=== PATIENT | female | born 1950 | race Caucasian/White ===

== ENCOUNTER 2017-07-20 09:10 | Outpatient (RCR) | payer MEDICARE, SELFPAY ==
--- NOTE | 2017-07-20 14:19 | BH.SGPN_ITS ---
Service Group Progress Note - Session Psychotherapy Session #2 Date Open:: 07/20/17 Time Started:: 10:11 Time Stopped:: 11:08 Targeted Problem #:: 1 Type of Group:: Illness Management - 5 Participants Goal of Group:: To increase understanding of fear and explore the negative impact fear of failure can have on mental health and decision making. Client Response/Progress/Benefit:: This was client?s first day in group, however client entered alert and attentive. Client appeared attentive AEB nodding along with peers and sharing her thoughts. Client connected with quote stating, ?You need to change you thinking, stinkin? thinkin?.? Client collaborated with peer?s to complete a group activity designed to test how individuals manage failure in their own lives. Client was hesitant to participate but persisted due to peer and therapist encouragement. Client was able to successfully complete activity, despite multiple setbacks. Client benefitted in group by processing what failure means and how it can impact one physically. Progress noted in her ability to participate in activity. Continued treatment necessary to reduce anxiety levels and depressive symptoms. Eye Contact:: Good Motor Activity:: Appropriate Appearance:: Casual Speech:: Appropriate Mood:: Euthymic, Anxious Affect:: Full Thoughts:: Linear, Logical, No evidence of hallucinations/delusions noted Staff Interventions:: Therapist facilitated discussion about fear and impact fear of failure can have. Therapist led group in an experiential activity in which client?s would fail numerous times throughout, but were given the opportunity to try again. Therapist led the processing of the activity and assisted clients with connecting how fear of failure impacted their decision making during the activity.
--- NOTE | 2017-07-21 11:38 | BH.SGPN_ITS ---
Service Group Progress Note - Session Psychotherapy Session #3 Date Open:: 07/20/17 Time Started:: 11:15 Time Stopped:: 12:17 Targeted Problem #:: 1 Type of Group:: Functional Skills Development - 5 participants Goal of Group:: To identify the impact fear of failure has had on the group members lives and identify strategies to overcome fear of failure. Client Response/Progress/Benefit:: Client first day in IOP program and did well to remain attentive and engage in the session. She was able to finish completing the activity begun in previous session as well as work with fellow participants on processing how various components relate back to fear of failure in daily life. Client indicated that her anxiety and fears should would let others down during the activity relates back to her own experiences in life. Client described this as stinking thinking and discussed that this is often what sets you back. Client showed progress in her comfort and willingness to engage in discussion reviewing the potential way fear of failure may be holding her back now. Client described her fear of reaching out following experiencing several losses in her life. She shared that she fears losing another support or being rejected. Client benefitted from completing the worksheet in which participants were challenged to identify ways to manage and reframe current fears. Client would do well to remain in IOP program to prevent decompensation, address depressive sx, and begin to develop strategies for challenging negative thinking patterns. Eye Contact:: Good Motor Activity:: Appropriate Appearance:: Casual Speech:: Appropriate Mood:: Euthymic, Anxious Affect:: Full Thoughts:: Linear, Logical, Other - appearing distracted by her own thoughts at times., No evidence of hallucinations/delusions noted Staff Interventions:: Therapist provided each group member with a worksheet to complete that asked questions about their experiences with fear of failure. Therapist led the processing of the worksheet, helping client?s connect how fear of failure has impacted them. Therapist provided support by using active listening and providing feedback.
--- NOTE | 2017-07-21 14:08 | BH.SGPN_ITS ---
Service Group Progress Note - Session Psychotherapy Session #1 Date Open:: 07/21/17 Time Started:: 09:07 Time Stopped:: 09:58 Targeted Problem #:: 1 Type of Group:: Process - 5 Participants Goal of Group:: The goal of today's group was to check-in with client's mood, stressors, and positives, review homework, and to introduce the topic of the day. Client Response/Progress/Benefit:: Client entered session alert and attentive. Client was a positive group member and provided support and feedback to peers. Client shared that her anxiety and depression have been worsening and she feels like she is, ?going to go off the greene and I?m so uncomfortable in my apartment.? Client elaborated and shared that she has nothing to do where she lives and feels, ?isolated and have more worries when I?m in the apartment.? Therapist processed with client the isolation and ways to reduce this by connecting her more with community resources and was receptive to this. Client indicated her emotion as anxiety and depressed. Client benefitted from group by surrounding herself with peers and using social skills. Progress noted in client ?s motivation to find supports around her. Continued treatment necessary to increase level of daily functioning. Eye Contact:: Good Motor Activity:: Appropriate Appearance:: Casual Speech:: Appropriate Mood:: Anxious, Depressed Affect:: Full Thoughts:: Linear, Logical, No evidence of hallucinations/delusions noted Staff Interventions:: Therapist used open-ended questions to elicit information about client's current stressors and mood. Therapist was supportive by using active listening and reflection.
--- NOTE | 2017-07-21 14:50 | BH.SGPN_ITS ---
Service Group Progress Note - Session Psychotherapy Session #2 Date Open:: 07/21/17 - participants Time Started:: 10:10 Time Stopped:: 11:00 Targeted Problem #:: 1 Type of Group:: Illness Management Goal of Group:: To increase understanding of a crisis and improve client?s awareness of personal warning signs before crisis. Client Response/Progress/Benefit:: Client responded well to session, active participant, providing supportive statements. Client processed the quote with peers, sharing one can either grow from bad times or get worse. Client discussed various crises with the group and gained insight on how high stress increases the likelihood of personal crisis. Client shared crisis to her is ? intrusive thoughts, no escape, never ending.? Client reported when she is in crisis she becomes panicked and overwhelmed with emotions and thoughts. Client identified increased loss of interest in things she once enjoyed as a warning sign for crisis. Client appeared to benefit from increasing awareness of what crisis is like for her as well as how stress can impact one's ability to cope with difficult times. Client progressing as shown by her increased engagement in group. Eye Contact:: Good Motor Activity:: Appropriate Appearance:: Casual Speech:: Appropriate Mood:: Depressed Affect:: Constricted Thoughts:: Linear, No evidence of hallucinations/delusions noted Staff Interventions:: Therapist facilitated group discussion about defining a crisis and specifying various events that are considered a crisis. Therapist led group in an activity in which group members had to identify their thoughts and emotions attached to being in a crisis. Therapist provided support by using active listening and providing feedback. Psychotherapy Session #3 Date Open:: 07/21/17 - participants Time Started:: 11:10 Time Stopped:: 12:05 Targeted Problem #:: 1 Type of Group:: Functional Skills Development Goal of Group:: To increase awareness of warning signs before a crisis and identify interventions/coping strategies that would help clients proactively manage potential crises. Client Response/Progress/Benefit:: Client responded well to session, participating in discussion. Client identified her top three warning signs before crisis as uncontrollable worries, loss of interest, and problems with memory. Client processed the crisis cycle and gained insight on how one's problem-solving and concentration abilities are impacted when in crisis which effects coping abilities. Client acknowledged the importance of using coping skills early to prevent crisis. Client identified coping skills to utilize such as talking to someone, doing cross words, and getting out of the house. Client created a crisis kit to remind client of positive coping skills to utilize when she recognizes warning signs. Client selected a heart, shell, feather, rock, and flower to remind client of family, peaceful places, and the outdoors. Client appeared to benefit from creating a visual reminder of healthy coping skills she can utilize to prevent crisis. Client progressing as shown by her increased insight to warning signs, but can continue to progress with identifying internal coping skills. Eye Contact:: Good Motor Activity:: Appropriate Appearance:: Casual Speech:: Soft Mood:: Depressed Affect:: Congruent Thoughts:: Linear, Other - long pauses at times when speaking., No evidence of hallucinations/delusions noted Staff Interventions:: Therapist led the group in discussion about identifying personal warning signs before a crisis and importance of being aware of those signs. Therapist provided the group with various types of items and asked each group member to select five items that represent something that would be helpful in managing their warning signs of a crisis. Therapist facilitated group processing of the crisis emergency kits each group member created. Therapist used open-ended questions to encourage elaboration of each item chosen for their kit. Therapist helped clients connect how the crisis emergency kit could help be a crisis prevention tool.
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
--- NOTE | 2017-07-23 12:29 | BH.DR.ITP ---
Initial Treatment Plan - Patient Information Visit Information: ADMISSION DATE: EXPECTED LOS: 4-6 weeks Diagnoses:: Major depressive disorder F 33.2. Generalized anxiety disorder - Problems/Symptoms Problem #1:: Depression Symptom:: Sad mood, anhedonia, decreased energy, biologic disruption of sleep, thoughts of Problem #2:: anxiety Symptom:: Rumination, panic attacks
--- NOTE | 2017-07-23 15:05 | BH.MTP_ITS ---
Master Treatment Plan - Patient Information Program Physician:: Liz Lopes Primary Therapist:: Kassidy Wilde - Psychiatric Diagnoses Psychiatric Diagnoses:: Major depressive disorder; Generalized anxiety disorder Diagnosis Code(s):: F 33.2. - Estimated LOS Estimated LOS (in weeks):: 6 Problem/Goal #1 - Problem/Goal #1 Stated Goal:: Client will reduce depressive symptoms, feelings of hopelessness, and anhedonia while increasing social supports and self-care. Description of Barriers: Client reports stressors within the last three years to be the loss of several immediate family members including her mother, sister , and brother. Client shared she has not utilized grief services to cope with the losses. Client shares her living situation exacerbates client?s depressive symptoms as client reports ?all my friends are gone and the staff keeps taking stuff away.? Client has health concerns including obstructive sleep apnea and COPD. Client reports limited social supports and estrangement from her son which client states contributes to her anxiety and depression. Client endorses difficulty concentrating, isolation, anhedonia, and poor sleep. Functional Impact: Client has been to the [place] emergency department four times since May due to anxiety and panic attacks. Client reports having panic attacks with shortness of breath, heart palpitations, and thoughts of ?I? m going crazy.? Client reports belief symptoms have been recently exacerbated by grief associated with the of several family members over the past three years as well as loss of connection with friends in her living complex. Client endorses lack of energy, poor sleep, intermittent thoughts of , isolation, depressed mood, rumination, anhedonia, and difficulty concentrating. Client reports her symptoms are interfering with client?s daily functioning and self-care. Goal Relevant Strengths/Supports: Client is kind, resilient, and reports motivation to get better. Client reports some insight to her warning signs, triggers, and negative thought patterns. Client is engaged and receptive during individual and group sessions. Client reports having some supportive people in her life, but states current difficultly with utilizing these supports. Client sees Alma Beasley for outpatient counseling and expresses interest in participating in local mental health groups. - Objectives Objective #1 Stated Objective: Client will increase her social supports, self-care, and engagement in social activities that promote a positive mood to at least one additional activity per week. Interventions: Therapist will assist client in exploring social activities, mental health support groups, and case management services that interest client. Therapist will empower client by helping client establish these connections. Therapist will explore client's self-care patterns and teach client the different strategies for self-care. Discharge Criteria: Client will have achieved this goal when she can report increased social supports and attendance to at least one social activity per week. Target Date: 08/31/17 Review Date: 08/18/17 Status: open Objective #2 Stated Objective: Client will set 1-2 small goals each week to increase self- efficacy and completion of ADLs including hygiene, house care, and attending appointments. Interventions: Therapist will assist client in creating a weekly schedule and goal sheet. Therapist will help client set SMART goals and develop strategies with client to overcome barriers. Therapist will connect client with appropriate community resources should like need additional supports in completing her ADLs. Discharge Criteria: Client will have accomplished this goal when can report increased completion of ADLs and improved energy through accomplishing 1-2 goals a week. Target Date: 08/31/17 Review Date: 08/18/17 Status: open Problem/Goal #2 - Problem/Goal #2 Stated Goal:: Client will reduce overall frequency, intensity, and duration of anxiety so that daily functioning is not impaired. Description of Barriers: Client reports stressors within the last three years to be the loss of several immediate family members including her mother, sister , and brother. Client shared she has not utilized grief services to cope with the losses. Client shares her living situation exacerbates client?s depressive symptoms as client reports ?all my friends are gone and the staff keeps taking stuff away.? Client has health concerns including obstructive sleep apnea and COPD. Client reports limited social supports and estrangement from her son which client states contributes to her anxiety and depression. Client endorses difficulty concentrating, isolation, anhedonia, and poor sleep. Functional Impact: Client has been to the [place] emergency department four times since May due to anxiety and panic attacks. Client reports having panic attacks with shortness of breath, heart palpitations, and thoughts of ?I? m going crazy.? Client reports belief symptoms have been recently exacerbated by grief associated with the of several family members over the past three years as well as loss of connection with friends in her living complex. Client endorses lack of energy, poor sleep, intermittent thoughts of , isolation, depressed mood, rumination, anhedonia, and difficulty concentrating. Client reports her symptoms are interfering with client?s daily functioning and self-care. Goal Relevant Strengths/Supports: Client is kind, resilient, and reports motivation to get better. Client reports some insight to her warning signs, triggers, and negative thought patterns. Client is engaged and receptive during individual and group sessions. Client reports having some supportive people in her life, but states current difficultly with utilizing these supports. Client sees Alma Beasley for outpatient counseling and expresses interest in participating in local mental health groups. - Objectives Objective #1 Stated Objective: Client will learn 2-3 warning signs for anxiety and 2-3 calming skills to reduce overall anxiety and manage panic symptoms. Interventions: Therapist will provide psychoeducation on anxiety including somatic symptoms, stress response, and negative thinking patterns. Therapist will utilize mindfulness and CBT strategies to teach client calming coping skills and encourage client to implement the relaxation skills daily. Discharge Criteria: Client will have achieved this goal when can verbalize at least 2 warning signs and report implementing 2 calming coping skills. Target Date: 08/31/17 Review Date: 08/18/17 Status: open
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
--- NOTE | 2017-07-23 15:05 | BH.MDN ---
Multi-Disciplinary Note - Note 45-min Individual Time Started:: 12:40 Date: 07/23/17 Purpose of session/treatment goals addressed:: The purpose of this session was to build rapport and gather information on client's current stressors, symptoms, supports, functioning, and treatment goals. Another purpose was to provide client with resources for mental health and grief support groups in the area to increase socialization. Eye Contact:: Fair Motor Activity:: Slowed Appearance:: Casual Speech:: Appropriate Mood:: Dysthymic Affect:: Constricted Thoughts:: Linear, No evidence of hallucinations/delusions noted Staff Interventions:: Therapist used active listening and open-ended questions to explore client's current stressors, symptoms, functioning, and treatment goals. Therapist provided emotional support as client spoke about the recent losses in her life. Therapist explored client's support system and provided client with area resources for mental health, case management, and grief support. Therapist used strengths perspective to build rapport and empower client. Client Response:: Client open to meeting with therapist, engaged throughout. Client reported she came to [facility] after being referred from her outpatient therapist. Client stated her therapist thought I needed an extra boost. Client has been to the [facility] ER four times since the end of May for anxiety and panic. Client reports feeling anxious nearly every day for most of the day which client describes as it's like I'm going crazy. Client shared her sleep has been poor and client's living situation is contributing to her depressed mood. Client stated, all my friends are gone and the new owners took away the kitchen area. Client reports she has negative thoughts, feelings of hopelessness, isolation, rumination, lack of concentration, and loss of interest. Client shared she has not been cleaning, visiting with friends, or doing crosswords which are all things client reports doing when she is not depressed. Client stated in the last three years she has lost her mother, sister, brother, and [id number]. Additionally, client reports she has an estranged relationship with her son and does not see her daughter. Client shared she had never received grief services and reports she has few social supports. Client was receptive to information given regarding local support groups as shown by her reported willingness to follow up with therapist's help. Risks/Concerns:: Client reports having passive thoughts of about a week ago, denies plan or intent as of 07/23/17. Client identifies her druze and motivation to get better as protective factors. Client reports ability to maintain safety. Progress Toward Goals/Plan:: Progress limited as it is client's first week in IOP. Client reports a depressed mood, daily anxiety which often results in panic, and numerous recent losses. Client identified her treatment goals as reducing anxiety and depression and increasing self-care. Client expressed interest in case management and grief support groups. Client to continue IOP to prevent decompensation and promote mood stability. Time Stopped:: 13:25
--- NOTE | 2017-07-23 15:37 | BH.SGPN ---
Service Group Progress Note - Session Psychotherapy Session #1 Date Open:: 07/23/17 Time Started:: 09:06 Time Stopped:: 09:58 Targeted Problem #:: 1 Type of Group:: Process Goal of Group:: The goal of today's group was to check-in with client's mood, stressors, and positives, review homework and introduce topic for the day. Client Response/Progress/Benefit:: Client reported her anxiety and depression are off the roof. Shared her anxiety is making it extremely difficult for her to sleep because her thoughts continue to race. Shared she is having a really hard time with her current living situation since his living has moved into her building because assisted living has taken a lot of the spacing that her apartment complex use to utilize to have bingo and other social events. Client feeling quite isolated in her current situation but the same time does not do much to get out of the house to increase her social activity. Seemed to benefit from expressing thoughts and emotions. Progress may be hindered by client continuing to engage in isolated behaviors and not put herself out there to find other social activities she could engage in. Eye Contact:: Fair Motor Activity:: Appropriate Appearance:: Casual Speech:: Appropriate Mood:: Anxious, Depressed Thoughts:: Linear, Logical, No evidence of hallucinations/delusions noted Staff Interventions:: Therapist used open-ended questions to elicit information about client's current stressors and mood state. Therapist was supportive by using active listening and reflection.
--- NOTE | 2017-07-23 16:31 | BH.SGPN ---
Service Group Progress Note - Session Psychotherapy Session #2 Date Open:: 07/23/17 Time Started:: 11:17 Time Stopped:: 12:16 Targeted Problem #:: 1 Type of Group:: Functional Skills Development - 3 participants Goal of Group:: The goal of this session was to create a 30 day action plan that provides small goals that work towards taking action on one thing they would like to take back control over. Staff Interventions:: Therapist provided materials and guidance to help clients create a 30 day action plan. Therapist provided support by giving feedback and using active listening.
--- NOTE | 2017-07-24 12:29 | BH.SGPN ---
Service Group Progress Note - Session Psychotherapy Session #1 Date Open:: 07/24/17 Time Started:: 09:05 Time Stopped:: 10:00 Targeted Problem #:: 1 Type of Group:: Process Goal of Group:: The goal of today's group was to check-in with client's mood, stressors, and positives, review homework and introduce topic for the day. Client Response/Progress/Benefit:: Client reported she is continuing to struggle with feeling anxiety and depression. Shared she had to go fill out some paperwork the other day and was anxious the entire time she was out of her apartment. However she shared she does not really like to be in apartment because it also increases her depression. Client talked about not really having a place to go because of assisted living has taken a lot of the parts where the apartment complex used to do social events. Client seems to be struggling with generalizing that healthy coping skills and continues to isolate. Eye Contact:: Fair Motor Activity:: Appropriate Appearance:: Casual Speech:: Appropriate Mood:: Anxious, Depressed Affect:: Constricted Thoughts:: Linear, Logical, No evidence of hallucinations/delusions noted Staff Interventions:: Therapist used open-ended questions to elicit information about client's current stressors and mood state. Therapist was supportive by using active listening and reflection.
--- NOTE | 2017-07-24 14:22 | BH.SGPN_ITS ---
Service Group Progress Note - Session Psychotherapy Session #2 Date Open:: 07/24/17 - 6 participants Time Started:: 10:17 Time Stopped:: 11:13 Targeted Problem #:: 1 Type of Group:: Illness Management Goal of Group:: To increase understanding and awareness of emotions connected to change and the impact those emotions can have on change. Client Response/Progress/Benefit:: Client responded well to session, quiet, but participating when prompted by therapist. Client appeared to connect with the quote nodding to peers? comments ?there?s no right time for change.? Client able to identify emotions associated with making change such as confidence, fear , and being overwhelmed. Client stated ?you need to have confidence to make changes.? Client processed with the group how ambivalence, denial, and lack of acceptance can hinder one?s willingness to make changes. Client appeared to benefit from increasing awareness of the emotions associated with making change and how these emotions impact thoughts and behaviors. Client progressing as evidenced by her increased engagement in group, but can continue to benefit from increasing her socialization outside of group. Eye Contact:: Good Motor Activity:: Appropriate Appearance:: Disheveled - hygiene poor Speech:: Appropriate, Soft Mood:: Dysthymic Affect:: Congruent Thoughts:: Linear, Other - client appeared to struggle with formulating thoughts at times as evidenced by her delayed responses., No evidence of hallucinations/delusions noted Staff Interventions:: Therapist facilitated group discussion about change. Therapist led the group in an activity in which the activity was utilized as a tool to increase client?s awareness of emotions connected with change. Therapist led the processing of how each emotion was associated with change. Therapist also educated clients on the stages of change and discussed emotions associated with each stage. Therapist was supportive by providing feedback and using reflective listening.
--- NOTE | 2017-07-24 14:27 | BH.COMM ---
Communication Note - Communication with Client Communication Note: Therapist provided client with information on [facility] and case management as client had expressed interest in increasing her socialization. Therapist and client agreed to meet individually on 07/28/17.
--- NOTE | 2017-07-28 11:19 | BH.SGPN ---
Service Group Progress Note - Session Psychotherapy Session #1 Date Open:: 07/28/17 Time Started:: 09:01 Time Stopped:: 09:58 Targeted Problem #:: 1 Type of Group:: Process - 7 participants. Goal of Group:: The goal of today's group was to check-in with client's mood, stressors, and positives, review homework and introduce topic for the day. Client Response/Progress/Benefit:: Client attentive and actively engaged in session. She discussed having had a quiet weekend however indicated frustration regarding ongoing struggles with managing her symptoms of anxiety and depression. She shared taking a trip to the grocery store the previous day which had felt extremely overwhelming and exhausted her to the point that she was unable to put her groceries away upon arriving home. Client went on to report feeling as though indication is not correct and wanting an increase in anti-anxiety. Client appears to have little insight into alternative strategies for managing symptoms of anxiety and depression outside of medication and would benefit from ongoing IOP treatment in order to increase awareness and levels of insight regarding healthy coping skills. Progress made in clients receptiveness of trying alternative strategies for managing her symptoms before returning to focusing on medication alone. Client appeared to benefit from information shared as fellow participants processed as she indicated connecting with other participants frustrations in feeling as through regarding their mental health. Eye Contact:: Fair Motor Activity:: Appropriate Appearance:: Casual Speech:: Appropriate Mood:: Anxious, Dysthymic Affect:: Congruent Thoughts:: Linear, Logical, No evidence of hallucinations/delusions noted Staff Interventions:: Therapist used open-ended questions to elicit information about client's current stressors and mood state. Therapist was supportive by using active listening and reflection.
--- NOTE | 2017-07-28 14:36 | BH.SGPN_ITS ---
Service Group Progress Note - Session Psychotherapy Session #2 Date Open:: 07/28/17 Time Started:: 10:10 Time Stopped:: 11:04 Targeted Problem #:: 1 Type of Group:: Illness Management - 7 Participants Goal of Group:: To increase understanding of mindfulness and explore the benefits of mindfulness and what thoughts are prohibiting group members from staying in the here and now. Client Response/Progress/Benefit:: Client entered session alert, attentive, and willing to engage. Client was an active participant in group. Client participated in group discussion about the difficulties of staying in the present moment. Client participated in group activity designed to reduce negative thoughts and current stressors. Client completed stressor worksheet and identified various stressors including, ?having no supports, loneliness, fear, depression, confusion, and anger.? Client went on to share that her children either were no longer in contact with her or moved far away and missed the connection with others. Client benefitted from group by identifying current stressors in life and the impact they have on daily functioning. Progress noted in client?s increased awareness of stressors. Continued treatment necessary to decrease levels of anxiety. Eye Contact:: Good Motor Activity:: Appropriate Appearance:: Casual Speech:: Appropriate Mood:: Euthymic Affect:: Full Thoughts:: Linear, Logical, No evidence of hallucinations/delusions noted Staff Interventions:: Therapist facilitated discussion about mindfulness and benefits mindfulness practice can have. Therapist led group in an experiential activity designed to reduce negative thoughts and worries and bring client into the present moment and practice techniques designed to reduce anxiety and stress. Therapist provided a worksheet to complete that asked questions about possible stressor and overwhelming thoughts that take up their attention. Therapist led in the processing of the activity, worksheet, and assisted client in connecting how when faced with overwhelming thoughts or negative self-talk and the impact it has to daily functioning. Psychotherapy Session #3 Date Open:: 07/28/17 Time Started:: 11:10 Time Stopped:: 12:05 Targeted Problem #:: 1 Type of Group:: Functional Skills Development - 7 Participants Goal of Group:: To identify the impact that negative thinking patterns has had on group members lives and how using mindfulness techniques and coping strategies can assist group members in managing overwhelming thoughts and feelings. Client Response/Progress/Benefit:: Client was alert, attentive, and willing to engage. Client was a good contributor to group and provided support to peers. Client participated in group discussion about coping strategies to use to bring client back to the here and now. Client created a mindfulness kit and chose a shell for the beach, a pink heart and elephant to remind her of her family and a pebble for the water. Client created a stress ball and identified the coping strategies she would use to decrease her worries as, ?grandkids names, two stars , figure 8 breathing, and 3 crosses.? Client benefitted from creating a mindfulness to that includes tangible items that can help client to remember to use positive skills that can be helpful to her identifying ruminating thoughts. Progress noted in client?s ability to identify coping skills that are beneficial to her stressors. Continued treatment necessary to increase daily functioning and connect with supports. Eye Contact:: Good Motor Activity:: Appropriate Appearance:: Casual Speech:: Appropriate Mood:: Euthymic Affect:: Full Thoughts:: Linear, Logical, No evidence of hallucinations/delusions noted Staff Interventions:: Therapist discussed varying coping strategies to use to reduce ruminating thoughts. Therapist provided each group member with various types of items and asked each member to select five items that represent something that would be helpful in creating awareness of warning signs and that will assist in bringing clients back to present moment. Therapist facilitated group processing of the mindfulness kits that each group member created. Therapist used open-ended questions to encourage elaboration of each time chosen for their kits. Therapist helped clients connect how the mindfulness kits can be used as a prevention tool and reminder to use mindfulness strategies.
--- NOTE | 2017-07-28 15:13 | BH.COMM ---
Communication Note - Communication with Client Communication Note: This therapist attempted to call client's outpatient provider, Alma Beasley, for continuity of care purposes. Therapist unable to reach provider and left a message.
--- NOTE | 2017-07-29 10:24 | BH.SGPN ---
Service Group Progress Note - Session Psychotherapy Session #1 Date Open:: 07/29/17 - 7 group members Time Started:: 08:57 Time Stopped:: 10:07 Targeted Problem #:: 1 Type of Group:: Process Goal of Group:: The goal of today's group was to check-in with client's mood, stressors, and positives, review homework and introduce topic for the day. Client Response/Progress/Benefit:: Client responded somewhat well to session, active participant, but appearing distracted at times. Client reports feeling depressed and anxious today, however, client unable to identify a trigger. Client shared she got a full night's sleep which client identified as a positive. Client stated she can try to clean her apartment and run some errands today to reduce anxiety and depression. Client appeared to benefit from discussing her challenges with peers and problem-solving ways to combat her negative emotions. Client seems to be progressing with improved sleep, but continues to struggle with identifying triggers for her symptoms. Eye Contact:: Fair - staring at the floor Motor Activity:: Slowed Appearance:: Casual Speech:: Soft Mood:: Dysthymic Affect:: Flat - tearful Thoughts:: Linear, No evidence of hallucinations/delusions noted Staff Interventions:: Therapist used open-ended questions to elicit information about client's current stressors and mood state. Therapist was supportive by using active listening and reflection.
--- NOTE | 2017-07-29 15:26 | BH.MDN ---
Multi-Disciplinary Note - Note 45-min Individual Time Started:: 11:25 Date: 07/29/17 Purpose of session/treatment goals addressed:: The purpose of this session was to address client's current stressors, symptoms, and functioning. Another goal was to establish small goals to increase daily activities and medication compliance. Other topics included: social supports and negative maintenance cycles. Eye Contact:: Fair Motor Activity:: Slowed Appearance:: Casual - hair appeared washed clothes were clean. Speech:: Rambling Mood:: Dysthymic Affect:: Congruent Thoughts:: Other - Client appeared to have difficulty formulating her thoughts at times and stated she is having challenges with memory., No evidence of hallucinations/delusions noted Staff Interventions:: Therapist used open-ended questions and active listening to explore client's stressors, symptoms, and functioning. Therapist helped client develop small goals for tonight and tomorrow to increase medication compliance, completion of household tasks, and self-care. Therapist provided client community resources for social supports and case management. Therapist used motivational interviewing techniques to elicit change talk. Therapist educated client on the depression maintenance cycle and discussed ways to break the cycle. Therapist gave client homework aimed to increase medication compliance and self-efficacy. Client Response:: Client open to meeting with therapist, reporting some difficulty with formulating thoughts. Client shared she feels increased anxiety and depression today which client contributes to missing a day of her medication for medical conditions. Client stated, I just feel so shaky. Client was receptive to creating a tool to remind client to take medications. Client shared she will record when the times she takes her medications and this therapist will provide accountability by signing the paper. Client reported last night she was proud of herself as client cleaned some of her apartment, attended [employer] study, and spent time with a friend. Client reported her housing and lack of supports continue to be an ongoing stressor and contributor for depression. Client shared when she is active it reduces her anxiety and depression. Client was receptive to the community resources provided by therapist, sharing she is interested in attending the community center for [employer] activities. However, client shared her depressive symptoms are a barrier as she has reduced motivation. Client responded well to discussion of maintenance cycles and utilizing opposite action. Client identified cleaning 5 dishes and watching a show she enjoys as her goal for the evening to increase self-care and completion of ADLs. Client agreed to follow up with therapist on her goals and medication recording. Risks/Concerns:: Client denies suicidal ideation, plan, and intent as of 07/29/17. Client reports she is motivated to get better which demonstrates future orientation. Progress Toward Goals/Plan:: Client showing mild progress towards treatment goals as client reported she cleaned part of her apartment last night and attend bible study. Client reports increased anxiety today which client contributes to missing a day of medications. Client to continue IOP to promote mood stability, increase socialization, and promote medication management. Client to record when she takes her medications and follow up with IOP therapist. Time Stopped:: 12:12
--- NOTE | 2017-07-29 16:06 | BH.SGPN ---
Service Group Progress Note - Session Psychotherapy Session #2 Date Open:: 07/29/17 Time Started:: 10:20 Time Stopped:: 11:10 Targeted Problem #:: 1 Type of Group:: Illness Management - 7 participants Goal of Group:: To increase understanding of what strengths are and identify individual strengths. Client Response/Progress/Benefit:: Client willing to attend session and was a semi-active participant throughout. She did well to engage in the activity portion of the session; however, appeared to have some difficulties in following the discussion identifying personal strengths. Client quiet throughout most of the session however with encouragement did well to identify a personal strength of trying to figure out what all I need to do. Client appeared to benefit from participating in the activity portion of session as she more openly interacted with the group and was smiling on several occassions. CLient displaying some progress in her ability to engage in the session. Encouraged further IOP services to continue to maintain stability and identify potential strategies for identifying and managing symptoms of anxiety and depression. Eye Contact:: Fair Motor Activity:: Appropriate Appearance:: Casual Speech:: Appropriate Mood:: Euthymic, Anxious Affect:: Constricted Thoughts:: Linear, Logical, Other - at times appearing to have difficulties in following group discussion, No evidence of hallucinations/delusions noted Staff Interventions:: Therapist facilitated discussion about what are strengths and assisted group members in identifying examples of strengths. Therapist led an activity in which group members were given the opportunity to identify five personal strengths and how not utilizing these strengths may prevent progress and successful management of mental health symptoms. Therapist assisted clients in connecting the importance of recognizing personal strengths in order to most effectively manage mental health symptoms.
--- NOTE | 2017-07-29 16:09 | BH.MDN_ITS ---
Multi-Disciplinary Note - Note 45-min Individual Time Started:: 11:25 Date: 07/29/17 Purpose of session/treatment goals addressed:: The purpose of this session was to address client's current stressors, symptoms, and functioning. Another goal was to establish small goals to increase daily activities and medication compliance. Other topics included: social supports and negative maintenance cycles. Eye Contact:: Fair Motor Activity:: Slowed Appearance:: Casual - hair appeared washed clothes were clean. Speech:: Rambling Mood:: Dysthymic Affect:: Congruent Thoughts:: Other - Client appeared to have difficulty formulating her thoughts at times and stated she is having challenges with memory., No evidence of hallucinations/delusions noted Staff Interventions:: Therapist used open-ended questions and active listening to explore client's stressors, symptoms, and functioning. Therapist helped client develop small goals for tonight and tomorrow to increase medication compliance, completion of household tasks, and self-care. Therapist provided client community resources for social supports and case management. Therapist used motivational interviewing techniques to elicit change talk. Therapist educated client on the depression maintenance cycle and discussed ways to break the cycle. Therapist gave client homework aimed to increase medication compliance and self-efficacy. Client Response:: Client open to meeting with therapist, reporting some difficulty with formulating thoughts. Client shared she feels increased anxiety and depression today which client contributes to missing a day of her medication for medical conditions. Client stated, I just feel so shaky. Client was receptive to creating a tool to remind client to take medications. Client shared she will record when the times she takes her medications and this therapist will provide accountability by signing the paper. Client reported last night she was proud of herself as client cleaned some of her apartment, attended [id number] study, and spent time with a friend. Client reported her housing and lack of supports continue to be an ongoing stressor and contributor for depression. Client shared when she is active it reduces her anxiety and depression. Client was receptive to the community resources provided by therapist, sharing she is interested in attending the community center for [employer] activities. However, client shared her depressive symptoms are a barrier as she has reduced motivation. Client responded well to discussion of maintenance cycles and utilizing opposite action. Client identified cleaning 5 dishes and watching a show she enjoys as her goal for the evening to increase self-care and completion of ADLs. Client agreed to follow up with therapist on her goals and medication recording. Risks/Concerns:: Client denies suicidal ideation, plan, and intent as of . Client reports she is motivated to get better which demonstrates future orientation. Progress Toward Goals/Plan:: Client showing mild progress towards treatment goals as client reported she cleaned part of her apartment last night and attend bible study. Client reports increased anxiety today which client contributes to missing a day of medications. Client to continue IOP to promote mood stability, increase socialization, and promote medication management. Client to record when she takes her medications and follow up with IOP therapist. Time Stopped:: 12:12
--- NOTE | 2017-07-30 10:31 | BH.SGPN_ITS ---
Service Group Progress Note - Session Psychotherapy Session #1 Date Open:: 07/30/17 - 6 group members Time Started:: 09:04 Time Stopped:: 10:00 Targeted Problem #:: 1 Type of Group:: Process Goal of Group:: The goal of today's group was to check-in with client's mood, stressors, and positives, review homework and introduce topic for the day. Client Response/Progress/Benefit:: Client responded well to session, quiet, but participating when prompted by therapist. Client reports feeling ?shaky? today as client had a restless night and had unexpected events happen this morning. Client able to challenge negative thoughts and identify a positive for the day as client shared ?I came to group even though I was upset so that?s good.? Client appeared to benefit from receiving emotional and social support from peers. Client progressing as evidenced by her consistent attendance despite feelings of depression and anxiety, but can continue to benefit from increased socialization outside of group. Eye Contact:: Poor Motor Activity:: Slowed Appearance:: Disheveled Speech:: Soft Mood:: Dysthymic Affect:: Constricted Thoughts:: Linear, No evidence of hallucinations/delusions noted Staff Interventions:: Therapist used open-ended questions to elicit information about client's current stressors and mood state. Therapist was supportive by using active listening and reflection.
--- NOTE | 2017-07-31 10:25 | BH.COMM ---
Communication Note - Communication with Client Communication Note: Client called to report she was unable to make it to her IOP group session today due to illness. Client reports plan to attend group 08/03/17.
--- NOTE | 2017-08-03 13:52 | BH.SGPN ---
Service Group Progress Note - Session Psychotherapy Session #2 Date Open:: 08/03/17 - 7 group members Time Started:: 10:11 Time Stopped:: 11:03 Targeted Problem #:: 1 Type of Group:: Illness Management Goal of Group:: The goal of group was to increase understanding of the benefits social support provides in mental health wellness. Another goal was to increase self-awareness of the barriers that prevent client to seeking support or utilizing the support they have. Client Response/Progress/Benefit:: Client responded well to session, active participant. Client connected with the quote sharing you need supports to balance you. Client shared her support system is smaller than it was in the past, but she finds support from [facility], scientology, and a few friends. Client reported some of my supports dont try to reach out to me, so I dont reach out to them. Client able to identify this as a barrier that could hinder progress. Client appeared to benefit from increasing awareness of the benefits of social support as well as identifying barriers. Client progressing as shown by her increased engagement in group and reduced isolation. However, client continues to struggle with maintaining a routine on days she is not at IOP which increases anxiety and depression. Eye Contact:: Fair Motor Activity:: Slowed Appearance:: Disheveled Speech:: Soft Mood:: Dysthymic Affect:: Congruent Thoughts:: Linear, No evidence of hallucinations/delusions noted Staff Interventions:: Therapist led a group discussion about importance of social supports. Therapist facilitated an activity that required the group members to utilize support from each other. Therapist utilized the activity as a tool to connect the importance of accepting social support. Therapist provided support through reflective listening and giving feedback. Psychotherapy Session #3 Date Open:: 08/03/17 - 7 group members Time Started:: 11:13 Time Stopped:: 12:05 Targeted Problem #:: 1 Type of Group:: Functional Skills Development Goal of Group:: The goal of group was to increase understanding of the different types of social support. Another goal was to identify one type of support the clients desire and establish one small step towards achieving that support. Client Response/Progress/Benefit:: Client responded well to session, engaged but quiet at times. Client helped the group identify different types of support and how each type can positive impact mental health. Client shared she currently uses spiritual and professional social supports, but client would like to increase her personal supports. Client stated she would like to feel connected with friends again as clients change in living reduced her supports in the past. Client identified strategies to strengthen this support such as setting boundaries with unhealthy supports and going to the community center to play games. Client appeared to benefit from increasing awareness of the type of support she can strengthen. Client progressing as shown by her report of reduced isolation, but continues to report low motivation and energy keep client from joining support groups which may hinder progress. Eye Contact:: Good Motor Activity:: Slowed Appearance:: Disheveled Speech:: Soft Mood:: Dysthymic Affect:: Constricted Thoughts:: Linear, No evidence of hallucinations/delusions noted Staff Interventions:: Therapist facilitated group discussion on the different types of social support and importance of each type of support. A social support worksheet, was utilized to give clients direction in identifying which type of support they desired, how it will help, and identifying the first small step towards the desired support. Therapist provided homework for each group member to try and accomplish the one small step each group member identified on the worksheet.
--- NOTE | 2017-08-03 13:56 | BH.SGPN_ITS ---
Service Group Progress Note - Session Psychotherapy Session #2 Date Open:: 08/03/17 - 7 group members Time Started:: 10:11 Time Stopped:: 11:03 Targeted Problem #:: 1 Type of Group:: Illness Management Goal of Group:: The goal of group was to increase understanding of the benefits social support provides in mental health wellness. Another goal was to increase self-awareness of the barriers that prevent client to seeking support or utilizing the support they have. Client Response/Progress/Benefit:: Client responded well to session, active participant. Client connected with the quote sharing you need supports to balance you.? Client shared her support system is smaller than it was in the past, but she finds support from [facility], oriental orthodox, and a few friends. Client reported ?some of my supports don?t try to reach out to me, so I don?t reach out to them.? Client able to identify this as a barrier that could hinder progress. Client appeared to benefit from increasing awareness of the benefits of social support as well as identifying barriers. Client progressing as shown by her increased engagement in group and reduced isolation. However, client continues to struggle with maintaining a routine on days she is not at IOP which increases anxiety and depression. Eye Contact:: Fair Motor Activity:: Slowed Appearance:: Disheveled Speech:: Soft Mood:: Dysthymic Affect:: Congruent Thoughts:: Linear, No evidence of hallucinations/delusions noted Staff Interventions:: Therapist led a group discussion about importance of social supports. Therapist facilitated an activity that required the group members to utilize support from each other. Therapist utilized the activity as a tool to connect the importance of accepting social support. Therapist provided support through reflective listening and giving feedback. Psychotherapy Session #3 Date Open:: 08/03/17 - 7 group members Time Started:: 11:13 Time Stopped:: 12:05 Targeted Problem #:: 1 Type of Group:: Functional Skills Development Goal of Group:: The goal of group was to increase understanding of the different types of social support. Another goal was to identify one type of support the client?s desire and establish one small step towards achieving that support. Client Response/Progress/Benefit:: Client responded well to session, engaged but quiet at times. Client helped the group identify different types of support and how each type can positive impact mental health. Client shared she currently uses spiritual and professional social supports, but client would like to increase her personal supports. Client stated she would like to feel connected with friends again as client?s change in living reduced her supports in the past. Client identified strategies to strengthen this support such as setting boundaries with unhealthy supports and going to the community center to play games. Client appeared to benefit from increasing awareness of the type of support she can strengthen. Client progressing as shown by her report of reduced isolation, but continues to report low motivation and energy keep client from joining support groups which may hinder progress. Eye Contact:: Good Motor Activity:: Slowed Appearance:: Disheveled Speech:: Soft Mood:: Dysthymic Affect:: Constricted Thoughts:: Linear, No evidence of hallucinations/delusions noted Staff Interventions:: Therapist facilitated group discussion on the different types of social support and importance of each type of support. A social support worksheet, was utilized to give clients direction in identifying which type of support they desired, how it will help, and identifying the first small step towards the desired support. Therapist provided homework for each group member to try and accomplish the one small step each group member identified on the worksheet.
--- NOTE | 2017-08-03 14:38 | BH.SGPN ---
Service Group Progress Note - Session Psychotherapy Session #1 Date Open:: 08/03/17 Time Started:: 09:06 Time Stopped:: 10:00 Targeted Problem #:: 1 Type of Group:: Process - 7 Participants Goal of Group:: The goal of today's group was to check-in with client's mood, stressors, and positives, review homework, and to introduce the topic of the day. Client Response/Progress/Benefit:: Client entered session alert and attentive. Client reported, the past few days the anxiety has been bad. She shared how it was difficult for her to stay in sikh due to the anxiety but forced herself to do it. When asked what she has done to manage anxiety she reported, Oh, I try to keep busy but I didnt handle it well. I start itching all over. Client also reported having no support system to turn to. Client indicated her emotion as, my anxiety is up the wall. Client benefitted from group from increased social interaction and support from peers. Limited progress noted due to clients ability to complete some daily activities despite high anxiety, however client appears unwilling to try to increase supports. Continued treatment necessary to implement coping strategies and decrease anxiety levels. Eye Contact:: Good Motor Activity:: Appropriate Appearance:: Casual Speech:: Appropriate Mood:: Euthymic, Anxious Affect:: Congruent Thoughts:: Linear, Logical, No evidence of hallucinations/delusions noted Staff Interventions:: Therapist used open-ended questions to elicit information about client's current stressors and mood. Therapist was supportive by using active listening and reflection.
--- NOTE | 2017-08-03 14:42 | BH.SGPN_ITS ---
Service Group Progress Note - Session Psychotherapy Session #1 Date Open:: 08/03/17 Time Started:: 09:06 Time Stopped:: 10:00 Targeted Problem #:: 1 Type of Group:: Process - 7 Participants Goal of Group:: The goal of today's group was to check-in with client's mood, stressors, and positives, review homework, and to introduce the topic of the day. Client Response/Progress/Benefit:: Client entered session alert and attentive. Client reported, ?the past few days the anxiety has been bad.? She shared how it was difficult for her to stay in congregation due to the anxiety but forced herself to do it. When asked what she has done to manage anxiety she reported, ? Oh, I try to keep busy but I didn?t handle it well. I start itching all over.? Client also reported having no support system to turn to. Client indicated her emotion as, ?my anxiety is up the wall.? Client benefitted from group from increased social interaction and support from peers. Limited progress noted due to client?s ability to complete some daily activities despite high anxiety, however client appears unwilling to try to increase supports. Continued treatment necessary to implement coping strategies and decrease anxiety levels. Eye Contact:: Good Motor Activity:: Appropriate Appearance:: Casual Speech:: Appropriate Mood:: Euthymic, Anxious Affect:: Congruent Thoughts:: Linear, Logical, No evidence of hallucinations/delusions noted Staff Interventions:: Therapist used open-ended questions to elicit information about client's current stressors and mood. Therapist was supportive by using active listening and reflection.
--- NOTE | 2017-08-04 11:19 | BH.MDN ---
Multi-Disciplinary Note - Note 30-min Individual Time Started:: 09:05 Date: 08/04/17 Purpose of session/treatment goals addressed:: The purpose of this session was to address client's current stressors, symptoms, and use of social supports. Another goal was to explore client's motivation for change and areas of progress. Eye Contact:: Good Motor Activity:: Appropriate Appearance:: Disheveled - hair appeared unclean Speech:: Soft Mood:: Dysthymic Affect:: Congruent Thoughts:: Linear, No evidence of hallucinations/delusions noted Staff Interventions:: Therapist used active listening and open-ended questions to explore client's current symptoms, stressors, and use of social supports. Therapist used scaling questions to explore client's motivation for change and addressed barriers keeping client from making changes. Therapist used strengths-perspective to reflect on client progress and identify positives. Therapist provided client with homework to assess interest level in community activities and help client practice acknowledging positives. Client Response:: Client responded well to session, engaged throughout. Client reported belief group has helped client reduce anxiety as client stated, I feel comfortable here and I like being able to talk to people who get it. Client shared she continues to experience high anxiety and depression on the weekends and on days client does not attend group. Client and therapist discussed coping skills, supports, and activities client can engage in to reduce anxiety on those days. Client reported she can go get coffee, read her bible, and go to the grocery store. Client stated it is hard for her to identify triggers and warning signs for her anxiety, but client shared normally if I'm doing something it goes away. Client acknowledged she could use additional social support and expressed interest in grief support groups. However, client reported anxiety is a barrier to her seeking this help as client shared it's a new experience and I don't know how it will go. Client responded well to therapist reflecting on times when client had positive outcomes from new experiences. Client stated, coming here ended up being positive. Client asked therapist to contact her outpatient provider to determine client's next appointment time. Risks/Concerns:: Client denies suicidal ideation, plan, and intent as of 08/04/17. Client reports coming to group and holiness as protective factors. Progress Toward Goals/Plan:: Client showing mild progress towards treatment goals as client reports symptom reduction on days client attends IOP, but continues to experience low energy, anhedonia, and isolation outside of group. Client appears to be benefitting from peer connections at IOP, but reports reluctance to participate in community mental health programs. Client to continue IOP to prevent decompensation and promote social supports. Client to follow up on outpatient counseling and complete homework given by therapist. Time Stopped:: 09:36
--- NOTE | 2017-08-04 11:46 | BH.MDN_ITS ---
Multi-Disciplinary Note - Note 30-min Individual Time Started:: 09:05 Date: 08/04/17 Purpose of session/treatment goals addressed:: The purpose of this session was to address client's current stressors, symptoms, and use of social supports. Another goal was to explore client's motivation for change and areas of progress. Eye Contact:: Good Motor Activity:: Appropriate Appearance:: Disheveled - hair appeared unclean Speech:: Soft Mood:: Dysthymic Affect:: Congruent Thoughts:: Linear, No evidence of hallucinations/delusions noted Staff Interventions:: Therapist used active listening and open-ended questions to explore client's current symptoms, stressors, and use of social supports. Therapist used scaling questions to explore client's motivation for change and addressed barriers keeping client from making changes. Therapist used strengths- perspective to reflect on client progress and identify positives. Therapist provided client with homework to assess interest level in community activities and help client practice acknowledging positives. Client Response:: Client responded well to session, engaged throughout. Client reported belief group has helped client reduce anxiety as client stated, I feel comfortable here and I like being able to talk to people who get it. Client shared she continues to experience high anxiety and depression on the weekends and on days client does not attend group. Client and therapist discussed coping skills, supports, and activities client can engage in to reduce anxiety on those days. Client reported she can go get coffee, read her bible, and go to the grocery store. Client stated it is hard for her to identify triggers and warning signs for her anxiety, but client shared normally if I'm doing something it goes away. Client acknowledged she could use additional social support and expressed interest in grief support groups. However, client reported anxiety is a barrier to her seeking this help as client shared it's a new experience and I don't know how it will go. Client responded well to therapist reflecting on times when client had positive outcomes from new experiences. Client stated, coming here ended up being positive. Client asked therapist to contact her outpatient provider to determine client's next appointment time. Risks/Concerns:: Client denies suicidal ideation, plan, and intent as of . Client reports coming to group and anabaptism as protective factors. Progress Toward Goals/Plan:: Client showing mild progress towards treatment goals as client reports symptom reduction on days client attends IOP, but continues to experience low energy, anhedonia, and isolation outside of group. Client appears to be benefitting from peer connections at IOP, but reports reluctance to participate in community mental health programs. Client to continue IOP to prevent decompensation and promote social supports. Client to follow up on outpatient counseling and complete homework given by therapist. Time Stopped:: 09:36
--- NOTE | 2017-08-04 12:24 | BH.SGPN ---
Service Group Progress Note - Session Psychotherapy Session #3 Date Open:: 08/04/17 Time Started:: 11:10 Time Stopped:: 12:10 Targeted Problem #:: 1 Type of Group:: Functional Skills Development - 6 Participants Goal of Group:: To identify what stressors have control over and what stressors have no control over. Client Response/Progress/Benefit:: Client was again alert and attentive throughout group. Client was apprehensive to participate in group but with encouragement client fully participated in group activity designed to elicit stress from client and determine how client manages stressful situations. Client stopped assisted through activity and sat down but continued providing verbal support to her peers and reported that she was to anxious and shaky to complete activity. Client was able to identify how she reacts to stress as, staying stuck but benefitted from being able to identify healthy coping strategies to reduce feelings of being stuck such as, avoid toxic people and accept the things that I cannot change. Progress noted in clients insight into how her behaviors are affecting her. Continued treatment necessary to increase implementation of coping skills for anxiety symptoms. Eye Contact:: Good Motor Activity:: Appropriate Appearance:: Casual Speech:: Appropriate Mood:: Euthymic, Anxious Affect:: Full Thoughts:: Linear, Logical, No evidence of hallucinations/delusions noted Staff Interventions:: Therapist facilitated discussion about control versus no control and helped group members connect the concept to stressors. Therapist led an activity in which group members differentiated which stressors are in their control and which are out of their control. Therapist processed with group if the stressors were in the right category. Therapist led discussion about importance of putting forth more energy on those stressors they can control.
--- NOTE | 2017-08-04 14:35 | BH.SGPN ---
Service Group Progress Note - Session Psychotherapy Session #2 Date Open:: 08/04/17 Time Started:: 10:05 Time Stopped:: 10:57 Targeted Problem #:: 1 Type of Group:: Functional Skills Development Goal of Group:: To increase understanding of what stress is, identify current life stressors, and connect impact stressors have on mental health. Client Response/Progress/Benefit:: Client listened to others and contributed at times to discussion. Appeared more engaged compared to previous group sessions. Client identified her current stressors to include: Borderline, doctor's visits, no motivation, depression, being in crowds, deaths of close family members, disrespectful people, insomnia, no money, kids asking for money, daughter living out of state, driving in traffic, and anxiety, and assisted living taking over her apartment complex. Client identified that anxiety and depression to be largest stressors currently in life that are impacting her the most negatively. Client seemed benefit from increasing awareness of her current stressors as well as the impact her reaction to stress can have on her. Eye Contact:: Fair Motor Activity:: Appropriate Appearance:: Casual Speech:: Appropriate Mood:: Anxious, Depressed Affect:: Constricted Thoughts:: Linear, Logical, No evidence of hallucinations/delusions noted Staff Interventions:: Therapist facilitated discussion about stress. Therapist facilitated an activity in which group members were asked to identify various stressors they have in their life currently. Therapist instructed group members to indicate if certain stressors were larger than others. Therapist led processing of each member?s stress jar and helped them connect impact the stress has on their mental health.
--- NOTE | 2017-08-04 14:39 | BH.SGPN_ITS ---
Service Group Progress Note - Session Psychotherapy Session #2 Date Open:: 08/04/17 Time Started:: 10:05 Time Stopped:: 10:57 Targeted Problem #:: 1 Type of Group:: Functional Skills Development Goal of Group:: To increase understanding of what stress is, identify current life stressors, and connect impact stressors have on mental health. Client Response/Progress/Benefit:: Client listened to others and contributed at times to discussion. Appeared more engaged compared to previous group sessions. Client identified her current stressors to include: Borderline, doctor's visits, no motivation, depression, being in crowds, deaths of close family members, disrespectful people, insomnia, no money, kids asking for money , daughter living out of state, driving in traffic, and anxiety, and assisted living taking over her apartment complex. Client identified that anxiety and depression to be largest stressors currently in life that are impacting her the most negatively. Client seemed benefit from increasing awareness of her current stressors as well as the impact her reaction to stress can have on her. Eye Contact:: Fair Motor Activity:: Appropriate Appearance:: Casual Speech:: Appropriate Mood:: Anxious, Depressed Affect:: Constricted Thoughts:: Linear, Logical, No evidence of hallucinations/delusions noted Staff Interventions:: Therapist facilitated discussion about stress. Therapist facilitated an activity in which group members were asked to identify various stressors they have in their life currently. Therapist instructed group members to indicate if certain stressors were larger than others. Therapist led processing of each member???s stress jar and helped them connect impact the stress has on their mental health.
--- NOTE | 2017-08-05 14:47 | BH.SGPN_ITS ---
Service Group Progress Note - Session Psychotherapy Session #2 Date Open:: 08/05/17 - 10 group members Time Started:: 10:25 Time Stopped:: 11:19 Targeted Problem #:: 1 Type of Group:: Illness Management Goal of Group:: To increase understanding of what conflict is and increase awareness of how group members manage conflict. Client Response/Progress/Benefit:: Client responded well to session, active through note-taking. Client connected with the quote stating, ?there?s always conflict no matter what.? Client reports utilizing the aggressive type when managing conflict as client has ?blown up on people? in the past. Client shared when she responds to conflict this way she gets upset with herself and it can negatively impact her relationships. Client appeared to benefit from increases awareness of ways to appropriately manage conflict. Client demonstrating progress with increasing awareness of how her behaviors impact mental health, but continues to struggle with implementing coping skills learned in group. Eye Contact:: Good Motor Activity:: Appropriate Appearance:: Casual Speech:: Rambling Mood:: Dysthymic Affect:: Constricted Thoughts:: Other - Appeared confused at times as shown by her off topic responses., No evidence of hallucinations/delusions noted Staff Interventions:: Therapist facilitated discussion about conflict and confli ct resolution. Therapist led group in an activity in which group members had to identify their initial response to conflict and how their response changes based on different situations. Therapist assisted clients with connecting the impact current conflict style has on their mental health. Psychotherapy Session #3 Date Open:: 08/05/17 - 9 group members Time Started:: 11:25 Time Stopped:: 12:15 Targeted Problem #:: 1 Type of Group:: Functional Skills Development Goal of Group:: To identify what contributes positively and negatively to conflict and appropriate ways to manage conflict with others. Client Response/Progress/Benefit:: Client responded well to session, active participant. Client reported the group was successful because ?we looked at the big picture and shared a common ground.? Client helped the group develop strategies for more effective conflict resolution. The list included taking breaks, managing stress, and picking battles. Client appeared to benefit from increased awareness of ways to effectively manage conflict. Client seems to be progressing as shown by her report of reduced depression, but can continue to benefit from utilizing healthy coping skills daily. Eye Contact:: Good Motor Activity:: Appropriate Speech:: Appropriate Mood:: Euthymic Affect:: Full - laughing with peers Thoughts:: Linear, No evidence of hallucinations/delusions noted Staff Interventions:: Therapist facilitated group activity in which group members were provided with materials and had to eliminate certain items with consensus from group. Therapist processed activity, helping clients connect throughout activity strategies each person used to manage conflict. Therapist led discussion about what contributes to conflict in a positive or negative manner. Therapist facilitated discussion about conflict resolution strategies and provided group member with a handout about effective ways to manage conflict.
--- NOTE | 2017-08-07 12:24 | BH.SGPN_ITS ---
Service Group Progress Note - Session Psychotherapy Session #3 Date Open:: 08/04/17 Time Started:: 11:10 Time Stopped:: 12:10 Targeted Problem #:: 1 Type of Group:: Functional Skills Development - 6 Participants Goal of Group:: To identify what stressors have control over and what stressors have no control over. Client Response/Progress/Benefit:: Client was again alert and attentive throughout group. Client was apprehensive to participate in group but with encouragement client fully participated in group activity designed to elicit stress from client and determine how client manages stressful situations. Client stopped fpc through activity and sat down but continued providing verbal support to her peers and reported that she was to anxious and shaky to complete activity. Client was able to identify how she reacts to stress as, ? staying stuck? but benefitted from being able to identify healthy coping strategies to reduce feelings of being stuck such as, ?avoid toxic people and accept the things that I cannot change.? Progress noted in client?s insight into how her behaviors are affecting her. Continued treatment necessary to increase implementation of coping skills for anxiety symptoms. Eye Contact:: Good Motor Activity:: Appropriate Appearance:: Casual Speech:: Appropriate Mood:: Euthymic, Anxious Affect:: Full Thoughts:: Linear, Logical, No evidence of hallucinations/delusions noted Staff Interventions:: Therapist facilitated discussion about control versus no control and helped group members connect the concept to stressors. Therapist led an activity in which group members differentiated which stressors are in their control and which are out of their control. Therapist processed with group if the stressors were in the right category. Therapist led discussion about importance of putting forth more energy on those stressors they can control.
--- NOTE | 2017-08-07 12:28 | BH.SGPN_ITS ---
Service Group Progress Note - Session Psychotherapy Session #1 Date Open:: 08/07/17 Time Started:: 09:05 Time Stopped:: 10:00 Targeted Problem #:: 1 Type of Group:: Process - 6 Participants Goal of Group:: The goal of today's group was to check-in with client's mood, stressors, and positives, review homework, and to introduce the topic of the day. Client Response/Progress/Benefit:: Client entered session alert, attentive, and willing to engage. Client stated, ?I had a big accomplishment yesterday. I walked all the way through the grocery store without my cane.? When asked how she was managing her anxiety she reported, ?I?m handling it,? but was unable to identify how. Client reported being able to clean her house and sleeping better. Client shared how her friend was becoming manipulate and was able to create boundaries with her to reduce manipulation. Client indicated her emotion as borderline anxious and benefitted from group by celebrating successes with peers. Progress noted in client?s ability to set boundaries and manage anxiety. Continued treatment necessary to reduce anxiety and increase coping strategies. Eye Contact:: Good Motor Activity:: Appropriate Appearance:: Casual Speech:: Appropriate Mood:: Euthymic Affect:: Full Thoughts:: Linear, Logical, No evidence of hallucinations/delusions noted Staff Interventions:: Therapist used open-ended questions to elicit information about client's current stressors and mood. Therapist was supportive by using active listening and reflection. Psychotherapy Session #2 Date Open:: 08/07/17 Time Started:: 10:11 Time Stopped:: 11:00 Targeted Problem #:: 1 Type of Group:: Illness Management - 5 Participants Goal of Group:: The goal of group was to increase understanding of the use of coping strategies. Another goal was to increase client?s ability to identify problems, emotions and what coping strategies could be beneficial for such problems/emotions. Client Response/Progress/Benefit:: Client entered group alert, attentive, and willing to engage. Client was apprehensive to participate in group activity and sat back as peers completed the majority of it, but with encouragement client fully participated in activity designed to increase stress and cause group to use problem solving and communication skills. Client continued working on activity, despite frustrations, and successfully completed activity. Client benefitted from group in working with peers and progress noted in client?s ability to identify her need of more external coping strategies. Limited progress noted due to client reluctance to fully participate however was able to identify coping strategies. Progress noted in client?s insight. Continued treatment necessary to decrease anxiety levels. Eye Contact:: Good Motor Activity:: Appropriate Appearance:: Casual Speech:: Appropriate Mood:: Euthymic Affect:: Full Thoughts:: Linear, Logical, No evidence of hallucinations/delusions noted Staff Interventions:: Therapist facilitated the group discussion about the quote from today. Therapist supplied each client with a typed scenario, which detailed a person?s struggles, emotions, and stressors. Therapist provided guidance to the group on a method to break the scenario down to small parts. Therapist aided the group in processing the coping skill and solutions each person had developed for the person in the scenario. Therapist utilized active listening and reflection throughout.
--- NOTE | 2017-08-07 15:18 | BH.SGPN_ITS ---
Service Group Progress Note - Session Psychotherapy Session #3 Date Open:: 08/07/17 - 5 group members Time Started:: 11:11 Time Stopped:: 12:05 Targeted Problem #:: 1 Type of Group:: Functional Skills Development Goal of Group:: Goal was to increase client?s self-awareness on their use of coping strategies and increase repertoire of healthy coping strategies. Client Response/Progress/Benefit:: Client responded well to session, quiet but engaged through note-taking. Client shared she tends to mainly use distraction coping skills and acknowledged the importance of using a variety of different coping skills to promote a balance of emotional release, grounding, and self- care. Client helped the group develop a list of various coping strategies and selected new skills she is willing to try such as: talking with a support person , doing puzzles, cleaning and organizing, and learning a new skill. Client appeared to benefit from increasing her awareness of the various types of coping skills as well as developing a larger repertoire of healthy coping skills. Client progressing as evidenced by her report of improved mood and sleep , but can continue to progress with increased socialization. Eye Contact:: Good Motor Activity:: Appropriate Appearance:: Casual Speech:: Rambling Mood:: Euthymic Affect:: Congruent Thoughts:: Linear, No evidence of hallucinations/delusions noted Staff Interventions:: Therapist facilitated discussion about the different types of coping skills. Therapist led group in an activity in which group members were asked to brainstorm coping strategies that fit in each coping skill category. Therapist reviewed each coping strategy with the group and led a discussion about whether the coping strategies identified were healthy or unhealthy. Therapist provided homework in which group members creating a coping skills menu and would practice two skills a day.
--- NOTE | 2017-08-11 12:45 | BH.SGPN ---
Service Group Progress Note - Session Psychotherapy Session #1 Date Open:: 08/11/17 Time Started:: 09:08 Time Stopped:: 10:00 Targeted Problem #:: 1 Type of Group:: Process - 7 Participants Goal of Group:: The goal of today's group was to check-in with client's mood, stressors, and positives, review homework, and to introduce the topic of the day. Client Response/Progress/Benefit:: Client entered session alert, attentive, and willing to engage. Client reported, I was kind of anxious over the weekend. It was rough. Client went on to share how she is having difficulty comprehending things, has been shaky for a couple of days, and anxiety has been worsening. Client shared how she attempted to use thought stopping to manage anxiety and ruminating thoughts but stated, It didnt help. When Im not here it makes my anxiety worse. Client indicated her emotion as anxious and benefitted from group by receiving support from peers. Progress noted due to clients attempt at using thought stopping skill and identified groups help her anxiety. Continued treatment necessary to decrease anxiety and encourage client to attend other groups. Eye Contact:: Good Motor Activity:: Appropriate Appearance:: Casual Speech:: Appropriate Mood:: Anxious Affect:: Full Thoughts:: Linear, Logical, No evidence of hallucinations/delusions noted Staff Interventions:: Therapist used open-ended questions to elicit information about client's current stressors and mood. Therapist was supportive by using active listening and reflection. Psychotherapy Session #3 Date Open:: 08/11/17 Time Started:: 11:15 Time Stopped:: 12:05 Targeted Problem #:: 1 Type of Group:: Functional Skills Development - 9 Participants Goal of Group:: To identify ways of defeating cognitive distortions and rehearse defeating the identified cognitive distortion. Client Response/Progress/Benefit:: Client entered session alert, attentive and willing to engage, however was quiet the majority of group. Client participated in small group activity and worked with peers to reframe negative thoughts with positive thoughts and elicited peer support in reframing her own negative thoughts. Client benefitted from group discussion on cognitive reframe and peer supports. Progress noted in clients ability to work with peer and identify negative thoughts, however client need more working in reframing thoughts. Continued treatment necessary to continue working work positively reframing negative thoughts. Eye Contact:: Good Motor Activity:: Appropriate Appearance:: Casual Speech:: Appropriate Mood:: Euthymic, Anxious Affect:: Full Thoughts:: Linear, Logical, No evidence of hallucinations/delusions noted Staff Interventions:: Therapist provided group members with a handout to use as an aid when trying to defeat their unhelpful thinking. Therapist provided support by clarifying activities and providing feedback. Therapist facilitated group in the role playing of defeating cognitive distortions.
--- NOTE | 2017-08-11 16:20 | BH.SGPN ---
Service Group Progress Note - Session Psychotherapy Session #2 Date Open:: 08/11/17 - group members Time Started:: 10:11 Time Stopped:: 11:10 Targeted Problem #:: 1 Type of Group:: Illness Management Goal of Group:: To increase understanding of cognitive distortions, identify examples of when have had unhelpful thinking, and increase awareness of the impact cognitive distortions have on mental health. Client Response/Progress/Benefit:: Client responded well to session, quiet, but engaged through note-taking. Client appeared to connect with the quote, nodding to peers comments on how thoughts can create emotions and impact behaviors. Client helped group process negative automatic thoughts and the different types of cognitive distortions. Client stated, I know how you feel when a peer was talking about jumping to worst case scenarios. Client reported she has a hard time identifying positives and she also struggles with getting caught up in my thoughts. Client appeared to benefit from increasing awareness of cognitive distortions and connecting how the distortions impact mental well-being. Client appeared to benefit from increasing insight to the different patterns of negative thinking and how it impacts thoughts and behaviors. Client shared she continues to struggle with low motivation and isolation, but reports few attempts to improve her social supports which could hinder progress. Eye Contact:: Good Motor Activity:: Appropriate Appearance:: Casual Speech:: Tangential Mood:: Dysthymic Affect:: Constricted Thoughts:: Other - distracted at times, off topic., No evidence of hallucinations/delusions noted Staff Interventions:: Therapist utilized a quote as a tool to introduce topic of the day. Therapist provided group members with a handout that listed ten cognitive distortions with examples. Therapist facilitated group discussion about cognitive distortions. Therapist led group members in an activity to help them understand the impact cognitive distortions can have on emotions and behavior. Therapist provided support by using active listening and providing feedback.
--- NOTE | 2017-08-12 10:04 | BH.MDN ---
Multi-Disciplinary Note - Note 45-min Individual Time Started:: 09:11 Date: 08/12/17 Purpose of session/treatment goals addressed:: The purpose of this session was to address client's current stressors, symptoms, and overall functioning. Another goal was to work on goal one objective 2 to reduce depression and increase daily activities. Other topics included: anxiety warning signs, coping skills, and case management. Eye Contact:: Good Motor Activity:: Slowed Appearance:: Casual Speech:: Tangential, Soft Mood:: Anxious, Dysthymic Affect:: Congruent - smiling at times Thoughts:: Other - Client appeared to have difficulty answering and processing questions at times as shown by her topic changes and report of increased confusion. Client reported her memory has been poor for several months., No evidence of hallucinations/delusions noted Staff Interventions:: Therapist used active-listening and open-ended questions to explore client's current stressors, symptoms, and overall functioning. Therapist helped client explore exceptions to increase insight to helpful coping skills. Therapist and client created a daily goal to increase client's motivation and self-efficacy. Therapist reviewed healthy coping skills that client can use when anxious and depressed. Therapist advocated for client by offering to connect with case management. Client Response:: Client open to meeting with therapist, receptive to discussion, but reported confusion at times. Client shared she continues to struggle with anxiety in the mornings with low insight to triggers. Client shared her memory has been poor for months which resulted in client forgetting to pay for bills and have my house work pile up. Client shared she has been getting better at pushing myself to do things as client has been setting daily goals. Client explored warning signs for anxiety and identified her anxiety starts in her head and then creates restlessness. Client brainstormed coping skills strategies to utilize when feeling anxiety and agreed to try daily prayer, journaling, and reading. Client also reflected that when she feels depressed she isolates which further exacerbates her symptoms. Client shared her sleep was poor last night as client has a rash that itches client and keep her awake. Client and therapist discussed client contacting her PCP as well as the benefit of case management and seeing a neurologist for memory issues. Client identified washing the pans today as her goal to increase motivation and self-efficacy. Risks/Concerns:: Client denies suicial ideation, plan, and intent as of 2/28/18. Client reports she has been more forgetful lately which presents as a concern as client lives independently. Client reported belief case management would be beneficial to help client complete ADLs and asked therapist to connect client with these services. Progress Toward Goals/Plan:: Client demonstrating mild progress towards treatment goals as she reports increased socialization and completion of household tasks since starting group. Client shared my anxiety and depression go up and down. Client shared she continues to feel more anxious in the morning with unknown triggers. Client reported memory difficulties and struggling to complete ADLs. Client to continue IOP to promote mood stabiltiy and increase supports. Therapist to contact client's outpatient provider to connect client with case management. Time Stopped:: 09:55
--- NOTE | 2017-08-12 10:16 | BH.MDN_ITS ---
Multi-Disciplinary Note - Note 45-min Individual Time Started:: 09:11 Date: 08/12/17 Purpose of session/treatment goals addressed:: The purpose of this session was to address client's current stressors, symptoms, and overall functioning. Another goal was to work on goal one objective 2 to reduce depression and increase daily activities. Other topics included: anxiety warning signs, coping skills, and case management. Eye Contact:: Good Motor Activity:: Slowed Appearance:: Casual Speech:: Tangential, Soft Mood:: Anxious, Dysthymic Affect:: Congruent - smiling at times Thoughts:: Other - Client appeared to have difficulty answering and processing questions at times as shown by her topic changes and report of increased confusion. Client reported her memory has been poor for several months., No evidence of hallucinations/delusions noted Staff Interventions:: Therapist used active-listening and open-ended questions to explore client's current stressors, symptoms, and overall functioning. Therapist helped client explore exceptions to increase insight to helpful coping skills. Therapist and client created a daily goal to increase client's motivation and self-efficacy. Therapist reviewed healthy coping skills that client can use when anxious and depressed. Therapist advocated for client by offering to connect with case management. Client Response:: Client open to meeting with therapist, receptive to discussion , but reported confusion at times. Client shared she continues to struggle with anxiety in the mornings with low insight to triggers. Client shared her memory has been poor for months which resulted in client forgetting to pay for bills and have my house work pile up. Client shared she has been getting better at pushing myself to do things as client has been setting daily goals. Client explored warning signs for anxiety and identified her anxiety starts in her head and then creates restlessness. Client brainstormed coping skills strategies to utilize when feeling anxiety and agreed to try daily prayer, journaling, and reading. Client also reflected that when she feels depressed she isolates which further exacerbates her symptoms. Client shared her sleep was poor last night as client has a rash that itches client and keep her awake. Client and therapist discussed client contacting her PCP as well as the benefit of case management and seeing a neurologist for memory issues. Client identified washing the pans today as her goal to increase motivation and self- efficacy. Risks/Concerns:: Client denies suicial ideation, plan, and intent as of 2/28/ 18. Client reports she has been more forgetful lately which presents as a concern as client lives independently. Client reported belief case management would be beneficial to help client complete ADLs and asked therapist to connect client with these services. Progress Toward Goals/Plan:: Client demonstrating mild progress towards treatment goals as she reports increased socialization and completion of household tasks since starting group. Client shared my anxiety and depression go up and down. Client shared she continues to feel more anxious in the morning with unknown triggers. Client reported memory difficulties and struggling to complete ADLs. Client to continue IOP to promote mood stabiltiy and increase supports. Therapist to contact client's outpatient provider to connect client with case management. Time Stopped:: 09:55
--- NOTE | 2017-08-12 11:36 | BH.SGPN_ITS ---
Service Group Progress Note - Session Psychotherapy Session #2 Date Open:: 08/11/17 - group members Time Started:: 10:11 Time Stopped:: 11:10 Targeted Problem #:: 1 Type of Group:: Illness Management Goal of Group:: To increase understanding of cognitive distortions, identify examples of when have had unhelpful thinking, and increase awareness of the impact cognitive distortions have on mental health. Client Response/Progress/Benefit:: Client responded well to session, quiet, but engaged through note-taking. Client appeared to connect with the quote, nodding to peers? comments on how thoughts can create emotions and impact behaviors. Client helped group process negative automatic thoughts and the different types of cognitive distortions. Client stated, ?I know how you feel? when a peer was talking about jumping to worst case scenarios. Client reported she has a hard time identifying positives and she also struggles with ?getting caught up in my thoughts.? Client appeared to benefit from increasing awareness of cognitive distortions and connecting how the distortions impact mental well-being. Client appeared to benefit from increasing insight to the different patterns of negative thinking and how it impacts thoughts and behaviors. Client shared she continues to struggle with low motivation and isolation, but reports few attempts to improve her social supports which could hinder progress. Eye Contact:: Good Motor Activity:: Appropriate Appearance:: Casual Speech:: Tangential Mood:: Dysthymic Affect:: Constricted Thoughts:: Other - distracted at times, off topic., No evidence of hallucinations/delusions noted Staff Interventions:: Therapist utilized a quote as a tool to introduce topic of the day. Therapist provided group members with a handout that listed ten cognitive distortions with examples. Therapist facilitated group discussion about cognitive distortions. Therapist led group members in an activity to help them understand the impact cognitive distortions can have on emotions and behavior. Therapist provided support by using active listening and providing feedback.
--- NOTE | 2017-08-14 11:33 | BH.SGPN_ITS ---
Service Group Progress Note - Session Psychotherapy Session #2 Date Open:: 08/12/17 Time Started:: 10:32 Time Stopped:: 11:22 Targeted Problem #:: 1 Type of Group:: Illness Management Goal of Group:: To increase self-awareness of current reality in regards to mental wellness and desired mental wellness. Client Response/Progress/Benefit:: Client listened attentively to others comments and mostly remained a passive participant unless elicited by therapist. Client reported for her current reality she feels sad a lot and lonely. Reported her desire is to be more positive, not dwell on the past, and stay out of bed. Client seemed benefit from increasing awareness of what she is hoping to have in her future. Eye Contact:: Fair Motor Activity:: Appropriate Appearance:: Casual Speech:: Appropriate Mood:: Anxious, Depressed Affect:: Constricted Thoughts:: Linear, No evidence of hallucinations/delusions noted Staff Interventions:: Therapist facilitated group discussion about current reality in regards to mental health. Client provided each group member a piece of paper and asked them to draw their current reality. Therapist led the processing of each group members drawing. Therapist provided each group member with a second piece of paper and asked clients to draw desired mental wellness. Therapist processed each group members drawing, helping clients connect the two realities. Psychotherapy Session #3 Date Open:: 08/12/17 Time Started:: 11:32 Time Stopped:: 12:22 Targeted Problem #:: 1 Type of Group:: Functional Skills Development Goal of Group:: To identify obstacles in clients path to mental wellness and identify strategies to help one overcome various obstacles. Client Response/Progress/Benefit:: Client passive participant globally within attentively to others. Reported her barriers that are keeping her from desired reality include: Guilt, overwhelming stress, anxiety, and stinking thinking. Client reported her anxiety is the most impactful barrier that is keeping her from getting to where she wants in life. Seemed to benefit from the group brainstorming various strategies to help overcome various obstacles. Patient identified she will focus on reducing her negative thoughts by saying a least one positive every day. Eye Contact:: Fair Motor Activity:: Appropriate Appearance:: Casual Speech:: Appropriate Mood:: Anxious, Depressed Affect:: Constricted Thoughts:: Linear, Other - confused at times, No evidence of hallucinations/ delusions noted Staff Interventions:: Therapist facilitated group discussion about obstacles and the hesitations of overcoming obstacles. Client led group in activity that gave client the opportunity to problem solve various obstacles throughout. Therapist helped clients connect how each obstacle is preventing them from achieving their desired reality. Therapist provided support by using reflective listening and providing feedback.
--- NOTE | 2017-08-17 12:46 | BH.SGPN_ITS ---
Service Group Progress Note - Session Psychotherapy Session #1 Date Open:: 08/11/17 Time Started:: 09:08 Time Stopped:: 10:00 Targeted Problem #:: 1 Type of Group:: Process - 7 Participants Goal of Group:: The goal of today's group was to check-in with client's mood, stressors, and positives, review homework, and to introduce the topic of the day. Client Response/Progress/Benefit:: Client entered session alert, attentive, and willing to engage. Client reported, ?I was kind of anxious over the weekend. It was rough.? Client went on to share how she is having difficulty comprehending things, has been shaky for a couple of days, and anxiety has been worsening. Client shared how she attempted to use thought stopping to manage anxiety and ruminating thoughts but stated, ?It didn?t help. When I?m not here it makes my anxiety worse.? Client indicated her emotion as anxious and benefitted from group by receiving support from peers. Progress noted due to client?s attempt at using thought stopping skill and identified groups help her anxiety. Continued treatment necessary to decrease anxiety and encourage client to attend other groups. Eye Contact:: Good Motor Activity:: Appropriate Appearance:: Casual Speech:: Appropriate Mood:: Anxious Affect:: Full Thoughts:: Linear, Logical, No evidence of hallucinations/delusions noted Staff Interventions:: Therapist used open-ended questions to elicit information about client's current stressors and mood. Therapist was supportive by using active listening and reflection. Psychotherapy Session #3 Date Open:: 08/11/17 Time Started:: 11:15 Time Stopped:: 12:05 Targeted Problem #:: 1 Type of Group:: Functional Skills Development - 9 Participants Goal of Group:: To identify ways of defeating cognitive distortions and rehearse defeating the identified cognitive distortion. Client Response/Progress/Benefit:: Client entered session alert, attentive and willing to engage, however was quiet the majority of group. Client participated in small group activity and worked with peers to reframe negative thoughts with positive thoughts and elicited peer support in reframing her own negative thoughts. Client benefitted from group discussion on cognitive reframe and peer supports. Progress noted in client?s ability to work with peer and identify negative thoughts, however client need more working in reframing thoughts. Continued treatment necessary to continue working work positively reframing negative thoughts. Eye Contact:: Good Motor Activity:: Appropriate Appearance:: Casual Speech:: Appropriate Mood:: Euthymic, Anxious Affect:: Full Thoughts:: Linear, Logical, No evidence of hallucinations/delusions noted Staff Interventions:: Therapist provided group members with a handout to use as an aid when trying to defeat their unhelpful thinking. Therapist provided support by clarifying activities and providing feedback. Therapist facilitated group in the role playing of defeating cognitive distortions.
[2017-10-23 16:21] VITALS: BP 118/72; RESP 16
--- NOTE | 2017-10-23 16:21 | BH.NA_ITS ---
Physical Data - Vital Signs Respiratory Rate: 16 Blood Pressure: 118/72 - Height/Weight Height: 1.5 m Weight:: 94 kg Weight in Pounds: 207.2 lbs Current Medication Compliance - Medication Compliance Do you take your medication as prescribed?: Yes Do you need assistance with taking medication?: No Have you had side effects from medication?: No Nutritional History - Appetite Nutritional Instructions:: If client shows signs of a swallowing problem, weight change of 10 pounds or more in the last month, or is on a diabetic diet, the physician will review and request a dietitian consult, as appropriate. All unintentional weight loss will be referred to the physician for decision on need for dietitian consult. Describe your appetite:: Fair Have you noticed a change in your eating habits lately?: Yes - decreased recent w/ 5# wt loss Functional Assessment - Sleep Pattern Describe any problems with sleeping: difficulty falling and staying asleep - Activities Motor Activity:: Functional Sensory/Communication Assess - Vision Problems Do you have any vision problems?: Glasses - Hearing Problems Do you have any hearing problems?: Adequate - Communication Problems Do you have difficulty understanding what people are saying?: No Do you have trouble putting your thoughts into words or expressing what you want to say?: No Do people ever have trouble understanding what you say?: Yes What is your primary language?: [place] Learning Assessment - Learning Barriers Learning Barriers:: Ready to learn Medical Problems/History - Respiratory Conditions Respiratory: Other (See comments) - RAHDA - wears BiPAP - Pain Assessment Do you have acute or chronic pain?: No - Female Reproductive Do you think you may be ?: No Number of pregnancies:: 3 Number of children:: 3 Have you reached menopause?: Yes Do you have any history of breast disease?: No Substance Abuse - Substance Abuse Please describe substance abuse in the last 30 days:: No alcohol, illicit substance, tobacco, or caffiene use. Suicide Assessment - Suicidal Ideation Are you currently or have you been suicidal in the past?: No Suicidal Intentional Rating Scale (SIRS): No suicidal thoughts (past or present) Physician Notification: If Active suicidal thoughts/Will not contract for safety is checked, contact physician and document in the Physician Notification section below. Fall Risk Assessment - Age Age: 60-70 - Mental Status Mental Status: Willing & able to ask for assistance when needed - Physical Status Physical Status: No problems - Impairments Impairments: None - Elimination Elimination: Continent AND independent - Gait or Balance Gait or Balance: Walks independently - Hx of Falls History of falls in the past 6 months: Near falls OR fear of falling - Medications/Substances Medications/substances used within the past 24 hours or ordered to administer: None of the medications/substances list above - Total Score Total Points:: 2 RN Summary of Impressions - Impressions Recommendations: Include psychiatric and medical issues, treatment planning recommendations, and discharge planning needs. Impressions: Psychiatric Issues: anxiety - Level of Care How do the client's current symptoms and functional deficits support need for this level of care?: Client has been to the ED 4x in 2 months due to daily panic attacks which she describes as palpitations, SOB, and tearfulness that last for hours. She has been isolating to her home and feels hopeless with regard to conflict with her son and some recent family deaths. IOP will subject her to social activities and promote gains while preventing decompensation.
== END 2017-08-12 23:59 ==
LOC: BHIOP 09:10
PROVIDERS: Family Provider Family Medicine; PCP Family Medicine; Visit Provider Psychiatry & Neurology Psychiatry
DX: F33.3 Major depressive disorder, recurrent, severe with psychotic symptoms (principal); F41.1 Generalized anxiety disorder; G47.33 Obstructive sleep apnea (adult) (pediatric); I10 Essential (primary) hypertension; E11.9 Type 2 diabetes mellitus without complications; Z79.899 Other long term (current) drug therapy
CPT/HCPCS: H0035; 90832; 90834; 90853

== ENCOUNTER 2017-07-25 16:30 | Emergency (ER) | payer MEDICARE, SELFPAY ==
[2017-07-25 16:31] VITALS: BP 141/70; PULSE 63; RESP 16; TEMP 36.7; O2SAT 97; BMI 42.4
--- NOTE | 2017-07-25 17:07 | RAD_ITS ---
STUDY: X-RAY CHEST REASON FOR EXAM: Female, 66 years old. Chest pain. TECHNIQUE: Single frontal view of the chest. COMPARISON: April 29, 2017 FINDINGS: There is stable low volume inspiration. There is no demonstrated pleural abnormality. There is borderline cardiomegaly unchanged. Normal mediastinum and jacqueline. Normal visualized pulmonary arteries. Normal visualized aortic arch and descending thoracic aorta. Normal visualized thoracic spine. Normal visualized ribs, clavicles, and shoulders. There is no demonstrated abnormality of the visualized soft tissue structures of the upper abdomen. RAD/Chest 1 View (Portable) IMPRESSION: Stable appearance of the chest with no significant pathology. Electronically Signed: Vince Ziegler MD at 17:33 EST , Service support ,
--- NOTE | 2017-07-25 17:07 | EKG12_ITS ---
Test Reason : CHEST DISCOMFORT Blood Pressure : / mmHG Vent. Rate : 061 BPM Atrial Rate : 061 BPM P-R Int : 118 ms QRS Dur : 088 ms QT Int : 428 ms P-R-T Axes : 007 -32 -03 degrees QTc Int : 430 ms Normal sinus rhythm Left axis deviation Poor R wave progression Abnormal ECG Confirmed by TIM ALEXANDRA, MARY ([id number]), video editor VLAD GAINES ([id number] on 07/27/2017 1:22:33 PM Referred By: Liz Lopes Confirmed By:MARY DUMONT MD
--- NOTE | 2017-07-25 17:10 | ED.DCSUM_ITS ---
- ER Visit Summary Date of Service: 07/25/17 Chief Complaint: Chest pain History of Present Illness: The patient is a 66 F with chest tightness for the past 7-8 hours straight, worse when she goes out in the cold and better when she is inside. Associated with nausea, some epigastric discomfort, mild dyspnea , the discomfort is nonpleuritic. It has been off and on for the past 1-2 weeks she states. She has had a minor cough, nonproductive, no fevers. No dyspnea associated with the cough, she does have COPD and is not on home oxygen. No known heart disease. She quit smoking a long time ago. She states that the epigastric discomfort has been off and on but it seems to be separate from the chest tightness. No radiation to her arms or her back or her jaw. No diaphoresis or palpitations or presyncope. Sent here for evaluation from urgent care. Physical Examination: Obese, well-appearing, no acute distress. Blood pressure 141/70 her other vital signs are normal including heart rate of 63 and pulse ox 97% on room air. Chest nontender. Abdomen including epigastrium nontender, soft, benign. Lungs clear to auscultation throughout, no splinting on deep inspiration. Heart is regular without tachycardia or murmur. No pedal edema or calf tenderness. Equal bilateral 2+/4 radial pulses. Test Results: EKG shows normal sinus rhythm with a left axis but no acute injury pattern, normal ST segments. Labs including troponin unremarkable/ negative. Chest x-ray negative. Emergency Department Course and Treatment: Patient was given a GI cocktail but had no change in her symptoms. She was then given albuterol nebulizer treatment , her chest tightness is resolved. Given the length of time she has had these symptoms I do not think we need to run more emergency test tonight or admit her. Plan is to prescribe her albuterol inhaler and have her follow-up with her doctor for persistent symptoms. She does not meet any of the qualifications for a true COPD exacerbation, she is not making any sputum at all , therefore do not think she needs antibiotics or prednisone at this time, she does not even have any inhaler at home, so I think that is reasonable plan as does she. Treatment Plan: As above Disposition: Discharge home Impression: Chest pain, unspecified COPD Epigastric pain This note was generated with [employer] dictation software. It may contain incorrect words, spelling, and punctuation that were not noted in review of the chart prior to signing ED Disposition - Plan for ED Patient: Disposition: Home or Assisted Living Chief Complaint: Chest Other Instructions: ED Chest Pain NonCardiac Prescriptions: Albuterol Inhaler [Ventolin Hfa] 1 - 2 puff INHALATION Q4H PRN PRN #1 inhaler PRN Reason: Wheezing Referrals: Cj Mcdonald MD [Primary Care Provider] - 3-5 Days if not improving
[2017-07-25 17:15] VITALS: O2SAT 96
[2017-07-25 17:24] LABS: Absolute Lymphocyte Count 1.24 X10^3/ul (0.83-4.51); Absolute Neutrophil Count 4.7 X10^3/uL (2.0-7.7); Basophil# 0.06 X10^3/uL; Basophil% 0.9 % (0-1); Eosinophil# 0.22 X10^3/uL; Eosinophils% 3.2 % (0-5); Hematocrit 37.4 % (37-47); Hemoglobin 12.1 g/dl (12.0-15.0); Lymphocyte # 1.24 X10^3/ul (4.0); Lymphocyte % 17.9 % (19-41); Mean Corp Hgb Conc 32.4 g/gl (32-36); Mean Corpuscular Volume 86.6 fL (81-99); Mean Platelet Vol. 9.7 fl (6.2-12.0); Monocyte# 0.69 X10^3/uL; Monocyte% 9.9 % (0-10); Neutrophil # 4.72 X10^3/uL (2.7-7.7); Platelet Count 299 K/mm3 (150-450); RBC Distribution Width CV 15.4 % (11.6-14.6); Red Blood Count 4.32 M/mm3 (4.2-5.4); White Blood Count 6.9 K/mm3 (4.4-11.0)
[2017-07-25 17:26] LABS: POSITIVE COUNT NO; POSITIVE DIFFERENTIAL NO; POSITIVE MORPHOLOGY NO
[2017-07-25 17:50] LABS: Anion Gap 7 (5-15); BUN 19 mg/dL (7-18); BUN/Creat Ratio 22.6 RATIO (10-20); Calcium,Total 8.8 mg/dL (8.5-10.1); Chloride 100 mmol/L (98-107); Creatinine, Serum 0.84 mg/dL (0.55-1.02); EST Glomerular Filtration Rate 71 mL/min (>60); Est Glom Filt Rate - Afr Amer 86 mL/min (>60); Estimated Creatinine Clearance 96.43 ml/min; Glucose 86 mg/dL (74-106); Potassium 3.7 mmol/L (3.5-5.1); Sodium Level 137 mmol/L (136-145)
[2017-07-25 18:36] VITALS: BP 120/64; PULSE 69; RESP 20; O2SAT 98
[2017-07-25] MEDS: Albuterol 2.5 MG/3 ML VIAL.NEB. INHALATION (19:47)
[2017-07-25 19:48] VITALS: PULSE 79; RESP 24
[2017-07-25 20:05] VITALS: BP 128/71; PULSE 77; RESP 25; O2SAT 97
[2017-07-25 20:34] VITALS: BP 118/58; PULSE 97; RESP 18; O2SAT 96
== END 2017-07-25 20:47 | disposition home or self-care (01) ==
PROVIDERS: Emergency Provider Emergency Medicine; Family Provider Family Medicine; PCP Family Medicine
DX: R07.9 Chest pain, unspecified (principal); J44.9 Chronic obstructive pulmonary disease, unspecified; R10.13 Epigastric pain; E66.9 Obesity, unspecified; R05 Cough; Z87.891 Personal history of nicotine dependence
CPT/HCPCS: 71045; 80048; 84484; 85025; 93005; 94640; 99285; J7030; A4216

== ENCOUNTER 2017-08-13 09:00 | Outpatient (RCR) | payer MEDICARE, SELFPAY ==
--- NOTE | 2017-08-13 16:09 | BH.SGPN ---
Service Group Progress Note - Session Psychotherapy Session #1 Date Open:: 08/13/17 Time Started:: 09:04 Time Stopped:: 10:00 Targeted Problem #:: 1 Type of Group:: Process - 9 group members Goal of Group:: The goal of today's group was to check-in with client's mood, stressors, and positives, review homework and introduce topic for the day. Client Response/Progress/Benefit:: Client reported her anxiety is really high today but unable to identify what potential triggers of her high anxiety. Client shared yesterday she went to visit a friend which she identified was nice stability get out and see somebody. However client shared she believes his friend sometimes does not take advantage of her by having client take this friend to various places and so client shared she set a boundary of not being this person's transportation for all situations. Client demonstrating progress as evidenced by her getting out of the house and being social. Client seems to continue struggling with being able to identify her anxiety triggers and utilizing healthy skills to manage her anxiety in the moment. Eye Contact:: Good Motor Activity:: Appropriate Appearance:: Casual Speech:: Appropriate Mood:: Anxious Affect:: Constricted Thoughts:: Linear, Logical, No evidence of hallucinations/delusions noted Staff Interventions:: Therapist used open-ended questions to elicit information about client's current stressors and mood state. Therapist was supportive by using active listening and reflection.
--- NOTE | 2017-08-13 16:17 | BH.SGPN ---
Service Group Progress Note - Session Psychotherapy Session #2 Date Open:: 08/13/17 Time Started:: 10:21 Time Stopped:: 11:13 Targeted Problem #:: 1 Type of Group:: Illness Management - 8 participants Goal of Group:: To increase understanding of resilience and identify the factors that contribute to building resilience Staff Interventions:: Therapist led group in an activity that would induce a chaotic environment and used the activity as a tool in discussing the various stressors people are faced with each day. Therapist facilitated group discussion about resilience and explained the factors of building resilience. Therapist led discussion about factors that contribute to resilience. Therapist provided support by using active listening and providing feedback Psychotherapy Session #3 Date Open:: 08/13/17 Time Started:: 11:24 Time Stopped:: 12:16 Targeted Problem #:: 1 Type of Group:: Functional Skills Development - 8 participants Goal of Group:: To rehearse resilient factors and identify ways to maintain resilience despite hardships and stressors. Staff Interventions:: Therapist led group in an activity in which group members were challenged to stay resilient despite various stressors and hardships added to activity. Therapist provided each group member with a stress ball and used stress ball as a tool to discuss factors of resilient personality. Therapist provided group members with a handout about the building blocks of resilience. Therapist provided support by using reflective listening.
--- NOTE | 2017-08-14 14:13 | PCM.PN.BLA ---
Progress Note She is seen in follow-up for major depressive disorder F 33.2, generalized anxiety disorder, obstructive sleep apnea. History is been obtained per interview with patient, discussion with staff, review of chart. Case discussed with treatment team. Chief complaint better today than yesterday. The anxiety was so high. Interim history Moderate depressive symptoms persist but of decreased intensity. Attributes improvement to coping skills gained through IOP. Ongoing anhedonia, lack of motivation and decreased energy. Reports cable was turned off due to nonpayment due to lack of motivation to pay the bills. Increased ruminative anxiety associated with the weather (snowstorm) and keeping appointments yesterday. No suicidal or homicidal ideation. No symptoms consistent with psychosis. Sleeping from 11 PM until 7:30 AM. BiPAP compliant. Appetite normal. Denies nausea vomiting or diarrhea. Compliant with medications including Prozac 80 mg daily, Lamictal 200 mg daily, BuSpar 30 mg twice daily. Able to reduce Ativan to 1 mg every morning and 1/2 mg p.o. nightly. Patient is alert and oriented in no acute distress. Ambulatory with slow gait and normal station. Casually dressed and groomed. Appropriate hygiene. Appears stated age. Cooperative with interview. Good eye contact. Mild psychomotor retardation. Mood is depressed but improved. Affect congruent. Speech is clear and of regular rate and volume. Language fluent. Thought process organized. Associations logical. Thought content significant for ruminative anxiety and themes of depression. No suicidal or homicidal thoughts related to her detected. No evidence of psychosis. Memory grossly intact. Attention and concentration are good. Estimated intelligence and fund of knowledge average. Judgment and insight are improving. Labs and testing Lab work will be requested from primary care physician. Further lab work will be obtained as needed. Diagnosis Major depressive disorder F 33.2 Generalized anxiety disorder Obstructive sleep apnea Plan Continue IOP as the structured setting is necessary to maintain gains and prevent decompensation. Patient will likely benefit from ongoing IOP treatment. Risks benefits alternatives of medications discussed with patient. Patient acknowledges understanding. Continue Prozac 80 mg daily. Continue Lamictal 200 mg daily. Continue BuSpar 30 mg twice daily. Reduce Ativan to 0.5 mg p.o. twice daily. Ongoing goal of Ativan reduction with the assistance of Dr. High. Will check [facility] and coordinate rx with Dr. High. Encouraged ongoing BiPAP compliance. Encouraged to follow-up with outpatient psychiatric providers including Dr. High and Alma Beasley. Patient acknowledges understanding and is in agreement with plan. She feels able to maintain safety. She agrees to seek help or emergency care if feeling unsafe to self or others. 16 minutes of supportive psychotherapy provided.
--- NOTE | 2017-08-14 15:17 | BH.SGPN ---
Service Group Progress Note - Session Psychotherapy Session #2 Date Open:: 08/14/17 - 8 group members Time Started:: 10:13 Time Stopped:: 11:10 Targeted Problem #:: 1 Type of Group:: Illness Management Goal of Group:: To identify the importance of change, increase understanding of difficulty of making change, identify what clients would like to make changes in and identify the barriers or obstacles that get in the way of change. Client Response/Progress/Benefit:: Client responded well to session, participating in activity. Client shared making change is challenging because of anxiety and depression as you can feel lost and not know where to start. Client identified goals for the week that would benefit her mental health to be taking medications consistently, taking a walk twice a week, and finding a reason a day to get out of the house. Client shared these goals would reduce isolation and reduce mental health symptoms. Client identified her barriers to be depression and anxiety. Client appeared to benefit from increasing awareness of the positives of change as well as her personal barriers. Client seems to be progressing with increasing social supports and practicing healthy coping skills during group, but continues to struggle with implementing coping skills outside of group. Eye Contact:: Fair Motor Activity:: Appropriate, Other - had to sit during activity due to balance issues. Appearance:: Casual Speech:: Tangential Mood:: Anxious Affect:: Constricted Thoughts:: Linear, No evidence of hallucinations/delusions noted Staff Interventions:: Therapist facilitated discussion about change and helped clients make connections of why change is important. Therapist led group in an experiential activity which involved clients identifying changes want to make and barriers that get in the way of making those changes. Therapist utilized activity as a tool to help clients make connections of difficulties in making changes and identify what helps overcome barriers to change. Psychotherapy Session #3 Date Open:: 08/14/17 - 9 group members Time Started:: 11:15 Time Stopped:: 12:10 Targeted Problem #:: 1 Type of Group:: Functional Skills Development Goal of Group:: To identify specific barriers to an identified change clients would want to make and identify ways to overcome those barriers. Client Response/Progress/Benefit:: Client responded well to session, engaged through note-taking. Client reported overcoming barriers is challenging due clients depression and daily anxiety. Client identified her weekly goal to get out of the house once a day. Client shared her barriers are getting too nervous and lacking motivation. Client created strategies to overcome this barrier such as focusing on the benefits,using calming coping skills, and looking back on past successes. Client seemed to benefit from identifying strategies to overcome barriers for her weekly goal. Client to continue IOP to prevent decompensation and reduce intensity of mental health symptoms. Eye Contact:: Fair Motor Activity:: Appropriate Appearance:: Casual Speech:: Tangential Mood:: Anxious Affect:: Constricted Thoughts:: Other - appeared confused at times., No evidence of hallucinations/delusions noted Staff Interventions:: Therapist facilitated discussion about what helped the group overcome challenges that came about during the experiential activity. Therapist utilized the activity as a tool in relating those experiences to ways to overcome barriers with challenges in their life when trying to make change. Therapist group into smaller groups and had them brainstorm ways to overcome certain barriers to their identified change. Therapist provided support by using reflective listening and providing feedback.
--- NOTE | 2017-08-14 15:23 | BH.SGPN_ITS ---
Service Group Progress Note - Session Psychotherapy Session #2 Date Open:: 08/14/17 - 8 group members Time Started:: 10:13 Time Stopped:: 11:10 Targeted Problem #:: 1 Type of Group:: Illness Management Goal of Group:: To identify the importance of change, increase understanding of difficulty of making change, identify what clients would like to make changes in and identify the barriers or obstacles that get in the way of change. Client Response/Progress/Benefit:: Client responded well to session, participating in activity. Client shared making change is challenging because of anxiety and depression as ?you can feel lost and not know where to start.? Client identified goals for the week that would benefit her mental health to be taking medications consistently, taking a walk twice a week, and finding a reason a day to get out of the house. Client shared these goals would reduce isolation and reduce mental health symptoms. Client identified her barriers to be depression and anxiety. Client appeared to benefit from increasing awareness of the positives of change as well as her personal barriers. Client seems to be progressing with increasing social supports and practicing healthy coping skills during group, but continues to struggle with implementing coping skills outside of group. Eye Contact:: Fair Motor Activity:: Appropriate, Other - had to sit during activity due to balance issues. Appearance:: Casual Speech:: Tangential Mood:: Anxious Affect:: Constricted Thoughts:: Linear, No evidence of hallucinations/delusions noted Staff Interventions:: Therapist facilitated discussion about change and helped client?s make connections of why change is important. Therapist led group in an experiential activity which involved client?s identifying changes want to make and barriers that get in the way of making those changes. Therapist utilized activity as a tool to help client?s make connections of difficulties in making changes and identify what helps overcome barriers to change. Psychotherapy Session #3 Date Open:: 08/14/17 - 9 group members Time Started:: 11:15 Time Stopped:: 12:10 Targeted Problem #:: 1 Type of Group:: Functional Skills Development Goal of Group:: To identify specific barriers to an identified change clients would want to make and identify ways to overcome those barriers. Client Response/Progress/Benefit:: Client responded well to session, engaged through note-taking. Client reported overcoming barriers is challenging due client?s depression and daily anxiety. Client identified her weekly goal to get out of the house once a day. Client shared her barriers are ?getting too nervous ? and lacking motivation. Client created strategies to overcome this barrier such as focusing on the benefits,using calming coping skills, and looking back on past successes. Client seemed to benefit from identifying strategies to overcome barriers for her weekly goal. Client to continue IOP to prevent decompensation and reduce intensity of mental health symptoms. Eye Contact:: Fair Motor Activity:: Appropriate Appearance:: Casual Speech:: Tangential Mood:: Anxious Affect:: Constricted Thoughts:: Other - appeared confused at times., No evidence of hallucinations/ delusions noted Staff Interventions:: Therapist facilitated discussion about what helped the group overcome challenges that came about during the experiential activity. Therapist utilized the activity as a tool in relating those experiences to ways to overcome barriers with challenges in their life when trying to make change. Therapist group into smaller groups and had them brainstorm ways to overcome certain barriers to their identified change. Therapist provided support by using reflective listening and providing feedback.
--- NOTE | 2017-08-14 15:46 | BH.COMM ---
Communication Note - Communication with Client Communication Note: Therapist spoke with client's outpatient therapist, Alma Beasley, to discuss coordination of client care. Therapist also advocated for client by discussing case management, discharge, and scheduling outpatient appointments.
--- NOTE | 2017-08-14 16:49 | BH.SGPN_ITS ---
Service Group Progress Note - Session Psychotherapy Session #1 Date Open:: 08/14/17 Time Started:: 09:05 Time Stopped:: 10:00 Type of Group:: Process - 4 group members Goal of Group:: The goal of today's group was to check-in with client's mood, stressors, and positives, review homework and introduce topic for the day. Client Response/Progress/Benefit:: Client was active participant and provided feedback and support to peers. Emotion for today was content. Her check-in was short and stated that she has been managing her anxiety fairly well. Shared that she is looking forward to congregation this weekend. Benefits a great deal from social interactions and support from group. Does well with supporting peers as well. Progress noted as she is reporting decreased frequency, duration , and severity of anxiety. Will continue in IOP to maintain gains. Eye Contact:: Fair Motor Activity:: Appropriate Appearance:: Disheveled Speech:: Appropriate Mood:: Anxious, Depressed Affect:: Flat Thoughts:: Linear, Logical, No evidence of hallucinations/delusions noted Staff Interventions:: Therapist used open-ended questions to elicit information about client's current stressors and mood state. Therapist was supportive by using active listening and reflection.
--- NOTE | 2017-08-17 13:14 | BH.SGPN_ITS ---
Service Group Progress Note - Session Psychotherapy Session #1 Date Open:: 08/17/17 Time Started:: 09:05 Time Stopped:: 10:10 Targeted Problem #:: 1 Type of Group:: Process - 10 Participants Goal of Group:: The goal of today's group was to check-in with client's mood, stressors, and positives, review homework, and to introduce the topic of the day. Client Response/Progress/Benefit:: Client entered session alert, attentive, and willing to engage. Client reminisced about weekend and stated, ?Thursday was pure hell? due to client?s increased anxiety when she went to the store and lost her phone 3 times while she was there. She reports that there were too many people in the store and her anxiety was, ?out of control.? She shared Thursday was much better and was able to attend voodoo and go out to lunch with a friend. Client stated, ?I enjoyed going out and sitting down to talk.? Therapist asked if she would be willing to call and schedule to do this again and she reported that she couldn?t because the other person babysat. Therapist discussed the concept of attending groups like [employer] and client appeared receptive and stated she was interested. Client indicated her emotion as in the mildly anxious and benefitted from receiving support and ideas from peers about groups. Progress noted in client?s ability to manage anxiety and leave home throughout the weekend. Continued treatment necessary to encourage client attend groups and increase daily functioning. Eye Contact:: Good Motor Activity:: Appropriate Appearance:: Casual Speech:: Appropriate Mood:: Euthymic, Anxious Affect:: Full Thoughts:: Linear, Logical, No evidence of hallucinations/delusions noted Staff Interventions:: Therapist used open-ended questions to elicit information about client's current stressors and mood. Therapist was supportive by using active listening and reflection. Psychotherapy Session #2 Date Open:: 08/17/17 Time Started:: 10:14 Time Stopped:: 11:10 Targeted Problem #:: 1 Type of Group:: Illness Management - 9 Participants Goal of Group:: To increase understanding and awareness of emotions connected to change and the impact those emotions can have on change. Client Response/Progress/Benefit:: Client was alert and attentive in group AEB taking notes. Client participated in a small group activity designed to illustrate how the emotions of change can look and how we might respond. Client was able to successfully complete activity and participated in group discussion on the stages of change model. Client reported that she often feels panic when change occurs. Client benefitted from identifying the stages of change and rating what stage she is at. Progress noted in client?s awareness of how she looks at change. Continued treatment necessary to increase daily functioning. Eye Contact:: Good Motor Activity:: Appropriate Appearance:: Casual Speech:: Appropriate Mood:: Euthymic Affect:: Full Thoughts:: Linear, Logical, No evidence of hallucinations/delusions noted Staff Interventions:: Therapist facilitated group discussion about change. Therapist led the group in an activity in which the activity was utilized as a tool to increase client?s awareness of emotions connected with change. Therapist led the processing of how each emotion was connected with change. Therapist was supportive by providing feedback and using reflective listening.
--- NOTE | 2017-08-17 13:45 | BH.SGPN_ITS ---
Service Group Progress Note - Session Psychotherapy Session #3 Date Open:: 08/17/17 - 9 group members Time Started:: 11:19 Time Stopped:: 12:15 Targeted Problem #:: 1 Type of Group:: Functional Skills Development Goal of Group:: To identify the challenges associated with making change and identify positive outcomes that have resulted from changes made in past. Another goal was to identify one change they are willing to make this week. Client Response/Progress/Benefit:: Client responded well to session, engaged through note taking. Client reported change is challenging because ?you don?t always have supports.? Client stated personal change is difficulty her for because anxiety and depression keep client from getting out and meeting new supports. Client identified ?coming to group? as a time when change was positive for her. Client appeared to benefit from identifying the challenges associated with making change as well as reflecting on times when change was positive. Client progressing as shown by her report of reduced depression and anxiety, but continues to struggle with using opposite action which continues the maintenance cycle of depression. Eye Contact:: Good Motor Activity:: Appropriate Appearance:: Neat Speech:: Appropriate Mood:: Euthymic Affect:: Congruent Thoughts:: Linear, No evidence of hallucinations/delusions noted Staff Interventions:: Therapist led group in an activity to help group members recognize the challenges associated with change. Therapist utilized activity as a tool to identify ways to manage changes and adapt to the challenges that ensue. Therapist facilitated group discussion about positive outcomes from change. Therapist helped clients explore changes they are willing to make this week and elicited discussion on the pros and cons of making that change.
--- NOTE | 2017-08-18 12:53 | BH.SGPN ---
Service Group Progress Note - Session Psychotherapy Session #1 Date Open:: 08/18/17 Time Started:: 09:04 Time Stopped:: 10:08 Targeted Problem #:: 1 Type of Group:: Process - 6 Participants Goal of Group:: The goal of today's group was to check-in with client's mood, stressors, and positives, review homework, and to introduce the topic of the day. Client Response/Progress/Benefit:: Client entered session alert, attentive, and willing to engage. Client shared how yesterday when she left group she began recognizing the anxiety building up again and continued on throughout the night when she got home and reported nothing helped to reduce it. Client reports when anxiety increases like this she has difficulty remembering where she put things and stated, Sometimes I think its dementia. When asked if there was anything she could do to reduce the anxiety today she said there was nothing. Therapist went over brief grounding techniques and client was receptive. Client indicated her emotion as anxious and benefitted from looking at new coping skills. Limited progress noted due to clients refusal to use coping skills to manage anxiety. Continued treatment necessary to implement new coping strategies. Eye Contact:: Good Motor Activity:: Appropriate Appearance:: Casual Speech:: Appropriate Mood:: Euthymic, Anxious Affect:: Full Thoughts:: Linear, Logical, No evidence of hallucinations/delusions noted Staff Interventions:: Therapist used open-ended questions to elicit information about client's current stressors and mood. Therapist was supportive by using active listening and reflection. Psychotherapy Session #2 Date Open:: 08/18/17 Time Started:: 10:17 Time Stopped:: 11:19 Targeted Problem #:: 1 Type of Group:: Illness Management - 7 Participants Goal of Group:: To increase understanding of communication and the various types of communication. Another goal was to increase understanding of impact communication styles can have. Client Response/Progress/Benefit:: Client entered session alert, attentive, and willing to engage. Client connected with the days quote stating, Well, the other person might not care what you have to say. Client participated in group discussion on the different types of communication skills and identified herself as passive aggressive. Client benefitted from discussion of communication styles and progress noted in clients insight. Continued treatment necessary to decrease anxiety levels. Eye Contact:: Good Motor Activity:: Appropriate Appearance:: Casual Speech:: Appropriate Mood:: Euthymic, Anxious Affect:: Full Thoughts:: Linear, Logical, No evidence of hallucinations/delusions noted Staff Interventions:: Therapist facilitated the group discussion about communication and explained the different types of communication. Therapist assisted group members in connecting the communication styles to the way they communicate and impact the communication style has on their relationships. Therapist provided support by using active listening and providing feedback.
--- NOTE | 2017-08-18 13:05 | BH.SGPN_ITS ---
Service Group Progress Note - Session Psychotherapy Session #1 Date Open:: 08/18/17 Time Started:: 09:04 Time Stopped:: 10:08 Targeted Problem #:: 1 Type of Group:: Process - 6 Participants Goal of Group:: The goal of today's group was to check-in with client's mood, stressors, and positives, review homework, and to introduce the topic of the day. Client Response/Progress/Benefit:: Client entered session alert, attentive, and willing to engage. Client shared how yesterday when she left group she began recognizing the anxiety building up again and continued on throughout the night when she got home and reported nothing helped to reduce it. Client reports when anxiety increases like this she has difficulty remembering where she put things and stated, ?Sometimes I think it?s dementia.? When asked if there was anything she could do to reduce the anxiety today she said there was nothing. Therapist went over brief grounding techniques and client was receptive. Client indicated her emotion as anxious and benefitted from looking at new coping skills. Limited progress noted due to client?s refusal to use coping skills to manage anxiety. Continued treatment necessary to implement new coping strategies. Eye Contact:: Good Motor Activity:: Appropriate Appearance:: Casual Speech:: Appropriate Mood:: Euthymic, Anxious Affect:: Full Thoughts:: Linear, Logical, No evidence of hallucinations/delusions noted Staff Interventions:: Therapist used open-ended questions to elicit information about client's current stressors and mood. Therapist was supportive by using active listening and reflection. Psychotherapy Session #2 Date Open:: 08/18/17 Time Started:: 10:17 Time Stopped:: 11:19 Targeted Problem #:: 1 Type of Group:: Illness Management - 7 Participants Goal of Group:: To increase understanding of communication and the various types of communication. Another goal was to increase understanding of impact communication styles can have. Client Response/Progress/Benefit:: Client entered session alert, attentive, and willing to engage. Client connected with the days quote stating, ?Well, the other person might not care what you have to say.? Client participated in group discussion on the different types of communication skills and identified herself as passive aggressive. Client benefitted from discussion of communication styles and progress noted in client?s insight. Continued treatment necessary to decrease anxiety levels. Eye Contact:: Good Motor Activity:: Appropriate Appearance:: Casual Speech:: Appropriate Mood:: Euthymic, Anxious Affect:: Full Thoughts:: Linear, Logical, No evidence of hallucinations/delusions noted Staff Interventions:: Therapist facilitated the group discussion about communication and explained the different types of communication. Therapist assisted group members in connecting the communication styles to the way they communicate and impact the communication style has on their relationships. Therapist provided support by using active listening and providing feedback.
--- NOTE | 2017-08-18 13:16 | BH.SGPN ---
Service Group Progress Note - Session Psychotherapy Session #3 Date Open:: 08/18/17 Time Started:: 11:24 Time Stopped:: 12:18 Targeted Problem #:: 1 Type of Group:: Functional Skills Development - 7 participants Goal of Group:: To identify important components of communication and practice specific, clear communication. Staff Interventions:: Therapist led the discussion about important components of effective communication. Therapist provided each group member with the same three materials and broke the group into pairs. Therapist facilitated a communication activity in which the group members would have to achieve a goal by using effective communication to achieve such goal. Therapist processed the activity with the group.
--- NOTE | 2017-08-18 14:02 | BH.TPR ---
Treatment Plan Review Date of Admission:: 07/20/17 Date of Treatment Plan Review:: 08/18/17 Admitting Diagnoses:: Major Depressive Disorder F33.2; Generalized Anxiety Disorder Current Diagnoses:: Major Depressive Disorder F33.2; Generalized Anxiety Disorder Patient's Response to Treatment:: Client seems to be responding well to treatment as she reports reduced depression, anxiety, and ER visits due to peer support and learning healthy coping skills. Overall, client is a good group member as she provides occasional insight during discussions and supportive statements to peers. Client demonstrates engagement in group through note-taking and is receptive in individual sessions. Client reports ongoing concerns with poor memory which exacerbates anxiety symptoms. Client continues to be reluctant about joining outpatient mental health groups in addition to IOP for social support, but has been getting out of her house more by attending congregational and spending time with a friend a few times a week. Client reports success with using breathing, guided imagery, and other mindfulness skills. Client stated she is seeing progress but I have a way to go. Client has reestablished a connection with her case packer from [facility] which has served as a positive for clients treatment and aftercare options. Status of Current Problems and Symptoms: Client reports ongoing anxiety, especially in the mornings, a depressed mood, and isolation on days she does not attend group. Client has been struggling with memory difficulties and confusion which she reports impacts anxiety. Client reports implementing some calming strategies at home, but often reports she forgets to use skills learned in group and individual sessions. Client has been successful with using mindfulness strategies and has been consistent with attending congregational on Sundays. Client reports her anxiety continues to be a barrier at times to participating in activities and increasing social support outside of IOP. Problem #1 Problem Name:: Pt will reduce depressive symptoms and increase self-care and supports Status of Goals:: Client is making progress on this treatment goal as she has reduced isolation, increased cleaning at home, and reports fewer symptoms of depression. However, client continues to struggle on days she does not attend IOP as client stays at home and isolates. Client and therapist are currently working on connecting client with [employer] Larisa Elliott, and setting small daily goals. Team Recommendations:: Client to continue working towards this treatment goal as she has demonstrated progress with reducing depressive symptoms and increasing socialization, but can continue to benefit from engaging in activities outside of IOP as client isolates on days she is not at group. Client to continue seeing Alma Beasley at [facility], begin seeing case packer, Miriam, and follow up with attending [facility] or [facility]. Problem #2 Problem Name:: Pt. will reduce overall frequency and intensity of anxiety. Status of Goals:: Client has partially accomplished this goal as she continues to struggle with identifying warning signs and engages in some avoidance behaviors due to anxiety, but has demonstrated progress with implementing calming strategies and reducing the duration of anxiety so that daily functioning is less impaired. Client has also not had any ER visits in the past month which may be due to reduction of anxiety symptoms. Team Recommendations:: Client to continue working towards treatment goals as she can continue to benefit from identifying early warning signs and utilizing proactive calming skills. Client to continue seeing Alma Beasley at [facility] and begin seeing her case packer Miriam again at [facility] as well.
--- NOTE | 2017-08-18 14:10 | BH.MTP_ITS ---
Treatment Plan Review Date of Admission:: 07/20/17 Date of Treatment Plan Review:: 08/18/17 Admitting Diagnoses:: Major Depressive Disorder F33.2; Generalized Anxiety Disorder Current Diagnoses:: Major Depressive Disorder F33.2; Generalized Anxiety Disorder Patient's Response to Treatment:: Client seems to be responding well to treatment as she reports reduced depression, anxiety, and ER visits due to peer support and learning healthy coping skills. Overall, client is a good group member as she provides occasional insight during discussions and supportive statements to peers. Client demonstrates engagement in group through note- taking and is receptive in individual sessions. Client reports ongoing concerns with poor memory which exacerbates anxiety symptoms. Client continues to be reluctant about joining outpatient mental health groups in addition to IOP for social support, but has been getting out of her house more by attending druze and spending time with a friend a few times a week. Client reports success with using breathing, guided imagery, and other mindfulness skills. Client stated she is seeing progress but I have a way to go. Client has reestablished a connection with her skilled nursing case manager from [facility] which has served as a positive for client?s treatment and aftercare options. Status of Current Problems and Symptoms: Client reports ongoing anxiety, especially in the mornings, a depressed mood, and isolation on days she does not attend group. Client has been struggling with memory difficulties and confusion which she reports impacts anxiety. Client reports implementing some calming strategies at home, but often reports she forgets to use skills learned in group and individual sessions. Client has been successful with using mindfulness strategies and has been consistent with attending druze on Sundays. Client reports her anxiety continues to be a barrier at times to participating in activities and increasing social support outside of IOP. Problem #1 Problem Name:: Pt will reduce depressive symptoms and increase self-care and supports Status of Goals:: Client is making progress on this treatment goal as she has reduced isolation, increased cleaning at home, and reports fewer symptoms of depression. However, client continues to struggle on days she does not attend IOP as client stays at home and isolates. Client and therapist are currently working on connecting client with [facility], and setting small daily goals. Team Recommendations:: Client to continue working towards this treatment goal as she has demonstrated progress with reducing depressive symptoms and increasing socialization, but can continue to benefit from engaging in activities outside of IOP as client isolates on days she is not at group. Client to continue seeing Alma Beasley at [facility], begin seeing skilled nursing case manager, Miriam, and follow up with attending [facility] or [facility]. Problem #2 Problem Name:: Pt. will reduce overall frequency and intensity of anxiety. Status of Goals:: Client has partially accomplished this goal as she continues to struggle with identifying warning signs and engages in some avoidance behaviors due to anxiety, but has demonstrated progress with implementing calming strategies and reducing the duration of anxiety so that daily functioning is less impaired. Client has also not had any ER visits in the past month which may be due to reduction of anxiety symptoms. Team Recommendations:: Client to continue working towards treatment goals as she can continue to benefit from identifying early warning signs and utilizing proactive calming skills. Client to continue seeing Alma Beasley at [facility] and begin seeing her skilled nursing case manager Miriam again at [facility] as well.
--- NOTE | 2017-08-20 11:48 | BH.MDN ---
Multi-Disciplinary Note - Note 30-min Individual Time Started:: 10:45 Date: 08/20/17 Purpose of session/treatment goals addressed:: The purpose of this session was to learn and practice calming strategies to promote emotional regulation of anxiety and frustration. Another goal was to discuss discharge and create a plan for improving client's social activity and supports. Eye Contact:: Fair Motor Activity:: Appropriate, Other - Client's hands shaking at times. Appearance:: Disheveled - Hair appeared unclean Speech:: Tangential Mood:: Dysthymic Affect:: Full Thoughts:: Other - Client potentially had cognitive processing difficulties AEB occasionally forgetting words and phrases and changing the topic mid sentence at times., No evidence of hallucinations/delusions noted Staff Interventions:: Therapist used active listening as client expressed concerns, stressors, and barriers. Therapist used open-ended questions to explore client's current coping methods and introduced various mindfulness and calming techniques. Therapist discussed discharge with client and helped client develop a plan to maintain social supports. Therapist and client discussed healthy ways to cope with strong emotions as well as the importance of boundaries. Therapist gave client homework to practice calming strategies in the morning as well as a list of the coping skills and peaceful places client could visit. Client Response:: Client responded well to session, receptive to calming strategies. Client reported she has been feeling increased anxiety and depression on days she does not come to [facility]. Client and therapist discussed the pros and cons of having a routine schedule that includes engaging with others as client acknowledges I know I can't stay here forever. Client reported being with other people who understand what Im going through has been the most helpful. Client and therapist dicussed local peer support groups such as [employer] and the [facility] [place] as possibilities to maintain social supports. Client was open to implementing calming strategies into her daily routine as client reported they could help. Client practiced deep breathing skills, progressive muscle relaxation techniques with a stress ball, and mindfulness. Client shared she enjoyed the stress ball activity as client shared I get all this energy inside me when anxious, so the tensing and releasing of muscles was beneficial. Client identified personal interest that could be calming such as bird watching and going to a park to watch wildlife and sunsets. Client reported she went to visit a friend yesterday to cope with anxiety. However, client shared her friend increases anxiety and anger as client feels taken advantage of at times. Client and therapist discussed the importance of setting boundaries and managing frustration, so client does not lash out at her friend and make things worse. Client shared she can use the stress ball to release anger and be open with her friend about boundaries to reduce anxiety. Client reports overall reduction of mental health symptoms, but continues to struggle with confusion, feeling worked up, and low energy. Client and therapist discussed the importance of implementing healthy coping skills daily to increase likelihood of progress. Risks/Concerns:: Client denies suicidal ideation, plan, and intent as of 08/20/17. Client reports group has been a huge push for her. Progress Toward Goals/Plan:: Client showing progress towards treatment goals as client reports increased ability to cope with anxiety and depression as well as increased socialization. Client continues to struggle with confusion, anxiety in the mornings, and isolation on days client does not attend IOP. Client to continue IOP to promote gains and increase mood stability. Client to follow up with her telehealth case manager to attend [facility] [place] and to utilize morning stress management techniques. Time Stopped:: 11:22
--- NOTE | 2017-08-20 12:01 | BH.MDN_ITS ---
Multi-Disciplinary Note - Note 30-min Individual Time Started:: 10:45 Date: 08/20/17 Purpose of session/treatment goals addressed:: The purpose of this session was to learn and practice calming strategies to promote emotional regulation of anxiety and frustration. Another goal was to discuss discharge and create a plan for improving client's social activity and supports. Eye Contact:: Fair Motor Activity:: Appropriate, Other - Client's hands shaking at times. Appearance:: Disheveled - Hair appeared unclean Speech:: Tangential Mood:: Dysthymic Affect:: Full Thoughts:: Other - Client potentially had cognitive processing difficulties AEB occasionally forgetting words and phrases and changing the topic mid sentence at times., No evidence of hallucinations/delusions noted Staff Interventions:: Therapist used active listening as client expressed concerns, stressors, and barriers. Therapist used open-ended questions to explore client's current coping methods and introduced various mindfulness and calming techniques. Therapist discussed discharge with client and helped client develop a plan to maintain social supports. Therapist and client discussed healthy ways to cope with strong emotions as well as the importance of boundaries. Therapist gave client homework to practice calming strategies in the morning as well as a list of the coping skills and peaceful places client could visit. Client Response:: Client responded well to session, receptive to calming strategies. Client reported she has been feeling increased anxiety and depression on days she does not come to [facility]. Client and therapist discussed the pros and cons of having a routine schedule that includes engaging with others as client acknowledges I know I can't stay here forever. Client reported ? being with other people who understand what I?m going through has been the most helpful.? Client and therapist dicussed local peer support groups such as [employer] and the [facility] [employer] as possibilities to maintain social supports. Client was open to implementing calming strategies into her daily routine as client reported they could help. Client practiced deep breathing skills, progressive muscle relaxation techniques with a stress ball, and mindfulness. Client shared she enjoyed the stress ball activity as client shared I get all this energy inside me when anxious, so the tensing and releasing of muscles was beneficial. Client identified personal interest that could be calming such as bird watching and going to a park to watch wildlife and sunsets. Client reported she went to visit a friend yesterday to cope with anxiety. However, client shared her friend increases anxiety and anger as client feels taken advantage of at times. Client and therapist discussed the importance of setting boundaries and managing frustration, so client does not lash out at her friend and make things worse. Client shared she can use the stress ball to release anger and be open with her friend about boundaries to reduce anxiety. Client reports overall reduction of mental health symptoms, but continues to struggle with confusion, feeling worked up, and low energy. Client and therapist discussed the importance of implementing healthy coping skills daily to increase likelihood of progress. Risks/Concerns:: Client denies suicidal ideation, plan, and intent as of . Client reports group has been a huge push for her. Progress Toward Goals/Plan:: Client showing progress towards treatment goals as client reports increased ability to cope with anxiety and depression as well as increased socialization. Client continues to struggle with confusion, anxiety in the mornings, and isolation on days client does not attend IOP. Client to continue IOP to promote gains and increase mood stability. Client to follow up with her upper caser to attend [facility] [place] and to utilize morning stress management techniques. Time Stopped:: 11:22
--- NOTE | 2017-08-20 12:02 | BH.SGPN ---
Service Group Progress Note - Session Psychotherapy Session #1 Date Open:: 18 - 8 group members Time Started:: 09:07 Time Stopped:: 10:12 Targeted Problem #:: 1 Type of Group:: Process Goal of Group:: The goal of today's group was to check-in with client's mood, stressors, and positives, and review homework. Client Response/Progress/Benefit:: Client responded well to session, providing supportive statements on occasion. Client reports feeling anxious today as client had a rough day yesterday. Client stated she feels most comfortable on days she comes to group, but struggles to manage anxiety and depression when she is home alone. Therapist and group provided ideas for ways client could receive peer support in the community such as going to the [employer] [place] [employer] and [employer]. Client was somewhat receptive to the idea as client shared it could help but is scared to try something new. Client appeared to benefit from receiving emotional support from peers and community resources. Client seems to be making progress with managing anxiety and depression on days she attends IOP, but continues to report reluctance to join groups in the community which may hinder progress. Client can continue to benefit from implementing calming coping strategies learned in individual and group sessions in the mornings to reduce anxiety. Eye Contact:: Poor Motor Activity:: Appropriate Appearance:: Disheveled - hair appeared unclean Speech:: Soft Mood:: Dysthymic Affect:: Constricted Thoughts:: Linear, No evidence of hallucinations/delusions noted Staff Interventions:: Therapist used open-ended questions to elicit information about client's current stressors and mood state. Therapist was supportive by using active listening and reflection.
--- NOTE | 2017-08-20 12:18 | BH.SGPN ---
Service Group Progress Note - Session Psychotherapy Session #3 Date Open:: 08/20/17 Time Started:: 11:22 Time Stopped:: 12:14 Targeted Problem #:: 1 Type of Group:: Process - 9 participants Goal of Group:: To identify personal pitfalls and what keeps them stuck from moving forward. Staff Interventions:: Therapist facilitated activity in which group members were given the task to identify personal pitfalls and what keeps them stuck from moving past the pitfall. Therapist provided group members with the homework assignment of identifying strategies that can help them overcome pitfalls.
--- NOTE | 2017-08-21 16:10 | BH.SGPN ---
Service Group Progress Note - Session Psychotherapy Session #2 Date Open:: 08/21/17 Time Started:: 10:20 Time Stopped:: 11:10 Targeted Problem #:: 1 Type of Group:: Illness Management Goal of Group:: The goal of this session was to increase self-awareness of what is holding them back from moving towards mental wellness and discuss importance of taking action in their treatment. Eye Contact:: Good Motor Activity:: Appropriate Appearance:: Casual Speech:: Appropriate Mood:: Anxious Affect:: Constricted Thoughts:: Linear, Logical, No evidence of hallucinations/delusions noted Staff Interventions:: Therapist facilitated discussion about what it means to take action in achieving mental health wellness. Therapist led activity in which clients were asked to identify the symptoms and things that they would like to take back control over. Therapist provided support by using active listening. Psychotherapy Session #3 Date Open:: 08/21/17 Time Started:: 11:20 Time Stopped:: 12:20 Targeted Problem #:: 1 Type of Group:: Functional Skills Development Goal of Group:: The goal of this session was to create a 30 day action plan that provides small goals that work towards taking action on one thing they would like to take back control over. Eye Contact:: Good Motor Activity:: Appropriate Appearance:: Casual Speech:: Appropriate Mood:: Anxious Affect:: Constricted Thoughts:: Linear, Logical, No evidence of hallucinations/delusions noted Staff Interventions:: Therapist provided materials and guidance to help clients create a 30 day action plan. Therapist provided support by giving feedback and using active listening.
--- NOTE | 2017-08-21 20:42 | BH.SGPN ---
Service Group Progress Note - Session Psychotherapy Session #1 Date Open:: 08/21/17 Time Started:: 09:13 Time Stopped:: 10:14 Targeted Problem #:: 1 Type of Group:: Process - 4 participants Goal of Group:: The goal of today's group was to check-in with client's mood, stressors, and positives, review homework and introduce topic for the day. Client Response/Progress/Benefit:: Client responded well to session and was a positive participant throughout. She remained actively and engaged during discussion and provided supportive feedback. Client shared feeling somewhat less depressed lately and noted that she has been trying to find things that may keep her busy and reported taking a friend to the gas station in order to get out of the house. Client reflected upon work she has been doing during individual sessions in order to better manage her symptoms of anxiety. Client went on to explain that she has been trying to use a stressball as a means for preventing symptoms from increasing during high stress situations. CLient notes that although depression has begun to decrease she feels her anxiety in increasing as now she is more aware of things she had previously been neglecting. She connected well with the concept of breaking things down into smaller tasks. Eye Contact:: Good Motor Activity:: Appropriate Appearance:: Casual Speech:: Appropriate Mood:: Euthymic, Anxious Affect:: Full Thoughts:: Linear, Logical, No evidence of hallucinations/delusions noted Staff Interventions:: Therapist used open-ended questions to elicit information about client's current stressors and mood state. Therapist was supportive by using active listening and reflection. Therapist utilized a quote as an aid in introducing the topic.
--- NOTE | 2017-08-24 11:42 | BH.MDN ---
Multi-Disciplinary Note - Note 60-min Individual Time Started:: 10:31 Date: 08/24/17 Purpose of session/treatment goals addressed:: The purpose of this session was to explore client's current stressors, progress, and use of coping skills. Another goal was to learn and practice calming coping skills, identify warning signs, and discuss barriers. Other topics included: social supports, psychoeducation, and strengths. Eye Contact:: Good Motor Activity:: Appropriate Appearance:: Neat Speech:: Appropriate, Rambling - less frequent that previous sessions Mood:: Euthymic Affect:: Full Thoughts:: Linear, No evidence of hallucinations/delusions noted Staff Interventions:: Therapist used active listening and open-ended questions to help client explore current stressors, warning signs, and identify coping skills. Therapist led client in a guided imagery activity to promote grounding and mindfulness. Therapist reviewed various coping strategies to manage anxiety, including coping skills client can utilize when out in public. Therapist taught client about the stress response and how it impacts one's functioning, thoughts, and emotions. Therapist used strengths perspective to empower client in the progress she has made. Client Response:: Client responded well to session, engaged throughout. Client reported she felt real anxious this morning, but was unsure of the trigger. Client stated she attended [employer] this weekend and met up with a friend for lunch which demonstrates progress. Client shared it was really nice to get to talk with her, we don't see each other often. Client reported she has been feeling less depression which has increased her motivation to clean her apartment. Client was receptive to praise given by therapist on client's progress. Client and therapist discussed client's use of coping skills for managing anxiety. Client shared she recently became too stressed, confused, and got frustrated at the store which resulted in client going off on a woman. Client stated she felt bad after as client has not gone off in years. Client and therapist discussed various coping skills client could utilize in public when she begins to recognize stress building such as praying, talking to self, and looking at a calming picture. Client was receptive to the guided imagery activity sharing, this one has been most helpful so far. Client shared she would be willing to listen to a guided imagery script daily to reduce anxiety and frustration. Client to hang up her list of coping skills on her refrigerator for homework as well as incorporate crocheting and guided imagery. Risks/Concerns:: Client denies suicidal ideation, plan, and intent as of 08/24/17. Client reported she may have another UTI which could increase confusion and exacerbate anxiety. Client recommended to follow up with her doctor. Progress Toward Goals/Plan:: Client showing progress towards treatment goals as client reports increased engagement with social supports and overall reduced depression. Client shared she has been feeling less anxious during the week and reports increased willingness to follow through with internal coping skills and joining a support group. Client continues to report confusion, shaking, and high anxiety in the mornings with little insight to what triggers the symptoms. Client shared she may have a UTI again and was recommended to follow up with her PCP. Client to continue IOP to promote gains, increase awareness, and for coping skill maintenance. Time Stopped:: 11:27
--- NOTE | 2017-08-24 12:09 | BH.SGPN ---
Service Group Progress Note - Session Psychotherapy Session #1 Date Open:: 08/24/17 Time Started:: 09:04 Time Stopped:: 10:20 Targeted Problem #:: 1 Type of Group:: Process - 8 participants Goal of Group:: The goal of today's group was to check-in with client's mood, stressors, and positives, review homework and introduce topic for the day. Eye Contact:: Fair Motor Activity:: Appropriate Appearance:: Casual Speech:: Soft Mood:: Anxious, Depressed Affect:: Constricted Thoughts:: Linear, Logical, No evidence of hallucinations/delusions noted Staff Interventions:: Therapist used open-ended questions to elicit information about client's current stressors and mood state. Therapist was supportive by using active listening and reflection.
--- NOTE | 2017-08-24 12:13 | BH.MDN_ITS ---
Multi-Disciplinary Note - Note 60-min Individual Time Started:: 10:31 Date: 08/24/17 Purpose of session/treatment goals addressed:: The purpose of this session was to explore client's current stressors, progress, and use of coping skills. Another goal was to learn and practice calming coping skills, identify warning signs, and discuss barriers. Other topics included: social supports, psychoeducation, and strengths. Eye Contact:: Good Motor Activity:: Appropriate Appearance:: Neat Speech:: Appropriate, Rambling - less frequent that previous sessions Mood:: Euthymic Affect:: Full Thoughts:: Linear, No evidence of hallucinations/delusions noted Staff Interventions:: Therapist used active listening and open-ended questions to help client explore current stressors, warning signs, and identify coping skills. Therapist led client in a guided imagery activity to promote grounding and mindfulness. Therapist reviewed various coping strategies to manage anxiety , including coping skills client can utilize when out in public. Therapist taught client about the stress response and how it impacts one's functioning, thoughts, and emotions. Therapist used strengths perspective to empower client in the progress she has made. Client Response:: Client responded well to session, engaged throughout. Client reported she felt real anxious this morning, but was unsure of the trigger. Client stated she attended [employer] this weekend and met up with a friend for lunch which demonstrates progress. Client shared it was really nice to get to talk with her, we don't see each other often. Client reported she has been feeling less depression which has increased her motivation to clean her apartment. Client was receptive to praise given by therapist on client's progress. Client and therapist discussed client's use of coping skills for managing anxiety. Client shared she recently became too stressed, confused, and got frustrated at the store which resulted in client going off on a woman. Client stated she felt bad after as client has not gone off in years. Client and therapist discussed various coping skills client could utilize in public when she begins to recognize stress building such as praying, talking to self, and looking at a calming picture. Client was receptive to the guided imagery activity sharing, this one has been most helpful so far. Client shared she would be willing to listen to a guided imagery script daily to reduce anxiety and frustration. Client to hang up her list of coping skills on her refrigerator for homework as well as incorporate crocheting and guided imagery. Risks/Concerns:: Client denies suicidal ideation, plan, and intent as of . Client reported she may have another UTI which could increase confusion and exacerbate anxiety. Client recommended to follow up with her doctor. Progress Toward Goals/Plan:: Client showing progress towards treatment goals as client reports increased engagement with social supports and overall reduced depression. Client shared she has been feeling less anxious during the week and reports increased willingness to follow through with internal coping skills and joining a support group. Client continues to report confusion, shaking, and high anxiety in the mornings with little insight to what triggers the symptoms. Client shared she may have a UTI again and was recommended to follow up with her PCP. Client to continue IOP to promote gains, increase awareness, and for coping skill maintenance. Time Stopped:: 11:27
--- NOTE | 2017-08-24 16:12 | BH.SGPN ---
Service Group Progress Note - Session Psychotherapy Session #3 Date Open:: 08/24/17 Time Started:: 11:30 Time Stopped:: 12:20 Targeted Problem #:: 1 Type of Group:: Functional Skills Development Goal of Group:: To identify positive and negative forces in life and identify which forces are helping stability and which forces are contributing to instability. Eye Contact:: Good Motor Activity:: Appropriate Appearance:: Casual Speech:: Appropriate Mood:: Anxious, Depressed Affect:: Congruent Thoughts:: Linear, Logical, No evidence of hallucinations/delusions noted Staff Interventions:: Therapist provided group with an example of a scenario of a person and the individual???s positive and negative forces. Therapist provided each group member with a worksheet in which they were to identify five positive and five negative forces in their life. Therapist processed the activity with the group, helping others connect the impact certain forces have on their life balance.
--- NOTE | 2017-08-25 16:11 | BH.SGPN ---
Service Group Progress Note - Session Psychotherapy Session #2 Date Open:: 08/25/17 - 10 participants Time Started:: 10:21 Time Stopped:: 11:12 Targeted Problem #:: 1 Type of Group:: Illness Management Goal of Group:: To increase understanding of what strengths are and identify individual strengths. Client Response/Progress/Benefit:: Client responded well to session, engaged through note taking and participating when prompted. Client appeared to respond well to session, nodding in agreement to peers' comments. Client shared strengths are what we are good at and are important to recognize in ourselves. Client identified her personal strengths as generous, honest, kind, persistent, and a good sense of humor. Client shared when she is having a difficult day she can remind herself of her strengths and it will help client feel better. Client appeared to benefit from identifying her personal strengths and how they help client overcome adversity.Progress noted in client's improved awareness and engagement in group, but can continue to improve with utilizing healthy coping skills daily. Eye Contact:: Good Motor Activity:: Appropriate Appearance:: Neat Speech:: Appropriate Mood:: Anxious Affect:: Constricted Thoughts:: Linear, No evidence of hallucinations/delusions noted Staff Interventions:: Therapist facilitated discussion about what are strengths and assisted group members in identifying examples of strengths. Therapist led an activity in which group members were given the opportunity to identify five personal strengths. Therapist assisted clients in connecting the importance of recognizing personal strengths. Psychotherapy Session #3 Date Open:: 08/25/17 - 9 participants Time Started:: 11:20 Time Stopped:: 12:15 Targeted Problem #:: 1 Type of Group:: Functional Skills Development Goal of Group:: To identify what gets in their way of recognizing and utilizing their strengths and identifying ways to make strengths easier to access. Client Response/Progress/Benefit:: Client responded well to session, quiet, but participating when prompted. Client reported when she is anxious and depressed it is harder for her to remember her strengths and positives in life. Client provided supportive statements to help peers recognize their personal strengths. Client listened as the group identified strategies to make accessing one's personal strengths easier. such as writing down small wins, naming positives each day, and challenging negative thoughts. Client appeared to benefit from gaining awareness of the barriers that keep client from recognizing her strengths and how to overcome those barriers. Client to continue IOP to improve mood and generalization of coping skills. Eye Contact:: Good Motor Activity:: Appropriate Appearance:: Neat Speech:: Appropriate Mood:: Anxious Affect:: Constricted Thoughts:: Linear, No evidence of hallucinations/delusions noted Staff Interventions:: Therapist utilized an activity as a tool in helping clients recognize the things that can get in their way from utilizing their strengths and identify alternative strategies to overcome those barriers. Therapist processed the activity, helping others connect challenges that keep them from recognizing and using their strengths. Therapist helped clients connect the importance of utilizing supports to build personal strengths and ways to challenge negative thoughts that prevent clients from acknowledging their strengths. Therapist provided support by using active listening and providing feedback.
--- NOTE | 2017-08-25 21:04 | BH.SGPN ---
Service Group Progress Note - Session Psychotherapy Session #1 Date Open:: 08/25/17 Time Started:: 09:06 Time Stopped:: 10:15 Targeted Problem #:: 1 Type of Group:: Process - 9 participants Goal of Group:: The goal of today's group was to check-in with client's mood, stressors, and positives, review homework. Client Response/Progress/Benefit:: Client receptive to processing with the group and was an active and positive participant throughout. She openly discussed current frustrations with a recent influx in night time anxiety and difficulty falling sleeping as a result. CLient shared that she had difficulty easing her anxiety during these times; however, struggled to identify skills she had tried to utilize in order to do so. CLient responded well to fellow participant suggestions she practice the calming skills learning in IOP program and reflected that it's like a broken heart, it doesn't heal over night. Client further shared plans to review coping skills with individual therapist in order to improve ability to to utilize them on a more consistent basis. Eye Contact:: Good Motor Activity:: Appropriate Appearance:: Casual Speech:: Appropriate Mood:: Euthymic, Anxious Affect:: Full Thoughts:: Linear, Logical, No evidence of hallucinations/delusions noted Staff Interventions:: Therapist used open-ended questions to elicit information about client's current stressors and mood state. Therapist reviewed homework assigned from previous groups. Therapist was supportive by using active listening and reflection.
--- NOTE | 2017-08-26 10:20 | BH.SGPN_ITS ---
Service Group Progress Note - Session Psychotherapy Session #1 Date Open:: 08/26/17 - 5 participants Time Started:: 09:05 Time Stopped:: 10:05 Targeted Problem #:: 1 Type of Group:: Process Goal of Group:: The goal of today's group was to check-in with client's mood, stressors, and positives, review homework and introduce topic for the day. Client Response/Progress/Benefit:: Client responded well to session, providing supportive statements to peers. Client reports feeling half and half which client described as half happy and half anxious. Client shared I woke up and I wasn't anxious which client identified as progress, but then created a self- fulfilling prophecy by stating I'm just waiting for the anxiety. Client was receptive to therapist gently challenging client on her negative thoughts. Client identified ways she could manage anxiety today such as spending time looking at nature, using saul for mindfulness, and praying. Client appeared to benefit from identifying coping strategies to promote mood stability. Client progressing as shown by her report of reduced anxiety and increased socialization, but continues to struggle with implementing coping skills daily. Eye Contact:: Fair Motor Activity:: Slowed Appearance:: Neat Speech:: Soft Mood:: Anxious, Dysthymic Affect:: Constricted Thoughts:: Linear, No evidence of hallucinations/delusions noted Staff Interventions:: Therapist used open-ended questions to elicit information about client's current stressors and mood state. Therapist was supportive by using active listening and reflection.
--- NOTE | 2017-08-26 15:07 | BH.SGPN ---
Service Group Progress Note - Session Psychotherapy Session #2 Date Open:: 08/26/17 Time Started:: 10:15 Time Stopped:: 11:10 Targeted Problem #:: 1 Type of Group:: Illness Management - 6 group members Client Response/Progress/Benefit:: Pt listened attentively to others and at times contributed to discussion. Pt connected with others about challenges with using healthy skills because it can be easier to use the skills you know even if not healthy. Pt worked cooperatively with otehrs during challenge activity able to note importance of working togehter and managing emotions in the moment to accomplish goal. Pt identified healthy coping strategies she uses include: counting, breathing and driving. Pt shared unehalthy skills she uses incldue: ruminating, looking back at the past, isolating, and chocolate. Pt recongized need to build upon her healthy skills. Seemed to benefit from increasing awareness of importance of having healthy coping skills. Eye Contact:: Fair Motor Activity:: Appropriate Appearance:: Casual Speech:: Appropriate Mood:: Anxious Affect:: Constricted Thoughts:: Linear, No evidence of hallucinations/delusions noted Psychotherapy Session #3 Date Open:: 08/26/17 Time Started:: 11:20 Time Stopped:: 12:15 Targeted Problem #:: 1 Type of Group:: Functional Skills Development - 6 group members Client Response/Progress/Benefit:: Pt more quiet compared to previous group sessions, listened attentively to others. Pt seemed to connect with others ideas for healthy coping skills that have been helpful. Pt identified her coping skills menu to include: funny movies, positie self talk, small reward, breathing, and letting herself cry. Pt reported she is willing to practice the identified coping skills. Pt seemed to benefit from increasing repertoire of healthy coping skills a swell as identifying which skills she is willing to practice. Eye Contact:: Fair Motor Activity:: Appropriate Appearance:: Casual Speech:: Appropriate Mood:: Anxious Affect:: Constricted Thoughts:: Linear, No evidence of hallucinations/delusions noted
--- NOTE | 2017-08-27 13:07 | BH.SGPN ---
Service Group Progress Note - Session Psychotherapy Session #2 Date Open:: 08/27/17 - 10 group members Time Started:: 10:25 Time Stopped:: 11:15 Targeted Problem #:: 1 Type of Group:: Illness Management Goal of Group:: To increase understanding of importance of boundaries and the different ways of setting boundaries (permeable, rigid, and flexible). Client Response/Progress/Benefit:: Client responded well to session, engaged through note-taking. Client appeared to connect with the quote, nodding to peers' comments. Client shared that boundaries are important as they protect our needs and keep us safe. Client listened as the group identified the characteristics of each boundary type as well as the pros and cons. Client reported belief it is important to be flexible so one does not keep all the good out or let all the bad in. Client appeared to benefit from learning the importance of boundary setting. Progress noted in client's increased engagement with peers, but continues to struggle with applying coping skills to reduce anxiety. Eye Contact:: Fair Motor Activity:: Appropriate Appearance:: Casual Speech:: Soft Mood:: Anxious Affect:: Constricted Thoughts:: Linear, No evidence of hallucinations/delusions noted Staff Interventions:: Therapist facilitated group discussion about defining boundaries. Therapist led discussion about importance of boundaries, assisting group members with identifying the impact of healthy and unhealthy boundaries. Therapist educated the group about the three different ways of setting boundaries and led discussion about each one. Therapist assisted clients with identifying the costs and benefits to the three different styles of boundary setting and how each style can impact mental health as well as relationships. Psychotherapy Session #3 Date Open:: 08/27/17 - 8 group members Time Started:: 11:25 Time Stopped:: 12:20 Targeted Problem #:: 1 Type of Group:: Functional Skills Development Goal of Group:: Increase awareness of current boundary style, identifying impact current way of setting boundaries has on mental health as well as relationships. Client Response/Progress/Benefit:: Client responded well to session, quiet, but participating when prompted. Client reported she often has rigid boundaries sharing, I let people in if I'm happy. With therapist elicitation, client recognized her depressive symptoms and isolation cause client to avoid reaching out to positive supports. Client has reported in previous sessions that anxiety also prevents her from opening up and seeking positive support that may help client reduce depressive symptoms. Client appeared to benefit from increasing awareness of how rigid boundaries impact client's overall well-being. Client can continue to benefit from consistent implementation of coping skills. Eye Contact:: Fair Motor Activity:: Appropriate Appearance:: Casual Speech:: Soft Mood:: Anxious Affect:: Congruent Thoughts:: Other - appeared confused at times, No evidence of hallucinations/delusions noted Staff Interventions:: Therapist provided the group member with a wide array of supplies, asking each group member to create a castle that would represent the boundaries they currently have in place. The expressive activity was used as a tool to help increase clients self-awareness of their boundaries. Therapist processed each group members castle, inquiring what style the group member currently uses most frequently and how current boundary style impacts his/her mental health and relationships. Therapist provided support by using reflective listening and giving feedback.
--- NOTE | 2017-08-27 13:11 | BH.SGPN_ITS ---
Service Group Progress Note - Session Psychotherapy Session #2 Date Open:: 08/27/17 - 10 group members Time Started:: 10:25 Time Stopped:: 11:15 Targeted Problem #:: 1 Type of Group:: Illness Management Goal of Group:: To increase understanding of importance of boundaries and the different ways of setting boundaries (permeable, rigid, and flexible). Client Response/Progress/Benefit:: Client responded well to session, engaged through note-taking. Client appeared to connect with the quote, nodding to peers ' comments. Client shared that boundaries are important as they protect our needs and keep us safe. Client listened as the group identified the characteristics of each boundary type as well as the pros and cons. Client reported belief it is important to be flexible so one does not keep all the good out or let all the bad in. Client appeared to benefit from learning the importance of boundary setting. Progress noted in client's increased engagement with peers, but continues to struggle with applying coping skills to reduce anxiety. Eye Contact:: Fair Motor Activity:: Appropriate Appearance:: Casual Speech:: Soft Mood:: Anxious Affect:: Constricted Thoughts:: Linear, No evidence of hallucinations/delusions noted Staff Interventions:: Therapist facilitated group discussion about defining boundaries. Therapist led discussion about importance of boundaries, assisting group members with identifying the impact of healthy and unhealthy boundaries. Therapist educated the group about the three different ways of setting boundaries and led discussion about each one. Therapist assisted clients with identifying the costs and benefits to the three different styles of boundary setting and how each style can impact mental health as well as relationships. Psychotherapy Session #3 Date Open:: 08/27/17 - 8 group members Time Started:: 11:25 Time Stopped:: 12:20 Targeted Problem #:: 1 Type of Group:: Functional Skills Development Goal of Group:: Increase awareness of current boundary style, identifying impact current way of setting boundaries has on mental health as well as relationships. Client Response/Progress/Benefit:: Client responded well to session, quiet, but participating when prompted. Client reported she often has rigid boundaries sharing, I let people in if I'm happy. With therapist elicitation, client recognized her depressive symptoms and isolation cause client to avoid reaching out to positive supports. Client has reported in previous sessions that anxiety also prevents her from opening up and seeking positive support that may help client reduce depressive symptoms. Client appeared to benefit from increasing awareness of how rigid boundaries impact client's overall well-being. Client can continue to benefit from consistent implementation of coping skills. Eye Contact:: Fair Motor Activity:: Appropriate Appearance:: Casual Speech:: Soft Mood:: Anxious Affect:: Congruent Thoughts:: Other - appeared confused at times, No evidence of hallucinations/ delusions noted Staff Interventions:: Therapist provided the group member with a wide array of supplies, asking each group member to create a castle that would represent the boundaries they currently have in place. The expressive activity was used as a tool to help increase client?s self-awareness of their boundaries. Therapist processed each group member?s castle, inquiring what style the group member currently uses most frequently and how current boundary style impacts his/her mental health and relationships. Therapist provided support by using reflective listening and giving feedback.
--- NOTE | 2017-08-27 16:49 | BH.SGPN ---
Service Group Progress Note - Session Psychotherapy Session #1 Date Open:: 08/27/17 Time Started:: 09:06 Time Stopped:: 10:20 Targeted Problem #:: 1 Type of Group:: Process - 10 participants Goal of Group:: The goal of today's group was to check-in with client's mood, stressors, and positives, review homework and introduce topic for the day. Client Response/Progress/Benefit:: Client willing to engage in session and appeared to benefit from verbalizing current frustrations to the group. She discussed struggling with night time anxiety and feeling as though nothing helps. She went on to share that her anxiety was really bad yesterday and shared that shopping before the afternoon light had helped to prevent her from further escalation in the store. Client went on to discuss that one of her providers had suggested she begin taking Turmeric to help with her mental health symptoms. She noted some uncertainty of its effectiveness but was willing to try anything. CLient was receptive of fellow participants recommendations tht she check out a local senior center and as she had indicated wanting to decrease isolation. Client continues to struggle with active implementation of identified anxiety management skills. She is recommended ongoing IOP to increase consistent utilization and decrease isolative behaviors. Eye Contact:: Fair Motor Activity:: Appropriate Appearance:: Casual Speech:: Appropriate Mood:: Anxious, Dysthymic Affect:: Congruent Thoughts:: Linear, Logical, No evidence of hallucinations/delusions noted Staff Interventions:: Therapist used open-ended questions to elicit information about client's current stressors and mood state. Therapist was supportive by using active listening and reflection.
--- NOTE | 2017-08-31 14:36 | BH.MDN ---
Multi-Disciplinary Note - Note 60-min Individual Time Started:: 13:07 Date: 08/31/17 Purpose of session/treatment goals addressed:: The purpose of this session was to address client's current stressors, memory challenges, coping skills, and overall functioning. Another goal was to create a collaborative plan with client and her outpatient providers for continuity of care. Eye Contact:: Fair Motor Activity:: Appropriate Appearance:: Neat - clean hair and outfit Speech:: Tangential Mood:: Anxious Affect:: Full Thoughts:: Other - Client appeared to have difficulty with memory as evidenced by her report of confusing the days this weekend and as shown by her repetitive phrases in session., No evidence of hallucinations/delusions noted Staff Interventions:: Therapist used open-ended questions to explore client's current symptoms, stressors, and memory issues. Therapist discussed sharing confusion issues with Dr. Mcdonald and helped client process her frustration with her memory. Therapist advocated for and empowered client by sitting with client as she called to schedule with case management. Therapist helped client input appointment on her phone to help client remember. Therapist reviewed healthy coping skills with client and encouraged the use of calming skills and seeking support to reduce anxiety and depression. Client Response:: Client responded well to session, frequently repeating herself and reporting increased confusion over the weekend. Client was receptive to bringing up her memory challenges at her appointment with Dr. Mcdonald tomorrow as client shared they could help me with medicine or something. Client shared over the weekend she confused her days which led client to miss [employer] and lunch with a friend. Client stated, I was so upset with myself for doing that. Client and therapist processed client's emotions and discussed possible solutions to help with client's memory. Client and therapist decided to use client's phone to document appointments and reminders. Client reported she is supposed to go with her high risk case manager to [facility] to check it out but had not scheduled an appointment. Client was open to calling during session and scheduled with her high risk case manager this Thursday09/04/17. Client shared she plans to go home and sleep, but with therapist elicitation recognized this could increase her depression and anxiety. Client and therapist discussed healthy alternatives such as going to get coffee with a friend or listening to guided imagery. Client shared she continues to be reluctant about getting out, which could hinder her progress. Risks/Concerns:: Client denies suicidal ideation, plan, and intent as of 08/31/17. Client reports increased difficulty with memory which presents as a concern as client lives alone. Client signed a release of information so this therapist could communicate with Dr. Mcdonald regarding memory concerns. Progress Toward Goals/Plan:: Client demonstrating progress towards treatment goals as shown by her report of some increase in socialization at [employer] and with friends, but continues to share lack of follow through with community support groups. Client's memory issues have impacted her ability to remember and utilize coping skills, supports, and follow up with case management. Client and therapist called client's high risk case manager in session and client has an appointment with her 09/04/17 to go to [employer]. Client has an appointment tomorrow with Dr. Mcdonald in which client is to bring up memory issues. Therapist to call Dr. Mcdonald to advocate for client as well. Client to continue IOP to prevent decompensation and promote mood stability. Time Stopped:: 14:00
--- NOTE | 2017-08-31 15:05 | BH.MDN_ITS ---
Multi-Disciplinary Note - Note 60-min Individual Time Started:: 13:07 Date: 08/31/17 Purpose of session/treatment goals addressed:: The purpose of this session was to address client's current stressors, memory challenges, coping skills, and overall functioning. Another goal was to create a collaborative plan with client and her outpatient providers for continuity of care. Eye Contact:: Fair Motor Activity:: Appropriate Appearance:: Neat - clean hair and outfit Speech:: Tangential Mood:: Anxious Affect:: Full Thoughts:: Other - Client appeared to have difficulty with memory as evidenced by her report of confusing the days this weekend and as shown by her repetitive phrases in session., No evidence of hallucinations/delusions noted Staff Interventions:: Therapist used open-ended questions to explore client's current symptoms, stressors, and memory issues. Therapist discussed sharing confusion issues with Dr. Mcdonald and helped client process her frustration with her memory. Therapist advocated for and empowered client by sitting with client as she called to schedule with case management. Therapist helped client input appointment on her phone to help client remember. Therapist reviewed healthy coping skills with client and encouraged the use of calming skills and seeking support to reduce anxiety and depression. Client Response:: Client responded well to session, frequently repeating herself and reporting increased confusion over the weekend. Client was receptive to bringing up her memory challenges at her appointment with Dr. Mcdonald tomorrow as client shared they could help me with medicine or something. Client shared over the weekend she confused her days which led client to miss judaism and lunch with a friend. Client stated, I was so upset with myself for doing that. Client and therapist processed client's emotions and discussed possible solutions to help with client's memory. Client and therapist decided to use client's phone to document appointments and reminders. Client reported she is supposed to go with her case management assistant to [facility] to check it out but had not scheduled an appointment. Client was open to calling during session and scheduled with her case management assistant this Thursday09/04/17. Client shared she plans to go home and sleep, but with therapist elicitation recognized this could increase her depression and anxiety. Client and therapist discussed healthy alternatives such as going to get coffee with a friend or listening to guided imagery. Client shared she continues to be reluctant about getting out, which could hinder her progress. Risks/Concerns:: Client denies suicidal ideation, plan, and intent as of . Client reports increased difficulty with memory which presents as a concern as client lives alone. Client signed a release of information so this therapist could communicate with Dr. Mcdonald regarding memory concerns. Progress Toward Goals/Plan:: Client demonstrating progress towards treatment goals as shown by her report of some increase in socialization at [employer] and with friends, but continues to share lack of follow through with community support groups. Client's memory issues have impacted her ability to remember and utilize coping skills, supports, and follow up with case management. Client and therapist called client's case management assistant in session and client has an appointment with her 09/04/17 to go to [email or web address]. Client has an appointment tomorrow with Dr. Mcdonald in which client is to bring up memory issues. Therapist to call Dr. Mcdonald to advocate for client as well. Client to continue IOP to prevent decompensation and promote mood stability. Time Stopped:: 14:00
--- NOTE | 2017-08-31 15:21 | BH.COMM ---
Communication Note - Communication with Client Communication Note: Therapist called Dr. Mcdonald to advocate for client as she has been having increased confusion and memory challenges. Therapist left a message with Dr. Mcdonald's nurse and was told a return call should come tomorrow 09/01/17.
--- NOTE | 2017-08-31 17:37 | BH.SGPN ---
Service Group Progress Note - Session Psychotherapy Session #1 Date Open:: 08/31/17 Time Started:: 09:05 Time Stopped:: 10:20 Targeted Problem #:: 1 Type of Group:: Process - 8 group members Goal of Group:: The goal of today's group was to check-in with client's mood, stressors, and positives, review homework and introduce topic for the day. Client Response/Progress/Benefit:: Client reported she had a rough weekend because she felt depressed and anxious all weekend. Client shared she thought Thursday was Thursday and believed yesterday was Thursday. Client reported feeling really frustrated when she discovered last night that it was Thursday because she had missed yars[employer]ism and recognized that she is having a hard time keeping her days straight. Client reported feeling really sad that she does not have any support people in her life and is feeling lonely. Tearful throughout session. Client progress hindered by client not following through with very suggestions and ideas on increasing her social supports in the area. Client IOP therapist to follow up with client about her increased confusion and forgetfulness. Eye Contact:: Fair Motor Activity:: Appropriate Appearance:: Casual Speech:: Appropriate Mood:: Anxious, Depressed, Other - Tearful Affect:: Constricted Thoughts:: Linear, No evidence of hallucinations/delusions noted Staff Interventions:: Therapist used open-ended questions to elicit information about client's current stressors and mood state. Therapist was supportive by using active listening and reflection.
--- NOTE | 2017-09-01 14:57 | BH.SGPN ---
Service Group Progress Note - Session Psychotherapy Session #1 Date Open:: 09/01/17 Time Started:: 09:05 Time Stopped:: 10:00 Type of Group:: Process - 8 group members Goal of Group:: The goal of today's group was to check-in with client's mood, stressors, and positives, review homework and introduce topic for the day. Client Response/Progress/Benefit:: Pt was an active participant in group discussion. Emotion for today is better than yesterday. Shared with the group that she was able to overcome her depression from yesterday. Shared that she did not sleep well and had a migraine however was in better spirits today. Superficial check-in however provided supportive feedback to peers. Progress noted as she was able to indentify triggers to her depression yesterday and take steps to decrease symptoms. Continue treatment to prevent further decompensation and provide support. Eye Contact:: Good Motor Activity:: Appropriate Appearance:: Disheveled Speech:: Appropriate Mood:: Euthymic Affect:: Full Thoughts:: Linear, Logical, No evidence of hallucinations/delusions noted Staff Interventions:: Therapist used open-ended questions to elicit information about client's current stressors and mood state. Therapist was supportive by using active listening and reflection.
--- NOTE | 2017-09-01 16:13 | BH.SGPN ---
Service Group Progress Note - Session Psychotherapy Session #2 Date Open:: 09/01/17 Time Started:: 10:15 Time Stopped:: 11:08 Targeted Problem #:: 1 Type of Group:: Illness Management - 9 group members Goal of Group:: To increase understanding of what conflict is and increase awareness of how group members manage conflict. Client Response/Progress/Benefit:: Pt listened attentively to others, contributing to discussion at times but mostly was quiet. Pt identified she mostly connects to avoidant style of conflict resolution. 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 Pt struggled with being able to identify how avoiding conflict could be impacting her. Pt seemed to benefit from learning about the different conflict resolution styles. Eye Contact:: Fair Motor Activity:: Appropriate Appearance:: Casual Speech:: Appropriate Mood:: Anxious, Depressed Affect:: Constricted Thoughts:: Other - confused at times, No evidence of hallucinations/delusions noted Staff Interventions:: Therapist facilitated discussion about conflict and conflict resolution. Therapist led group in an activity in which group members had to identify their initial response to conflict and how their response changes based on different situations. Therapist assisted clients with connecting the impact current conflict style has on their mental health. Psychotherapy Session #3 Date Open:: 09/01/17 Time Started:: 11:18 Time Stopped:: 12:15 Targeted Problem #:: 1 Type of Group:: Functional Skills Development - 9 group members Goal of Group:: To identify what contributes positively and negatively to conflict and appropriate ways to manage conflict with others. Client Response/Progress/Benefit:: Pt listened attentively to others and worked well with others during challenge activity. Pt tended to agree with others ideas and comments during challenge activity, appearing to accomodate with what others wanted versus making sure she verbalized her thoughts and opinions. Pt seemed to lack the awareness that she went along with what others wanted throughout activity. Pt seemed to benefit from group brainstorm of healthy conflict resolution skills. Eye Contact:: Fair Motor Activity:: Appropriate Appearance:: Casual Speech:: Appropriate Mood:: Anxious, Depressed Affect:: Constricted Thoughts:: Other - confused at times, No evidence of hallucinations/delusions noted Staff Interventions:: Therapist facilitated group activity in which group members were provided with materials and had to eliminate certain items with consensus from group. Therapist processed activity, helping clients connect throughout activity strategies each person used to manage conflict. Therapist led discussion about what contributes to conflict in a positive or negative manner. Therapist facilitated discussion about conflict resolution strategies and provided group member with a handout about effective ways to manage conflict.
--- NOTE | 2017-09-02 11:43 | BH.SGPN ---
Service Group Progress Note - Session Psychotherapy Session #1 Date Open:: 09/02/17 Time Started:: 09:03 Time Stopped:: 10:03 Targeted Problem #:: 1 Type of Group:: Process - 7 group members Goal of Group:: The goal of today's group was to check-in with client's mood, stressors, and positives, review homework and introduce topic for the day. Client Response/Progress/Benefit:: Client reported feeling anxious and depressed because she is continuing to have difficulty with sleeping. Shared throughout the night she was up and down and recognizes that sometimes anxiety can increase itching. Client shared she did not have any relief until she is able to find her anti-itch cream and then was able to get some sleep. Client attributed her increased anxiety to having to drive in the snow this morning and not being able to sleep very well last night. Client continues to struggle with generalizing her healthy coping strategies which seems to be a hindrance to treatment progress. Client was supportive and made helpful comments to others. Eye Contact:: Good Motor Activity:: Restless Appearance:: Casual Speech:: Appropriate Mood:: Anxious, Dysthymic Affect:: Constricted Thoughts:: Linear, Logical, No evidence of hallucinations/delusions noted Staff Interventions:: Therapist used open-ended questions to elicit information about client's current stressors and mood state. Therapist was supportive by using active listening and reflection.
--- NOTE | 2017-09-02 13:48 | BH.SGPN ---
Service Group Progress Note - Session Psychotherapy Session #2 Date Open:: 09/02/17 group members Time Started:: 10:17 Time Stopped:: 11:15 Targeted Problem #:: 1 Type of Group:: Illness Management Goal of Group:: To increase understanding of what stress is, identify current life stressors, and connect impact stressors have on mental health. Client Response/Progress/Benefit:: Client responded well to session, quiet, but participating when prompted. Client helped the group process eustress versus unhealthy stress. Client agreed with peers that stress is an important adaptation for survival, but too much makes the anxiety out of control. Client identified her major stressors to be anxiety, low energy, medication, and confusion. Client stated her stress jar is currently overflowing which causes client to feel increased depression and anxiety, more physical symptoms, and I push people away. Client appeared to benefit from gaining awareness of her personal stressors and how stress impacts mental health and relationships. Client progressing as shown by her increased awareness of how stress can lead to isolation, but can continue to benefit from proactively using healthy coping skills. Eye Contact:: Fair Motor Activity:: Appropriate Appearance:: Disheveled Speech:: Soft Mood:: Anxious, Dysthymic Affect:: Flat Thoughts:: Linear, No evidence of hallucinations/delusions noted Staff Interventions:: Therapist facilitated discussion about stress. Therapist facilitated an activity in which group members were asked to identify various stressors they have in their life currently. Therapist instructed group members to indicate if certain stressors were larger than others. Therapist led processing of each members stress jar and helped them connect impact the stress has on their mental health. Psychotherapy Session #3 Date Open:: 09/02/17 group members Time Started:: 11:25 Time Stopped:: 12:15 Targeted Problem #:: 1 Type of Group:: Functional Skills Development Goal of Group:: To identify what stressors have control over and what stressors have no control over. Another goal was to increase repertoire of healthy strategies to help manage stress. Client Response/Progress/Benefit:: Client responded well to session. Passive participant. Client shared taking on all of ones stressors at once is overwhelming, but when you do it a little at a time it works. Client stated it is important to focus on stressors in ones control rather than stressors out of her control. Client helped the group develop strategies to reduce stress, client shared when youre stressed beyond control breathe deep from your stomach. Client also listed communicating with positive support and setting small goals as strategies to reduce stress. Client appeared to benefit from increasing her repertoire of stress reduction techniques. Client progressing as shown by her increased insight to the negative impacts of not managing stress, but continues to struggle with implementing coping skills learned in group and individual sessions. Eye Contact:: Fair Motor Activity:: Appropriate Appearance:: Disheveled Speech:: Soft Mood:: Anxious Affect:: Flat Thoughts:: Linear, No evidence of hallucinations/delusions noted Staff Interventions:: Therapist facilitated discussion about control versus no control and helped group members connect the concept to stressors. Therapist led discussion about importance of putting forth more energy on those stressors they can control. Therapist led an activity aimed at inducing stress to help clients use in the moment coping strategies and support. Therapist facilitated brainstorming of strategies to help manage stress level. Therapist provided support by using active listening and providing feedback.
--- NOTE | 2017-09-02 13:53 | BH.SGPN_ITS ---
Service Group Progress Note - Session Psychotherapy Session #2 Date Open:: 09/02/17 - group members Time Started:: 10:17 Time Stopped:: 11:15 Targeted Problem #:: 1 Type of Group:: Illness Management Goal of Group:: To increase understanding of what stress is, identify current life stressors, and connect impact stressors have on mental health. Client Response/Progress/Benefit:: Client responded well to session, quiet, but participating when prompted. Client helped the group process eustress versus unhealthy stress. Client agreed with peers that stress is an important adaptation for survival, but too much ?makes the anxiety out of control.? Client identified her major stressors to be anxiety, low energy, medication, and confusion. Client stated her ?stress jar? is currently overflowing which causes client to feel increased depression and anxiety, more physical symptoms, and ?I push people away.? Client appeared to benefit from gaining awareness of her personal stressors and how stress impacts mental health and relationships. Client progressing as shown by her increased awareness of how stress can lead to isolation, but can continue to benefit from proactively using healthy coping skills. Eye Contact:: Fair Motor Activity:: Appropriate Appearance:: Disheveled Speech:: Soft Mood:: Anxious, Dysthymic Affect:: Flat Thoughts:: Linear, No evidence of hallucinations/delusions noted Staff Interventions:: Therapist facilitated discussion about stress. Therapist facilitated an activity in which group members were asked to identify various stressors they have in their life currently. Therapist instructed group members to indicate if certain stressors were larger than others. Therapist led processing of each member?s stress jar and helped them connect impact the stress has on their mental health. Psychotherapy Session #3 Date Open:: 09/02/17 - 9 group members Time Started:: 11:25 Time Stopped:: 12:15 Targeted Problem #:: 1 Type of Group:: Functional Skills Development Goal of Group:: To identify what stressors have control over and what stressors have no control over. Another goal was to increase repertoire of healthy strategies to help manage stress. Client Response/Progress/Benefit:: Client responded well to session. Passive participant. Client shared taking on all of one?s stressors at once is overwhelming, but when ?you do it a little at a time? it works. Client stated it is important to focus on stressors in one?s control rather than stressors out of her control. Client helped the group develop strategies to reduce stress , client shared ?when you?re stressed beyond control breathe deep from your stomach.? Client also listed communicating with positive support and setting small goals as strategies to reduce stress. Client appeared to benefit from increasing her repertoire of stress reduction techniques. Client progressing as shown by her increased insight to the negative impacts of not managing stress, but continues to struggle with implementing coping skills learned in group and individual sessions. Eye Contact:: Fair Motor Activity:: Appropriate Appearance:: Disheveled Speech:: Soft Mood:: Anxious Affect:: Flat Thoughts:: Linear, No evidence of hallucinations/delusions noted Staff Interventions:: Therapist facilitated discussion about control versus no control and helped group members connect the concept to stressors. Therapist led discussion about importance of putting forth more energy on those stressors they can control. Therapist led an activity aimed at inducing stress to help clients use in the moment coping strategies and support. Therapist facilitated brainstorming of strategies to help manage stress level. Therapist provided support by using active listening and providing feedback.
--- NOTE | 2017-09-04 14:51 | BH.COMM ---
Communication Note - Communication with Client Communication Note: Therapist followed up with client regarding scheduling for next week and identified a discharge date. Therapist also touched base with client about her next case management appointment.
--- NOTE | 2017-09-04 15:05 | BH.SGPN_ITS ---
Service Group Progress Note - Session Psychotherapy Session #2 Date Open:: 09/04/17 - 9 group members Time Started:: 10:25 Time Stopped:: 11:15 Targeted Problem #:: 1 Type of Group:: Illness Management Goal of Group:: To increase understanding of the impact viewing situations as impossible can have on our mental health. Client Response/Progress/Benefit:: Client responded well to session, engaged through note-taking. Client appeared to connect with the topic stating negative thinking contributes to the impossible mindset. Client shared when one thinks of something as impossible it negatively impacts mental health and can increase depression and anxiety. Client participated in an activity that seemed impossible, but with teamwork and accepting support, the group accomplished the goal. Client stated the activity helped her realize she has to accept help from others in order to overcome hardships. Client appeared to benefit from increasing awareness of how viewing something as impossible can negatively impact mental health. Eye Contact:: Fair Motor Activity:: Appropriate Appearance:: Casual Speech:: Soft Mood:: Anxious Affect:: Constricted Thoughts:: Linear, No evidence of hallucinations/delusions noted Staff Interventions:: Therapist facilitated discussion about what it means to overcome what seems impossible. Therapist led group in an activity that would initially seem impossible to complete, but once group members looked at the problem in a different way they would be able to see alternative solutions. Therapist utilized the activity as a tool to discuss overcoming those situations that seem impossible to get through. Psychotherapy Session #3 Date Open:: 09/04/17 - 10 group members Time Started:: 11:25 Time Stopped:: 12:15 Targeted Problem #:: 1 Type of Group:: Functional Skills Development Goal of Group:: To identify personal barriers that get in the way of accomplishing tasks and identify internal and external resources to help overcome difficult situations. Client Response/Progress/Benefit:: Client responded well to session, taking notes and actively listening to discussion. Client reported her anxiety and avoidance are barriers to overcoming obstacles. Client identified coming to group as a time when she overcame something that she once thought would be impossible. Client helped the group identify healthy coping skills and external supports that could help client overcome challenges and improve well-being. Client identified using positive self-talk and congregation as positives supports. Client appeared to benefit from gaining awareness to her personal barriers and identifying supports to help client overcome them. Progress noted in client?s reduced isolation and improved mood, but can continue to benefit from using proactive calming coping skills. Eye Contact:: Good Motor Activity:: Appropriate Appearance:: Casual Speech:: Soft Mood:: Anxious Affect:: Constricted Thoughts:: Other - appeared confused at times., No evidence of hallucinations/ delusions noted Staff Interventions:: Therapist facilitated discussion about internal and external resources and helped clients connect various internal resources they use. Therapist provided group members with a handout that gave information about various external resources the clients could utilize to get support. Therapist gave clients a worksheet in which they were asked to identify several barriers that get in their way to overcoming difficult situations. They also were asked to identify several internal and external resources they could use when needed.
--- NOTE | 2017-09-04 15:12 | BH.SGPN ---
Service Group Progress Note - Session Psychotherapy Session #1 Date Open:: 09/04/17 Time Started:: 09:08 Time Stopped:: 10:10 Targeted Problem #:: 1 Type of Group:: Process - 8 participants Goal of Group:: The goal of today's group was to check-in with client's mood, stressors, and positives, review homework and introduce topic for the day. Client Response/Progress/Benefit:: Client was attentive and actively engaged in the discussion throughout. She provided positive feedback and encouragement to fellow participants as they shared with the group. Client discussed with the group increasing difficulty with focusing for the past few days and feeling stressed out. Client indicates ongoing difficulties in reducing her anxiety in the moment however has been making strides towards actively applying positive self talk strategies in order to calm her nerves. Client shared that her psychiatrist has also increased her Ativan rx which she is hopeful will help. She benefited from reviewing with the group various calming techniques that have worked in the past. Client continues to struggle with isolation and consistent implementation of skills learned. She is recommended continued IOP tx to further develop these skills. Eye Contact:: Good Motor Activity:: Appropriate Appearance:: Casual Speech:: Appropriate Mood:: Euthymic Affect:: Congruent Thoughts:: Linear, Logical, No evidence of hallucinations/delusions noted Staff Interventions:: Therapist used open-ended questions to elicit information about client's current stressors and mood state. Therapist was supportive by using active listening and reflection.
--- NOTE | 2017-09-07 14:02 | BH.MDN ---
Multi-Disciplinary Note - Note 30-min Individual Time Started:: 13:00 Date: 09/07/17 Purpose of session/treatment goals addressed:: The purpose of this session was to work on treatment goal #1 objective #1. Another goal was to discuss client's current use of coping skills and process grief. Eye Contact:: Fair Motor Activity:: Appropriate Appearance:: Casual Speech:: Tangential Mood:: Euthymic Affect:: Congruent Thoughts:: Other - client reporting memory challenges and often repeating herself in session., No evidence of hallucinations/delusions noted Staff Interventions:: Therapist used active listening and open-ended questions to explore client's progress, use of coping skills, and overall functioning. Therapist helped client process her grief and discussed healthy ways to express emotions associated with grief. Therapist educated client on maintenance cycles for depression and assisted client in identifying behavioral activation strategies. Client Response:: Client responded well to session receptive to discussion. Client reported today has been pretty good as client is experiencing less anxiety this morning. Client shared her outpatient psychiatrist adjusted client's medication which was beneficial. Client reported she has been trying to use healthy coping skills as well such as squeezing my stress marybeth and spending time out of her house. Client reported she continues to struggle with finding motivation to clean her house. Client and therapist discussed the maintenance cycle of depression and how it can keep client stuck. Client reported she does not want to set a goal for cleaning today, but was willing to spend time with a support person today to maintain her improved mood which could potentially motivate client to clean later. Client reflected on her progress and stated, I still get real nervous sometimes, but I'm not depressed anymore. Client and therapist reflected on client's reduced number of ER visits as progress as well. Client demonstrated positive coping over the weekend as client received news her associate producer was leaving. Client stated, I was sad at first but then I realized it's out of my control...I don't want to get in God's way. Client brought up her continued struggles with grief and reported she is getting better at coping. Client agreed to write a letter to her sister to process her grief and find closure. Risks/Concerns:: Client denies suicidal ideation, plan, and intent as of 09/07/17. Client reports reduced depressive symptoms which is a protective factor. Progress Toward Goals/Plan:: Client demonstrating progress towards treatment goals as shown by her report of reduced depressive symptoms and increased implementation of calming coping skills. Client has not been to the emergency room for a mental health related concern in over a month which demonstrates progress as well. Client continues to report confusion, anxiety, and lack of energy. Client to continue IOP to promote gains and increase internal and external supports. Client and therapist to follow up with client's case maker to incorporate attendance at [facility] or [place] into client's treatment plan. Time Stopped:: 13:35
--- NOTE | 2017-09-07 14:41 | BH.MDN_ITS ---
Multi-Disciplinary Note - Note 30-min Individual Time Started:: 13:00 Date: 09/07/17 Purpose of session/treatment goals addressed:: The purpose of this session was to work on treatment goal #1 objective #1. Another goal was to discuss client's current use of coping skills and process grief. Eye Contact:: Fair Motor Activity:: Appropriate Appearance:: Casual Speech:: Tangential Mood:: Euthymic Affect:: Congruent Thoughts:: Other - client reporting memory challenges and often repeating herself in session., No evidence of hallucinations/delusions noted Staff Interventions:: Therapist used active listening and open-ended questions to explore client's progress, use of coping skills, and overall functioning. Therapist helped client process her grief and discussed healthy ways to express emotions associated with grief. Therapist educated client on maintenance cycles for depression and assisted client in identifying behavioral activation strategies. Client Response:: Client responded well to session receptive to discussion. Client reported today has been pretty good as client is experiencing less anxiety this morning. Client shared her outpatient psychiatrist adjusted client' s medication which was beneficial. Client reported she has been trying to use healthy coping skills as well such as squeezing my stress marybeth and spending time out of her house. Client reported she continues to struggle with finding motivation to clean her house. Client and therapist discussed the maintenance cycle of depression and how it can keep client stuck. Client reported she does not want to set a goal for cleaning today, but was willing to spend time with a support person today to maintain her improved mood which could potentially motivate client to clean later. Client reflected on her progress and stated, I still get real nervous sometimes, but I'm not depressed anymore. Client and therapist reflected on client's reduced number of ER visits as progress as well. Client demonstrated positive coping over the weekend as client received news her pension consultant was leaving. Client stated, I was sad at first but then I realized it's out of my control...I don't want to get in God's way. Client brought up her continued struggles with grief and reported she is getting better at coping. Client agreed to write a letter to her sister to process her grief and find closure. Risks/Concerns:: Client denies suicidal ideation, plan, and intent as of . Client reports reduced depressive symptoms which is a protective factor. Progress Toward Goals/Plan:: Client demonstrating progress towards treatment goals as shown by her report of reduced depressive symptoms and increased implementation of calming coping skills. Client has not been to the emergency room for a mental health related concern in over a month which demonstrates progress as well. Client continues to report confusion, anxiety, and lack of energy. Client to continue IOP to promote gains and increase internal and external supports. Client and therapist to follow up with client's nurse case manager to incorporate attendance at [facility] or [facility] into client's treatment plan. Time Stopped:: 13:35
--- NOTE | 2017-09-07 14:43 | BH.SGPN ---
Service Group Progress Note - Session Psychotherapy Session #2 Date Open:: 09/07/17 - group members Time Started:: 10:17 Time Stopped:: 11:15 Targeted Problem #:: 1 Type of Group:: Illness Management Goal of Group:: To increase understanding of communication and the various types of communication. Another goal was to increase understanding of impact communication styles can have. Client Response/Progress/Benefit:: Client responded well to session, passive participant, but engaged through note-taking. Client appeared to connect with the topic stating, mental health symptoms have impacted her communication with others. Client helped group identify various communication styles and reported she uses the assertive type. Client expressed I try to be a good listener and be open when I talk. Client reflected she has made progress with using assertive communication, especially with her health professionals which increases clients confidence. However, client shared when she feels anxious or depressed she becomes passive and keeps her emotions to myself. Client appeared to benefit from learning the different types of communication styles as well as increasing awareness of communication impacts mental health. Client progressing as shown by her report of reduced depression, but can continue to benefit from maintaining social relationships. Eye Contact:: Fair Motor Activity:: Appropriate Appearance:: Casual Speech:: Soft Mood:: Anxious Affect:: Constricted Thoughts:: Linear, No evidence of hallucinations/delusions noted Staff Interventions:: Therapist facilitated the group discussion about communication and explained the different types of communication. Therapist assisted group members in connecting the communication styles to the way they communicate and impact the communication style has on their relationships. Therapist provided support by using active listening and providing feedback. Psychotherapy Session #3 Date Open:: 09/07/17 - group members Time Started:: 11:25 Time Stopped:: 12:15 Targeted Problem #:: 1 Type of Group:: Functional Skills Development Goal of Group:: To identify important components of communication and practice specific, clear communication. Client Response/Progress/Benefit:: Client responded well to session, passive participant. Client appeared to struggle with understanding the activity, but was receptive to feedback and asked clarifying questions. Client helped the group identify strategies to increase assertive communication including managing emotions, using a calm tone of voice, and starting with one support at a time. Client reported she plans to continue to express her needs to her supports and be confident in setting boundaries. Client appeared to benefit from identifying ways to improve her communication. Client progressing with increasing awareness how her thoughts, emotions, and behaviors impact her, but can continue to benefit from consistently using healthy coping skills. Eye Contact:: Fair Motor Activity:: Appropriate Appearance:: Casual Speech:: Soft Mood:: Anxious Affect:: Flat Thoughts:: Other - confused at times, No evidence of hallucinations/delusions noted Staff Interventions:: Therapist led the discussion about important components of effective communication. Therapist provided each group member with the same three materials and broke the group into pairs. Therapist facilitated a communication activity in which the group members would have to achieve a goal by using effective communication to achieve such goal. Therapist processed the activity with the group.
--- NOTE | 2017-09-07 15:09 | BH.SGPN ---
Service Group Progress Note - Session Psychotherapy Session #1 Date Open:: 09/07/17 Time Started:: 09:05 Time Stopped:: 10:05 Type of Group:: Process - 6 group members Goal of Group:: The goal of today's group was to check-in with client's mood, stressors, and positives, review homework and introduce topic for the day. Client Response/Progress/Benefit:: Pt was an active participant. Provided appropriate feedback. Emotion for today is calm. Shared that appointment with PCP had gone well. Appeared very relaxed however cannot identify what she is doing differently. She has been more social since starting this program and has plans to continue with local [email or web address] chapter at discharge. Benefits from group support and socialization. Continued treatment to prevent decompensation, maintain gains, reduce isolation, and decrease anxiety. Eye Contact:: Good Motor Activity:: Appropriate Appearance:: Disheveled Speech:: Appropriate Mood:: Euthymic Affect:: Full Thoughts:: Linear, Logical, No evidence of hallucinations/delusions noted Staff Interventions:: Therapist used open-ended questions to elicit information about client's current stressors and mood state. Therapist was supportive by using active listening and reflection.
--- NOTE | 2017-09-08 13:19 | BH.SGPN_ITS ---
Service Group Progress Note - Session Psychotherapy Session #3 Date Open:: 08/18/17 Time Started:: 11:24 Time Stopped:: 12:18 Targeted Problem #:: 1 Type of Group:: Functional Skills Development - 7 participants Goal of Group:: To identify important components of communication and practice specific, clear communication. Staff Interventions:: Therapist led the discussion about important components of effective communication. Therapist provided each group member with the same three materials and broke the group into pairs. Therapist facilitated a co mmunication activity in which the group members would have to achieve a goal by using effective communication to achieve such goal. Therapist processed the activity with the group.
--- NOTE | 2017-09-08 17:51 | BH.COMM ---
Communication Note - Communication with Client Communication Note: This therapist received a phone call from client's pillowcase cutter regarding continuity of care. Therapist and pillowcase cutter discussed discharge and aftercare options to promote gains made in the program.
--- NOTE | 2017-09-08 17:52 | BH.COMM_ITS ---
Communication Note - Communication with Client Communication Note: This therapist received a phone call from client's caser up regarding continuity of care. Therapist and caser up discussed discharge and aftercare options to promote gains made in the program.
--- NOTE | 2017-09-09 12:07 | BH.SGPN_ITS ---
Service Group Progress Note - Session Psychotherapy Session #1 Date Open:: 18 - 8 group members Time Started:: 09:06 Time Stopped:: 10:15 Targeted Problem #:: 1 Type of Group:: Process Goal of Group:: The goal of today's group was to check-in with client's mood, stressors, and positives, and review homework. Client Response/Progress/Benefit:: Client responded well to session, providing supportive statements to peers. Client reports feeling mixed emotions today as client had a rough day yesterday, but now feels better. Client contributed doing nothing as the reason yesterday was challenging. Client was receptive to group and therapist feedback on the benefits of doing social and enjoyable things out of the house on days client does not attend group. Client shared today she plans to spend time with a friend to improve her mood. Client appeared to benefit from receiving supportive statements from peers as well as identifying ways to improve her mood today. Client progressing with managing symptoms while in group, but continues to struggle with connecting isolation to increased mental health symptoms on days client is not at IOP. Eye Contact:: Fair Motor Activity:: Appropriate Appearance:: Casual Speech:: Soft Mood:: Dysthymic Affect:: Constricted Thoughts:: Other - appeared confused at times, No evidence of hallucinations/ delusions noted Staff Interventions:: Therapist used open-ended questions to elicit information about client's current stressors and mood state. Therapist was supportive by using active listening and reflection. Therapist helped client identify alternative coping strategies and positive supports.
--- NOTE | 2017-09-09 16:20 | BH.SGPN ---
Service Group Progress Note - Session Psychotherapy Session #2 Date Open:: 09/09/17 Time Started:: 10:20 Time Stopped:: 11:15 Targeted Problem #:: 1 Type of Group:: Illness Management - 7 group members Goal of Group:: To increase understanding of cognitive distortions, identify examples of when have had unhelpful thinking, and increase awareness of the impact cognitive distortions have on mental health. Eye Contact:: Fair Motor Activity:: Appropriate Appearance:: Casual Speech:: Appropriate Mood:: Anxious, Depressed Affect:: Constricted Thoughts:: Linear, No evidence of hallucinations/delusions noted Psychotherapy Session #3 Date Open:: 09/09/17 Time Started:: 11:30 Time Stopped:: 12:20 Targeted Problem #:: 1 Type of Group:: Functional Skills Development - 7 group members Goal of Group:: To identify ways of defeating cognitive distortions and rehearse defeating the identified cognitive distortion. Eye Contact:: Fair Motor Activity:: Appropriate Appearance:: Casual Speech:: Appropriate Mood:: Anxious, Depressed Affect:: Constricted Thoughts:: Linear, No evidence of hallucinations/delusions noted Staff Interventions:: Therapist utilized an activity as a tool in helping clients connect the amount of effort one will need to put forth to defeat cognitive distortions. Therapist provided group members with a handout to use as an aid when trying to defeat their unhelpful thinking. Therapist processed the worksheet with group members, helping them reframe the cognitive distortions.
--- NOTE | 2017-09-11 13:30 | BH.SGPN ---
Service Group Progress Note - Session Psychotherapy Session #2 Date Open:: 09/11/17 Time Started:: 10:30 Time Stopped:: 11:20 Targeted Problem #:: 1 Type of Group:: Illness Management Goal of Group:: To increase understanding of cognitive distortions, identify examples of when have had unhelpful thinking, and increase awareness of the impact cognitive distortions have on mental health. Eye Contact:: Good Motor Activity:: Appropriate Appearance:: Casual Speech:: Appropriate Mood:: Euthymic Affect:: Congruent Thoughts:: Linear, No evidence of hallucinations/delusions noted Staff Interventions:: Therapist provided group members with a handout that listed ten cognitive distortions with examples. Therapist facilitated group discussion about cognitive distortions. Therapist led group members in an activity to help them understand the impact cognitive distortions can have on emotions and behavior. Therapist provided support by using active listening and providing feedback.
--- NOTE | 2017-09-11 15:45 | BH.SGPN ---
Service Group Progress Note - Session Psychotherapy Session #1 Date Open:: 09/11/17 Time Started:: 09:05 Time Stopped:: 10:15 Targeted Problem #:: 1 Type of Group:: Process - 7 participants Goal of Group:: The goal of today's group was to check-in with client's mood, stressors, and positives, review homework and introduce topic for the day. Client Response/Progress/Benefit:: Client Response/Progress/Benefit:: Client attentive and openly shared with the group. She discussed having had a rough day yesterday as she was feeling short of breath and continued to struggle with managing symptoms of anxiety due to increased worry related to physical health. Client indicates that she is feelin better today and is a little less anxious as a result. She continues to struggle with managing symptoms or implementing calming strategies in the moment. Client reports plans to spend Easter with one of the other residents in her biulding and went on to discuss plans to watch crime dramas and attend christianity. Client appeared to benefit from the supportive environment of the group and relating to experiences of fellow participants. Recommended continued IOP to work on increasing implementation of health anxiety reducing skills. Eye Contact:: Good Motor Activity:: Appropriate Appearance:: Casual Speech:: Appropriate Mood:: Euthymic Affect:: Congruent Thoughts:: Linear, Logical Staff Interventions:: Therapist used open-ended questions to elicit information about client's current stressors and mood state. Therapist was supportive by using active listening and reflection.
== END 2017-09-12 23:59 ==
LOC: BHIOP 09:00
PROVIDERS: Family Provider Family Medicine; PCP Family Medicine; Visit Provider Psychiatry & Neurology Psychiatry
DX: F33.2 Major depressive disorder, recurrent severe without psychotic features (principal); F41.1 Generalized anxiety disorder; G47.33 Obstructive sleep apnea (adult) (pediatric)
CPT/HCPCS: H0035; 90832; 90837; 90853

== ENCOUNTER 2017-09-16 09:00 | Outpatient (RCR) | payer MEDICARE, SELFPAY ==
--- NOTE | 2017-09-16 11:30 | BH.SGPN_ITS ---
Service Group Progress Note - Session Psychotherapy Session #1 Date Open:: 18 - 8 group members Time Started:: 09:03 Time Stopped:: 10:10 Targeted Problem #:: 1 Type of Group:: Process Goal of Group:: The goal of today's group was to check-in with client's mood, stressors, and positives, and review homework. Client Response/Progress/Benefit:: Client responded well to session, providing supportive statements. Client reports feeling moderately anxious as client had a horrible day yesterday, but recognized she made it through and demonstrates resiliency by attending group today. Client reported she woke up anxious yesterday which was exacerbated by client staying in her apartment all day and forgetting to utilize her calming skills. Client was receptive to group members suggestions for how to manage anxiety. Client reported she visited [email or web address], a [employer] daycare, on Thursday and enjoyed it. Client shared she is thinking about attending [email or web address] after she leaves [facility]. Client appeared to benefit from reflecting on positives and connecting with peers. Client showing progress with maintaining consistent attendance, but continues to struggle with utilizing coping skills to reduce anxiety on days she is not at IOP. Eye Contact:: Fair Motor Activity:: Appropriate Appearance:: Casual Speech:: Rambling Mood:: Dysthymic Affect:: Constricted Thoughts:: Other - appeared confused as client was off topic during group discussion., No evidence of hallucinations/delusions noted Staff Interventions:: Therapist used open-ended questions to elicit information about client's current stressors and mood state. Therapist was supportive by using active listening and reflection.
--- NOTE | 2017-09-16 13:04 | BH.MDN ---
Multi-Disciplinary Note - Note 30-min Individual Time Started:: 11:42 Date: 09/16/17 Purpose of session/treatment goals addressed:: The purpose of this session was to address client's current stressors, review healthy coping skills, and discuss discharge. Eye Contact:: Good Motor Activity:: Appropriate Appearance:: Casual Speech:: Rambling, Soft Mood:: Anxious Affect:: Constricted Thoughts:: Other - appeared confused at times as shown by client repeating herself throughout session., No evidence of hallucinations/delusions noted Staff Interventions:: Therapist used active listening and open-ended questions to explore client's current stressors and use of coping skills. Therapist walked client through a guided imagery to promote relaxation and reduce stress. Therapist reviewed client's list of healthy coping skills and encouraged daily use to promote mood stability. Therapist discussed upcoming discharge and aftercare plans. Client Response:: Client responded well to session, open to discussing discharge. Client reported yesterday was terrible as client experienced increased anxiety symptoms such as racing thoughts and shortness of breath. Client shared she attempted calm herself down by visiting a friend, which helped somewhat, but mostly stayed in her apartment all day which exacerbated symptoms. Client and therapist discussed ways to break the negative maintenance cycle of anxiety such as using calming coping skills, getting out of the house, and reaching out to positive supports. Client reported feeling less anxious this morning after coming to group. Client stated guided imagery has been a helpful coping skill and wanted to do this during session. Therapist also showed client how to access guided imagery on her phone, so client can use it when anxious. Client reported her outpatient case manager took her to [facility] Thursday and it went well. Client stated she is willing to give it a try after discharging from [facility]. Client and therapist discussed client's aftercare options and strategies to promote maintenance of skills learned during IOP. Risks/Concerns:: Client denies suicidal ideation, plan, and intent as of 09/16/17. Progress Toward Goals/Plan:: Client demonstrating progress on treatment goals as shown by her report of reduced depression and increased socialization, but continues to report ongoing anxiety symptoms in the morning and confusion. During group and individual sessions, client able to utilize healthy coping skills to reduce anxiety, but states difficulty with consistent application at home. Client to continue IOP to prevent decompensation and promote more consistent implementation of coping skills. Client and therapist agreed to discharge 4/11/18. Time Stopped:: 12:14
--- NOTE | 2017-09-16 13:15 | BH.MDN_ITS ---
Multi-Disciplinary Note - Note 30-min Individual Time Started:: 11:42 Date: 09/16/17 Purpose of session/treatment goals addressed:: The purpose of this session was to address client's current stressors, review healthy coping skills, and discuss discharge. Eye Contact:: Good Motor Activity:: Appropriate Appearance:: Casual Speech:: Rambling, Soft Mood:: Anxious Affect:: Constricted Thoughts:: Other - appeared confused at times as shown by client repeating herself throughout session., No evidence of hallucinations/delusions noted Staff Interventions:: Therapist used active listening and open-ended questions to explore client's current stressors and use of coping skills. Therapist walked client through a guided imagery to promote relaxation and reduce stress. Therapist reviewed client's list of healthy coping skills and encouraged daily use to promote mood stability. Therapist discussed upcoming discharge and aftercare plans. Client Response:: Client responded well to session, open to discussing discharge. Client reported yesterday was terrible as client experienced increased anxiety symptoms such as racing thoughts and shortness of breath. Client shared she attempted calm herself down by visiting a friend, which helped somewhat, but mostly stayed in her apartment all day which exacerbated symptoms. Client and therapist discussed ways to break the negative maintenance cycle of anxiety such as using calming coping skills, getting out of the house, and reaching out to positive supports. Client reported feeling less anxious this morning after coming to group. Client stated guided imagery has been a helpful coping skill and wanted to do this during session. Therapist also showed client how to access guided imagery on her phone, so client can use it when anxious. Client reported her classification case manager took her to [facility] Thursday and it went well. Client stated she is willing to give it a try after discharging from [facility]. Client and therapist discussed client's aftercare options and strategies to promote maintenance of skills learned during IOP. Risks/Concerns:: Client denies suicidal ideation, plan, and intent as of 09/16/17. Progress Toward Goals/Plan:: Client demonstrating progress on treatment goals as shown by her report of reduced depression and increased socialization, but continues to report ongoing anxiety symptoms in the morning and confusion. During group and individual sessions, client able to utilize healthy coping skills to reduce anxiety, but states difficulty with consistent application at home. Client to continue IOP to prevent decompensation and promote more consistent implementation of coping skills. Client and therapist agreed to discharge 4/11/18. Time Stopped:: 12:14
--- NOTE | 2017-09-16 16:03 | BH.MTP_ITS ---
Treatment Plan Review Date of Admission:: 07/20/17 Date of Treatment Plan Review:: 09/16/17 Admitting Diagnoses:: Major Depressive Disorder F33.2; Generalized Anxiety Disorder Current Diagnoses:: Major Depressive Disorder F33.2; Generalized Anxiety Disorder Patient's Response to Treatment:: Client seems to be responding well to treatment as she reports reduced depression, increased ability to cope with anxiety, and will be discharging 09/23/17. Client demonstrates engagement in group through note-taking, participates in small group discussion, and practices healthy coping skills during individual sessions. Client reports ongoing concerns with poor memory and physical health which exacerbates anxiety symptoms. Client reports success with using deep breathing, guided imagery, mindfulness skills, and has been consistent with attending latter day on Sundays. Client has reconnected with her case management director at [facility] and is willing to attend a depression group there starting 09/23/17. Client has also increased willingness to attend [facility] to increase social support and promote gains made in IOP. Status of Current Problems and Symptoms: Client reports ongoing anxiety, especially in the mornings, which typically resolves after client engages with a positive support or distracts herself. Client has been struggling with memory difficulties and confusion which she reports impacts anxiety. Client reports implementing some calming strategies at home, but often reports she forgets to use skills learned in group and individual sessions. Client reports her anxiety and physical health continue to be barriers to increasing social support outside of IOP, but client reports increased willingness to try a new support group. Problem #1 Problem Name:: Pt will reduce depressive symptoms and increase self-care and supports Status of Goals:: Client has demonstrated moderate progress on this treatment goal as she has reduced isolation, increased cleaning at home, and reports fewer symptoms of depression. Client to start attending a depression group at [facility] and began going to [facility] for additional social support. Team Recommendations:: Client to continue with this treatment goal until discharge on 09/23/17 as she has demonstrated progress with reducing depressive symptoms and increasing socialization, but can continue to benefit from engaging in activities outside of IOP. Client to continue seeing Alma Beasley at [facility], case management director Miriam, and start attending the depression group at [facility] starting 09/23/17. Problem #2 Problem Name:: Pt. will reduce overall frequency and intensity of anxiety. Status of Goals:: Client has demonstrated progress with reaching out to positive supports, using prayer, deep breathing, and guided imagery to reduce anxiety. Client has partially accomplished this goal as she continues to struggle with identifying warning signs, but has demonstrated progress with reducing the duration of anxiety so that daily functioning is less impaired. Client has not had any ER visits in almost two months which may be due to reduction of anxiety symptoms. Team Recommendations:: Client to continue working towards treatment goal until discharge on 09/23/17 as she can continue to benefit from increased consistency with implementing calming skills. Client to continue seeing therapist, Alma Beasley, and case management director, Miriam, at [facility]. Client to keep visual reminders to promote use of coping skills in the morning.
--- NOTE | 2017-09-17 13:29 | BH.SGPN ---
Service Group Progress Note - Session Psychotherapy Session #2 Date Open:: 09/17/17 - 7 group members Time Started:: 10:10 Time Stopped:: 11:03 Targeted Problem #:: 1 Type of Group:: Illness Management Goal of Group:: To increase understanding of pitfalls and impact can have on mental health. Client Response/Progress/Benefit:: Client responded well to session, passive participant. Client appeared to connect with the topic identifying pitfalls as slumps in our lives. Client shared pitfalls can lead to depression and anxiety and keep people feeling hopeless. Client agreed with peers that it is important to have awareness of pitfalls as one cannot make changes without knowing warning signs and communicating with supports. Client appeared to benefit from connecting with peers and learning how pitfalls can impact her mental health. Client to continue IOP to promote mood stability. Eye Contact:: Fair Motor Activity:: Slowed Appearance:: Casual Speech:: Soft Mood:: Anxious Affect:: Constricted Thoughts:: Linear, No evidence of hallucinations/delusions noted Staff Interventions:: Therapist facilitated discussion about pitfalls and assisted group in identifying common pitfalls that can set you back. Therapist led group in an activity to help group understand impact pitfalls can have on oneself and identify strategies that could help you get back on the right path. Therapist provided support by using active listening and providing feedback. Psychotherapy Session #3 Date Open:: 09/17/17 - 6 group members Time Started:: 11:10 Time Stopped:: 12:10 Targeted Problem #:: 1 Type of Group:: Functional Skills Development Goal of Group:: To identify personal pitfalls and what keeps them stuck from moving forward. Client Response/Progress/Benefit:: Client responded well to session, engaged in discussion. Client identified her personal pitfalls to be: forgetfulness, lack motivation, forgetting coping skills, not taking care of physical health, and feeling hopeless. Client identified strategies to help overcome her pitfalls including: reframing thoughts trying not to think negatively and practicing coping skills daily. Client appeared to benefit from increasing awareness of personal pitfalls and strategies to overcome them. Progress noted in clients reduced depression, but can continue to benefit from using calming strategies. Eye Contact:: Good Motor Activity:: Appropriate Appearance:: Casual Speech:: Appropriate Mood:: Euthymic Affect:: Constricted Thoughts:: Linear, No evidence of hallucinations/delusions noted Staff Interventions:: Therapist facilitated activity in which group members were given the task to identify personal pitfalls and what keeps them stuck from moving past the pitfall. Therapist provided group members with the homework assignment of identifying strategies that can help them overcome pitfalls.
--- NOTE | 2017-09-18 11:59 | BH.SGPN ---
Service Group Progress Note - Session Psychotherapy Session #1 Date Open:: 09/18/17 Time Started:: 09:00 Time Stopped:: 10:00 Type of Group:: Process - 9 group members Goal of Group:: The goal of today's group was to check-in with client's mood, stressors, and positives, review homework and introduce topic for the day. Client Response/Progress/Benefit:: Provided feedback at times however spoke very little during group discussions. Emotion for today is depressed and anxiety. Shared that she had a really bad day yesterday and is feeling jonnie today. Tearful at times. Discussed stressors and frustrations yesterday and ruminating at night which led to depressive thoughts. Being alone and thinking are reported to be troubling times for her. She states sometimes I can stop the depression ... sometimes I can't. Benefited from group support. Some regression however pt showed insight into triggers to mood rather having no awareness. Will continue in treatment to prevent decompensation and stabilze mood. Eye Contact:: Poor Motor Activity:: Appropriate Appearance:: Disheveled Speech:: Appropriate Mood:: Depressed Affect:: Flat Thoughts:: Linear, Logical, No evidence of hallucinations/delusions noted Staff Interventions:: Therapist used open-ended questions to elicit information about client's current stressors and mood state. Therapist was supportive by using active listening and reflection
--- NOTE | 2017-09-18 14:59 | BH.COMM ---
Communication Note - Communication with Client Communication Note: Therapist received a phone call from client's welfare case worker to discuss client's upcoming discharge and aftercare options. [facility] reports plan to contact client next week to promote a warm handoff and get client started in the depression group at [facility].
--- NOTE | 2017-09-18 15:03 | BH.COMM_ITS ---
Communication Note - Communication with Client Communication Note: Therapist received a phone call from client's case packer and sealer to discuss client's upcoming discharge and aftercare options. manager of human resources reports plan to contact client next week to promote a warm handoff and get client started in the depression group at [facility].
--- NOTE | 2017-09-21 11:40 | BH.COMM ---
Communication Note - Communication with Client Communication Note: Client called to cancel her scheduled IOP session today as client has been experiencing stomach pains and trouble urinating resulting in client going to urgent care this morning. Client shared she feels better after seeing the doctor. Client reports plan to attend group tomorrow and Thursday.
--- NOTE | 2017-09-23 10:42 | BH.SGPN_ITS ---
Service Group Progress Note - Session Psychotherapy Session #1 Date Open:: 09/23/17 Time Started:: 09:08 Time Stopped:: 10:08 Targeted Problem #:: 1 Type of Group:: Process - 5 participants Goal of Group:: The goal of today's group was to check-in with client's mood, stressors, and positives, review homework and introduce topic for the day. Client Response/Progress/Benefit:: Client was attentive and remained engaged in the session throughout. She openly shared with the group and did well to provide supportive feedback to to fellow participants. Client indicated that it is her birthday today and discussed having had her family make a surprise trip from [place] to help her celebrate. She expressed shauna in their arrival as she had not seen them in person for several years. Client went on to share that her last day in the IOP program will be Thursday and that although she will miss everyone she is kind of ready for it. CLient reflected that this past winter has been really hard for her so she is ready to finally move on from it. CLient benefitted from the supportive environment provided by the group and taking time to reflect upon the positives she is currently experiencing. Client indicates progress in decreasing symptoms of overall anxiety and depression. Eye Contact:: Fair Motor Activity:: Appropriate Appearance:: Casual Speech:: Appropriate Mood:: Euthymic Affect:: Congruent Thoughts:: Linear, Logical, No evidence of hallucinations/delusions noted Staff Interventions:: Therapist used open-ended questions to elicit information about client's current stressors and mood state. Therapist was supportive by using active listening and reflection.
--- NOTE | 2017-09-25 08:37 | BH.AFTERPLAN ---
Aftercare Plan - Demographics Treatment End Date:: 09/25/17 Psychiatrist:: Liz Lopes Psychiatrist Office #:: [phone] PHP/IOP Therapist:: Kassidy Wilde Therapist Phone #:: [phone] - Medications Home Medications: Home Medications Aspirin [Aspirin, Baby] 81 mg PO DAILY@0800 04/29/17 Atorvastatin Calcium [Lipitor] 40 mg PO QHS 04/29/17 Buspirone HCl [Buspar] 30 mg PO BID 04/29/17 Fluoxetine HCl [Prozac] 60 mg PO DAILY 04/29/17 Hydrochlorothiazide [Hctz] 12.5 mg PO DAILY 04/29/17 Latanoprost [Xalatan] 1 drop OP QHS 04/29/17 Levothyroxine Sodium [Synthroid] 75 mcg PO DAILY 04/29/17 Lisinopril [Zestril] 10 mg PO DAILY 04/29/17 Meloxicam [Mobic] 15 mg PO DAILY 04/29/17 Metformin HCl 500 mg PO BID 04/29/17 traMADol [Ultram] 50 mg PO Q6H PRN PRN 04/29/17 Potassium Chloride [K-Dur] 20 meq PO BID #10 tablet 05/09/17 Acetaminophen [Tylenol Arthritis] 650 mg PO Q8 PRN 05/13/17 Ondansetron [Zofran Odt] 4 mg PO Q8H PRN PRN #10 tab 06/12/17 Lamotrigine [Lamictal] 200 mg PO DAILY 07/24/17 Lorazepam [Ativan] 2 mg PO BREAKFAST 07/24/17 Omeprazole [Prilosec] 20 mg PO BID 07/24/17 Primidone [Mysoline] 50 mg PO DAILY 07/24/17 Albuterol Inhaler [Ventolin Hfa] 1 - 2 puff INHALATION Q4H PRN PRN #1 inhaler 07/25/17 Nystatin/Triamcin Cream [Mycolog] 1 applic TOPICAL BID 07/25/17 Phenazopyridine HCl [Pyridium] 200 mg PO PRN PRN 07/25/17 Ropinirole HCl [Requip] 0.25 mg PO DAILY 07/25/17 - Plan Details Progress/Aftercare Plan Details:: You have made significant progress with reducing depressive symptoms by using your skills and social supports. You recognize that there will be times when you feel anxious, but you've improved with using positive self-talk, praying, and being mindful. You have demonstrated progress with being more social, you went to [facility] and the depression group! You have also progressed with being more receptive and asking for help. Strategies for Success:: 1. Stay positive!! Use positive self-talk every day, when you are feeling good and bad. 2. Sit and relax! use calming strategies like guided imagery, music, and movies. 3. Talk with your supports and get out of the house! 4. [place] and remember to look at your daily bible verse. 5. Follow up with counseling, depression group, and [facility]! 6. Keep going to [facility] and focus on the support you get from the message and people there. 7. If you get overwhelmed remember this too shall pass. 8. Have awareness and keep using your coping skills! - Appointments Appointments/Referrals to Other Services:: 1. Alma Beasley on 10/31/17 2.depression group appointment 09/30/17. 3. Follow up with Dr. Logan for wellness checks and medical needs. 4. [facility] for social support. 5. Dr. [facility] 10/01/17.
--- NOTE | 2017-09-25 08:39 | BH.DS_ITS ---
Discharge Summary - Demographics Date of Admission:: 07/20/17 Discharge Date: 09/25/17 Presenting Problems at Admission:: Patient is a 67-year-old female who present to [facility] after a referral from [facility] emergency department due to multiple visits from anxiety and depression. Client had 4 emergency department visits since the end of May for panic and anxiety. Admission, client reported her symptoms were exacerbated by grief associated with of multiple immediate family members. Client endorsed a depressed mood, with isolative behavior, decreased energy, difficulty concentrating, and intermittent thoughts of . Client also reported ruminative anxiety about multiple issues including her children, increased confusion, and finances. Client shared having panic attacks, that sometimes led to ER visits, with shortness of breath , heart palpitations and feelings of extreme anxiety. Discharge Diagnoses:: Major depressive disorder F 33.3 ;Generalized anxiety disorder Reason for Discharge:: Client has made significant progress towards treatment goals and no longer meets criteria for [facility] level of care. - Treatment Progress During Treatment & Response: Client responded well to IOP, she was a positive support to peers and was receptive in group and individual sessions. During her time in IOP client was engaged in group discussion and had consistent attendance. At times client?s physical limitations and anxiety acted as a barrier to her engagement, but client gradually showed progress with managing her emotions which allowed her to stay in sessions. Client has made significant progress with reducing symptoms of depression and anxiety through use of calming, thought challenge, and distraction coping skills. Client demonstrated progress as shown by decreased isolation and increased use of social supports. Client also reported increasing her self-awareness and recognizing when to use coping skills. At discharge client reported reduced anhedonia, panic attacks, and negative thinking. Issues Still to be Addressed:: Client can continue to benefit from ongoing reinforcement of the healthy coping skills learned in individual and group sessions. Client can also continue to benefit from maintaining a daily routine that includes time with social supports and use of coping skills. Client demonstrated significant progress with reducing symptoms of anxiety and depression during IOP and can continue to progress with being aware of her warning signs, triggers, and maintenance cycles. Discharge Recommendations/Instructions:: Client is recommended to follow up with outpatient counseling, psychiatry, and support group at [facility]. Client's next appointment with Alma Beasley is October 31, depression group appointment is September 30, and her appointment with Dr. High is [place] 19th. Client also recommended to follow up with her PCP, Dr. Logan, for wellness checks and for her medical needs. Lastly, client to follow up with attending [facility] for social support. Discharge Handout: Complete Discharge Handout with client on aftercare options and continuity of care.
--- NOTE | 2017-09-25 15:17 | BH.SGPN ---
Service Group Progress Note - Session Psychotherapy Session #1 Date Open:: 09/25/17 Time Started:: 09:05 Time Stopped:: 10:20 Targeted Problem #:: 1 Type of Group:: Process - 7 group members Goal of Group:: The goal of today's group was to check-in with client's mood, stressors, and positives, review homework and introduce topic for the day. Client Response/Progress/Benefit:: Client reported she attended the depression group at the counseling center yesterday and really enjoyed going. Client reported today is her last day in [facility] which makes her really sad because of all the connections she is made. However client was able to identify all the progress she has made since starting [facility]. Client is demonstrated progress as evidenced by her reporting decreased anxiety and depression as well as attending the depression group yesterday. Client to be discharged from [facility] today. Eye Contact:: Fair Motor Activity:: Appropriate Appearance:: Casual Speech:: Appropriate Mood:: Euthymic, Anxious Affect:: Congruent Thoughts:: Linear, No evidence of hallucinations/delusions noted Staff Interventions:: Therapist used open-ended questions to elicit information about client's current stressors and mood state. Therapist was supportive by using active listening and reflection.
--- NOTE | 2017-09-25 15:20 | BH.SGPN_ITS ---
Service Group Progress Note - Session Psychotherapy Session #2 Date Open:: 09/25/17 group members Time Started:: 10:27 Time Stopped:: 11:20 Targeted Problem #:: 1 Type of Group:: Illness Management Goal of Group:: To increase understanding of resilience and identify the factors that contribute to building resilience. Client Response/Progress/Benefit:: Client responded well to session, quiet, but participating through note-taking. Client appeared to connect with the topic sharing resiliency is made up of physical, mental, emotional, and spiritual components. Client stated ?juggling? stressors can increase anxiety and depression, but if one learns to adapt to change it can be easier. Client helped the group identify characteristics of resiliency such as self-awareness, goal setting, and using supports. Client reported learning how to use coping skills to manage different emotions helps with being resilient as well. Client appeared to benefit from learning the characteristics of resiliency. Client has shown progress with increased use of coping skills and reaching out to supports. Eye Contact:: Good Motor Activity:: Appropriate Appearance:: Neat Speech:: Appropriate Mood:: Euthymic Affect:: Congruent Thoughts:: Linear, No evidence of hallucinations/delusions noted Staff Interventions:: Therapist led group in an activity that would induce a chaotic environment and used the activity as a tool in discussing the various stressors people are faced with each day. Therapist facilitated group discussion about resilience and explained the factors of building resilience. Therapist led discussion about factors that contribute to resilience. Therapist provided support by using active listening and providing feedback. Psychotherapy Session #3 Date Open:: 09/25/17 8 group members Time Started:: 11:27 Time Stopped:: 12:25 Targeted Problem #:: 1 Type of Group:: Functional Skills Development Goal of Group:: To rehearse resilient factors and identify ways to maintain resilience despite hardships and stressors. Client Response/Progress/Benefit:: Client responded well to session, engaged throughout. Client reported the topic today helped client see all the resiliency factors she encompasses. Client identified her personal resiliency traits ?never stop trying, having hope, and getting out my comfort zone.? Client also shared she uses prayer to maintain a resilient outlook. Client shared she plans to continue to set small goals and use her supports to maintain resiliency when faced with challenges. Client appeared to benefit from identifying ways she demonstrates resiliency and by learning how to maintain resiliency despite hardships. Progress noted in client's reduced anxiety and depression as well as her improved outlook on managing stressors. Client to discharge from [facility] today. Eye Contact:: Good Motor Activity:: Appropriate Appearance:: Neat Speech:: Appropriate Mood:: Euthymic Affect:: Congruent Thoughts:: Linear, No evidence of hallucinations/delusions noted Staff Interventions:: Therapist led group in an activity in which group members were challenged to stay resilient despite various stressors and hardships added to activity. Therapist provided each group member with a stress ball and used stress ball as a tool to discuss factors of resilient personality. Therapist provided group members with a handout about the building blocks of resilience. Therapist provided support by using reflective listening.
--- NOTE | 2017-09-25 15:20 | BH.MDN ---
Multi-Disciplinary Note - Note 30-min Individual Time Started:: 12:30 Date: 09/25/17 Purpose of session/treatment goals addressed:: The purpose of this session was to develop an aftercare plan with client and review progress. Another goal was to provide closure and identify healthy coping skills to promote gains. Eye Contact:: Good Motor Activity:: Appropriate Appearance:: Neat Speech:: Appropriate Mood:: Euthymic, Other - reporting sadness about leaving IOP Affect:: Congruent - smiling, but also became tearful when session ended. Thoughts:: Other - appeared confused at times and reporting confusion while driving., No evidence of hallucinations/delusions noted Staff Interventions:: Therapist used active listening and open-ended questions to explore client's aftercare, progress, and strategies for success. Therapist helped client establish an aftercare plan that included wraparound care. Therapist used strengths perspective to reflect on progress and provided client with a quote collage for closure. Therapist assisted client in identifying strategies to help maintain progress and manage anxiety and depression. Client Response:: Client responded well to session, tearful at one point, but expressing gratitude. Client shared she is so thankful for her experience in the program. Client reflected on her progress sharing I'm not fully better but client reported reduced symptoms of depression, isolation, and panic attacks as well as increased coping skills. Client stated she has learned to use positive self-talk, mindfulness, and social supports to manage anxiety and depression. Client identified strategies to help client maintain progress such as stay positive and remember my skills, talk with positive supports and get out of the house, and use calming strategies early and often. Client reports plan to follow up with the depression group at [facility] as well as outpatient counseling. Additionally, client shared she will be attending [place] to promote social support and reduce isolation. Risks/Concerns:: Client denies suicidal ideation, plan, and intent as of 09/25/17. Progress Toward Goals/Plan:: Client has made significant progress with reducing symptoms of depression and anxiety through use of calming, thought challenge, and distraction coping skills. Client demonstrated progress as shown by decreased isolation and increased use of social supports. Client also reported increasing her self-awareness and recognizing when to use coping skills. At discharge client reported reduced anhedonia, panic attacks, and negative thinking. Client to follow up with her outpatient mental health providers at [facility] and therapist to call next week to follow up on aftercare. Time Stopped:: 13:00
--- NOTE | 2017-09-29 11:19 | BH.SGPN_ITS ---
Service Group Progress Note - Session Psychotherapy Session #1 Date Open:: 09/25/17 Time Started:: 09:05 Time Stopped:: 10:20 Targeted Problem #:: 1 Type of Group:: Process - 7 group members Goal of Group:: The goal of today's group was to check-in with client's mood, stressors, and positives, review homework and introduce topic for the day. Client Response/Progress/Benefit:: Client reported she attended the depression group at the counseling center yesterday and really enjoyed going. Client reported today is her last day in [facility] which makes her really sad because of all the connections she is made. However client was able to identify all the progress she has made since starting [facility]. Client is demonstrated progress as evidenced by her reporting decreased anxiety and depression as well as attending the depression group yesterday. Client to be discharged from [facility] today. Eye Contact:: Fair Motor Activity:: Appropriate Appearance:: Casual Speech:: Appropriate Mood:: Euthymic, Anxious Affect:: Congruent Thoughts:: Linear, No evidence of hallucinations/delusions noted Staff Interventions:: Therapist used open-ended questions to elicit information about client's current stressors and mood state. Therapist was supportive by using active listening and reflection.
--- NOTE | 2017-10-13 15:59 | BH.SGPN_ITS ---
Service Group Progress Note - Session Psychotherapy Session #2 Date Open:: 09/23/17 Time Started:: 10:15 Time Stopped:: 11:15 Targeted Problem #:: 1 Type of Group:: Illness Management Goal of Group:: The goal of today?s group is to identify how emotions can impact our communication skills, and why it is important to be able to communicate in stressful situations. Client Response/Progress/Benefit:: Pt listened to others and contributed at times to discussion. Pt related to others about importance of being able to manage emotions in the moment or might say something you regret. Pt worked cooperatively with others during activity, able to connect need to have emotions calm in order to communicate effectively. Pt seemed to benefit from gaining awareness of how emotions can impact ability to communicate. Eye Contact:: Fair Motor Activity:: Appropriate Appearance:: Casual Speech:: Appropriate Mood:: Anxious, Dysthymic Affect:: Constricted Thoughts:: Linear, No evidence of hallucinations/delusions noted Staff Interventions:: Therapist led an experiential activity where group members worked together for a common goal, but with adaptations made on how members were able to communicate with one another. Therapist used open-ended questions to elicit group discussion about emotions which arose during activity , as well as identifying how emotions experienced impacted ability to communicate effectively with other group members. Psychotherapy Session #3 Date Open:: 09/23/17 Time Started:: 11:30 Time Stopped:: 12:20 Targeted Problem #:: 1 Type of Group:: Functional Skills Development Goal of Group:: The goal of todays group was to increase awareness of different states of alertness attached to emotions and identifying healthy coping strategies for each state of alertness. Client Response/Progress/Benefit:: Pt listened attentively to others and contributed to discussion at times. Pt related to the different states of alertness. Able to identify which coping strategies would be most helpful to her based on which zone she is in. Pt identified breathing techniques as helpful to calm her down. Pt seemed to benefit from identifying specific coping skills that would be most beneficial for different emotions. Eye Contact:: Fair Motor Activity:: Appropriate Appearance:: Casual Speech:: Appropriate Mood:: Anxious, Dysthymic Affect:: Constricted Thoughts:: Linear, Logical, No evidence of hallucinations/delusions noted Staff Interventions:: Therapist facilitated group by teaching about the 4 zones of different states of alertness and helping clients connect emotions to each zone based on state of alertness. Therapist assisted clients with identifying healthy coping strategies that would be best utilized based on the state of alertness. Therapist provided support by using active listening and providing feedback.
== END 2017-09-25 14:00 | disposition home or self-care (01) ==
LOC: BHIOP 09:00
PROVIDERS: Family Provider Family Medicine; PCP Family Medicine; Visit Provider Psychiatry & Neurology Psychiatry
DX: F33.3 Major depressive disorder, recurrent, severe with psychotic symptoms (principal); F41.1 Generalized anxiety disorder; Z79.899 Other long term (current) drug therapy
CPT/HCPCS: H0035; 90832; 90853

== ENCOUNTER → 2017-10-29 06:39 | Outpatient (CLI) | payer MEDICARE, SELFPAY ==
--- NOTE | 2017-10-29 08:00 | ECHOD_ITS ---
Reason For Study: SOB Procedure This was a 2D Doppler, Color Flow transthoracic echocardiogram. Exam performed in department. Left Ventricle Normal size and thickness. The estimated ejection fraction is 60 %. Stage 2 diastolic dysfunction. No regional wall motion abnormalities noted. Right Ventricle Normal size and thickness. Normal systolic function. Atria The left atrium is moderately enlarged. Normal right atrium. Normal atrial septum. Mitral Valve Mild diffuse mitral valve thickening. Moderate mitral annular calcification extending into the posterior leaflet. Trivial mitral valve insufficiency. Tricuspid Valve Normal tricuspid valve. Mild (1+) tricuspid valve insufficiency. Right ventricular systolic pressure estimated to be 31 mmHg. Aortic Valve Trisinus/trileaflet aortic valve. Mild diffuse aortic valve thickening. Mild aortic stenosis. Pulmonic Valve Normal pulmonic valve. Great Vessels Normal aortic root. Normal arch. Normal inferior vena cava. Inferior vena cava collapse with sniff. Pericardium/Pleural No pericardial effusion. MMode/2D Measurements & Calculations LVIDd: 5.0 cm IVSd: 1.2 cm LVOT diam: 2.1 cm LVIDs: 2.9 cm LVPWd: 1.1 cm LVOT area: 3.6 cm2 RVDd: 3.0 cm FS: 42.0 % Ao root diam: 3.2 cm LAV(MOD-bp): 60.3 ml LA A4 area: 22.8 cm2 LA dimension: 4.2 cm LAV(MOD-bp) Indexed: 31.7 ml/m2 LAV(MOD-sp2): 48.1 ml LAV(MOD-sp4): 75.3 ml RA A4 area: 18.5 cm2 Doppler Measurements & Calculations MV E max miguel: 104.2 cm/sec Lat Peak E' Miguel: 8.5 cm/sec Med Peak E' Miguel: 5.4 cm/sec MV A max miguel: 90.2 cm/sec E/E' lat: 12.3 E/E' med: 19.4 MV E/A: 1.2 Ao V2 max: 191.6 cm/sec LV V1 max: 111.6 cm/sec SV(LVOT): 103.3 ml Ao max P.7 mmHg LV V1 max P.0 mmHg Ao V2 mean: 135.9 cm/sec LV V1 mean P.0 mmHg Ao mean P.1 mmHg LV V1 mean: 82.2 cm/sec Ao V2 VTI: 45.6 cm LV V1 VTI: 29.0 cm VI(I,D): 2.3 cm2 VI(V,D): 2.1 cm2 PA V2 max: 91.3 cm/sec TR max miguel: 248.9 cm/sec TR max P.8 mmHg Interpretation Summary The estimated ejection fraction is 60 %. Stage 2 diastolic dysfunction. The left atrium is moderately enlarged. Trivial mitral valve insufficiency. Mild (1+) tricuspid valve insufficiency. Right ventricular systolic pressure estimated to be 31 mmHg. Mild aortic stenosis. Compared to echo report dated 12/04/2014, no appreciable changes noted. Ordering Physician: Michi Jesus Referring Physician: MD Tamara Cj Performed By: Ambreen Maguire RDCS
== END ==
PROVIDERS: Family Provider Family Medicine; PCP Family Medicine; Visit Provider Internal Medicine Pulmonary Disease
DX: I27.20 Pulmonary hypertension, unspecified (principal); R06.00 Dyspnea, unspecified; R60.9 Edema, unspecified
CPT/HCPCS: 93306

== ENCOUNTER 2017-11-27 15:47 | Emergency (ER) | payer MEDICARE, SELFPAY ==
[2017-11-27 15:48] VITALS: BP 151/72; PULSE 68; RESP 16; TEMP 37; O2SAT 97; BMI 46.4
--- NOTE | 2017-11-27 16:10 | CT_ITS ---
STUDY: CT BRAIN WITHOUT CONTRAST REASON FOR EXAM: Female, 67 years old. Headache. History of hypertension, diabetes and COPD RADIATION DOSAGE (If Supplied By Facility): CTDIvol = ( 44.99 ) mGy, DLP = ( 745.49 ) mGycm TECHNIQUE: Transaxial CT imaging of the brain was performed without administration of intravenous contrast material. Individualized dose optimization techniques were used for this CT. COMPARISON: Prior head CT exam of November 23, 2014 FINDINGS: Normal soft tissue structures. Normal calvarium. Normal size ventricles and extra-axial spaces for the patient's age. There are minimal areas of decreased attenuation within the white matter tracts of the supratentorial brain, consistent with microvascular disease changes. There are small punctate calcifications of the basal ganglia which are seen in the aging brain as a normal variant. Normal brainstem. Normal cerebellum. Carotid and vertebral artery calcifications. Empty sella. There is no intracranial hemorrhage. There are no findings of an acute ischemic infarction. Normal visualized paranasal sinuses. CT/Brain/Head without Contrast IMPRESSION: No acute intracranial findings. Negative for hemorrhage, hematoma or mass density. Negative for demarcation of a new nonhemorrhagic infarct zone. Minimal involutional changes appropriate for age. Carotid and vertebral artery calcifications. Incidental empty sella unchanged from prior examinations. Negative for sinus pathology. Normal temporal bones. Status post cataract surgery. Electronically Signed: Sarah Samuel MD at 16:46 EDT , Service support ,
--- NOTE | 2017-11-27 16:11 | ED.VISSUMM ---
- ER Visit Summary Date of Service: 11/27/17 Chief Complaint: Headache History of Present Illness: The patient is a 67 F who presents for several months of a headache, worse today. Patient states she has been having a low-grade headache that she states starts in her shoulders and neck and radiates up into the back of her head and behind her eyes. She has not noticed any time of the day that it is worse than others. She does not know any exacerbating factors. She has been taking [place] without improvement. Last dose was 2 hours prior to presentation. She denies any vision changes, numbness or weakness in the arms or legs, chest pain, fever, upper respiratory symptoms other than becoming short of breath when trying to do her housework, which is a long-term issue for her. No bowel or bladder issues. Physical Examination: Vital signs: afebrile, hemodynamically stable, no hypoxia on room air General: well nourished, well developed, in no distress, elevated BMI Skin: warm, dry, no rash, no pallor HEENT: normocephalic and atraumatic; PERRL, EOMI, elie nystagmus, moist mucous membranes, scalp nontender, no vesicular rashes, no temporal artery tenderness Cardiovascular: regular rate and rhythm without murmurs, no peripheral edema, 2+ pulses all distal extremities Respiratory: No increased work of breathing, lungs are clear to auscultation bilaterally, no rales, rhonchi or wheezing Abdominal: Abdomen is soft, nontender with normoactive bowel sounds, no guarding or rebound, no masses MSK: Moves all extremities, no deformities, normal strength Neuro: Awake and alert, oriented ?4. No facial droop, sensation and motor function intact and symmetric Test Results: CT head showed no intracranial hemorrhage or mass lesion no acute findings Emergency Department Course and Treatment: Patient was given oral naproxen for her headache, as she had already taken 2 [place] and thus could not be given Tylenol. Given her age and the extended headache for several months, a CT of the head was performed and did not show any mass lesion or other acute finding. Patient had improvement of her headache after the naproxen. Her headache, given that she describes it starting in her shoulders and neck and radiating into her posterior head, sounds more tension headache in nature. She has no findings that are concerning for giant cell arteritis, meningitis, or zoster. No focal neuro deficits or vision changes. She does have muscle tenderness to palpation of the trapezius musculature and paraspinal musculature. She was given a prescription for Tylenol and instructed not to take [place] for headache, as opiates are a bad choice for headache. She is to also try a heating pad to help with muscle tension. We discussed hydration. She is to follow-up with her primary care doctor, especially if she does not have improvement with Tylenol. Patient discharged home. Treatment Plan: [] Disposition: [] Impression: Tension headache This note was generated with [employer] dictation software. It may contain incorrect words, spelling, and punctuation that were not noted in review of the chart prior to signing ED Disposition - Plan for ED Patient: Disposition: Home or Assisted Living Chief Complaint: Headache Instructions: ED Headache Tension Prescriptions: Acetaminophen [Tylenol Extra Strength] 500 mg PO Q6H PRN PRN #20 tab PRN Reason: Pain Referrals: Cj Mcdonald MD [Primary Care Provider] - 3-5 Days Additional Instructions: Take Tylenol as prescribed for headache. Do not take Tylenol and [place] at the same time, as there is already Tylenol in [place]. Do not take [place] for your headaches, as it is not a good choice of medication for headache. Drink plenty of fluids to stay hydrated. Try a heating pad on your shoulders and neck to help with pain. Follow up with your doctor in 3-5 days for another evaluation, especially if you are still having the dull headache. If you have any worsening of your condition or any new concerning symptoms, please return immediately to the emergency department for another evaluation.
[2017-11-27] MEDS: Naproxen 500 MG Tablet PO (16:32)
--- NOTE | 2017-11-27 17:08 | ED.DEP ---
ED Disposition - Plan for ED Patient: Disposition: Home or Assisted Living Chief Complaint: Headache Instructions: ED Headache Tension Prescriptions: Acetaminophen [Tylenol Extra Strength] 500 mg PO Q6H PRN PRN #20 tab PRN Reason: Pain Referrals: Cj Mcdonald MD [Primary Care Provider] - 3-5 Days Additional Instructions: Take Tylenol as prescribed for headache. Do not take Tylenol and [place] at the same time, as there is already Tylenol in [place]. Do not take [place] for your headaches, as it is not a good choice of medication for headache. Drink plenty of fluids to stay hydrated. Try a heating pad on your shoulders and neck to help with pain. Follow up with your doctor in 3-5 days for another evaluation, especially if you are still having the dull headache. If you have any worsening of your condition or any new concerning symptoms, please return immediately to the emergency department for another evaluation.
--- NOTE | 2017-11-27 17:11 | DCINST.ED_ITS ---
ED Disposition - Plan for ED Patient: Disposition: Home or Assisted Living Chief Complaint: Headache Instructions: ED Headache Tension Prescriptions: Acetaminophen [Tylenol Extra Strength] 500 mg PO Q6H PRN PRN #20 tab PRN Reason: Pain Referrals: Cj Mcdonald MD [Primary Care Provider] - 3-5 Days Additional Instructions: Take Tylenol as prescribed for headache. Do not take Tylenol and [place] at the same time, as there is already Tylenol in [place]. Do not take [place] for your headaches, as it is not a good choice of medication for headache. Drink plenty of fluids to stay hydrated. Try a heating pad on your shoulders and neck to help with pain. Follow up with your doctor in 3-5 days for another evaluation, especially if you are still having the dull headache. If you have any worsening of your condition or any new concerning symptoms, please return immediately to the emergency department for another evaluation.
== END 2017-11-27 17:25 | disposition home or self-care (01) ==
PROVIDERS: Emergency Provider Emergency Medicine; Family Provider Family Medicine; PCP Family Medicine
DX: G44.209 Tension-type headache, unspecified, not intractable (principal); J45.909 Unspecified asthma, uncomplicated
CPT/HCPCS: 70450; 99283

== ENCOUNTER 2018-02-28 23:35 | Observation (INO) | payer MEDICARE, SELFPAY ==
[2018-02-28 23:37] VITALS: BP 135/74; PULSE 81; RESP 26; TEMP 36.7; O2SAT 94; BMI 48.0
[2018-03-01] VITALS (10 sets, daily range): BP systolic 96–138; BP diastolic 62–74; PULSE 57–70; RESP 13–18; TEMP 36.2–37.1; O2SAT 93–97; BMI 47.8; BMI 47.9
--- NOTE | 2018-03-01 | EKG12_ITS ---
Test Reason : OVERDOSE Blood Pressure : / mmHG Vent. Rate : 067 BPM Atrial Rate : 067 BPM P-R Int : 142 ms QRS Dur : 088 ms QT Int : 414 ms P-R-T Axes : 027 -34 003 degrees QTc Int : 437 ms Normal sinus rhythm Left axis deviation Voltage criteria for left ventricular hypertrophy Abnormal ECG Confirmed by TIM ALEXANDRA, MARY ([id number]), manager editorial VLAD GAINES ([id number] on 03/03/2018 2:29:39 PM Referred By: Sid Salcedo Confirmed By:MARY DUMONT MD
--- NOTE | 2018-03-01 00:05 | ED.DCSUM_ITS ---
- ER Visit Summary Date of Service: 03/01/18 Chief Complaint: Accidental overdose History of Present Illness: The patient is a 67 F who presents for accidental overdose of her prescription medications. Patient has her medications and a.m. and p.m. Dosepaks, and she accidentally took her p.m. dose pack tonight with her a.m. dose pack intended for tomorrow. It occurred approximately 1 hour prior to presentation. Patient denies any symptoms at this time. She has no chest pain, shortness of breath, nausea or vomiting, dizziness beyond her baseline, abdominal pain, or lightheadedness. Patient has history of depression and anxiety, She states she does not really know what her medical history is, she just takes the pill she is given. Physical Examination: Vital signs: afebrile, hemodynamically stable, no hypoxia on room air General: well nourished, well developed, in no distress Skin: warm, dry, no rash, no pallor HEENT: normocephalic and atraumatic; PERRL, EOMI, moist mucous membranes Cardiovascular: regular rate and rhythm without murmurs, no peripheral edema, 2 + pulses all distal extremities Respiratory: No increased work of breathing, lungs are clear to auscultation bilaterally, no rales, rhonchi or wheezing Abdominal: Abdomen is soft, nontender with normoactive bowel sounds, no guarding or rebound, no masses MSK: Moves all extremities, no deformities, normal strength Neuro: Awake and alert, oriented ?4. No facial droop, sensation and motor function intact and symmetric Test Results: Abnormal Lab Results 03/01/18 03/01/18 03/01/18 00:22 00:22 00:22 WBC 8.8 RBC 4.40 Hgb 12.2 Hct 38.1 MCV 86.6 MCH 27.7 MCHC 32.0 RDW 15.3 H RDW Differential 48.2 H Plt Count 252 MPV 9.5 Immature Gran % (Auto) 0.300 Neut % (Auto) 62.1 Lymph % (Auto) 21.5 Forrest % (Auto) 10.5 H Eos % (Auto) 4.6 Baso % (Auto) 1.0 Absolute Neuts (auto) 5.5 Absolute Lymphs (auto) 1.89 Total Counted Not Reportable PT INR APTT Sodium 139 Potassium 3.7 Chloride 103 Carbon Dioxide 28.0 Anion Gap 8 BUN 33 H Creatinine 1.36 H Estim Creat Clear Calc 66.56 Est GFR (MDRD) Af Amer 50 L Est GFR (MDRD) Non-Af 41 L BUN/Creatinine Ratio 24.3 H Glucose 104 Lactic Acid Calcium 8.4 L Total Bilirubin 0.20 Direct Bilirubin 0.06 AST 17 ALT 18 Alkaline Phosphatase 83 Troponin I < 0.015 Total Protein 6.7 Albumin 3.0 L Globulin 3.7 Urine Color Urine Clarity Urine pH Ur Specific [place] Urine Protein Urine Glucose (UA) Urine Ketones Urine Occult Blood Urine Nitrite Urine Bilirubin Urine Urobilinogen Ur Leukocyte Esterase Urine RBC Urine WBC Ur Squamous Epith Cells Urine Bacteria Urine Mucus Ur Drug Screen Comment Ethyl Alcohol 6.0 03/01/18 03/01/18 03/01/18 00:22 00:30 01:32 WBC RBC Hgb Hct MCV MCH MCHC RDW RDW Differential Plt Count MPV Immature Gran % (Auto) Neut % (Auto) Lymph % (Auto) Forrest % (Auto) Eos % (Auto) Baso % (Auto) Absolute Neuts (auto) Absolute Lymphs (auto) Total Counted PT 13.5 INR 1.0 APTT 25.7 Sodium Potassium Chloride Carbon Dioxide Anion Gap BUN Creatinine Estim Creat Clear Calc Est GFR (MDRD) Af Amer Est GFR (MDRD) Non-Af BUN/Creatinine Ratio Glucose Lactic Acid 1.3 Calcium Total Bilirubin Direct Bilirubin AST ALT Alkaline Phosphatase Troponin I Total Protein Albumin Globulin Urine Color Yellow Urine Clarity Sl. Cloudy Urine pH 6.0 Ur Specific [place] 1.020 Urine Protein 30 H Urine Glucose (UA) Normal Urine Ketones Negative Urine Occult Blood Negative Urine Nitrite Negative Urine Bilirubin Negative Urine Urobilinogen Normal Ur Leukocyte Esterase 100 H Urine RBC 0 SEEN Urine WBC 5-10 SEEN Ur Squamous Epith Cells 0-5 SEEN Urine Bacteria 1+ Urine Mucus 0 SEEN Ur Drug Screen Comment Ethyl Alcohol 03/01/18 01:32 WBC RBC Hgb Hct MCV MCH MCHC RDW RDW Differential Plt Count MPV Immature Gran % (Auto) Neut % (Auto) Lymph % (Auto) Forrest % (Auto) Eos % (Auto) Baso % (Auto) Absolute Neuts (auto) Absolute Lymphs (auto) Total Counted PT INR APTT Sodium Potassium Chloride Carbon Dioxide Anion Gap BUN Creatinine Estim Creat Clear Calc Est GFR (MDRD) Af Amer Est GFR (MDRD) Non-Af BUN/Creatinine Ratio Glucose Lactic Acid Calcium Total Bilirubin Direct Bilirubin AST ALT Alkaline Phosphatase Troponin I Total Protein Albumin Globulin Urine Color Urine Clarity Urine pH Ur Specific [place] Urine Protein Urine Glucose (UA) Urine Ketones Urine Occult Blood Urine Nitrite Urine Bilirubin Urine Urobilinogen Ur Leukocyte Esterase Urine RBC Urine WBC Ur Squamous Epith Cells Urine Bacteria Urine Mucus Ur Drug Screen Comment Ethyl Alcohol Emergency Department Course and Treatment: Patient presents after an accidental double dosing of her a.m. and p.m. medications. P.m. medications include trazodone, primidone, atorvastatin, ropinirole, omeprazole, buspirone and propanolol. AM medications are fluoxetine, low-dose aspirin, lisinopril, meloxicam, HCTZ, levothyroxine, lamotrigine, famotidine, omeprazole, propranolol and buspirone. Duplicate doses include trazodone, buspirone and propranolol. Baseline labs and EKG were obtained. EKG showed a normal sinus rhythm with no prolonged QTc interval, no T-wave flattening or peaking, no widening of the QRS, or no dysrhythmias. Because patient is taking multiple medications, some that may increase somnolence and with an extra dose of beta- megan, patient will be observed overnight for close observation for accidental polypharmacy overdose. Treatment Plan: [] Disposition: [] Impression: accidental overdose of polypharmacy prescription medications This note was generated with Panv[employer]ation software. It may contain incorrect words, spelling, and punctuation that were not noted in review of the chart prior to signing ED Disposition - Plan for ED Patient: Chief Complaint: Overdose Referrals: Cj Mcdonald MD [Primary Care Provider] -
[2018-03-01 00:38] LABS: Absolute Lymphocyte Count 1.89 X10^3/ul (0.83-4.51); Absolute Neutrophil Count 5.5 X10^3/uL (2.0-7.7); Basophil# 0.09 X10^3/uL; Eosinophils% 4.6 % (0-5); Hematocrit 38.1 % (37-47); Hemoglobin 12.2 g/dl (12.0-15.0); Lymphocyte # 1.89 X10^3/ul (4.0); Lymphocyte % 21.5 % (19-41); Mean Corpuscular Hgb 27.7 pg (27.0-32.0); Mean Corpuscular Volume 86.6 fL (81-99); Mean Platelet Vol. 9.5 fl (6.2-12.0); Monocyte# 0.92 X10^3/uL; Monocyte% 10.5 % (0-10); Neutrophil # 5.45 X10^3/uL (2.7-7.7); Neutrophil % 62.1 % (47-70); Platelet Count 252 K/mm3 (150-450); RBC Distribution Width CV 15.3 % (11.6-14.6); RBC Distribution Width SD 48.2 fl (35.1-43.9); White Blood Count 8.8 K/mm3 (4.4-11.0)
[2018-03-01 00:40] LABS: POSITIVE COUNT NO; POSITIVE DIFFERENTIAL NO; POSITIVE MORPHOLOGY NO
[2018-03-01 00:50] LABS: Partial Thromboplast Time 25.7 Seconds (24.1-36.2); Prothrombin Time (Protime)PT. 13.5 SECONDS (11.7-14.9)
[2018-03-01 01:06] LABS: AST(SGOT) 17 U/L (15-37); Alanine Aminotransfer ALT/SGPT 18 U/L (13-56); Alkaline Phosphatase 83 U/L (45-117); Anion Gap 8 (5-15); BUN 33 mg/dL (7-18); BUN/Creat Ratio 24.3 RATIO (10-20); Bilirubin, Direct 0.06 mg/dL (0.00-0.30); Calcium,Total 8.4 mg/dL (8.5-10.1); Chloride 103 mmol/L (98-107); Creatinine, Serum 1.36 mg/dL (0.55-1.02); EST Glomerular Filtration Rate 41 mL/min (>60); Est Glom Filt Rate - Afr Amer 50 mL/min (>60); Estimated Creatinine Clearance 66.56 ml/min; Globulin 3.7 g/dL (2.2-4.2); Glucose 104 mg/dL (74-106); Potassium 3.7 mmol/L (3.5-5.1); Protein, Total 6.7 g/dL (6.4-8.2); Sodium Level 139 mmol/L (136-145)
[2018-03-01 01:17] LABS: Lactic Acid 1.3 mmol/L (0.4-2.0)
[2018-03-01 01:39] LABS: Mucous, Urine 0 SEEN /hpf (<or=2+); Red Blood Cells-Urine 0 SEEN /hpf (0-5)
[2018-03-01 01:47] LABS: Color, Urine Yellow (Yellow); Glucose, Dipstick Normal (Normal); Ketone-Dipstick Negative (Negative); Leukocyte Esterase-Dipstick 100 /ul (Negative); Nitrite-Dipstick Negative (Negative); Occult Blood-Urine Negative /ul (Negative); Protein-Dipstick 30 mg/dl (Negative); Squamous Epithelial Cells - UA 0-5 SEEN /hpf (5-10); Urine Bilirubin Dipstick Negative (Negative); Urine Clarity Sl. Cloudy (Clear); Urine Urobilinogen Normal (Normal)
[2018-03-01 01:48] LABS: Bacteria 1+ /hpf (None Seen); White Blood Cells 5-10 SEEN /hpf (0-5)
[2018-03-01 02:09] LABS: Amphetamine Urine VISTA NEGATIVE (<1000 ng/mL); Barbiturate Urine VISTA POSITIVE (< 200 ng/mL); Benzodiazepine Urine VISTA NEGATIVE (< 200 ng/mL); Cocaine Urine VISTA NEGATIVE (< 300 ng/mL); Ecstacy Urine VISTA NEGATIVE (< 500 ng/mL); Methadone Urine VISTA NEGATIVE (< 300 ng/mL); PCP Urine VISTA NEGATIVE (< 25 ng/mL); THC Urine VISTA NEGATIVE (< 50 ng/mL); Vista UDS pH Range 6
--- NOTE | 2018-03-01 02:59 | HP.PCM_ITS ---
Problem List (1) Accidental drug overdose Status: Acute (2) Anxiety Status: Chronic (3) HTN (hypertension) Status: Chronic (4) Hypothyroidism Status: Chronic (5) Depression Status: Chronic (6) Acute kidney injury Status: Acute (7) Hypomagnesemia Status: Inactive History of Present Illness Date of Admission: 03/01/18 Chief Complaint: Unintentional prescribed drug overdose. The patient is a 67 year old F with a significant history of depression, anxiety , hypothyroidism, hypertension who presented because of unintentional drug overdose on the same day of admission. Patient denies any suicidal intent. Patient had no other acute symptoms. However at emergency department patient was found to have elevated creatinine above her baseline. Past Medical History Past Medical History (Chronic Problems): Chronic Problems Depression (Chronic) Super obese (Chronic) Sleep apnea (Chronic) Hypothyroidism (Chronic) HTN (hypertension) (Chronic) DM2 (diabetes mellitus, type 2) (Chronic) COLD (chronic obstructive lung disease) (Chronic) Irritable bowel syndrome (Chronic) Anxiety (Chronic) Allergies No Known Allergies Allergy (Verified 02/28/18 23:36) Home Medications: Ambulatory Orders Medication Instructions Recorded Aspirin [Aspirin, Baby] 81 mg PO DAILY@0800 04/29/17 Atorvastatin Calcium [Lipitor] 40 mg PO QHS 04/29/17 Buspirone HCl [Buspar] 30 mg PO BID 04/29/17 Fluoxetine HCl [Prozac] 60 mg PO DAILY 04/29/17 Hydrochlorothiazide [Hctz] 12.5 mg PO DAILY 04/29/17 Latanoprost [Xalatan] 1 drop OP QHS 04/29/17 Levothyroxine Sodium [Synthroid] 75 mcg PO DAILY 04/29/17 Lisinopril [Zestril] 10 mg PO DAILY 04/29/17 Meloxicam [Mobic] 15 mg PO DAILY 04/29/17 Acetaminophen [Tylenol Arthritis] 650 mg PO Q8 PRN 05/13/17 Lamotrigine [Lamictal] 200 mg PO DAILY 07/24/17 Omeprazole [Prilosec] 20 mg PO BID 07/24/17 Primidone [Mysoline] 50 mg PO DAILY 07/24/17 Albuterol Inhaler [Ventolin Hfa] 1 - 2 puff INHALATION Q4H PRN PRN 07/25/17 #1 inhaler Ropinirole HCl [Requip] 0.5 mg PO DAILY 07/25/17 Acetaminophen [Tylenol Extra 500 mg PO Q6H PRN PRN #20 tab 11/27/17 Strength] Famotidine 20 mg PO DAILY 02/28/18 Meloxicam 15 mg PO DAILY 02/28/18 Propranolol HCl 10 mg PO BID 02/28/18 Trazodone HCl 100 mg PO QHS 02/28/18 Surgical History: - - She has had 3 sections Psychiatric History: Anxiety, Depression [employer] History: No pertinent [employer]OG[employer] history Lives: Alone Smoking Status: Former smoker Alcohol: None - *Family History Maternal History Items: - - Her mother at the age of 87 from heart trouble. Paternal History Items: - - Her father from colon cancer. Her paternal grandfather also had colon cancer. Sibling History Items: - - She has a sister who has had coronary stents in the past. She has a younger sister who from unknown reasons, the patient states she thinks she started herself to . She had a brother who in his 60s with diabetes and probable coronary disease. She has a sister has cancer down below Review of Systems Constitutional: Denies: Chills, Fever, Weight Change HEENT: Denies: Head Aches, Sinus Congestion, Sinus Drainage Cardiovascular: Denies: Chest Pain, Palpitations Respiratory: Denies: Cough, Shortness of breath at rest, Sputum production Gastrointestinal: Denies: Abdominal Pain, Nausea, Vomiting Genitourinary: Denies: Dysuria Musculoskeletal: Denies: Joint Pain, Joint Tenderness Skin: Denies: Rash, Wounds Neurological: Denies: Numbness, Tingling, Focal weakness Psychiatric: Denies: Anxiety, Depression, Homicidal Ideations, Suicidal Ideations Hematologic/ Lymphatic: Denies: Easy Bruising, Easy Bleeding VTE Information - Inpt Only VTE Present on Admission: No VTE Mechan Device Prophylaxis: None VTE Pharm Prophylaxis ordered?: Yes Patient Problems: Active and Suspected Problems Accidental drug overdose (Acute) Acute kidney injury (Acute) - Physical Exam General: Alert, Oriented x3, Cooperative HEENT: Atraumatic, PERRLA, EOMI, Normocephalic Neck: Supple, No JVD, Negative Carotid Bruits Lungs: Clear to auscultation, Normal air movement Cardiovascular: Regular rate, No murmurs Abdomen: Bowel Sounds Present, Soft, Non Tender Extremities: No edema, Capillary Refill Less than 3 Seconds Skin: No rashes, No breakdown Musculoskeletal: No Tenderness to Palpation of Joints or Extremities Neurological: Cranial nerves II-XII grossly intact Psych/Mental Status: Normal Affect, Appropriate Vital Signs Temp Pulse Resp BP Pulse Ox 98.1 F 61 15 136/62 H 97 02/28/18 23:37 03/01/18 01:30 03/01/18 01:30 03/01/18 01:30 03/01/18 01:30 Weight: 107.5 kg Body Mass Index (BMI) 47.8 Assessment/Plan All Active Problems Accidental drug overdose (Acute) Acute kidney injury (Acute) The patient is a 67 year old F with a significant history of depression, anxiety , hypothyroidism, hypertension who presented because of unintentional drug overdose on the same day of admission. Acute unintentional drug overdose Made of a home medication especially had a psychiatric medication has been held Blood pressure medication, thyroid medication, GERD medication COPD medication continued. The patient to be watched overnight on telemetry. Acute kidney injury Creatinine on admission was 1.36. Baseline creatinine is less than 1. Avoid nephrotoxins Lisinopril and meloxicam held. Gentle hydration with IV fluids. Trend BMP. Hypothyroidism Synthroid continued Hypertension Her blood pressure was fairly controlled on admission. Lisinopril held Propranolol, continued Labetalol as needed Depression and anxiety No acute or depressive symptoms at this time. Fluoxetine; buspirone and trazodone held DVT prophylaxis Subcutaneous Lovenox. Miscellaneous: Requip; Lamictal and primidone were also held. . Code Visit OBSV E&M: 77819 Initial observation care L3
[2018-03-01] MEDS: 0.9% Normal Saline 1,000 ML 75 ML IV (03:16)
[2018-03-01] MEDS: Levothyroxine 75 MCG Tablet PO (05:12)
[2018-03-01 07:02] LABS: Anion Gap 6 (5-15); BUN 32 mg/dL (7-18); BUN/Creat Ratio 28.1 RATIO (10-20); Calcium,Total 7.9 mg/dL (8.5-10.1); Chloride 104 mmol/L (98-107); Creatinine, Serum 1.14 mg/dL (0.55-1.02); EST Glomerular Filtration Rate 50 mL/min (>60); Est Glom Filt Rate - Afr Amer 61 mL/min (>60); Estimated Creatinine Clearance 79.04 ml/min; Glucose 99 mg/dL (74-106); Potassium 3.9 mmol/L (3.5-5.1); Sodium Level 141 mmol/L (136-145)
[2018-03-01] MEDS: Enoxaparin 40 MG/0.4 ML Syringe SC (08:46)
[2018-03-01] MEDS: Aspirin 81 MG TAB.CHEW PO (08:46)
[2018-03-01] MEDS: Propranolol 10 MG Tablet PO (08:46)
[2018-03-01] MEDS: Famotidine 20 MG Tablet PO (08:47)
[2018-03-01] MEDS: Pantoprazole Sodium 20 MG Tablet PO (08:47)
--- NOTE | 2018-03-01 17:20 | PCM.DC ---
- Discharge Diagnoses Current Active Problems: Current Active and Chronic Problems Accidental drug overdose (Acute) Depression (Chronic) Acute kidney injury (Acute) You will use the following diet at home:: Cardiac Your food should be the consistency of: Regular Your liquids should be the consistency of: Regular/Thin Discharge Activity: Return to Normal Activity Allergies/Adverse Reactions: Allergies No Known Allergies Allergy (Verified 02/28/18 23:36) Medications to take at Discharge Aspirin [Aspirin, Baby] 81 mg PO DAILY@0800 04/29/17 Atorvastatin Calcium [Lipitor] 40 mg PO QHS 04/29/17 Buspirone HCl [Buspar] 30 mg PO BID 04/29/17 Fluoxetine HCl [Prozac] 60 mg PO DAILY 04/29/17 Hydrochlorothiazide [Hctz] 12.5 mg PO DAILY 04/29/17 Latanoprost [Xalatan] 1 drop OP QHS 04/29/17 Levothyroxine Sodium [Synthroid] 75 mcg PO DAILY 04/29/17 Lisinopril [Zestril] 10 mg PO DAILY 04/29/17 Meloxicam [Mobic] 15 mg PO DAILY 04/29/17 Acetaminophen [Tylenol Arthritis] 650 mg PO Q8 PRN 05/13/17 Lamotrigine [Lamictal] 200 mg PO DAILY 07/24/17 Omeprazole [Prilosec] 20 mg PO BID 07/24/17 Primidone [Mysoline] 50 mg PO DAILY 07/24/17 Albuterol Inhaler [Ventolin Hfa] 1 - 2 puff INHALATION Q4H PRN PRN #1 inhaler 07/25/17 Ropinirole HCl [Requip] 0.5 mg PO DAILY 07/25/17 Acetaminophen [Tylenol] 500 mg PO Q6H PRN PRN #20 tab 11/27/17 Famotidine 20 mg PO DAILY 02/28/18 Meloxicam 15 mg PO DAILY 02/28/18 Propranolol HCl 10 mg PO BID 02/28/18 Trazodone HCl 100 mg PO QHS 02/28/18 Primary Care Physician: Cj Mcdonald MD [Primary Care Provider] - Within 2 Weeks Test Results: Test results from this visit will be discussed in further detail at your follow-up appointment, if applicable. Proposed Discharge Date: 03/01/18
--- NOTE | 2018-03-01 17:22 | PCM.DC.SUM ---
Discharge Date and Diagnosis - Problem List Patient Problems: Active and Suspected Problems Accidental drug overdose (Acute) Acute kidney injury (Acute) Date of Admission: 03/01/18 Date of Discharge: 03/01/18 - Primary Discharge Diagnosis Active and Suspected Problems Accidental drug overdose (Acute) Acute kidney injury (Acute) - Secondary Discharge Diagnosis Chronic Problems Depression (Chronic) Super obese (Chronic) Sleep apnea (Chronic) Hypothyroidism (Chronic) HTN (hypertension) (Chronic) DM2 (diabetes mellitus, type 2) (Chronic) COLD (chronic obstructive lung disease) (Chronic) Irritable bowel syndrome (Chronic) Anxiety (Chronic) Hospital Course and Treatment Operations: None Procedures: None Summary of Care Provided: The patient is a 67 year old F who unintentionally took 2 Dosepaks of medications. Patient immediately recognized that and came to the emergency room. Patient had no events while she was here monitor overnight to make sure she did not have any adverse effects. Patient is done well throughout the day and is ready to go home. Was impressed upon the patient that if she just needs to take an extra level caution regards to taking her medications and make sure that she is taking at the appropriate times. But was advised that this ever does happen again to come back to the emergency room to be evaluated. Physical exam: Patient is no acute distress and afebrile. Heart is regular rate and rhythm plus S1-S2 without murmurs gallops or rubs. [] Discharge Diet: Low fat/ Low Cholesterol Discharge Activity: Return to Normal Activity Home Medications: Medications to take at Discharge Aspirin [Aspirin, Baby] 81 mg PO DAILY@0800 04/29/17 Atorvastatin Calcium [Lipitor] 40 mg PO QHS 04/29/17 Buspirone HCl [Buspar] 30 mg PO BID 04/29/17 Fluoxetine HCl [Prozac] 60 mg PO DAILY 04/29/17 Hydrochlorothiazide [Hctz] 12.5 mg PO DAILY 04/29/17 Latanoprost [Xalatan] 1 drop OP QHS 04/29/17 Levothyroxine Sodium [Synthroid] 75 mcg PO DAILY 04/29/17 Lisinopril [Zestril] 10 mg PO DAILY 04/29/17 Meloxicam [Mobic] 15 mg PO DAILY 04/29/17 Acetaminophen [Tylenol Arthritis] 650 mg PO Q8 PRN 05/13/17 Lamotrigine [Lamictal] 200 mg PO DAILY 07/24/17 Omeprazole [Prilosec] 20 mg PO BID 07/24/17 Primidone [Mysoline] 50 mg PO DAILY 07/24/17 Albuterol Inhaler [Ventolin Hfa] 1 - 2 puff INHALATION Q4H PRN PRN #1 inhaler 07/25/17 Ropinirole HCl [Requip] 0.5 mg PO DAILY 07/25/17 Acetaminophen [Tylenol] 500 mg PO Q6H PRN PRN #20 tab 11/27/17 Famotidine 20 mg PO DAILY 02/28/18 Meloxicam 15 mg PO DAILY 02/28/18 Propranolol HCl 10 mg PO BID 02/28/18 Trazodone HCl 100 mg PO QHS 02/28/18 Primary Care Physician: Cj Mcdonald MD [Primary Care Provider] - Within 2 Weeks Disposition: Home Minutes spent on discharge:: 28 Patient Condition:: Good Medical Necessity - Tobacco Use Smoking Status: Former smoker Meaningful Use Info Meaningful Use Diagnoses (Choose all that apply): None applicable Code Visit OBSV E&M: 17720 Observation care discharge
== END 2018-03-01 17:21 | disposition home or self-care (01) ==
LOC: ED 03-01 02:27 → PCU 03-01 03:19
PROVIDERS: Admitting Provider Hospitalist; Emergency Provider Emergency Medicine; Family Provider Family Medicine; PCP Family Medicine
DX: T50.901A Poisoning by unspecified drugs, medicaments and biological substances, accidental (unintentional), initial encounter (principal); N17.9 Acute kidney failure, unspecified; G47.30 Sleep apnea, unspecified; E03.9 Hypothyroidism, unspecified; I10 Essential (primary) hypertension; E11.9 Type 2 diabetes mellitus without complications; J44.9 Chronic obstructive pulmonary disease, unspecified; F41.9 Anxiety disorder, unspecified; F32.9 Major depressive disorder, single episode, unspecified; E66.01 Morbid (severe) obesity due to excess calories; Z68.42 Body mass index [BMI] 45.0-49.9, adult; K58.9 Irritable bowel syndrome, unspecified; Z79.899 Other long term (current) drug therapy; Z71.3 Dietary counseling and surveillance; Z87.891 Personal history of nicotine dependence; Z79.82 Long term (current) use of aspirin
CPT/HCPCS: 36415; 80048; 80076; 80307; 80320; 81001; 83605; 84484; 85025; 85610; 85730; 93005; 96360; 96361; 96372; 97162; 97166; 99218; 99283; J7030; J7040; G0378; G0480

== ENCOUNTER 2018-03-28 15:42 | Observation (INO) | payer MEDICARE, SELFPAY ==
[2018-03-28] VITALS (7 sets, daily range): BP systolic 122–164; BP diastolic 51–87; PULSE 62–75; RESP 15–18; TEMP 36.7–36.9; O2SAT 92–99; BMI 48.9; BMI 49.0
--- NOTE | 2018-03-28 15:57 | EKG12_ITS ---
Test Reason : COMPLIANT Blood Pressure : / mmHG Vent. Rate : 069 BPM Atrial Rate : 069 BPM P-R Int : 138 ms QRS Dur : 088 ms QT Int : 418 ms P-R-T Axes : 019 -32 005 degrees QTc Int : 447 ms Normal sinus rhythm Left axis deviation Voltage criteria for left ventricular hypertrophy Poor R wave progression Abnormal ECG Confirmed by TIM ALEXANDRA, MARY ([id number]), editor publications VLAD GAINES ([id number]) on 04/01/2018 10:20:07 AM Referred By: DAVIS Confirmed By:MARY DUMONT MD
--- NOTE | 2018-03-28 15:58 | RAD_ITS ---
STUDY: X-RAY CHEST REASON FOR EXAM: Female, 67 years old. SOB / SOA TECHNIQUE: Single frontal view of the chest. COMPARISON: June 25, 2017 FINDINGS: Chronic appearing increased interstitial lung markings. There is no demonstrated pleural abnormality. Enlarged heart size. Normal mediastinum and jacqueline. Normal visualized pulmonary arteries. There is atherosclerotic calcification of the aortic arch with tortuosity. There are diffuse degenerative changes of the visualized thoracic spine. There is degenerative osteoarthritis of the bilateral shoulders. There is no demonstrated abnormality of the visualized soft tissue structures of the upper abdomen. RAD/Chest 1 View (Portable) IMPRESSION: There are no acute findings. Electronically Signed: Evangelist Walls MD at 16:39 EDT , Service support ,
--- NOTE | 2018-03-28 15:58 | CT_ITS ---
STUDY: CT ABDOMEN AND PELVIS WITH CONTRAST REASON FOR EXAM: Female, 67 years old. UTI SYMPTOMS, BLOATING, ABD PAIN X 2 WEEKS,HX HTN, COPD RADIATION DOSAGE (If Supplied By Facility): CTDIvol = ( 29.07 ) mGy, DLP = ( 1595.51 ) mGycm TECHNIQUE: Transaxial images were obtained from the dome of the diaphragm to the symphysis pubis without oral contrast. 100ML ml of Isovue 300 contrast was administered. Sagittal and coronal images were reconstructed. Individualized dose optimization techniques were used for this CT. COMPARISON: 06.18.17 FINDINGS: The visualized lung bases are unremarkable. The visualized portions of the heart are within normal limits. Normal liver. Single gallstone visualized in the gallbladder. Normal spleen. Normal pancreas. Accessory splenule is noted. Stable nodule of the right adrenal gland. Stable cortical thinning of both kidneys. There are no renal stones. There is no hydronephrosis. Normal visualized stomach. Normal small intestine. There are multiple colonic diverticula consistent with diverticulosis. The appendix is visualized and appears normal. There are calcifications of the abdominal aorta and vascular structures. This is consistent for atherosclerotic disease. There is no abdominal aortic aneurysm. Normal inferior vena cava. Subcentimeter mesenteric lymph nodes. Urinary bladder wall has wall thickening. This can be related to a partially contractile state. However, a cystitis is not excluded. Urinalysis should be performed in an effort to exclude cystitis. Normal visualized uterus. Stable cystic structure anterior to the urinary bladder may be a urachal cyst. Normal abdominal wall. There are degenerative changes of the osseous structures. CT/Abdomen/Pelvis WITH Contrast IMPRESSION: Urinary bladder wall has wall thickening. This can be related to a partially contractile state. However, a cystitis is not excluded. Urinalysis should be performed in an effort to exclude cystitis. Cholelithiasis. There are multiple diverticuli of the colon. There is diverticulosis but no radiographic signs for diverticulitis. Other findings as above. Electronically Signed: Evangelist Walls MD at 19:33 EDT , Service support ,
--- NOTE | 2018-03-28 16:11 | ED.VISSUMM ---
- ER Visit Summary Date of Service: 03/28/18 Chief Complaint: [Fatigue, upper abdominal discomfort, and shortness of breath] History of Present Illness: The patient is a 67 F [presents the emergency department with multiple complaints today. Patient states that she has not been feeling well for about a week. Patient describes upper abdominal pressure like there is a ball in her abdomen. Patient complains of exertional dyspnea. She denies any chest pain. She denies any radiation of the discomfort into the arm, neck, or jaw. Patient also describes dysuria and frequency. Patient also tells me that she has a history of anxiety and she is not sure if maybe that is what is causing all her symptoms. Patient has a history of COPD. She denies any fevers. She denies any travel or surgery.] Physical Examination: [HEENT-PERRLA, EOMI. Cranial nerves II through XII grossly intact. TMs clear. Mucous membranes moist. No adenopathy. Cardiovascular-regular rate and rhythm without murmur or ectopy Lungs-clear to auscultation, chest wall stable without crepitus or subcu emphysema Abdomen-normoactive bowel sounds, soft. Patient has tenderness palpation over the epigastric region with some mild guarding. There is no rebound, rigidity, or perineal signs. Extremities-intact ?4, normal range of motion, normal pulses, atraumatic] Test Results: [EKG obtained on arrival showed a sinus rhythm with a ventricular rate of 69 bpm with some LVH. CBC with differential was unremarkable showed a white blood cell count of 8.3, hemoglobin 11, hematocrit 36, platelets 222. Chemistries were unremarkable. LFTs were normal. Lipase normal. Urinalysis normal. Troponin is less than 0.015. Lactate was slightly elevated 2.3. CT scan of the abdomen pelvis showed cholelithiasis and diverticulosis, normal appendix, otherwise nothing acute.] Emergency Department Course and Treatment: [] Treatment Plan: [Admit for further workup and evaluation of her exertional dyspnea and fatigue. I am concerned about a cardiac etiology or an atypical type anginal equivalent.] Disposition: [Admit] Impression: [Exertional dyspnea Fatigue Abdominal pain] This note was generated with [employer] software. It may contain incorrect words, spelling, and punctuation that were not noted in review of the chart prior to signing ED Disposition - Plan for ED Patient: Chief Complaint: Complaint Referrals: Cj Mcdonald MD [Primary Care Provider] -
[2018-03-28 16:30] LABS: Absolute Lymphocyte Count 1.48 X10^3/ul (0.83-4.51); Absolute Neutrophil Count 5.6 X10^3/uL (2.0-7.7); Basophil# 0.05 X10^3/uL; Basophil% 0.6 % (0-1); Eosinophil# 0.37 X10^3/uL; Eosinophils% 4.5 % (0-5); Hematocrit 36.6 % (37-47); Hemoglobin 11.4 g/dl (12.0-15.0); Lymphocyte # 1.48 X10^3/ul (4.0); Lymphocyte % 17.8 % (19-41); Mean Corp Hgb Conc 31.1 g/gl (32-36); Mean Corpuscular Hgb 27.1 pg (27.0-32.0); Mean Corpuscular Volume 86.9 fL (81-99); Mean Platelet Vol. 9.1 fl (6.2-12.0); Monocyte# 0.78 X10^3/uL; Monocyte% 9.4 % (0-10); Neutrophil # 5.61 X10^3/uL (2.7-7.7); Neutrophil % 67.5 % (47-70); Platelet Count 222 K/mm3 (150-450); RBC Distribution Width CV 15.8 % (11.6-14.6); RBC Distribution Width SD 50.4 fl (35.1-43.9); Red Blood Count 4.21 M/mm3 (4.2-5.4); White Blood Count 8.3 K/mm3 (4.4-11.0)
[2018-03-28 16:31] LABS: POSITIVE COUNT NO; POSITIVE DIFFERENTIAL NO; POSITIVE MORPHOLOGY NO
[2018-03-28] MEDS: 0.9% Normal Saline 1,000 ML 125 ML IV ×2 (16:32→21:38)
[2018-03-28 16:35] LABS: Bacteria 0 SEEN /hpf (None Seen); Mucous, Urine 0 SEEN /hpf (<or=2+); Red Blood Cells-Urine 0 SEEN /hpf (0-5)
[2018-03-28 16:40] LABS: Color, Urine Yellow (Yellow); Glucose, Dipstick Normal (Normal); Ketone-Dipstick Negative (Negative); Leukocyte Esterase-Dipstick 25 /ul (Negative); Nitrite-Dipstick Negative (Negative); Occult Blood-Urine Negative /ul (Negative); Protein-Dipstick Negative (Negative); Urine Bilirubin Dipstick Negative (Negative); Urine Clarity Clear (Clear); Urine Urobilinogen Normal (Normal)
[2018-03-28 16:46] LABS: ALB/GLOB Ratio 0.8 RATIO (0.9-2.4); AST(SGOT) 15 U/L (15-37); Alanine Aminotransfer ALT/SGPT 19 U/L (13-56); Alkaline Phosphatase 76 U/L (45-117); Anion Gap 5 (5-15); BUN 23 mg/dL (7-18); Calcium,Total 8.2 mg/dL (8.5-10.1); Chloride 102 mmol/L (98-107); EST Glomerular Filtration Rate 58 mL/min (>60); Est Glom Filt Rate - Afr Amer 71 mL/min (>60); Globulin 3.6 g/dL (2.2-4.2); Glucose 111 mg/dL (74-106); Lipase 199 U/L (73-393); Potassium 4.1 mmol/L (3.5-5.1); Protein, Total 6.6 g/dL (6.4-8.2); Sodium Level 138 mmol/L (136-145)
[2018-03-28 16:49] LABS: Squamous Epithelial Cells - UA 0-5 SEEN /hpf (5-10); White Blood Cells 0-5 SEEN /hpf (0-5)
[2018-03-28 17:01] LABS: Lactic Acid 2.3 mmol/L (0.4-2.0)
--- NOTE | 2018-03-28 20:07 | HP.PCM_ITS ---
Problem List (1) Epigastric pain Status: Acute History of Present Illness Date of Admission: 03/28/18 Chief Complaint: epigastric pain The patient is a 67 year old F with a history of borderline diabetes mellitus, hypertension, hypothyroidism, hyperlipidemia, anxiety and depression. She was admitted via the ED on 03/28/2018 with a complaint of epigastric pain which have been going on for about 2 days. Pain was pressure-like and she described as a basketball pressing into her abdomen, with associated exertional shortness of breath. She denied any feelings of dyspepsia, any lightheadedness or dizziness or increased diaphoresis. She has not had such symptoms in the past. Symptoms worsen today after nondenominational and so she decided coming to the ED. ED, initial troponin was negative and EKG done showed normal sinus rhythm with voltage criteria for left ventricle hypertrophy. CT abdomen done showed multiple diverticuli of the colon with no radiographic evidence of diverticulitis, urinary bladder wall thickening and a single gallstone in the gallbladder. She has been admitted to be worked up for epigastric pain to rule out ACS.[] Past Medical History Past Medical History (Chronic Problems): Chronic Problems Depression (Chronic) Super obese (Chronic) Sleep apnea (Chronic) Hypothyroidism (Chronic) HTN (hypertension) (Chronic) DM2 (diabetes mellitus, type 2) (Chronic) COLD (chronic obstructive lung disease) (Chronic) Irritable bowel syndrome (Chronic) Anxiety (Chronic) Allergies No Known Allergies Allergy (Verified 03/28/18 15:43) Home Medications: Ambulatory Orders Medication Instructions Recorded Aspirin [Aspirin, Baby] 81 mg PO DAILY@0800 04/29/17 Atorvastatin Calcium [Lipitor] 40 mg PO QHS 04/29/17 Buspirone HCl [Buspar] 30 mg PO BID 04/29/17 Fluoxetine HCl [Prozac] 60 mg PO DAILY 04/29/17 Hydrochlorothiazide [Hctz] 12.5 mg PO DAILY 04/29/17 Latanoprost [Xalatan] 1 drop OP QHS 04/29/17 Levothyroxine Sodium [Synthroid] 75 mcg PO DAILY 04/29/17 Lisinopril [Zestril] 10 mg PO DAILY 04/29/17 Meloxicam [Mobic] 15 mg PO DAILY 04/29/17 Acetaminophen [Tylenol Arthritis] 650 mg PO Q8 PRN 05/13/17 Lamotrigine [Lamictal] 200 mg PO DAILY 07/24/17 Omeprazole [Prilosec] 20 mg PO BID 07/24/17 Primidone [Mysoline] 50 mg PO DAILY 07/24/17 Albuterol Inhaler [Ventolin Hfa] 1 - 2 puff INHALATION Q4H PRN PRN 07/25/17 #1 inhaler Ropinirole HCl [Requip] 0.5 mg PO DAILY 07/25/17 Acetaminophen [Tylenol] 500 mg PO Q6H PRN PRN #20 tab 11/27/17 Famotidine 20 mg PO DAILY 02/28/18 Meloxicam 15 mg PO DAILY 02/28/18 Propranolol HCl 10 mg PO BID 02/28/18 Trazodone HCl 100 mg PO QHS 02/28/18 Surgical History: - - She has had 3 sections Psychiatric History: Anxiety, Depression [employer]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 Paternal History Items: - - Her father from colon cancer. Her paternal grandfather also had colon cancer. Sibling History Items: - - She has a sister who has had coronary stents in the past. She has a younger sister who from unknown reasons, the patient states she thinks she started herself to . She had a brother who in his 60s with diabetes and probable coronary disease. She has a sister has cancer down below Review of Systems Constitutional: Denies: Chills, Fever, Malaise, Weakness, Weight Change Eyes: Denies: Blurred vision HEENT: Denies: Head Aches, Sinus Congestion, Sinus Drainage Cardiovascular: Denies: Chest Pain, Chest Pressure, Chest Tightness, Edema, Heaviness, Light Headedness, Palpitations Respiratory: Reports: Shortness of Breath, Shortness of breath upon exertion. Denies: Cough, Pleuritic Pain, Shortness of breath at rest, Sputum production, Wheezing Gastrointestinal: Reports: Abdominal Pain. Denies: Constipation, Diarrhea, Dyspepsia, Nausea, Vomiting Genitourinary: Denies: Dysuria Musculoskeletal: Denies: Joint Pain, Joint Tenderness Skin: Denies: Rash, Wounds Neurological: Denies: Numbness, Tingling, Focal weakness Psychiatric: Denies: Anxiety, Depression, Homicidal Ideations, Suicidal Ideations Hematologic/ Lymphatic: Denies: Easy Bruising, Easy Bleeding VTE Information - Inpt Only VTE Present on Admission: No VTE Pharm Prophylaxis ordered?: Yes Patient Problems: Active and Suspected Problems Epigastric pain (Acute) - Physical Exam General: Alert, Oriented x3, Cooperative, No apparent distress HEENT: Atraumatic, PERRLA, EOMI, Normocephalic Oral: Moist Mucosa Neck: Supple, No JVD, Negative Carotid Bruits Lungs: Clear to auscultation, Normal air movement, No rhonchi, No wheeze, No rales Cardiovascular: Regular rate, Regular Rhythm, Normal S1, Normal S2, No murmurs Abdomen: Bowel Sounds Present, Soft, Non Tender, Non-Distended Extremities: No edema, Capillary Refill Less than 3 Seconds, No Calf Tenderness Skin: No rashes, No breakdown Musculoskeletal: No Tenderness to Palpation of Joints or Extremities Lymphatic: No Cervical, Supraclavicular, or Inguinal Adenopathy Neurological: Cranial nerves II-XII grossly intact, Neuro grossly intact, Motor Exam 5/5 strength throughout Psych/Mental Status: Normal Affect, Appropriate, Alert and oriented to time, place, person, mood and affect Vital Signs Temp Pulse Resp BP Pulse Ox 98.1 F 66 16 164/63 H 97 03/28/18 15:43 03/28/18 19:00 03/28/18 19:00 03/28/18 19:00 03/28/18 19:00 Oxygen Delivery Method Room Air Weight: 242 lb 8.136 oz Body Mass Index (BMI) 48.9 Finger Stick Blood Glucose 113 Laboratory Tests Past 24 Hrs 03/28/18 03/28/18 03/28/18 16:20 16:20 16:20 WBC 8.3 RBC 4.21 Hgb 11.4 L Hct 36.6 L MCV 86.9 MCH 27.1 MCHC 31.1 L RDW 15.8 H RDW Differential 50.4 H Plt Count 222 MPV 9.1 Immature Gran % (Auto) 0.200 Neut % (Auto) 67.5 Lymph % (Auto) 17.8 L [place] % (Auto) 9.4 Eos % (Auto) 4.5 Baso % (Auto) 0.6 Absolute Neuts (auto) 5.6 Absolute Lymphs (auto) 1.48 Total Counted Not Reportable Sodium 138 Potassium 4.1 Chloride 102 Carbon Dioxide 31.0 Anion Gap 5 BUN 23 H Creatinine 1.00 Estim Creat Clear Calc 92.20 Est GFR (MDRD) Af Amer 71 Est GFR (MDRD) Non-Af 58 L BUN/Creatinine Ratio 23.0 H Glucose 111 H Lactic Acid 2.3 H Calcium 8.2 L Total Bilirubin 0.20 AST 15 ALT 19 Alkaline Phosphatase 76 Troponin I < 0.015 Total Protein 6.6 Albumin 3.0 L Globulin 3.6 Albumin/Globulin Ratio 0.8 L Lipase 199 Urine Color Urine Clarity Urine pH Ur Specific [place] Urine Protein Urine Glucose (UA) Urine Ketones Urine Occult Blood Urine Nitrite Urine Bilirubin Urine Urobilinogen Ur Leukocyte Esterase Urine RBC Urine WBC Ur Squamous Epith Cells Urine Bacteria Urine Mucus 03/28/18 16:25 WBC RBC Hgb Hct MCV MCH MCHC RDW RDW Differential Plt Count MPV Immature Gran % (Auto) Neut % (Auto) Lymph % (Auto) [place] % (Auto) Eos % (Auto) Baso % (Auto) Absolute Neuts (auto) Absolute Lymphs (auto) Total Counted Sodium Potassium Chloride Carbon Dioxide Anion Gap BUN Creatinine Estim Creat Clear Calc Est GFR (MDRD) Af Amer Est GFR (MDRD) Non-Af BUN/Creatinine Ratio Glucose Lactic Acid Calcium Total Bilirubin AST ALT Alkaline Phosphatase Troponin I Total Protein Albumin Globulin Albumin/Globulin Ratio Lipase Urine Color Yellow Urine Clarity Clear Urine pH 7.0 Ur Specific [place] 1.010 Urine Protein Negative Urine Glucose (UA) Normal Urine Ketones Negative Urine Occult Blood Negative Urine Nitrite Negative Urine Bilirubin Negative Urine Urobilinogen Normal Ur Leukocyte Esterase 25 H Urine RBC 0 SEEN Urine WBC 0-5 SEEN Ur Squamous Epith Cells 0-5 SEEN Urine Bacteria 0 SEEN Urine Mucus 0 SEEN Diagnostic Data Abdomen/Pelvis CT 03/28/18 15:58 IMPRESSION: Urinary bladder wall has wall thickening. This can be related to a partially contractile state. However, a cystitis is not excluded. Urinalysis should be performed in an effort to exclude cystitis. Cholelithiasis. There are multiple diverticuli of the colon. There is diverticulosis but no radiographic signs for diverticulitis. Other findings as above. Electronically Signed: Evangelist Walls MD at 19:33 EDT , Service support , Chest X-Ray 03/28/18 15:58 IMPRESSION: There are no acute findings. Electronically Signed: Evangelist Walls MD at 16:39 EDT , Service support , Assessment/Plan All Active Problems Accidental drug overdose (Acute) Acute kidney injury (Acute) Epigastric pain (Acute) 67-year-old female presenting with a 2-day history of worsening epigastric pain with associated exertional shortness of breath. 1. Epigastric pain, rule out ACS * Gastric pain can be a marker of ACS because of her female gender * has risk factors such as hypertension, hyperlipidemia and borderline diabetes mellitus * admit to PCU with telemetry * EKG showed no acute ST changes and showed voltage criteria for LVH * initial troponins negative; will cycle * CT abdomen negative for any acute pathology; showed diverticulosis and a bdominal atherosclerosis * CXR showed no acute cardiopulmonary process * check lipid panel, A1C * SL nitroglycerin prn; aspirin 81mg daily * NPO past midnight for stress test tomorrow * if stress test is negative, will benefit from workup for epigastric pain,eg gallbladder USG. * 2. Hypertension * poorly controlled. SBP in 160s * on HCTZ, propranolol and lisinopril; continue and adjust as needed * 3. Lactic acidosis: lactic acid is 2.3. Reason for this is unclear. Will hydrate and trend lactic acid. 4. Hyperlipidemia: On atorvastatin 40 mg nightly. Check lipid panel 5. Hypothyroidism: On Synthroid 6. Depression and anxiety: On buspirone and fluoxetine 7. Restless leg syndrome: on primidone and ropinirole DVT prophylaxis: heparin GI prophylaxis: PPI Code status: full code. * Patient counselled about differences between full code, DNRCC and DNRCCA. Patient elects to be full code. Total face to face time-17 mins * Code Visit OBSV E&M: 99046 Initial observation care L3 Procedures: 44005 Advncd Care Plan 30 Min
[2018-03-28 20:24] LABS: Reflex Lactate? Y
[2018-03-28] MEDS: Aspirin 81 MG TAB.CHEW 324 MG PO (21:41)
[2018-03-28] MEDS: Heparin Injection (Vial) 5,000 UNIT/ML VIAL 5000 UNIT SC (21:42)
--- NOTE | 2018-03-28 22:00 | NURSING ---
Unable to complete home med req at this time. Patient does not know medications states they come from her pharmacy all packaged up. Will call pharmacy in the AM to get med rec completed.
[2018-03-29] VITALS (10 sets, daily range): BP systolic 119–166; BP diastolic 59–79; PULSE 60–72; RESP 18; TEMP 36.7–37.1; O2SAT 94–98
[2018-03-29 00:28] LABS: Hemoglobin A1c 5.8 % (4.2-6.3)
[2018-03-29] MEDS: 0.9% Normal Saline 1,000 ML 125 ML IV (04:59)
[2018-03-29 05:24] LABS: Absolute Lymphocyte Count 1.91 X10^3/ul (0.83-4.51); Absolute Neutrophil Count 4.2 X10^3/uL (2.0-7.7); Basophil# 0.05 X10^3/uL; Basophil% 0.7 % (0-1); Eosinophil# 0.41 X10^3/uL; Eosinophils% 5.7 % (0-5); Hematocrit 37.7 % (37-47); Hemoglobin 11.7 g/dl (12.0-15.0); Lymphocyte # 1.91 X10^3/ul (4.0); Lymphocyte % 26.5 % (19-41); Mean Corpuscular Hgb 27.1 pg (27.0-32.0); Mean Corpuscular Volume 87.3 fL (81-99); Mean Platelet Vol. 9.6 fl (6.2-12.0); Monocyte# 0.69 X10^3/uL; Monocyte% 9.6 % (0-10); Neutrophil # 4.15 X10^3/uL (2.7-7.7); Neutrophil % 57.4 % (47-70); Platelet Count 214 K/mm3 (150-450); RBC Distribution Width CV 15.7 % (11.6-14.6); Red Blood Count 4.32 M/mm3 (4.2-5.4); White Blood Count 7.2 K/mm3 (4.4-11.0)
[2018-03-29 05:26] LABS: POSITIVE COUNT NO; POSITIVE DIFFERENTIAL NO; POSITIVE MORPHOLOGY NO
[2018-03-29 05:49] LABS: Anion Gap 5 (5-15); BUN 18 mg/dL (7-18); BUN/Creat Ratio 21.2 RATIO (10-20); Calcium,Total 8.7 mg/dL (8.5-10.1); Chloride 104 mmol/L (98-107); Cholesterol 145 mg/dL (200); Creatinine, Serum 0.85 mg/dL (0.55-1.02); EST Glomerular Filtration Rate 71 mL/min (>60); Est Glom Filt Rate - Afr Amer 85 mL/min (>60); Estimated Creatinine Clearance 108.47 ml/min; Glucose 84 mg/dL (74-106); High Density Lipoprotein 59 mg/dL; Potassium 4.2 mmol/L (3.5-5.1); Sodium Level 142 mmol/L (136-145); Triglycerides 134 mg/dL; Very Low Density Lipoprotein 27 mg/dL (5-40)
[2018-03-29 05:50] LABS: Prothrombin Time (Protime)PT. 13.5 SECONDS (11.7-14.9)
[2018-03-29 05:51] LABS: Partial Thromboplast Time 27.5 Seconds (24.1-36.2)
--- NOTE | 2018-03-29 05:55 | EKG12_ITS ---
Test Reason : AM EKG Blood Pressure : / mmHG Vent. Rate : 061 BPM Atrial Rate : 061 BPM P-R Int : 152 ms QRS Dur : 088 ms QT Int : 442 ms P-R-T Axes : 024 -32 003 degrees QTc Int : 444 ms Normal sinus rhythm Left axis deviation Minimal voltage criteria for LVH, may be normal variant Abnormal ECG Confirmed by TIM ALEXANDRA, MARY ([id number]), senior editor VLAD GAINES ([id number]) on 04/01/2018 11:36:47 AM Referred By: CHAPITO Confirmed By:MARY DUMONT MD
--- NOTE | 2018-03-29 10:23 | STRESSREP ---
Stress Test Report Pharmacologic myocardial perfusion stress test. 67-year-old lady with a history of chest pain. Stress protocol: Resting EKG demonstrates sinus rhythm with a rate of 62 bpm normal intervals and noted resting blood pressure 138/98 mmHg. 0.4 mg of regadenoson was infused per usual protocol followed by rapid intravenous saline flush injection continuous EKG monitoring was performed. The maximum heart rate attained was 93 bpm which was 61% maximum predicted heart rate the maximum workload was 1 metabolic equivalent. At rest were no ST or T wave changes noted suggest abnormal flow reserve at peak infusion nonspecific ST-T wave changes were noted suggest abnormal flow reserve. Myocardial perfusion protocol. 14.8 mCi of technetium 99m sestamibi was injected at rest. 0.4 mg of regadenoson was infused per usual protocol. Peak infusion 44.9 mCi of technetium 99m sestamibi was injected stress images were obtained stress and rest images were reconstructed and compared in the short axis vertical long horizontal long axis. Gated images were also obtained Perfusion SPECT analysis. Perfusion SPECT analysis demonstrates normal perfusion in all areas of the myocardium on the stress and resting images. No areas of reversibility are noted suggest ischemia. No previous infarct is noted. Gated spect analysis: The gated ejection fraction is 64%. Conclusion: Normal pharmacologic myocardial perfusion stress test. Preserved ejection fraction.
--- NOTE | 2018-03-29 12:06 | PN_ITS ---
Patient Problems: Active and Suspected Problems Epigastric pain (Acute) Vitals/I&O's: Vital Signs Temp Pulse Resp BP Pulse Ox 98.6 F 71 18 136/75 H 95 03/29/18 11:45 03/29/18 11:45 03/29/18 11:45 03/29/18 11:45 03/29/18 11:45 Oxygen Delivery Method Room Air Weight: 110 kg Body Mass Index (BMI) 48.9 Finger Stick Blood Glucose 113 Intake and Output for Last 24 Hours 03/27/18 03/28/18 03/29/18 23:59 23:59 23:59 Intake Total 1747 / 1747 Output Total 2200 / 2200 Balance -453 / -453 Laboratory Results 03/28/18 16:20: WBC 8.3, RBC 4.21, Hgb 11.4 L, Hct 36.6 L, MCV 86.9, MCH 27.1, MCHC 31.1 L, RDW 15.8 H, RDW Differential 50.4 H, Plt Count 222, MPV 9.1, Immature Gran % (Auto) 0.200, Neut % (Auto) 67.5, Lymph % (Auto) 17.8 L, [place] % (Auto) 9.4, Eos % (Auto) 4.5, Baso % (Auto) 0.6, Absolute Neuts (auto) 5.6, Absolute Lymphs (auto) 1.48, Total Counted Not Reportable 03/28/18 16:20: Sodium 138, Potassium 4.1, Chloride 102, Carbon Dioxide 31.0, Anion Gap 5, BUN 23 H, Creatinine 1.00, Estim Creat Clear Calc 92.20, Est GFR (MDRD) Af Amer 71, Est GFR (MDRD) Non-Af 58 L, BUN/Creatinine Ratio 23.0 H, Glucose 111 H, Calcium 8.2 L, Total Bilirubin 0.20, AST 15, ALT 19, Alkaline Phosphatase 76, Troponin I < 0.015, Total Protein 6.6, Albumin 3.0 L, Globulin 3.6, Albumin/Globulin Ratio 0.8 L, Lipase 199 03/28/18 16:20: Lactic Acid 2.3 H 03/28/18 16:20: Hemoglobin A1c 5.8 03/28/18 16:25: Urine Color Yellow, Urine Clarity Clear, Urine pH 7.0, Ur Specific [place] 1.010, Urine Protein Negative, Urine Glucose (UA) Normal, Urine Ketones Negative, Urine Occult Blood Negative, Urine Nitrite Negative, Urine Bilirubin Negative, Urine Urobilinogen Normal, Ur Leukocyte Esterase 25 H, Urine RBC 0 SEEN, Urine WBC 0-5 SEEN, Ur Squamous Epith Cells 0-5 SEEN, Urine Bacteria 0 SEEN, Urine Mucus 0 SEEN 03/28/18 21:10: Troponin I < 0.015 03/28/18 23:30: Lactic Acid 1.0 03/28/18 23:30: Troponin I < 0.015 03/29/18 04:58: WBC 7.2, RBC 4.32, Hgb 11.7 L, Hct 37.7, MCV 87.3, MCH 27.1, MCHC 31.0 L, RDW 15.7 H, RDW Differential 50.0 H, Plt Count 214, MPV 9.6, Immature Gran % (Auto) 0.100, Neut % (Auto) 57.4, Lymph % (Auto) 26.5, [place] % (Auto) 9.6, Eos % (Auto) 5.7 H, Baso % (Auto) 0.7, Absolute Neuts (auto) 4.2, Absolute Lymphs (auto) 1.91, Total Counted Not Reportable 03/29/18 04:58: Sodium 142, Potassium 4.2, Chloride 104, Carbon Dioxide 33.0 H, Anion Gap 5, BUN 18, Creatinine 0.85, Estim Creat Clear Calc 108.47, Est GFR (MDRD) Af Amer 85, Est GFR (MDRD) Non-Af 71, BUN/Creatinine Ratio 21.2 H, Glucose 84, Calcium 8.7, Triglycerides 134, Cholesterol 145, LDL Cholesterol 59, VLDL Cholesterol 27, HDL Cholesterol 59 03/29/18 04:58: PT 13.5, INR 1.0, APTT 27.5 Current Medications Heparin Sodium (Porcine) (Heparin Na) 5,000 unit SC Q8 [facility] Last Admin: 03/29/18 05:20 Dose: Not Given Sodium Chloride () 1,000 mls @ 125 mls/hr IV .Q8H [facility] Last Admin: 03/29/18 04:59 Dose: 125 mls/hr Magnesium Hydroxide (Milk Of Magnesia) 30 ml PO DAILY PRN PRN PRN Reason: Constipation Nitroglycerin (Nitrostat) 0.4 mg SUBLINGUAL Q5M PRN PRN Reason: CARDIAC/CHEST PAIN Sodium Chloride () 5 - 30 ml IV UD PRN PRN Reason: SALINE FLUSH Medical Necessity - Tobacco Use Smoking Status: Former smoker - quit>30 years ago Assessment/Plan All Active Problems Accidental drug overdose (Acute) Acute kidney injury (Acute) Epigastric pain (Acute)
[2018-03-29] MEDS: Heparin Injection (Vial) 5,000 UNIT/ML VIAL 5000 UNIT SC (14:34)
--- NOTE | 2018-03-29 14:38 | NURSING ---
called [facility], they are to fax over pt's current medlist.
--- NOTE | 2018-03-29 15:29 | CHAPLAIN ---
Type of Pastoral Visit _x__ Initial Visit ___ Follow-up Visit ___ On-call Visit ___ General Patient Visit ___ Spiritual Assessment ___ Family Conference ___ Bereavement ___ Rapid Response ___ Code Blue ___ Other (describe below) Pastoral Care Referral From _x__ Patient ___ Family ___ Nurse ___ Physician ___ Rip Sawyer ___ Custom Designer ___ Other (describe below) Sacrament/Intervention _x__ Active listening ___ Anointing ___ Congregational ___ Bereavement ___ Communion ___ Brandy exploration ___ _x__ Life review _x__ Prayer ___ Reconciliation ___ Sacrament of Sick _x__ Supportive presence ___ Wedding ___ Other (describe below) Pastoral Comments
--- NOTE | 2018-03-29 15:58 | DCINST_ITS ---
- Discharge Diagnoses Current Active Problems: Current Active and Chronic Problems Epigastric pain (Acute) Reason(s) for Visit for Discharge Instructions: Epigastric pain You will use the following diet at home:: Cardiac Your food should be the consistency of: Regular Your liquids should be the consistency of: Regular/Thin Discharge Activity: Return to Normal Activity Additional Instructions: Your stress test was negative. Follow-up with your primary care doctor within 2 weeks Allergies/Adverse Reactions: Allergies No Known Allergies Allergy (Verified 03/28/18 15:43) Medications to take at Discharge Aspirin [Aspirin, Baby] 81 mg PO DAILY@0800 04/29/17 Atorvastatin Calcium [Lipitor] 40 mg PO QHS 04/29/17 Buspirone HCl [Buspar] 30 mg PO BID 04/29/17 Fluoxetine HCl [Prozac] 80 mg PO DAILY 04/29/17 Hydrochlorothiazide [Hctz] 12.5 mg PO DAILY 04/29/17 Levothyroxine Sodium [Synthroid] 75 mcg PO DAILY 04/29/17 Lisinopril [Zestril] 10 mg PO DAILY 04/29/17 Meloxicam [Mobic] 15 mg PO DAILY 04/29/17 Lamotrigine [Lamictal] 200 mg PO DAILY 07/24/17 Primidone [Mysoline] 50 mg PO QHS 07/24/17 Ropinirole HCl [Requip] 0.5 mg PO QHS 07/25/17 Famotidine 20 mg PO DAILY 02/28/18 Propranolol HCl 10 mg PO BID 02/28/18 Trazodone HCl 50 - 100 mg PO QHS PRN PRN 02/28/18 Budesonide/Formoterol 160/4.5 [Symbicort 160/4.5 Mcg Inhaler (SP)] 2 puff INHALATION BID 03/29/18 Primary Care Physician: Cj Mcdonald MD [Primary Care Provider] - Please follow up with your Primary Care Physician in: within 2 weeks Test Results: Test results from this visit will be discussed in further detail at your follow- up appointment, if applicable. Proposed Discharge Date: 03/29/18
--- NOTE | 2018-03-29 16:00 | PCM.DC.SUM ---
Discharge Date and Diagnosis Date of Admission: 03/28/18 Date of Discharge: 03/29/18 - Primary Discharge Diagnosis Active and Suspected Problems Epigastric pain (Acute) - Secondary Discharge Diagnosis Chronic Problems Depression (Chronic) Super obese (Chronic) Sleep apnea (Chronic) Hypothyroidism (Chronic) HTN (hypertension) (Chronic) DM2 (diabetes mellitus, type 2) (Chronic) COLD (chronic obstructive lung disease) (Chronic) Irritable bowel syndrome (Chronic) Anxiety (Chronic) Hospital Course and Treatment Imaging Results: 03/29/18 08:00 Nuclear Stress Test - Chemical [NM] Routine epigastric pain, unclear etiology Uncontrolled hypertension Lactic acidosis Operations: None Procedures: Stress test Summary of Care Provided: The patient is a 67 year old F with past medical history of hypertension, hyperlipidemia, morbid obesity who comes in with a 2-day history of worsening epigastric pain associated with exertional dyspnea. Patient had an initial CT of the abdomen which was negative for acute pathology in the ED. She was admitted to telemetry bed, monitored, had a stress test in the morning which was reportedly negative. Patient was continued on the rest of her home medications. She was assessed by physical and occupational therapy with no further needs. She was discharged home to continue on her home famotidine. Subjective: Patient was seen and examined on the day of discharge. She feels much better. No more epigastric pain. Denies any dizziness or chest pain or shortness of breath Objective: Physical Exam General: Alert, Oriented x3, Cooperative, No apparent distress HEENT: Atraumatic, PERRLA, EOMI, Normocephalic Oral: Moist Mucosa Neck: Supple, No JVD, Negative Carotid Bruits Lungs: Clear to auscultation, Normal air movement, No rhonchi, No wheeze, No rales Cardiovascular: Regular rate, Regular Rhythm, Normal S1, Normal S2, No murmurs Abdomen: Bowel Sounds Present, Soft, Non Tender, Non-Distended Extremities: No edema, Capillary Refill Less than 3 Seconds, No Calf Tenderness Skin: No rashes, No breakdown Musculoskeletal: No Tenderness to Palpation of Joints or Extremities Lymphatic: No Cervical, Supraclavicular, or Inguinal Adenopathy Neurological: Cranial nerves II-XII grossly intact, Neuro grossly intact, Motor Exam 5/5 strength throughout Psych/Mental Status: Normal Affect, Appropriate, Alert and oriented to time, place, person, mood and affect - Physical Exam Vital Signs Temp Pulse Resp BP Pulse Ox 98.6 F 68 18 136/75 H 95 03/29/18 11:45 03/29/18 15:00 03/29/18 11:45 03/29/18 11:45 03/29/18 11:45 Oxygen Delivery Method Room Air Weight: 110 kg Body Mass Index (BMI) 48.9 Finger Stick Blood Glucose 113 Intake and Output for Last 24 Hours 03/27/18 03/28/18 03/29/18 23:59 23:59 23:59 Intake Total 1747 / 1747 Output Total 2200 / 2200 Balance -453 / -453 Laboratory Tests Past 24 Hrs 03/28/18 03/28/18 03/28/18 16:20 16:20 16:20 WBC 8.3 RBC 4.21 Hgb 11.4 L Hct 36.6 L MCV 86.9 MCH 27.1 MCHC 31.1 L RDW 15.8 H RDW Differential 50.4 H Plt Count 222 MPV 9.1 Immature Gran % (Auto) 0.200 Neut % (Auto) 67.5 Lymph % (Auto) 17.8 L [place] % (Auto) 9.4 Eos % (Auto) 4.5 Baso % (Auto) 0.6 Absolute Neuts (auto) 5.6 Absolute Lymphs (auto) 1.48 Total Counted Not Reportable PT INR APTT Sodium 138 Potassium 4.1 Chloride 102 Carbon Dioxide 31.0 Anion Gap 5 BUN 23 H Creatinine 1.00 Estim Creat Clear Calc 92.20 Est GFR (MDRD) Af Amer 71 Est GFR (MDRD) Non-Af 58 L BUN/Creatinine Ratio 23.0 H Glucose 111 H Hemoglobin A1c Lactic Acid 2.3 H Calcium 8.2 L Total Bilirubin 0.20 AST 15 ALT 19 Alkaline Phosphatase 76 Troponin I < 0.015 Total Protein 6.6 Albumin 3.0 L Globulin 3.6 Albumin/Globulin Ratio 0.8 L Triglycerides Cholesterol LDL Cholesterol VLDL Cholesterol HDL Cholesterol Lipase 199 Urine Color Urine Clarity Urine pH Ur Specific [place] Urine Protein Urine Glucose (UA) Urine Ketones Urine Occult Blood Urine Nitrite Urine Bilirubin Urine Urobilinogen Ur Leukocyte Esterase Urine RBC Urine WBC Ur Squamous Epith Cells Urine Bacteria Urine Mucus 03/28/18 03/28/18 03/28/18 16:20 16:25 21:10 WBC RBC Hgb Hct MCV MCH MCHC RDW RDW Differential Plt Count MPV Immature Gran % (Auto) Neut % (Auto) Lymph % (Auto) [place] % (Auto) Eos % (Auto) Baso % (Auto) Absolute Neuts (auto) Absolute Lymphs (auto) Total Counted PT INR APTT Sodium Potassium Chloride Carbon Dioxide Anion Gap BUN Creatinine Estim Creat Clear Calc Est GFR (MDRD) Af Amer Est GFR (MDRD) Non-Af BUN/Creatinine Ratio Glucose Hemoglobin A1c 5.8 Lactic Acid Calcium Total Bilirubin AST ALT Alkaline Phosphatase Troponin I < 0.015 Total Protein Albumin Globulin Albumin/Globulin Ratio Triglycerides Cholesterol LDL Cholesterol VLDL Cholesterol HDL Cholesterol Lipase Urine Color Yellow Urine Clarity Clear Urine pH 7.0 Ur Specific [place] 1.010 Urine Protein Negative Urine Glucose (UA) Normal Urine Ketones Negative Urine Occult Blood Negative Urine Nitrite Negative Urine Bilirubin Negative Urine Urobilinogen Normal Ur Leukocyte Esterase 25 H Urine RBC 0 SEEN Urine WBC 0-5 SEEN Ur Squamous Epith Cells 0-5 SEEN Urine Bacteria 0 SEEN Urine Mucus 0 SEEN 03/28/18 03/28/18 03/29/18 23:30 23:30 04:58 WBC 7.2 RBC 4.32 Hgb 11.7 L Hct 37.7 MCV 87.3 MCH 27.1 MCHC 31.0 L RDW 15.7 H RDW Differential 50.0 H Plt Count 214 MPV 9.6 Immature Gran % (Auto) 0.100 Neut % (Auto) 57.4 Lymph % (Auto) 26.5 [place] % (Auto) 9.6 Eos % (Auto) 5.7 H Baso % (Auto) 0.7 Absolute Neuts (auto) 4.2 Absolute Lymphs (auto) 1.91 Total Counted Not Reportable PT INR APTT Sodium Potassium Chloride Carbon Dioxide Anion Gap BUN Creatinine Estim Creat Clear Calc Est GFR (MDRD) Af Amer Est GFR (MDRD) Non-Af BUN/Creatinine Ratio Glucose Hemoglobin A1c Lactic Acid 1.0 Calcium Total Bilirubin AST ALT Alkaline Phosphatase Troponin I < 0.015 Total Protein Albumin Globulin Albumin/Globulin Ratio Triglycerides Cholesterol LDL Cholesterol VLDL Cholesterol HDL Cholesterol Lipase Urine Color Urine Clarity Urine pH Ur Specific [place] Urine Protein Urine Glucose (UA) Urine Ketones Urine Occult Blood Urine Nitrite Urine Bilirubin Urine Urobilinogen Ur Leukocyte Esterase Urine RBC Urine WBC Ur Squamous Epith Cells Urine Bacteria Urine Mucus 03/29/18 03/29/18 04:58 04:58 WBC RBC Hgb Hct MCV MCH MCHC RDW RDW Differential Plt Count MPV Immature Gran % (Auto) Neut % (Auto) Lymph % (Auto) [place] % (Auto) Eos % (Auto) Baso % (Auto) Absolute Neuts (auto) Absolute Lymphs (auto) Total Counted PT 13.5 INR 1.0 APTT 27.5 Sodium 142 Potassium 4.2 Chloride 104 Carbon Dioxide 33.0 H Anion Gap 5 BUN 18 Creatinine 0.85 Estim Creat Clear Calc 108.47 Est GFR (MDRD) Af Amer 85 Est GFR (MDRD) Non-Af 71 BUN/Creatinine Ratio 21.2 H Glucose 84 Hemoglobin A1c Lactic Acid Calcium 8.7 Total Bilirubin AST ALT Alkaline Phosphatase Troponin I Total Protein Albumin Globulin Albumin/Globulin Ratio Triglycerides 134 Cholesterol 145 LDL Cholesterol 59 VLDL Cholesterol 27 HDL Cholesterol 59 Lipase Urine Color Urine Clarity Urine pH Ur Specific [place] Urine Protein Urine Glucose (UA) Urine Ketones Urine Occult Blood Urine Nitrite Urine Bilirubin Urine Urobilinogen Ur Leukocyte Esterase Urine RBC Urine WBC Ur Squamous Epith Cells Urine Bacteria Urine Mucus Discharge Diet: Low fat/ Low Cholesterol, 2000 mg Sodium Diet Discharge Activity: Return to Normal Activity Home Medications: Medications to take at Discharge RX: Aspirin [Aspirin, Baby] 81 mg PO DAILY@0800 04/29/17 RX: Atorvastatin Calcium [Lipitor] 40 mg PO QHS 04/29/17 RX: Buspirone HCl [Buspar] 30 mg PO BID 04/29/17 RX: Fluoxetine HCl [Prozac] 80 mg PO DAILY 04/29/17 RX: Hydrochlorothiazide [Hctz] 12.5 mg PO DAILY 04/29/17 RX: Levothyroxine Sodium [Synthroid] 75 mcg PO DAILY 04/29/17 RX: Lisinopril [Zestril] 10 mg PO DAILY 04/29/17 RX: Meloxicam [Mobic] 15 mg PO DAILY 04/29/17 RX: Lamotrigine [Lamictal] 200 mg PO DAILY 07/24/17 RX: Primidone [Mysoline] 50 mg PO QHS 07/24/17 RX: Ropinirole HCl [Requip] 0.5 mg PO QHS 07/25/17 RX: Famotidine 20 mg PO DAILY 02/28/18 RX: Propranolol HCl 10 mg PO BID 09/16/18 RX: Trazodone HCl 50 - 100 mg PO QHS PRN PRN 02/28/18 RX: Budesonide/Formoterol 160/4.5 [Symbicort 160/4.5 Mcg Inhaler (SP)] 2 puff INHALATION BID 03/29/18 Primary Care Physician: Cj Mcdonald MD [Primary Care Provider] - Please follow up with your Primary Care Physician in: within 2 weeks Disposition: Asstd Living/Non-Skill [place] Minutes spent on discharge:: 40 Patient Condition:: Stable Medical Necessity - Tobacco Use Smoking Status: Former smoker - quit>30 years ago Meaningful Use Info Meaningful Use Diagnoses (Choose all that apply): None applicable Code Visit Inpatient E&M: 15086 Disch Hosp
[2018-03-29] MEDS: lamoTRIgine 100 MG Tablet 200 MG PO (16:37)
[2018-03-29] MEDS: Aspirin 81 MG TAB.CHEW PO (16:37)
[2018-03-29] MEDS: Propranolol 10 MG Tablet PO (16:37)
[2018-03-29] MEDS: busPIRone 15 MG TABLET 30 MG PO (16:37)
[2018-03-29] MEDS: HYDROCHLOROTHIAZIDE 12.5 MG CAPSULE PO (16:37)
[2018-03-29] MEDS: Famotidine 20 MG Tablet PO (16:38)
[2018-03-29] MEDS: Levothyroxine 75 MCG Tablet PO (16:38)
[2018-03-29] MEDS: FLUoxetine 20 MG Capsule 80 MG PO (16:38)
[2018-03-29] MEDS: Lisinopril 10 MG Tablet PO (16:38)
== END 2018-03-29 15:58 | disposition intermediate care facility (04) ==
LOC: ED 16:48 → PCU 20:36
PROVIDERS: Admitting Provider Student in an Organized Health Care Education/Training Program; Emergency Provider Emergency Medicine; Family Provider Family Medicine; PCP Family Medicine; Visit Provider Internal Medicine
DX: R06.09 Other forms of dyspnea (principal); Z87.891 Personal history of nicotine dependence; R10.13 Epigastric pain; I10 Essential (primary) hypertension; E78.5 Hyperlipidemia, unspecified; E66.01 Morbid (severe) obesity due to excess calories; Z68.41 Body mass index [BMI] 40.0-44.9, adult; Z71.3 Dietary counseling and surveillance; J44.9 Chronic obstructive pulmonary disease, unspecified; K58.9 Irritable bowel syndrome, unspecified; F32.9 Major depressive disorder, single episode, unspecified; F41.9 Anxiety disorder, unspecified; E11.9 Type 2 diabetes mellitus without complications; G47.30 Sleep apnea, unspecified; E03.9 Hypothyroidism, unspecified; Z79.899 Other long term (current) drug therapy; R73.09 Other abnormal glucose; Z79.82 Long term (current) use of aspirin; E87.2 Acidosis; G25.81 Restless legs syndrome
CPT/HCPCS: 36415; 71045; 74177; 78452; 80048; 80053; 80061; 81001; 83036; 83605; 83690; 84484; 85025; 85610; 85730; 93005; 93017; 96360; 96361; 96372; 97162; 99218; 99283; A9500; J7030; Q9967; A4216; G0378; J2785

== ENCOUNTER 2018-06-24 19:55 | Emergency (ER) | payer MEDICARE, SELFPAY ==
[2018-06-24 19:56] VITALS: BP 134/77; PULSE 80; PULSE 85; RESP 15; RESP 17; TEMP 36.1; O2SAT 96; BMI 51.2
[2018-06-24] MEDS: Diphth,Pertuss(Acell),Tet Vac 0.5 ML Vial IM (20:37)
[2018-06-24] MEDS: Lidocaine/Epi/Tetracaine 50 ML 1 APPLIC TOPICAL (20:38)
--- NOTE | 2018-06-24 21:16 | ED.VISSUMM ---
- ER Visit Summary Date of Service: 06/24/18 Chief Complaint: Left forearm injury History of Present Illness: The patient is a 67 F who [facility] She has a skin avulsion. She is on blood thinners. She is unsure of her last tetanus update. Physical Examination: Vital signs unremarkable. Head neck examination normal. Heart is regular rate and rhythm. Lungs sounds clear. Left upper extremity examination reveals a 0.5 x 3 mm skin avulsion to the left forearm. No active bleeding noted at this time. No bony tenderness. Strong distal pulses and normal sensation. Test Results: [] Emergency Department Course and Treatment: Tetanus update is provided. Let is initially applied to the wounds and wound is cleansed. Bacitracin ointment is applied with dressing. Treatment Plan: [] Disposition: Discharge Impression: Skin avulsion left forearm This note was generated with [employer] dictation software. It may contain incorrect words, spelling, and punctuation that were not noted in review of the chart prior to signing ED Disposition - Plan for ED Patient: Chief Complaint: Laceration Referrals: Cj Mcdonald MD [Primary Care Provider] -
--- NOTE | 2018-06-24 21:17 | ED.DEP ---
ED Disposition - Plan for ED Patient: Disposition: Home or Assisted Living Chief Complaint: Laceration Instructions: ED Avulsion Dermal Referrals: Cj Mcdonald MD [Primary Care Provider] - As Needed
== END 2018-06-24 21:52 | disposition home or self-care (01) ==
PROVIDERS: Emergency Provider Emergency Medicine; Family Provider Family Medicine; PCP Family Medicine
DX: S51.802A Unspecified open wound of left forearm, initial encounter (principal); W22.8XXA Striking against or struck by other objects, initial encounter; Y93.9 Activity, unspecified; Y92.512 Supermarket, store or market as the place of occurrence of the external cause; Y99.9 Unspecified external cause status; Z23 Encounter for immunization; E11.9 Type 2 diabetes mellitus without complications; I10 Essential (primary) hypertension; J44.9 Chronic obstructive pulmonary disease, unspecified; Z87.891 Personal history of nicotine dependence; K58.9 Irritable bowel syndrome, unspecified
CPT/HCPCS: 90715; 99282

== ENCOUNTER 2018-08-29 15:56 | Emergency (ER) | payer MEDICARE, SELFPAY ==
[2018-08-29 15:57] VITALS: BP 164/79; PULSE 95; RESP 26; TEMP 37.2; O2SAT 95; BMI 49.8
--- NOTE | 2018-08-29 16:07 | RAD_ITS ---
STUDY: X-RAY CHEST REASON FOR EXAM: Female, 67 years old. Shortness of breath cough COPD TECHNIQUE: Single AP portable view of the chest. COMPARISON: Prior study of 03/28/2018 FINDINGS: The lungs are clear and expanded. There is no demonstrated pleural abnormality. Normal size heart. Normal mediastinum and jacqueline. Normal visualized pulmonary arteries. There are calcified plaques of the aortic arch. Normal visualized thoracic spine. Normal visualized ribs, clavicles, and shoulders. There is no demonstrated abnormality of the visualized soft tissue structures of the upper abdomen. RAD/Chest 1 View (Portable) IMPRESSION: Calcified plaques of the aortic arch. No acute cardiopulmonary disease process is seen. Chest findings are stable in the interval. Electronically Signed: Fidel Gleason MD at 17:11 EDT , Service support ,
--- NOTE | 2018-08-29 16:08 | EKG12_ITS ---
Test Reason : SOB Blood Pressure : / mmHG Vent. Rate : 091 BPM Atrial Rate : 091 BPM P-R Int : 144 ms QRS Dur : 084 ms QT Int : 370 ms P-R-T Axes : 026 -33 008 degrees QTc Int : 455 ms Normal sinus rhythm Left axis deviation Moderate voltage criteria for LVH, may be normal variant Abnormal ECG Confirmed by MUSHTAQ ALEXANDRA, SAMAN ([id number]), editor index BÁRBARA PURDY ([id number]) on 08/30/2018 4:09:02 PM Referred By: BALDO Confirmed By:SAMAN LANDIN MD
[2018-08-29 16:27] VITALS: O2SAT 97
[2018-08-29 16:29] LABS: Absolute Neutrophil Count 6.2 X10^3/uL (2.0-7.7); Eosinophil# 0.43 X10^3/uL; Eosinophils% 4.5 % (0-5); Hematocrit 39.8 % (37-47); Hemoglobin 12.2 g/dl (12.0-15.0); Lymphocyte % 17.8 % (19-41); Mean Corp Hgb Conc 30.7 g/gl (32-36); Mean Corpuscular Hgb 27.7 pg (27.0-32.0); Mean Corpuscular Volume 90.2 fL (81-99); Mean Platelet Vol. 9.3 fl (6.2-12.0); Monocyte# 1.07 X10^3/uL; Monocyte% 11.2 % (0-10); Neutrophil # 6.16 X10^3/uL (2.7-7.7); Neutrophil % 64.6 % (47-70); Platelet Count 241 K/mm3 (150-450); RBC Distribution Width CV 17.1 % (11.6-14.6); RBC Distribution Width SD 55.4 fl (35.1-43.9); Red Blood Count 4.41 M/mm3 (4.2-5.4); White Blood Count 9.6 K/mm3 (4.4-11.0)
[2018-08-29 16:31] VITALS: BP 120/74; PULSE 88; RESP 20; TEMP 36.2; O2SAT 96
[2018-08-29 16:34] LABS: POSITIVE COUNT NO; POSITIVE DIFFERENTIAL NO; POSITIVE MORPHOLOGY NO
[2018-08-29] MEDS: Aspirin 81 MG TAB.CHEW 162 MG PO (16:47)
[2018-08-29 16:51] LABS: BUN 21 mg/dL (7-18); Creatinine, Serum 1.53 mg/dL (0.55-1.02); EST Glomerular Filtration Rate 36 mL/min (>60); Estimated Creatinine Clearance 61.36 ml/min; Glucose 87 mg/dL (74-106)
[2018-08-29 16:52] LABS: Anion Gap 4 (5-15); BUN/Creat Ratio 13.7 RATIO (10-20); Chloride 104 mmol/L (98-107); Est Glom Filt Rate - Afr Amer 43 mL/min (>60); Potassium 3.8 mmol/L (3.5-5.1); Sodium Level 138 mmol/L (136-145)
[2018-08-29 16:58] LABS: D-Dimer Quantitative (DVT/PE) 0.62 FEU/ug/m (0.27-0.49)
[2018-08-29 17:02] LABS: BNP,B-Type NATRIURETIC PEPTIDE 77.1 pg/mL (0-100)
[2018-08-29 17:21] VITALS: BP 108/42; PULSE 78; RESP 20; TEMP 36.3; O2SAT 97
[2018-08-29 17:32] LABS: Bacteria 0 SEEN /hpf (None Seen); Red Blood Cells-Urine 0 SEEN /hpf (0-5); White Blood Cells 0 SEEN /hpf (0-5)
[2018-08-29 17:47] LABS: Color, Urine Yellow (Yellow); Glucose, Dipstick Normal (Normal); Ketone-Dipstick Negative (Negative); Leukocyte Esterase-Dipstick Negative /ul (Negative); Nitrite-Dipstick Negative (Negative); Occult Blood-Urine Negative /ul (Negative); Protein-Dipstick 15 mg/dl (Negative); Urine Bilirubin Dipstick Negative (Negative); Urine Clarity Clear (Clear); Urine Urobilinogen Normal (Normal)
--- NOTE | 2018-08-29 17:51 | ED.VISSUMM ---
- ER Visit Summary Date of Service: 08/29/18 Chief Complaint: [Shortness of breath] History of Present Illness: The patient is a 67 F [presents to the emergency room with complaint of shortness of breath for about a month. Patient states that she has good days and bad days. Patient states that he is a bad day. Patient denies any cough. She has some intermittent chest heaviness and just kind of feels bloated all over. Patient states that she is had somewhat decreased urine output. She was seen in urgent care and sent to the ER for further evaluation. Patient has had similar symptoms like this multiple times in the past. No etiology has been found for her symptoms. Patient states she feels jittery on the inside. Patient does have a history of COPD however she does not use home O2. Patient is a diabetic and has history of hypertension as well as hypothyroidism and hypomagnesemia.] Physical Examination: [HEENT-PERRLA, EOMI. Cranial nerves II through XII grossly intact. TMs clear. Mucous membranes moist. No adenopathy. Cardiovascular-regular rate and rhythm without murmur or ectopy Lungs-clear to auscultation, chest wall stable without crepitus or subcu emphysema Abdomen-normoactive bowel sounds, soft, nontender, no rebound or rigidity, no peritoneal signs. Extremities-intact ?4, normal range of motion, normal pulses, atraumatic] Test Results: [EKG obtained arrival shows sinus rhythm with a ventricular rate of 91 bpm with signs of LVH noted. CBC with differential showed a white count of 9.6, hemoglobin 12, hematocrit 39.8, platelets 241. Chemistries unremarkable. BUN was 21 and creatinine 1.53. Troponin was less than 0.015. D-dimer was 0.61 however when corrected for age it is normal. BNP was 77 which is normal. Chest x-ray showed nothing acute.] Emergency Department Course and Treatment: [Patient resting comfortably and is in no respiratory distress. Patient is speaking in full sentences. Patient looks well. It was noted also in her medical record that she had a stress test in March 2018 that was normal. I do not feel her symptoms are cardiac in origin.] Treatment Plan: [Patient advised to follow-up with primary care physician within next 5 to 7 days.] Disposition: [Discharged home in stable condition] Impression: [Dyspnea-etiology uncertain] This note was generated with Dragon dictation software. It may contain incorrect words, spelling, and punctuation that were not noted in review of the chart prior to signing ED Disposition - Plan for ED Patient: Referrals: Cj Mcdonald MD [Primary Care Provider] -
--- NOTE | 2018-08-29 17:53 | ED.DEP ---
ED Disposition - Plan for ED Patient: Instructions: ED Dyspnea Shortness of Breath Referrals: Cj Mcdonald MD [Primary Care Provider] - 5-7 Days
[2018-08-29 17:59] VITALS: BP 137/72; PULSE 69; RESP 18; O2SAT 98
[2018-08-29 18:08] LABS: Hyaline Cast 0-5 SEEN /lpf (0-5); Mucous, Urine 1+ /hpf (<or=2+); Squamous Epithelial Cells - UA 0-5 SEEN /hpf (5-10)
== END 2018-08-29 18:00 | disposition home or self-care (01) ==
PROVIDERS: Emergency Provider Emergency Medicine; Family Provider Family Medicine; PCP Family Medicine
DX: R06.00 Dyspnea, unspecified (principal); E11.9 Type 2 diabetes mellitus without complications; E03.9 Hypothyroidism, unspecified; I10 Essential (primary) hypertension; J44.9 Chronic obstructive pulmonary disease, unspecified; E83.42 Hypomagnesemia
CPT/HCPCS: 71045; 80048; 81001; 83880; 84484; 85025; 85379; 93005; 99285; J7030; A4216

== ENCOUNTER → 2018-09-29 10:57 | Outpatient (CLI) | payer MEDICARE, SELFPAY ==
--- NOTE | 2018-09-29 11:03 | MRI_ITS ---
STUDY: MRI BRAIN WITH AND WITHOUT CONTRAST REASON FOR EXAM: Female, 68 years old. memory loss. TECHNIQUE: Standardized multiplanar fat and water weighted pulse sequences were obtained. 20 IV Dotarem was administered for the contrast portion of the examination. COMPARISON: November 27, 2017 FINDINGS: Normal size of the ventricles and extra-axial spaces for the patient's age. There are a limited number of small white matter hyperintensities, distributed throughout the deep white matter tracts of the cerebral hemispheres, consistent with minimal chronic white matter ischemic changes. Normal bilateral basal ganglia. Normal thalami. There is no extra-axial fluid accumulation. Normal flow voids within the major intracranial circulation suggesting patency by spin echo criteria. Normal venous enhancement. There is no enhancing intra-axial or extra-axial abnormality. Normal sella turcica, pituitary gland, infundibular stalk, optic chiasm and hypothalamus. Normal tectal plate and pineal gland. Normal midbrain, evelyn and medulla. MRI/Brain W/WO Contrast IMPRESSION: No acute intracranial abnormality or masses. Minimal chronic microvascular ischemic changes. Electronically Signed: Aidan Rivera MD at 16:22 EDT Tel , Service support ,
== END ==
PROVIDERS: Family Provider Family Medicine; PCP Family Medicine; Referring Provider Psychiatry & Neurology Neurology; Visit Provider Psychiatry & Neurology Neurology
DX: R41.3 Other amnesia (principal)
CPT/HCPCS: 70553; A9575

== ENCOUNTER 2019-02-08 18:57 | Emergency (ER) | payer MEDICARE, SELFPAY ==
[2019-02-08 18:57] VITALS: BP 115/66; PULSE 81; RESP 18; TEMP 37; O2SAT 96; BMI 49.7
--- NOTE | 2019-02-08 19:04 | CT_ITS ---
STUDY: CT ABDOMEN AND PELVIS WITHOUT CONTRAST REASON FOR EXAM: Female, 68 years old. Right lower quadrant pain and distention RADIATION DOSAGE (If Supplied By Facility): CTDIvol = ( 13.75 ) mGy, DLP = ( 1212.36 ) mGycm TECHNIQUE: Transaxial images were obtained from the dome of the diaphragm to the symphysis pubis without oral contrast, and without intravenous contrast. Sagittal and coronal images were reconstructed. Individualized dose optimization techniques were used for this CT. COMPARISON: March 28, 2018 FINDINGS: The visualized lung bases are unremarkable. The visualized portions of the heart are within normal limits. Normal liver. There is a tiny calcified gallstone without evidence for acute cholecystitis.. Normal spleen. Normal pancreas. There is a hypoattenuated mass in the right adrenal measuring 3.34 x 2.5 cm likely representing benign adenoma Normal right kidney. Normal left kidney. Normal visualized stomach. Normal small intestine. Diverticular changes of the distal descending and sigmoid colon without evidence for acute diverticulitis. The appendix is visualized and appears normal. Atherosclerotic changes of the aorta without evidence for aneurysm Normal inferior vena cava. Normal retroperitoneum. Normal urinary bladder. Normal abdominal wall. Lumbar spine demonstrates advanced spondylosis. CT/Abdomen/Pelvis W IV Cont ONLY IMPRESSION: Cholelithiasis without definitive evidence for acute cholecystitis. This may be further assessed with HIDA scan if indicated. Diverticular changes of the descending and sigmoid colon without evidence for acute diverticulitis Probable right adrenal adenoma unchanged since previous study Electronically Signed: Donavan Mcgrath MD at 21:06 EDT , Service support ,
--- NOTE | 2019-02-08 19:05 | ED.DCSUM_ITS ---
History of Present Illness Chief Complaint: Abd Pain Informant: Patient Onset: Yesterday Context: Gradual Onset Timing: Continuous Current Severity: Moderate Maximum Severity: Moderate Narrative: The patient presents to the emergency department abdominal pain. States of the past 2 days, she has had a dull ache mostly towards her right lower quadrant. She is also felt mildly nauseated and is been feeling bloated. She did have a normal bowel movement yesterday. The patient does have prior surgical history of by 3. She denies ever having a bowel obstruction. She denies fever or chills. She is otherwise been in her normal state of health. She does admit to some increasing urinary frequency. She is not found anything to improve the symptoms. Prior similar symptoms: No Recent Illness/Hospitalization: No Past Medical History - Allergies and Home Meds Allergies/Adverse Reactions: Allergies No Known Allergies Allergy (Verified 02/08/19 18:59) Primary Care Physician: Cj Mcdonald MD [Primary Care Provider] - Prior records reviewed: Yes Past Medical History: - Surgical History: - - She has had 3 sections Lives: Alone Smoking Status: Former smoker Alcohol: None - Family History Maternal Family History: Reports: - - Her mother at the age of 87 from heart trouble. Paternal Family History: Reports: - - Her father from colon cancer. Her paternal grandfather also had colon cancer. Sibling Family History: Reports: - - She has a sister who has had coronary stents in the past. She has a younger sister who from unknown reasons, the patient states she thinks she started herself to . She had a brother who in his 60s with diabetes and probable coronary disease. She has a sister has cancer down below Review of Systems General: Denies: Chills, Fever, Sweats Eyes: Denies: Visual changes - bilaterally, Diplopia ENT: Denies: Rhinorrhea, Sore throat Cardiovascular: Denies: Chest pain, Palpitations Respiratory: Denies: Dyspnea, Cough, Dyspnea on exertion Gastrointestinal: Reports: Abdominal pain, Nausea. Denies: Vomiting, Diarrhea, Melena, Hematochezia Genitourinary: Denies: Dysuria, Hematuria, Frequency Musculoskeletal: Denies: Back pain, Extremity Pain Skin: Denies: Rash, Wounds Neurological: Denies: Headache, Weakness, Numbness Physical Exam Vital Signs/Narrative: Vital Signs Temp Pulse Resp BP Pulse Ox 02/08/19 18:57 98.6 F 81 18 115/66 96 Inital Vital Signs reviewed: Yes General: Well nourished, Well developed, No Acute Distress Head: Normocephalic, Atraumatic Eyes: Perrl, EOMI ENT: Moist mucous membranes, No rhinorrhea Neck: Supple, Nontender Cardiovascular: Regular rate, Regular rhythm, No murmurs Respiratory: No distress, CTA bilaterally, Chest nontender Abdomen: Soft, Nondistended, Normal bowel sounds, Tender. Negative for: Guarding, Rebound tenderness Back: Nontender, Normal Inspection Extremities: Nontender, No edema Skin: Normal color, No rash Neurological: Alert, Oriented x3, Cranial nerves II-XII grossly intact, Normal Strength, Normal Sensation Psychological: Normal affect, Normal Mood Diagnostic/Tx/Re-eval Clinical Impression(s) from Imaging Studies Abdomen/Pelvis CT 02/08/19 19:04 IMPRESSION: Cholelithiasis without definitive evidence for acute cholecystitis. This may be further assessed with HIDA scan if indicated. Diverticular changes of the descending and sigmoid colon without evidence for acute diverticulitis Probable right adrenal adenoma unchanged since previous study Electronically Signed: Donavan Mcgrath MD at 21:06 EDT , Service support , Abnormal Lab Results 02/08/19 02/08/19 02/08/19 19:18 19:18 19:55 WBC 7.9 RBC 4.45 Hgb 12.4 Hct 40.1 MCV 90.1 MCH 27.9 MCHC 30.9 L RDW Std Deviation 53.9 H RDW Coeff of Kin 16.3 H Plt Count 235 MPV 9.5 Immature Gran % (Auto) 0.500 Neut % (Auto) 65.8 Lymph % (Auto) 18.2 L [place] % (Auto) 9.2 Eos % (Auto) 5.2 H Baso % (Auto) 1.1 H Absolute Neuts (auto) 5.2 Absolute Lymphs (auto) 1.44 Nucleated RBC % 0 Sodium Cancelled 143 Potassium Cancelled 3.9 Chloride Cancelled 107 Carbon Dioxide Cancelled 33.0 H Anion Gap Cancelled 3 L BUN Cancelled 18 Creatinine Cancelled 1.11 H Estim Creat Clear Calc Cancelled 80.41 Est GFR (MDRD) Af Amer Cancelled 62 Est GFR (MDRD) Non-Af Cancelled 52 L BUN/Creatinine Ratio Cancelled 16.2 Glucose Cancelled 89 Calcium Cancelled 8.9 Total Bilirubin Cancelled 0.30 AST Cancelled 13 L ALT Cancelled 15 Alkaline Phosphatase Cancelled 73 Total Protein Cancelled 6.2 L Albumin Cancelled 2.8 L Globulin Cancelled 3.4 Albumin/Globulin Ratio Cancelled 0.8 L Lipase Cancelled 145 Urine Color Urine Clarity Urine pH Ur Specific [place] Urine Protein Urine Glucose (UA) Urine Ketones Urine Occult Blood Urine Nitrite Urine Bilirubin Urine Urobilinogen Ur Leukocyte Esterase 02/08/19 22:30 WBC RBC Hgb Hct MCV MCH MCHC RDW Std Deviation RDW Coeff of Kin Plt Count MPV Immature Gran % (Auto) Neut % (Auto) Lymph % (Auto) [place] % (Auto) Eos % (Auto) Baso % (Auto) Absolute Neuts (auto) Absolute Lymphs (auto) Nucleated RBC % Sodium Potassium Chloride Carbon Dioxide Anion Gap BUN Creatinine Estim Creat Clear Calc Est GFR (MDRD) Af Amer Est GFR (MDRD) Non-Af BUN/Creatinine Ratio Glucose Calcium Total Bilirubin AST ALT Alkaline Phosphatase Total Protein Albumin Globulin Albumin/Globulin Ratio Lipase Urine Color Yellow Urine Clarity Sl. Cloudy Urine pH 6.0 Ur Specific [place] 1.010 Urine Protein Negative Urine Glucose (UA) Normal Urine Ketones Negative Urine Occult Blood Negative Urine Nitrite Positive H Urine Bilirubin Negative Urine Urobilinogen Normal Ur Leukocyte Esterase 500 H - Medical Decision Making Patient presents to the emergency department with abdominal pain and nausea. I really cannot re-create her pain. The pain is not in the right upper quadrant. She has no Christianson sign. Given her age and comorbidities, metabolic work-up was pursued. Screening labs are relatively unremarkable. LFTs were normal. CT shows cholelithiasis, but no evidence of acute cholecystitis, and again her exam is not consistent with this. Her urine does show evidence of infection. With fluids, analgesics, antiemetics she is feeling improved. I am going to add a culture to her urine. She will be treated with IV Rocephin, but at this point I do feel that she is safe for outpatient therapy and she is agreeable with this plan of care. She will be placed on oral antibiotics and antiemetics. She will follow-up in 24 hours or return with any worsening symptoms. Impression 1. Acute cystitis 2. Nausea ED Disposition - Plan for ED Patient: Instructions: Bladder Infection, Female (Adult) Prescriptions: Cephalexin [Keflex] 500 mg PO Q8 #20 cap Prescription Printed Ondansetron [Zofran Odt] 4 mg PO Q8H PRN PRN #10 tab PRN Reason: Nausea Prescription Printed Referrals: Cj Mcdonald MD [Primary Care Provider] -
[2019-02-08] MEDS: Morphine 4 MG/ML Syringe IV (19:19)
[2019-02-08] MEDS: 0.9% Normal Saline 1,000 ML 1000 ML IV (19:19)
[2019-02-08] MEDS: Ondansetron 4 MG/2 ML Vial IV (19:19)
[2019-02-08 19:25] LABS: Absolute Lymphocyte Count 1.44 X10^3/uL (0.83-4.51); Absolute Neutrophil Count 5.2 X10^3/uL (2.0-7.7); Basophil# 0.09 X10^3/uL; Basophil% 1.1 % (0-1); Eosinophil# 0.41 X10^3/uL; Eosinophils% 5.2 % (0-5); Hematocrit 40.1 % (37-47); Hemoglobin 12.4 g/dL (12.0-15.0); Lymphocyte # 1.44 X10^3/ul (4.0); Lymphocyte % 18.2 % (19-41); Mean Corp Hgb Conc 30.9 g/dL (32-36); Mean Corpuscular Hgb 27.9 pg (27.0-32.0); Mean Corpuscular Volume 90.1 fL (81-99); Mean Platelet Vol. 9.5 fl (6.2-12.0); Monocyte# 0.73 X10^3/uL; Monocyte% 9.2 % (0-10); NRBC Flagged by Analyzer 0 % (0-5); Neutrophil # 5.22 X10^3/uL (2.7-7.7); Neutrophil % 65.8 % (47-70); Platelet Count 235 K/mm3 (150-450); RBC Distribution Width CV 16.3 % (11.6-14.6); RBC Distribution Width SD 53.9 fl (35.1-43.9); Red Blood Count 4.45 M/mm3 (4.2-5.4); White Blood Count 7.9 K/mm3 (4.4-11.0)
[2019-02-08 20:21] LABS: ALB/GLOB Ratio 0.8 RATIO (0.9-2.4); AST(SGOT) 13 U/L (15-37); Alanine Aminotransfer ALT/SGPT 15 U/L (13-56); Albumin, Serum 2.8 g/dL (3.2-5.0); Alkaline Phosphatase 73 U/L (45-117); Anion Gap 3 (5-15); BUN 18 mg/dL (7-18); BUN/Creat Ratio 16.2 RATIO (10-20); Calcium,Total 8.9 mg/dL (8.5-10.1); Chloride 107 mmol/L (98-107); Creatinine, Serum 1.11 mg/dL (0.55-1.02); EST Glomerular Filtration Rate 52 mL/min (>60); Est Glom Filt Rate - Afr Amer 62 mL/min (>60); Estimated Creatinine Clearance 80.41 ml/min; Globulin 3.4 g/dL (2.2-4.2); Glucose 89 mg/dL (74-106); Lipase 145 U/L (73-393); Potassium 3.9 mmol/L (3.5-5.1); Protein, Total 6.2 g/dL (6.4-8.2); Sodium Level 143 mmol/L (136-145)
[2019-02-08 21:15] VITALS: BP 115/53; PULSE 62; RESP 16; O2SAT 99
[2019-02-08 22:37] LABS: Mucous, Urine 0 SEEN /hpf (<or=2+); Red Blood Cells-Urine 0 SEEN /hpf (0-5)
[2019-02-08 22:44] LABS: Color, Urine Yellow (Yellow); Glucose, Dipstick Normal (Normal); Ketone-Dipstick Negative (Negative); Leukocyte Esterase-Dipstick 500 /ul (Negative); Nitrite-Dipstick Positive (Negative); Occult Blood-Urine Negative /ul (Negative); Protein-Dipstick Negative (Negative); Urine Bilirubin Dipstick Negative (Negative); Urine Clarity Sl. Cloudy (Clear); Urine Urobilinogen Normal (Normal)
[2019-02-08 22:49] LABS: Squamous Epithelial Cells - UA 0-5 SEEN /hpf (5-10); Transitional Epithelial - Ur 0 SEEN /hpf (0-5)
[2019-02-08 22:50] LABS: Hyaline Cast 0-5 SEEN /lpf (0-5)
[2019-02-08 22:51] LABS: Bacteria 2+ /hpf (None Seen)
[2019-02-08 22:52] LABS: White Blood Cells 5-10 SEEN /hpf (0-5)
[2019-02-08] MEDS: Ceftriaxone 1 GM/50 ML BAG IV (23:20)
[2019-02-08 23:23] VITALS: BP 129/61; PULSE 59; RESP 18; O2SAT 92
[2019-02-08 23:59] VITALS: BP 129/61; PULSE 59; RESP 16; O2SAT 92
== END 2019-02-09 | disposition home or self-care (01) ==
LOC: ED 19:25
PROVIDERS: Emergency Provider Emergency Medicine; Family Provider Family Medicine; PCP Family Medicine
DX: N30.00 Acute cystitis without hematuria (principal); K80.20 Calculus of gallbladder without cholecystitis without obstruction; Z83.3 Family history of diabetes mellitus; Z87.891 Personal history of nicotine dependence
CPT/HCPCS: 36415; 74177; 80053; 81001; 83690; 85025; 87086; 87088; 87186; 96361; 96365; 96375; 99283; J7030; J7050; Q9967; A4216; J2405

== ENCOUNTER 2019-02-27 20:36 | Emergency (ER) | payer MEDICARE, SELFPAY ==
[2019-02-27 20:37] VITALS: BP 136/73; PULSE 65; RESP 15; TEMP 36.7; O2SAT 97; BMI 47.7
--- NOTE | 2019-02-27 21:14 | ED.VISSUMM ---
- ER Visit Summary Date of Service: 02/27/19 Chief Complaint: Sore throat History of Present Illness: The patient is a 68 F has had intermittent sore throat for a month. Able to swallow. No fever or chills. Denies any cough. No nausea, vomiting or diarrhea. Physical Examination: Older female no acute distress. Vital signs stable afebrile. Pulse ox 97% on room air no signs of hypoxia. HEENT exam unremarkable. TMs normal bilaterally. Posterior pharynx is normal. There is no erythema or swelling. No exudate. No trouble swallowing or breathing. No stridor or drooling. Gave her a glass of water she drank it easily. Neck nontender. Trachea midline. No mass. No lymphadenopathy. No meningismus. Lungs clear to auscultation. Heart regular rhythm. Abdomen soft nontender. Extremities moves all 4. Neurologically she is awake and alert. Patient does not appear to be septic or toxic or in any distress. Test Results: None Emergency Department Course and Treatment: Clinically her posterior pharynx is normal there is no redness or exudate. This does not look like strep throat. There is no peritonsillar abscess. Treatment Plan: Salt water gargling. Tylenol for pain. Follow-up if not improving. Return if worse. Disposition: Discharge Impression: Acute pharyngitis This note was generated with [employer] dictation software. It may contain incorrect words, spelling, and punctuation that were not noted in review of the chart prior to signing ED Disposition - Plan for ED Patient: Referrals: Cj Mcdonald MD [Primary Care Provider] -
--- NOTE | 2019-02-27 21:16 | ED.DEP ---
ED Disposition - Plan for ED Patient: Disposition: Home or Assisted Living Instructions: PHARYNGITIS, Viral Prescriptions: Acetaminophen [Tylenol] 650 mg PO Q8H PRN PRN #30 cap PRN Reason: Pain Transmission Status: Pending to [facility] - [place] - [id number] Referrals: Cj Mcdonald MD [Primary Care Provider] - 3-5 Days if not improving Additional Instructions: Fluids and rest. Warm salt water gargling. Tylenol for pain. Follow-up with your doctor if not improving return if worse.
[2019-02-27 21:46] VITALS: RESP 18
== END 2019-02-27 21:49 | disposition home or self-care (01) ==
LOC: ED 21:25
PROVIDERS: Emergency Provider Emergency Medicine; Family Provider Family Medicine; PCP Family Medicine
DX: J02.9 Acute pharyngitis, unspecified (principal)
CPT/HCPCS: 99282

== ENCOUNTER → 2020-01-31 13:26 | Outpatient (CLI) | payer MEDICARE, MEDICAID, SELFPAY ==
[2020-01-18 10:09] VITALS: BMI 55.9
--- NOTE | 2020-01-31 13:28 | ECHOCS_ITS ---
Reason For Study: DYSPNEA/SOB Procedure This was a 2D Doppler, Color Flow transthoracic echocardiogram. The study was technically difficult. Exam performed in department. Left Ventricle Normal LV size. Left ventricular systolic function is normal. The estimated ejection fraction is 60 %. Stage 1 diastolic dysfunction. No regional wall motion abnormalities noted. Right Ventricle Normal RV size. Normal systolic function. Atria Normal left atrium. Normal right atrium. Mitral Valve There is mild to moderate mitral annular calcification. Tricuspid Valve Normal tricuspid valve. Aortic Valve The aortic valve is not well visualized. Pulmonic Valve Normal pulmonic valve. Great Vessels Calcified aortic root. The pulmonary artery is normal size. Normal inferior vena cava. Pericardium/Pleural No pericardial effusion. Medication 22 gauge I.V. with prn adaptor inserted into right arm. Diluted definity 3ml given slow IV push to enhance endocardial definition. MMode/2D Measurements & Calculations LVIDd: 5.2 cm IVSd: 1.0 cm Ao root diam: 3.1 cm LVIDs: 3.7 cm LVPWd: 1.2 cm FS: 29.1 % LAV(MOD-bp): 77.7 ml LVAd ap4: 29.9 cm2 SV(MOD-sp4): 52.4 ml LAV(MOD-bp) Indexed: 36.6 ml/m2 EDV(MOD-sp4): 93.1 ml LAV(MOD-sp2): 82.7 ml EDV(sp4-el): 99.2 ml LAV(MOD-sp4): 71.3 ml LVAs ap4: 17.6 cm2 ESV(MOD-sp4): 40.8 ml ESV(sp4-el): 44.0 ml EF(MOD-sp4): 56.2 % EF(sp4-el): 55.7 % SV(sp4-el): 55.2 ml LA A4 area: 24.4 cm2 LA dimension(2D): 3.9 cm RA A4 area: 21.7 cm2 Time Measurements MV dec time: 0.21 sec Doppler Measurements & Calculations MV E max miguel: 107.3 cm/sec Lat Peak E' Miguel: 10.9 cm/sec Med Peak E' Miguel: 10.0 cm/sec MV A max miguel: 97.1 cm/sec E/E' lat: 9.9 E/E' med: 10.7 MV E/A: 1.1 Ao V2 max: 216.8 cm/sec LV V1 max: 94.9 cm/sec PA V2 max: 93.4 cm/sec Ao max P.8 mmHg LV V1 max P.6 mmHg Interpretation Summary Normal LV size. Left ventricular systolic function is normal. The estimated ejection fraction is 60 %. Stage 1 diastolic dysfunction. Contrast injection was performed. Ordering Physician: Ricky Dyer Referring Physician: JEFF BAXTER Performed By: Kelly Calderon RDCS
== END ==
PROVIDERS: PCP Family Medicine; Referring Provider Internal Medicine Cardiovascular Disease; Visit Provider Internal Medicine Cardiovascular Disease
DX: R06.09 Other forms of dyspnea (principal); R06.02 Shortness of breath; R07.9 Chest pain, unspecified
CPT/HCPCS: 93306; Q9957; A4216; C8929

== ENCOUNTER → 2021-02-20 15:05 | Outpatient (CLI) | payer MEDICARE, MEDICAID, SELFPAY ==
[2021-01-02 14:46] VITALS: BMI 55.9
--- NOTE | 2021-02-20 15:06 | BI_ITS ---
MAMMOGRAPHY - BILATERAL SCREENING REASON FOR EXAM: Female, 70 years old. Routine annual screening examination. PERTINENT HISTORY: Non-contributory. TECHNIQUE: Digital bilateral breast romina (3D mammographic acquisition) in the CC and MLO projections. 2-D mediolateral oblique (MLO) and craniocaudad (CC) views of both breasts were obtained. CAD: Full Field Digital Mammography with Computer Added Detection was performed. COMPARISON: No comparison mammograms available at this time. If any prior films become available, an addendum to this report can be generated. FINDINGS: Breast Composition: The breasts are almost entirely fatty. There are no dominant masses or suspicious calcifications. No other significant abnormalities are identified. BI/SCRN MAMM (CAD)W/ROMINA BILAT IMPRESSION: Negative screening mammogram. Yearly followup mammogram recommended. (A) ASSESSMENT CATEGORY: BIRADS Category 1: Negative. A letter regarding these results will be sent to the patient by the facility within 30 days. Approximately 10% of breast cancers are not detected by mammography. A normal mammogram should not delay biopsy of a clinically suspicious abnormality. [id number] Electronically Signed: William Ramirez MD at 16:03 EDT , Service support ,
== END ==
PROVIDERS: PCP Nurse Practitioner Adult Health; Visit Provider Nurse Practitioner Women's Health
DX: Z12.31 Encounter for screening mammogram for malignant neoplasm of breast (principal)
CPT/HCPCS: 77063; 77067

== ENCOUNTER 2021-03-04 09:30 | Outpatient (RCR) | payer MEDICARE, MEDICAID, SELFPAY ==
[2021-01-02 14:46] VITALS: BMI 55.9
--- NOTE | 2021-02-05 12:43 | HP.PTEVAL_ITS ---
Patient's Visit Information CLARECNE MCNEILL is a 70 year old F referred to Physical Therapy by ASIM Altamirano with a diagnosis of R and L knee pain/OA and morbid Obesity. Date of Evaluation: 02/05/21 Physical Therapist: RABIA Anthony - Visit Plan Frequency: 2x /Week Duration: 6 Weeks Plan: 2X/ week for 4-6 weeks for LE (hip and knee and ankle strengthening), functional activities, gait training with HEP. HEP: LAQ and seated heel and toe raises - Subjective Pt reports that she uses the rollator most of the time and in her house some. She has no steps in her house. She takes the elevator up to her apartment. Pt is having trouble with both knees but the L one is worse. She reports that when she moves around it hurts. It hurts to walk around. It kind of hurts when laying in bed. Her knees have been bothering her for a long time and they are just getting worse. She reports that she puts her rollator in front of her chair and pulls herself up to stand. She had a fall more than a year ago but she is not sure if there has been any recent falls. She lives alone. She does not drive and will need the van. She likes to watch TV. She sometimes makes her own meals. She has a cafeteria in her building that she is able to eat there. She struggles with walking, getting in and out of a car. She points to entire B knees as source of pain. - Pain R knee pain Pain Intensity (Out of 10): 4 L knee pain Pain Intensity (Out of 10): 6 - Objective Gait: walks with a rollator with short stride and slow zohaib. swing leg does not pass stance foot, decreased heel to toe gait pattern. Sit to stand: uses arms to get out of a chair on the first attempt. LT MMT: R hip flexion 3+/5 and L hip flexion 3-/5, R knee ext 4-/5 and L knee ext 4-/5, R knee flexion 4/5 and L knee flexion 4-/5 R hip abd 3+/5 and L 3+/5 in sitting. Measurements done in L sidelying cause pt reports that was easier for her: L knee flex 104 degrees and R knee flexion was not able to get pt to the R sidelying but she can get 90 degrees flexion. Pt is able to straighten R knee and when she did it and audible clunk was heard. - Goals Goal 1:: I HEP Goal Time Frame: 4-6 Weeks Goal 2:: Increase LE strength by 1/2 muscle grade (at time of the eval: LT MMT: R hip flexion 3+/5 and L hip flexion 3-/5, R knee ext 4-/5 and L knee ext 4-/5, R knee flexion 4/5 and L knee flexion 4-/5 R hip abd 3+/5 and L 3+/5 in sitting). Goal Time Frame: 4-6 Weeks Goal 3:: Be able to walk with increase stride with rollator and swing leg to pass stance leg. (at time of eval Gait: walks with a rollator with short stride and slow zohaib. swing leg does not pass stance foot, decreased heel to toe gait pattern). Goal Time Frame: 4-6 Weeks - Rehabilitation Potential Rehabilitation Potential: Good - Anticipated Interventions Patient/Client Instruction: Educate patient on: Condition, Plan of Care For the Purpose of:: To decrease pain, To increase ROM, To improve nutrient delivery to tissue, To improve muscle performance and motor function, To improve ability to perform ADL's, To increase tolerance to activity/condition/position, To improve performance and independence with ADL's, To decrease level of supervision to perform tasks, To improve ability of physical actions for home/community/work/leisure, To improve gait and locomotor functions, To improve health of tissue, To increase flexibility/ROM, To improve safety with gait Therapeutic Exercise to Include: Strength training, Postural training, Flexibilty training, Gait and locomotor training, Neuromotor development, Active ROM, Dynamic Lumbar Stabilization For the Purpose of:: To decrease pain, To increase ROM, To improve nutrient delivery to tissue, To improve muscle performance and motor function, To improve ability to perform ADL's, To increase tolerance to activity/condition/position, To improve performance and independence with ADL's, To decrease level of supervision to perform tasks, To improve ability of physical actions for ho me/community/work/leisure, To improve gait and locomotor functions, To improve health of tissue, To decrease soft tissue restriction, To increase flexibility/ROM, To improve balance, To improve safety with gait Functional Training to Include: Gait training For the Purpose of:: To improve gait and locomotor functions, To improve safety with gait Thank you for the opportunity to evaluate your patient. For Medicare and Medicare HMO plans, please review the plan of care and approve it. It will need to be FAXED BACK to us at [phone] for Medicare purposes. For Medicare only, by signing this I certify the plan of care. Please let me know if there are questions or concerns regarding this plan of care. Physician Signature: Date:
== END 2021-03-04 19:00 | disposition home or self-care (01) ==
LOC: PT 09:30
PROVIDERS: PCP Nurse Practitioner Adult Health; Referring Provider Nurse Practitioner Adult Health; Visit Provider Nurse Practitioner Adult Health
DX: M15.0 Primary generalized (osteo)arthritis (principal); M25.551 Pain in right hip; M25.562 Pain in left knee; G25.81 Restless legs syndrome; I10 Essential (primary) hypertension; E66.01 Morbid (severe) obesity due to excess calories
CPT/HCPCS: 97110; 97161

== ENCOUNTER 2021-03-28 13:23 | Emergency (ER) | payer MEDICARE, MEDICAID, SELFPAY ==
[2021-03-28 13:24] VITALS: BP 99/61; PULSE 66; RESP 16; TEMP 37; O2SAT 95; BMI 50.3
[2021-03-28 13:31] VITALS: BP 110/50
--- NOTE | 2021-03-28 14:10 | EDS_ITS ---
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 She is unsure how long this has been here. She does not know if she is on antibiotics. He does not believe she had a fever. She does state that it is a little painful. She states she has been able to eat and drink okay at [facility]. It is reported that she has a urinary tract infection. She states she has not been to wound care. [facility] Medical History (Updated 03/28/21 @ 17:48 by Mayrcarmen Gaviria) Accidental drug overdose Acute kidney injury Anxiety Asthma COLD (chronic obstructive lung disease) Confusion COPD (chronic obstructive pulmonary disease) Dementia Depression DM2 (diabetes mellitus, type 2) Epigastric pain Essential hypertension Hyperlipidemia Hypomagnesemia Hypothyroidism Irritable bowel syndrome Left shoulder pain Left ventricular diastolic dysfunction Lightheadedness Memory deficit RADHA treated with BiPAP Osteoarthritis Secondary pulmonary arterial hypertension Sepsis Super obese UTI (urinary tract infection) Home Medications aspirin 81 mg PO DAILY@0800 04/29/17 [History Last Taken 03/28/18 81 mg] atorvastatin 40 mg PO QHS 04/29/17 [History Last Taken 03/28/18 40 mg] buspirone 30 mg PO BID 04/29/17 [History Last Taken 03/28/18 30 mg] levothyroxine 75 mcg PO DAILY 04/29/17 [History Last Taken 03/28/18 75 mcg] lisinopril 10 mg PO DAILY 04/29/17 [History Last Taken 03/28/18 10 mg] meloxicam 15 mg PO DAILY 04/29/17 [History Last Taken 03/28/18 15 mg] budesonide-formoterol 2 puff INHALATION BID 03/29/18 [History Last Taken 03/28/18] acetaminophen 650 mg tablet,extended release 650 mg PO Q8H 01/17/20 [History Last Taken Unknown] albuterol sulfate 90 mcg/actuation aerosol inhaler 2 puff INHALATION Q6H PRN 01/17/20 [History Last Taken Unknown] latanoprost 0.005 % eye drops 1 drp OPHTHALMIC QPM 01/17/20 [History Last Taken Unknown] memantine 10 mg tablet 10 mg PO BID 01/17/20 [History Last Taken Unknown] trazodone 100 mg tablet 50 mg PO QHS PRN PRN tab 01/17/20 [History Last Taken Unknown] aripiprazole 2 mg tablet 1 mg PO QHS tab 01/18/20 [History Last Taken Unknown] famotidine 20 mg tablet tab PO 01/18/20 [History Last Taken Unknown] fluoxetine 20 mg capsule 40 mg PO DAILY cap 01/18/20 [History Last Taken Un known] lamotrigine 200 mg tablet 200 mg PO DAILY tab 01/18/20 [History Last Taken Unknown] calcium carbonate 600 mg (1,500 mg)-vitamin D3 500 unit capsule cap PO 01/02/21 [History Last Taken Unknown] cholecalciferol (vitamin D3) 125 mcg (5,000 unit) capsule 125 mcg PO DAILY 01/02/21 [History Last Taken Unknown] clotrimazole 1 % topical solution 1 applic TOPICAL BID 14 Days #30 ml 01/02/21 [Rx Last Taken Unknown] docusate sodium 100 mg capsule 100 mg PO DAILY 01/02/21 [History Last Taken Unknown] hydrochlorothiazide 12.5 mg capsule 25 mg PO DAILY cap 01/02/21 [History Last Taken Unknown] hydroxyzine HCl 25 mg tablet 25 mg PO BID PRN 01/02/21 [History Last Taken Unknown] phenazopyridine 100 mg tablet 100 mg PO TID PRN 01/02/21 [History Last Taken Unknown] primidone 50 mg tablet 50 mg PO ONCE 01/02/21 [History Last Taken Unknown] propranolol 20 mg tablet 20 mg PO BID 01/02/21 [History Last Taken Unknown] clindamycin HCl 450 mg PO TID 7 Days #63 cap 03/28/21 [Rx Last Taken Unknown] Allergy/AdvReac Type Severity Reaction Status Date / Time No Known Allergies Allergy Verified 03/28/21 13:29 Family History Sister CAD (coronary artery disease) stents Heart disease Father Cancer Mother Heart disease Brother Diabetes Heart disease CAD (coronary artery disease) Surgical History History of cataract extraction with lens replacement History of section Social History housing: assisted living facility number of children: 2 Smoking Status: Former smoker how long ago did patient quit smokin alcohol intake: never caffeine: Yes additional social history: ROS ROS ED Constitutional Constitutional ED: Denies chills, fever(s) or sweats Eyes Eyes: Denies blurry vision or change in vision ENT ENT ED: Denies ear pain or sore throat Cardiovascular Cardiovascular: Denies chest pain, palpitations or racing heartbeat Respiratory/Chest Respiratory/Chest: Denies cough, dyspnea or sputum Gastrointestinal Gastrointestinal: Denies abdominal pain, constipation, diarrhea, nausea or vomiting Genitourinary Genitourinary ED: Denies dysuria, hematuria or urinary frequency Musculoskeletal Musculoskeletal: Denies arthralgias, myalgias or neck pain Integumentary Reports other Details: Wound right buttocks ; Denies abscess or Abrasions Neurologic Neurologic: Denies headache(s), paresthesias or weakness Psychiatric Psychiatric: Denies anxiety, depression, suicidal ideation or suicidal thoughts Endocrine Endocrinology: Denies polydipsia or polyuria EXAM Physical Exam Const Vital Signs: 03/28/21 13:24 03/28/21 13:31 03/28/21 16:31 Temperature 98.6 F Temperature Source Temporal Pulse Rate 66 59 L Respiratory Rate 16 16 Blood Pressure 99/61 110/50 L 142/62 H Blood Pressure Mean 73 70 88 Pulse Ox 95 97 Oxygen Delivery Method Room Air Room Air Positive obese General Appearance ED: NAD Nutritional Appearance: obese HEENT Reports moist mucous membranes Negative for trauma Eyes PERRL and EOMs intact bilaterally Resp normal respiratory effort and clear to auscultation bilaterally Cardio regular rate and regular rhythm GI normal to inspection, nondistended, normoactive bowel sounds Neuro CN's II-XII intact bilaterally Sensorium / Orientation: alert Psych Attitude: No agitated Mood & Affect: Negative for anxious Skin Skin Narrative: 2 cm circular wound on right buttocks. There is no surrounding induration or erythema. There does not appear to be is scant significant drainage. There is a small area of erythema on the right side of her pannus above this. This is probably 7 cm x 3 cm and is not tender to palpation. MDM MDM MDM Narrative Medical decision making narrative: Patient presenting for wound check on the right buttocks. Apparently this has become bigger than it was previously. Patient was referred to wound care but cannot be seen until next week. On examination this is purely visible with minimal drainage is minimally tender to palpation without crepitance of surrounding cellulitis. The dressing is clean, dry, intact. I obtain blood work which shows a slight leukocytosis of 11.8. Hemoglobin hematocrit are stable. Renal function electrolytes are normal. Urinalysis was negative for infection although it was reported she has had a UTI. She was on Augmentin. This was discussed with the nurse practitioner who is on-call but she is not the one who sent her into the emergency room. She stated that the previous nurse practitioner that sent her in and was concerned for possible osteomyelitis. I explained to her that the patient that the patient has been walking around the emergency room and has had no difficulty. She is also trying to leave and clearly has a history of dementia. I offered to obtain an x-ray of the right hip to ensure that there was no obvious sign of osteomyelitis. On my interpretation of the right hip there is no acute fracture, subluxation, signs of osteomyelitis. The radiologist does agree. Given the patient has only the wound was cultured to clindamycin. Urine culture and wound culture were sent. Patient will be transported back to her facility in stable condition. Impression: 1. Right gluteal wound 2. History of UTI Lab Data Attestation: I reviewed the patient's lab results. Labs: Laboratory Results - last 24 hr 03/28/21 03/28/21 03/28/21 14:30 14:30 15:16 WBC 11.8 H RBC 5.08 Hgb 13.0 Hct 42.6 MCV 83.9 MCH 25.6 L MCHC 30.5 L RDW Std Deviation 50.8 H RDW Coeff of Kin 16.8 H Plt Count 335 MPV 9.0 Immature Gran % (Auto) 0.900 Neut % (Auto) 71.0 H Lymph % (Auto) 13.9 L Wilkin % (Auto) 8.3 Eos % (Auto) 5.2 H Baso % (Auto) 0.7 Absolute Neuts (auto) 8.4 H Absolute Lymphs (auto) 1.63 Nucleated RBC % 0 Sodium 137 Potassium 4.4 Chloride 96 L Carbon Dioxide 36.0 H Anion Gap 5 BUN 21 H Creatinine 1.24 H Estim Creat Clear Calc 73.09 Est GFR (MDRD) Af Amer 55 L Est GFR (MDRD) Non-Af 45 L BUN/Creatinine Ratio 16.9 Glucose 94 Calcium 9.7 Urine Color Yellow Urine Clarity Clear Urine pH 6.0 Ur Specific [place] 1.015 Urine Protein Negative Urine Glucose (UA) Normal Urine Ketones Negative Urine Occult Blood Negative Urine Nitrite Negative Urine Bilirubin Negative Urine Urobilinogen Normal Ur Leukocyte Esterase 25 H Urine RBC 0 SEEN Urine WBC 0-5 SEEN Ur Squamous Epith Cells 0 SEEN Urine Bacteria 0 SEEN Urine Mucus 0 SEEN Radiography Diagnostic Testing: Clinical Impression(s) from Imaging Studies Hip/Pelvis X-Ray 03/28/21 17:05 IMPRESSION: Moderate hip joint space narrowing without fracture or dislocation. Electronically Signed: Jules Sanchez MD at 17:47 EDT Tel , Service support , Discharge Plan Triage Chief Complaint: Wound ED Provider: Christopher Noriega Dx/Rx/DC Orders Instructions: ED Wound Care Prescriptions: New clindamycin HCl 150 mg capsule 450 mg PO TID 7 Days Qty: 63 RF: 0 No Action lamotrigine 200 mg tablet 200 mg PO DAILY RF: 0 famotidine 20 mg tablet PO RF: 0 aripiprazole 2 mg tablet 1 mg PO QHS RF: 0 hydrochlorothiazide 12.5 mg capsule 25 mg PO DAILY RF: 0 albuterol sulfate [ProAir HFA] 90 mcg/actuation HFA aerosol inhaler 2 puff INHALATION Q6H PRNRF: 0 latanoprost 0.005 % drops 1 drp OPHTHALMIC QPM RF: 0 acetaminophen [Tylenol Arthritis Pain] 650 mg tablet extended release 650 mg PO Q8H RF: 0 memantine 10 mg tablet 10 mg PO BID RF: 0 cholecalciferol (vitamin D3) 125 mcg (5,000 unit) capsule 125 mcg PO DAILY RF: 0 propranolol 20 mg tablet 20 mg PO BID RF: 0 docusate sodium [Colace] 100 mg capsule 100 mg PO DAILY RF: 0 primidone 50 mg tablet 50 mg PO ONCE RF: 0 calcium carbonate-vitamin D3 [Calcium 600 with Vitamin D3] 600 mg(1,500mg) - 500 unit capsule PO RF: 0 phenazopyridine [Pyridium] 100 mg tablet 100 mg PO TID PRNRF: 0 hydroxyzine HCl 25 mg tablet 25 mg PO BID PRNRF: 0 clotrimazole 1 % solution 1 applic topical BID 14 Days Qty: 30 RF: 2 atorvastatin 40 MG tablet 40 mg PO QHS RF: 0 meloxicam 15 MG tablet 15 mg PO DAILY RF: 0 levothyroxine 75 MCG tablet 75 mcg PO DAILY RF: 0 buspirone 30 MG tablet 30 mg PO BID RF: 0 lisinopril 10 MG tablet 10 mg PO DAILY RF: 0 aspirin 81 MG tablet,chewable 81 mg PO DAILY@0800 RF: 0 fluoxetine 20 mg capsule 40 mg PO DAILY RF: 0 trazodone 100 mg tablet 50 mg PO QHS PRN PRN (Reason: Sleep) RF: 0 budesonide-formoterol 1 INHALER inhaler 2 puff inhalation BID RF: 0 Primary Care Provider: Lashell Ortiz BIOMETRICS SPECIALIST Referrals: Lashell Ortiz BIOMETRICS SPECIALIST, BIOMETRICS SPECIALIST[facility] [Primary Care Provider] - Disposition Disposition: Home, Self Care Discharge Date/Time: 03/28/21 19:15
[2021-03-28 14:39] LABS: Absolute Lymphocyte Count 1.63 X10^3/uL (0.83-4.51); Absolute Neutrophil Count 8.4 X10^3/uL (2.0-7.7); Basophil# 0.08 X10^3/uL; Basophil% 0.7 % (0-1); Eosinophil# 0.61 X10^3/uL; Eosinophils% 5.2 % (0-5); Hematocrit 42.6 % (37-47); Lymphocyte # 1.63 X10^3/ul (0.83-4.51); Lymphocyte % 13.9 % (19-41); Mean Corp Hgb Conc 30.5 g/dL (32-36); Mean Corpuscular Hgb 25.6 pg (27.0-32.0); Mean Corpuscular Volume 83.9 fL (81-99); Monocyte# 0.98 X10^3/uL; Monocyte% 8.3 % (0-10); NRBC Flagged by Analyzer 0 % (0-5); Neutrophil # 8.35 X10^3/uL (2.7-7.7); Platelet Count 335 K/mm3 (150-450); RBC Distribution Width CV 16.8 % (11.6-14.6); RBC Distribution Width SD 50.8 fl (35.1-43.9); Red Blood Count 5.08 M/mm3 (4.2-5.4); White Blood Count 11.8 K/mm3 (4.4-11.0)
[2021-03-28 14:56] LABS: Anion Gap 5 (5-15); BUN 21 mg/dL (7-18); BUN/Creat Ratio 16.9 RATIO (10-20); Calcium,Total 9.7 mg/dL (8.5-10.1); Chloride 96 mmol/L (98-107); Creatinine, Serum 1.24 mg/dL (0.55-1.02); EST Glomerular Filtration Rate 45 mL/min (>60); Est Glom Filt Rate - Afr Amer 55 mL/min (>60); Estimated Creatinine Clearance 73.09 ml/min; Glucose 94 mg/dL (74-106); Potassium 4.4 mmol/L (3.5-5.1); Sodium Level 137 mmol/L (136-145)
[2021-03-28 15:19] LABS: Bacteria 0 SEEN /hpf (None Seen); Mucous, Urine 0 SEEN /hpf (<or=2+); Red Blood Cells-Urine 0 SEEN /hpf (0-5); Squamous Epithelial Cells - UA 0 SEEN /hpf (5-10)
[2021-03-28 15:24] LABS: Color, Urine Yellow (Yellow); Glucose, Dipstick Normal (Normal); Ketone-Dipstick Negative (Negative); Leukocyte Esterase-Dipstick 25 /ul (Negative); Nitrite-Dipstick Negative (Negative); Occult Blood-Urine Negative /ul (Negative); Protein-Dipstick Negative (Negative); Specific Gravity, Urine 1.015 (1.002-1.030); Urine Bilirubin Dipstick Negative (Negative); Urine Clarity Clear (Clear); Urine Urobilinogen Normal (Normal)
[2021-03-28 15:32] LABS: White Blood Cells 0-5 SEEN /hpf (0-5)
[2021-03-28] MEDS: Ketorolac 15 MG/ML Vial IV (15:36)
[2021-03-28 16:31] VITALS: BP 142/62; PULSE 59; RESP 16; O2SAT 97
--- NOTE | 2021-03-28 17:05 | RAD_ITS ---
STUDY: X-RAY - PELVIS AND RIGHT HIP REASON FOR EXAM: Female, 70 years old. Hip pain TECHNIQUE: 3 views of the pelvis and hip. COMPARISON: None. FINDINGS: There is a non-specific bowel gas pattern. Normal visualized soft tissue structures. Normal bilateral iliac wings, sacroiliac joints and visualized sacrum. Normal bilateral superior and inferior pubic rami. Normal pubic symphysis. Normal bilateral ischial tuberosities. Normal visualized femoral head. Normal acetabulum. There is moderate articular joint space narrowing of the hip. RAD/HIP, UNI W/ Pelvis 2-3 Views IMPRESSION: Moderate hip joint space narrowing without fracture or dislocation. Electronically Signed: Jules Sanchez MD at 17:47 EDT Tel , Service support ,
--- NOTE | 2021-03-28 17:41 | ED.RN ---
per staff at [facility] pt is normally confused.Pt known to have memory issues.
--- NOTE | 2021-03-28 17:58 | ED.RN ---
PT REMOVED OWN IV. STATES I THINK I TOOK IT OUT AND THREW IT IN THE TRASH
[2021-03-28] MEDS: Ziprasidone IM 20 MG/ML VIAL IM (18:23)
--- NOTE | 2021-03-28 18:32 | ED.RN ---
Pt. became slightly aggressive with staff. Continually trying to leave room and stating they are going home. Attempted redirection multiple times. Security called to bedside and medicated as ordered. Pt. awaiting transport. One to One with nurse currently.
[2021-03-28] MEDS: Clindamycin HCl 150 MG Capsule 450 MG PO (19:03)
--- NOTE | 2021-03-28 19:10 | ED.RN ---
Report given to Nila at [facility].
== END 2021-03-28 19:15 | disposition home or self-care (01) ==
PROVIDERS: Emergency Provider Student in an Organized Health Care Education/Training Program; PCP Nurse Practitioner Adult Health
DX: S31.819A Unspecified open wound of right buttock, initial encounter (principal); X58.XXXA Exposure to other specified factors, initial encounter; Y93.89 Activity, other specified; Y92.89 Other specified places as the place of occurrence of the external cause; Z87.440 Personal history of urinary (tract) infections; E03.9 Hypothyroidism, unspecified; E11.9 Type 2 diabetes mellitus without complications; E78.5 Hyperlipidemia, unspecified; F03.90 Unspecified dementia, unspecified severity, without behavioral disturbance, psychotic disturbance, mood disturbance, and anxiety; F41.9 Anxiety disorder, unspecified; F32.9 Major depressive disorder, single episode, unspecified; G47.33 Obstructive sleep apnea (adult) (pediatric); J44.9 Chronic obstructive pulmonary disease, unspecified; K58.9 Irritable bowel syndrome, unspecified; Z79.1 Long term (current) use of non-steroidal anti-inflammatories (NSAID); Z79.82 Long term (current) use of aspirin; Z87.891 Personal history of nicotine dependence; Z98.49 Cataract extraction status, unspecified eye; Z96.1 Presence of intraocular lens; Z79.899 Other long term (current) drug therapy
CPT/HCPCS: 73502; 80048; 81001; 85025; 87070; 87075; 87077; 87086; 87186; 87205; 96372; 96374; 99285; A4216; J3486

== ENCOUNTER 2021-04-11 09:50 | Outpatient (RCR) | payer MEDICARE, MEDICAID, SELFPAY ==
[2021-04-11 10:45] VITALS: BP 111/36; PULSE 59; RESP 16; TEMP 36.4
--- NOTE | 2021-04-11 13:47 | PCM.WC.HP ---
History of Present Illness Date of Service: 04/11/21 Chief Complaint: Right buttock ulcer History of Wound: Ms. Hoover is a 70-year-old who was brought in from her assisted living facility due to nonhealing right buttock ulcer. Exact timing is not known but it is believed to have been present for at least 3 to 4 weeks. Was seen in the emergency room and had imaging which ruled out osteomyelitis. Not very clear on what dressings have been done. She feels well at this time, denies chills, fever, nausea, vomiting or change in bowel habit. Her complex case manager states that she sits most of the day. [facility] Medical History (Updated 04/11/21 @ 13:[address] Delonte Burden MD) Accidental drug overdose Acute kidney injury Anxiety Asthma COLD (chronic obstructive lung disease) Confusion COPD (chronic obstructive pulmonary disease) Decubitus ulcer of right buttock, stage 3 Dementia Depression DM2 (diabetes mellitus, type 2) Epigastric pain Essential hypertension Hyperlipidemia Hypomagnesemia Hypothyroidism Irritable bowel syndrome Left shoulder pain Left ventricular diastolic dysfunction Lightheadedness Memory deficit RADHA treated with BiPAP Osteoarthritis Secondary pulmonary arterial hypertension Sepsis Super obese UTI (urinary tract infection) Home Medications aspirin 81 mg PO DAILY@0800 04/29/17 [History Last Taken 03/28/18 81 mg] atorvastatin 40 mg PO QHS 04/29/17 [History Last Taken 03/28/18 40 mg] buspirone 30 mg PO BID 04/29/17 [History Last Taken 03/28/18 30 mg] levothyroxine 75 mcg PO DAILY 04/29/17 [History Last Taken 03/28/18 75 mcg] lisinopril 10 mg PO DAILY 04/29/17 [History Last Taken 03/28/18 10 mg] meloxicam 15 mg PO DAILY 04/29/17 [History Last Taken 03/28/18 15 mg] budesonide-formoterol 2 puff INHALATION BID 03/29/18 [History Last Taken 03/28/18] acetaminophen 650 mg tablet,extended release 650 mg PO Q8H 01/17/20 [History Last Taken Unknown] albuterol sulfate 90 mcg/actuation aerosol inhaler 2 puff INHALATION Q6H PRN 01/17/20 [History Last Taken Unknown] latanoprost 0.005 % eye drops 1 drp OPHTHALMIC QPM 01/17/20 [History Last Taken Unknown] memantine 10 mg tablet 10 mg PO BID 01/17/20 [History Last Taken Unknown] trazodone 100 mg tablet 50 mg PO QHS PRN PRN tab 01/17/20 [History Last Taken Unknown] aripiprazole 2 mg tablet 1 mg PO QHS tab 01/18/20 [History Last Taken Unknown] famotidine 20 mg tablet tab PO 01/18/20 [History Last Taken Unknown] fluoxetine 20 mg capsule 40 mg PO DAILY cap 01/18/20 [History Last Taken Unknown] lamotrigine 200 mg tablet 200 mg PO DAILY tab 01/18/20 [History Last Taken Unknown] calcium carbonate 600 mg (1,500 mg)-vitamin D3 500 unit capsule cap PO 01/02/21 [History Last Taken Unknown] cholecalciferol (vitamin D3) 125 mcg (5,000 unit) capsule 125 mcg PO DAILY 01/02/21 [History Last Taken Unknown] clotrimazole 1 % topical solution 1 applic TOPICAL BID 14 Days #30 ml 01/02/21 [Rx Last Taken Unknown] docusate sodium 100 mg capsule 100 mg PO DAILY 01/02/21 [History Last Taken Unknown] hydrochlorothiazide 12.5 mg capsule 25 mg PO DAILY cap 01/02/21 [History Last Taken Unknown] hydroxyzine HCl 25 mg tablet 25 mg PO BID PRN 01/02/21 [History Last Taken Unknown] phenazopyridine 100 mg tablet 100 mg PO TID PRN 01/02/21 [History Last Taken Unknown] primidone 50 mg tablet 50 mg PO ONCE 01/02/21 [History Last Taken Unknown] propranolol 20 mg tablet 20 mg PO BID 01/02/21 [History Last Taken Unknown] clindamycin HCl 450 mg PO TID 7 Days #63 cap 03/28/21 [Rx Last Taken Unknown] Allergy/AdvReac Type Severity Reaction Status Date / Time No Known Allergies Allergy Verified 03/28/21 13:29 Family History Sister CAD (coronary artery disease) stents Heart disease Father Cancer Mother Heart disease Brother Diabetes Heart disease CAD (coronary artery disease) Surgical History History of cataract extraction with lens replacement History of section Social History housing: assisted living facility number of children: 2 Smoking Status: Former smoker how long ago did patient quit smokin alcohol intake: never caffeine: Yes additional social history: ROS Constitutional Constitutional: Denies headache(s), lethargy, malaise, night sweats or poor appetite Eyes Eyes: Denies bloody eye, blurry vision, burning, change in eye color or change in vision ENT HEENT: Denies dysphagia, ear discharge, ear pain, epistaxis, foreign body in nose or halitosis Cardiovascular Cardiovascular: Denies clubbing, cold extremities, cyanosis, diaphoresis or dyspnea at rest Respiratory/Chest Respiratory/Chest: Denies chest congestion, chest tightness, cough, hemoptysis, hoarseness or nail bed cyanosis Gastrointestinal Gastrointestinal: Denies belching, change in bowel habits, chewing difficulty, cramping, diarrhea or dry heaves Genitourinary Genitourinary: Denies abdominal discomfort, burning urination, difficulty urinating or dysuria Musculoskeletal Musculoskeletal: Denies atrophy, joint swelling, muscle cramps, muscle weakness or neck pain Integumentary Integumentary: Denies furuncle, hirsutism, jaundice, lesions or nail changes Neurologic Neurologic: Denies burning sensations, confusion, convulsions, disequilibrium, dizziness or focal weakness Psychiatric Psychiatric: Denies anxiety, auditory hallucinations, behavioral changes, change in appetite, hopelessness or irritability Endocrine Endocrinology: Denies excessive sweating, fatigue, flushing, heat intolerance or increase in ring/shoe/hat size Vital Signs Vital Signs Vital Signs: 04/11/21 10:45 Temperature 97.6 F L Temperature Source Temporal Pulse Rate 59 L Respiratory Rate 16 Blood Pressure 111/36 L Blood Pressure Mean 61 Blood Pressure Source Monitor Blood Pressure Position Sitting Blood Pressure Location Right Arm Physical Exam Const alert and no apparent distress General Appearance: cooperative, comfortable and well kempt HEENT normocephalic and head/scalp atraumatic Eyes EOMs intact bilaterally General Eye: normal appearance of both eyes Neck full ROM General: normal visual inspection Resp normal respiratory effort Effort and Inspection: able to speak in complete sentences Extremity normal to inspection and full ROM Skin Wounds: wounds noted Neuro CN's II-XII intact bilaterally, moves all extremities and no focal motor deficits Psych mental status grossly normal Appearance: grossly normal Attitude: calm Activity / Motor Behavior: appropriate eye contact Speech: normal speech Debridement Note Debridement Note Wound debrided: Right buttock Wound Grade/Stage: Stage III Type of Debridement: Excisional debridement Anesthesia Used: 4% Lidocaine Solution Depth: Down to and including healthy tissue and in the subcutaneous layer Percentage of wound debrided: 100 Instrument Used: 5mm curette Tissue Removed: Slough and devitalized tissue Severity: Fat Layer Exposed Amount of bleeding with debridement: Mild Bleeding Controlled with: Pressure Patient tolerated procedure: Patient tolerated procedure well Post-Debridement Measurements and Additional Note: Post-Debridement Measurements/Treatment WC - Nurse 1 - General Ulcer Assessment Start: 04/11/21 10:21 Freq: Status: Active Protocol: MANUEL Activity Type Activity Date Activity User E-Sign Co-Sign Detail Recorded Client Recorded Date Recorded By Document 04/11/21 10:45 ML [id number] 04/11/21 10:51 ML 04/11/21 10:45 WC - Today's Visit Information Type of service Initial Visit Arrival Mode Ambulatory, Walker Transfer Assistance None Patient Identification Verified (Name & Yes ) Patient Requires Transmission-Based No Precautions Safety Precautions NA Vital Signs Temperature (97.8 F-99.1 F) 97.6 F L Temperature Source Temporal Pulse Rate (60-100) 59 L Respiratory Rate (12-18) 16 Respiratory rate source Observation Blood Pressure (90/60-120/80) 111/36 L Blood Pressure Mean 61 Source Monitor Position Sitting Blood Pressure Location Right Arm History Since Last Visit- (Skip if this is Patient's initial visit) Any new allergies or adverse reactions No Had a fall/change in ADL's that may No increase risk of falls Signs or symptoms of abuse and/or No neglect since last visit Have you been in the hospital since your No last visit? Has dressing in place as prescribed Yes Has compression in place as prescribed N/A Has offloadiing in place as prescribed N/A Experienced any changes in pain level or No management Left Footwear Regular Shoe Right Footwear Regular Shoe - Nurse 1 - General Ulcer Measurement Start: 04/11/21 10:21 Freq: Status: Active Protocol: Activity Type Activity Date Activity User E-Sign Co-Sign Detail Recorded Client Recorded Date Recorded By Document 04/11/21 10:45 ML [id number] 04/11/21 10:51 ML 04/11/21 10:45 Wound Center Nurse 1 #1 R Buttock -Current Size (cm) - Length 2 -Current Size (cm) - Width 2.5 -Current Size (cm) - Depth 0.3 -Total Square Cm 5.0 -Exudate Amt Medium -Exudate Type Serosanguineous -Wound Margin Distinct, Outline Attached -Granulation Amt Medium (34-66%) -Granulation Quality Red -Necrosis Amt Medium (34-66%) -Necrotic Tissue Type Adherent Slough -Texture (Anjelica-wound Skin Appearance) Assessed -Moisture (Anjelica-wound Skin Appearance) Assessed -Color (Anjelica-wound Skin Appearance) Assessed -Temperature (Anjelica-wound Skin No Abnormality Appearance) (Pt Warm) -Tenderness on Palpation (Anjelica-wound No Skin Appearance) -Ulcer Cleansing Soap and Water -Foul Odor after Cleansing No -Anesthetic Used 5% Lidocaine Gel WC - Nurse 2 - General Ulcer CM Notes Start: 04/11/21 10:21 Freq: Status: Active Protocol: Activity Type Activity Date Activity User E-Sign Co-Sign Detail Recorded Client Recorded Date Recorded By Document 04/11/21 11:05 MW [id number] 04/11/21 11:11 MW 04/11/21 11:05 Wound Center Nurse 2 -Time 11:08 -Correct Patient Yes -Correct Side, Site, Position Yes -Correct Procedure Yes -Procedure Performed Yes -Type of Procedure Debridement -Clinical Debridement Subcutaneous -Tissue Removed Subcutaneous -Post Debridement (cm) - Length 1.8 -Post Debridement (cm) - Width 2.5 -Post Debridement (cm) - Depth 0.5 -Total Square (Post) (cm) 4.50 -Area of Debridement (cm) - Length 1.8 -Area of Debridement (cm) - Width 2.5 -Total Square (Area) (cm) 4.50 -Tunneling No -Undermining/Tunneling No -Circular Undermining No -Wound/Ulcer Outcome Not Healed -Ulcer Cleansing Rinsed/ Irrigated with Saline -Foul Odor after Cleansing No -Bioengineered Tissue No -Bleeding Controlled with Pressure -Offloading No -Treatment Response Procedure Tolerated Well -Debridement - Subq, 1st 20sq cm Yes Pain Scale: 0-10 Numeric Is Patient Pain Free? Yes WC - Nurse 3 - General Ulcer D/C NN Start: 04/11/21 10:21 Freq: Status: Active Protocol: Activity Type Activity Date Activity User E-Sign Co-Sign Detail Recorded Client Recorded Date Recorded By Document 04/11/21 11:22 SAIGE [id number] 04/11/21 11:23 SAIGE 04/11/21 11:22 Wound Care Nurse 3 #1 R Buttock -Ulcer Cleansing Rinsed/ Irrigated with Saline -Foul Odor after Cleansing No -Negative Pressure Wound Therapy N/A -Primary Dressing Applied Mepilex Border, Promogran -Mepilex Border 1 -Promogran 1 WC - Visit Discharge Discharge Condition Stable Ambulatory Status Ambulatory, Walker Transportation Private Auto Accompanied by daughter Medication Reconcilliation completed & No provided to patient/care provider Clinical Summary of Care Provided Yes Charges/Coding Visit Charges Office Visits / Consults: 71612 OV L3 New Multi Select Codes Integumentary Integumentary CPT Codes: 22138 Sussy subq tissue 20 sq cm/< Assessment/Plan Assessment/Plan (1) Decubitus ulcer of right buttock, stage 3: CODE(S): L89.313 - Pressure ulcer of right buttock, stage 3 (2) Memory deficit: CODE(S): R41.3 - Other amnesia PLAN: Debridement done as documented above, procedure was well-tolerated. We will hold off cultures at this time. Recently completed antibiotics. Promogran to right buttock ulcer daily to twice daily depending on drainage. Prescription for gel cushion given. Offloading strongly recommended. Increase protein intake, vitamin C, D and zinc also recommended. Their questions were answered and they were advised to call with any further questions or concerns. Follow-up in a week. This note was generated with [email or web address] dictation software. It may contain incorrect words, spelling, and punctuation that were not noted in checking the note before signing.
== END 2021-04-14 23:59 ==
LOC: WC 09:50
PROVIDERS: PCP Nurse Practitioner Adult Health; Visit Provider Internal Medicine
DX: L89.313 Pressure ulcer of right buttock, stage 3 (principal); R41.3 Other amnesia; E03.9 Hypothyroidism, unspecified; E11.9 Type 2 diabetes mellitus without complications; E78.5 Hyperlipidemia, unspecified; F03.90 Unspecified dementia, unspecified severity, without behavioral disturbance, psychotic disturbance, mood disturbance, and anxiety; F32.9 Major depressive disorder, single episode, unspecified; F41.9 Anxiety disorder, unspecified; G47.33 Obstructive sleep apnea (adult) (pediatric); J44.9 Chronic obstructive pulmonary disease, unspecified; M19.90 Unspecified osteoarthritis, unspecified site; K58.9 Irritable bowel syndrome, unspecified; I27.21 Secondary pulmonary arterial hypertension; Z87.891 Personal history of nicotine dependence; Z79.1 Long term (current) use of non-steroidal anti-inflammatories (NSAID); Z79.82 Long term (current) use of aspirin
CPT/HCPCS: 11042; 99213; G0463

== ENCOUNTER 2021-05-02 08:45 | Outpatient (RCR) | payer MEDICARE, MEDICAID, SELFPAY ==
[2021-04-15 00:33] VITALS: BP 111/36; PULSE 59; RESP 16; TEMP 36.4
[2021-04-18 08:40] VITALS: BP 127/58; PULSE 63; RESP 16; TEMP 35.7
--- NOTE | 2021-04-18 09:03 | PCM.WC.PN ---
History of Present Illness Date of Service: 04/18/21 Chief Complaint: Right buttock ulcer History of Wound: Ms. Hoover is a 70-year-old who was brought in from her assisted living facility due to nonhealing right buttock ulcer. Exact timing is not known but it is believed to have been present for at least 3 to 4 weeks. Was seen in the emergency room and had imaging which ruled out osteomyelitis. Not very clear on what dressings have been done. She feels well at this time, denies chills, fever, nausea, vomiting or change in bowel habit. Her correctional casework specialist states that she sits most of the day. Subjective Subjective No new concerns at this time. Has been applying dressing as recommended. Right buttock ulcer is improving. Objective Data Objective Data Vital Signs: Vital Signs Temp Pulse Resp BP 96.3 F L 63 16 127/58 H 04/18/21 08:40 04/18/21 08:40 04/18/21 08:40 04/18/21 08:40 Charges/Coding Procedures Integumentary [id number]: [id number] Sussy subq tissue 20 sq cm/< Physical Exam Const alert and no apparent distress General Appearance: cooperative, comfortable and well kempt HEENT normocephalic and head/scalp atraumatic Eyes EOMs intact bilaterally General Eye: normal appearance of both eyes Neck full ROM General: normal visual inspection Resp normal respiratory effort Effort and Inspection: able to speak in complete sentences Extremity normal to inspection and full ROM Skin Wounds: wounds noted Neuro CN's II-XII intact bilaterally, moves all extremities and no focal motor deficits Psych mental status grossly normal Appearance: grossly normal Attitude: calm Activity / Motor Behavior: appropriate eye contact Speech: normal speech Debridement Note Debridement Note Wound debrided: Right Buttock Type of Debridement: Excisional debridement Anesthesia Used: 4% Lidocaine Solution Depth: Down to and including healthy tissue and in the subcutaneous layer Percentage of wound debrided: 100 Instrument Used: 3mm curette Tissue Removed: Slough and devitalized tissue Severity: Fat Layer Exposed Amount of bleeding with debridement: Mild Bleeding Controlled with: Pressure Patient tolerated procedure: Patient tolerated procedure well Post-Debridement Measurements and Additional Note: Post-Debridement Measurements/Treatment [id number] - Nurse 1 - General Ulcer Assessment Start: 04/18/21 08:40 Freq: Status: Active Protocol: WC.LOWEXT Activity Type Activity Date Activity User E-Sign Co-Sign Detail Recorded Client Recorded Date Recorded By Document 04/18/21 08:40 ML [id number] 04/18/21 08:53 ML 04/18/21 08:40 WC - Today's Visit Information Type of service Follow-up Visit (Physician/METHODS TIME ANALYST ) Arrival Mode Ambulatory Patient Identification Verified (Name & Yes ) Patient Requires Transmission-Based No Precautions Safety Precautions NA Vital Signs Temperature (97.8 F-99.1 F) 96.3 F L Temperature Source Temporal Pulse Rate (60-100) 63 Pulse Location Monitor Respiratory Rate (12-18) 16 Respiratory rate source Observation Blood Pressure (90/60-120/80) 127/58 H Blood Pressure Mean (mm Hg) 81 Source Monitor Position Supine Blood Pressure Location Right Arm History Since Last Visit- (Skip if this is Patient's initial visit) Have you changed medications since your No last visit? Any new allergies or adverse reactions No Had a fall/change in ADL's that may No increase risk of falls Signs or symptoms of abuse and/or No neglect since last visit Have you been in the hospital since your No last visit? Has dressing in place as prescribed Yes Has compression in place as prescribed N/A Has offloadiing in place as prescribed N/A Experienced any changes in pain level or No management Left Footwear Regular Shoe Right Footwear Regular Shoe Pain Scale: 0-10 Numeric Is Patient Pain Free? Yes - Nurse 1 - General Ulcer Measurement Start: 04/18/21 08:40 Freq: Status: Active Protocol: Activity Type Activity Date Activity User E-Sign Co-Sign Detail Recorded Client Recorded Date Recorded By Document 04/18/21 08:40 ML [id number] 04/18/21 08:53 ML 04/18/21 08:40 Wound Center Nurse 1 #1 R Buttock -Current Size (cm) - Length 1 -Current Size (cm) - Width 2 -Current Size (cm) - Depth 0.1 -Total Square Cm 2 -Exudate Amt Medium -Exudate Type Serosanguineous -Wound Margin Distinct, Outline Attached -Granulation Amt Medium (34-66%) -Necrosis Amt Medium (34-66%) -Necrotic Tissue Type Adherent Slough -Texture (Anjelica-wound Skin Appearance) Assessed -Moisture (Anjelica-wound Skin Appearance) Assessed -Color (Anjelica-wound Skin Appearance) Assessed -Temperature (Anjelica-wound Skin No Abnormality Appearance) (Pt Warm) -Ulcer Cleansing Rinsed/ Irrigated with Saline -Foul Odor after Cleansing No -Anesthetic Used 5% Lidocaine Gel Assessment/Plan Assessment/Plan (1) Decubitus ulcer of right buttock, stage 3: CODE(S): L89.313 - Pressure ulcer of right buttock, stage 3 (2) Memory deficit: CODE(S): R41.3 - Other amnesia PLAN: Debridement done as documented above, procedure was well-tolerated. Improving. Continue Promogran to right buttock ulcer daily to twice daily depending on drainage. Continued offloading, Increased protein intake, vitamin C, D and zinc also recommended. Their questions were answered and they were advised to call with any further questions or concerns. Follow-up in a week. This note was generated with [employer] dictation software. It may contain incorrect words, spelling, and punctuation that were not noted in checking the note before signing.
[2021-04-25 09:52] VITALS: BP 148/77; PULSE 65; TEMP 35.5
--- NOTE | 2021-04-25 12:59 | PN.PCM_ITS ---
History of Present Illness Date of Service: 04/25/21 Chief Complaint: Right buttock ulcer History of Wound: Ms. Hoover is a 70-year-old who was brought in from her assisted living facility due to nonhealing right buttock ulcer. Exact timing is not known but it is believed to have been present for at least 3 to 4 weeks. Was seen in the emergency room and had imaging which ruled out osteomyelitis. Not very clear on what dressings have been done. She feels well at this time, denies chills, fe eris, nausea, vomiting or change in bowel habit. Her child support case officer states that she sits most of the day. Progress of Wound: Improving Ulcer. No new concerns. Subjective Subjective No new concerns at this time. Has been applying dressing as recommended. Objective Data Objective Data Vital Signs: Vital Signs Temp Pulse Resp BP 96 F L 65 16 148/77 H 04/25/21 09:52 04/25/21 09:52 04/18/21 08:40 04/25/21 09:52 Charges/Coding Procedures Integumentary 111xxx-113xx: [id number] Sussy subq tissue 20 sq cm/< Physical Exam Const alert and no apparent distress General Appearance: cooperative, comfortable and well kempt HEENT normocephalic and head/scalp atraumatic Eyes EOMs intact bilaterally General Eye: normal appearance of both eyes Neck full ROM General: normal visual inspection Resp normal respiratory effort Effort and Inspection: able to speak in complete sentences Extremity normal to inspection and full ROM Skin Wounds: wounds noted Neuro CN's II-XII intact bilaterally, moves all extremities and no focal motor deficits Psych mental status grossly normal Appearance: grossly normal Attitude: calm Activity / Motor Behavior: appropriate eye contact Speech: normal speech Debridement Note Debridement Note Wound debrided: Right Buttock Type of Debridement: Excisional debridement Anesthesia Used: 4% Lidocaine Solution Depth: Down to and including healthy tissue and in the subcutaneous layer Percentage of wound debrided: 100 Instrument Used: 3mm curette Tissue Removed: Slough and devitalized tissue Severity: Fat Layer Exposed Amount of bleeding with debridement: Mild Bleeding Controlled with: Pressure Patient tolerated procedure: Patient tolerated procedure well Post-Debridement Measurements and Additional Note: Post-Debridement Measurements/Treatment ERIKA - Nurse 1 - General Ulcer Assessment Start: 04/18/21 08:40 Freq: Status: Active Protocol: WC.LOWEXT Activity Type Activity Date Activity User E-Sign Co-Sign Detail Recorded Client Recorded Date Recorded By Document 04/18/21 08:40 ML [id number] 04/18/21 08:53 ML Document 04/25/21 09:52 AK [id number] 04/25/21 09:54 AK 04/18/21 04/25/21 08:40 09:52 - Today's Visit Information Type of service Follow-up Visit Follow-up Visit (Physician/DIRECTOR OF SOFTWARE ENGINEERING (Physician/DIRECTOR OF SOFTWARE ENGINEERING ) ) Arrival Mode Ambulatory Ambulatory, Walker Patient Identification Verified (Name & Yes Yes ) Patient Requires Transmission-Based No No Precautions Safety Precautions NA Vital Signs Temperature (97.8 F-99.1 F) 96.3 F L 96 F L Temperature Source Temporal Temporal Pulse Rate (60-100) 63 65 Pulse Location Monitor Monitor Respiratory Rate (12-18) 16 Respiratory rate source Observation Blood Pressure (90/60-120/80) 127/58 H 148/77 H Blood Pressure Mean (mm Hg) 81 100 Source Monitor Monitor Position Supine Blood Pressure Location Right Arm History Since Last Visit- (Skip if this is Patient's initial visit) Have you changed medications since your No No last visit? Any new allergies or adverse reactions No No Had a fall/change in ADL's that may No No increase risk of falls Signs or symptoms of abuse and/or No No neglect since last visit Have you been in the hospital since your No No last visit? Has dressing in place as prescribed Yes Yes Has compression in place as prescribed N/A N/A Has offloadiing in place as prescribed N/A N/A Experienced any changes in pain level or No No management Left Footwear Regular Shoe Regular Shoe Right Footwear Regular Shoe Regular Shoe Pain Scale: 0-10 Numeric Is Patient Pain Free? Yes - Nurse 1 - General Ulcer Measurement Start: 04/18/21 08:40 Freq: Status: Active Protocol: Activity Type Activity Date Activity User E-Sign Co-Sign Detail Recorded Client Recorded Date Recorded By Document 04/18/21 08:40 ML [id number] 04/18/21 08:53 ML Document 04/25/21 09:52 SAIGE [id number] 04/25/21 09:54 SD 04/18/21 04/25/21 08:40 09:52 Wound Center Nurse 1 #1 R Buttock -Combined with other wound No -Current Size (cm) - Length 1 0.5 -Current Size (cm) - Width 2 1.6 -Current Size (cm) - Depth 0.1 0.1 -Total Square Cm 2 0.80 -Photo Taken No -Epithelialization None Present -Tunneling No -Undermining/Tunneling No -Circular Undermining No -Classification - Thickness Partial Thickness -Change in Wound Grade/Stage No -Exudate Amt Medium Small -Exudate Type Serosanguineous Serosanguineous -Wound Margin Distinct, Distinct, Outline Outline Attached Attached -Granulation Amt Medium (34-66%) None Present (0 %) -Granulation Quality N/A -Slough/Fibrin No -Necrosis Amt Medium (34-66%) None Present (0 %) -Necrotic Tissue Type Adherent Slough -Structure Exposed N/A -Texture (Anjelica-wound Skin Appearance) Assessed No Abnormality, Assessed -Moisture (Anjelica-wound Skin Appearance) Assessed No Abnormality, Assessed -Color (Anjelica-wound Skin Appearance) Assessed No Abnormality, Assessed -Temperature (Anjelica-wound Skin No Abnormality No Abnormality Appearance) (Pt Warm) (Pt Warm) -Tenderness on Palpation (Anjelica-wound No Skin Appearance) -Ulcer Cleansing Rinsed/ Soap and Water Irrigated with Saline -Foul Odor after Cleansing No No -Anesthetic Used 5% Lidocaine 5% Lidocaine Gel Gel WC - Nurse 2 - General Ulcer CM Notes Start: 04/18/21 08:40 Freq: Status: Active Protocol: Activity Type Activity Date Activity User E-Sign Co-Sign Detail Recorded Client Recorded Date Recorded By Document 04/18/21 09:04 PL [id number] 04/18/21 09:05 PL Document 04/25/21 10:05 MW [id number] 04/25/21 10:07 MW 04/18/21 04/25/21 09:04 10:05 Wound Center Nurse 2 -Time 08:58 10:07 -Correct Patient Yes Yes -Correct Side, Site, Position Yes Yes -Correct Procedure Yes Yes -Procedure Performed Yes Yes -Type of Procedure Debridement Debridement -Clinical Debridement Subcutaneous Subcutaneous -Tissue Removed Subcutaneous Subcutaneous -Post Debridement (cm) - Length 0.9 0.6 -Post Debridement (cm) - Width 2.0 2.0 -Post Debridement (cm) - Depth 0.3 0.1 -Total Square (Post) (cm) 1.80 1.20 -Area of Debridement (cm) - Length 0.9 0.6 -Area of Debridement (cm) - Width 2.0 2.0 -Total Square (Area) (cm) 1.80 1.20 -Tunneling No No -Undermining/Tunneling No No -Circular Undermining No No -Wound/Ulcer Outcome Not Healed Not Healed -Ulcer Cleansing Rinsed/ Rinsed/ Irrigated with Irrigated with Saline Saline -Foul Odor after Cleansing No No -Bioengineered Tissue No No -Bleeding Controlled with Pressure -Offloading No -Treatment Response Procedure Tolerated Well -Debridement - Subq, 1st 20sq cm Yes Yes Pain Scale: 0-10 Numeric Is Patient Pain Free? Yes - Nurse 3 - General Ulcer D/C NN Start: 04/18/21 08:40 Freq: Status: Active Protocol: Activity Type Activity Date Activity User E-Sign Co-Sign Detail Recorded Client Recorded Date Recorded By Document 04/18/21 09:21 DL [id number] 04/18/21 09:22 DL Document 04/25/21 10:20 AK [id number] 04/25/21 10:22 AK 04/18/21 04/25/21 09:21 10:20 Wound Care Nurse 3 #1 R Buttock -Ulcer Cleansing Rinsed/ Soap and Water Irrigated with Saline -Foul Odor after Cleansing No No -Negative Pressure Wound Therapy N/A -Primary Dressing Applied NonAdherent Mepilex Border, Contact Layer, Promogran Promogran Emily Matter -Mepilex Border 1 -Promogran 1 -Promogran Emily Matter 1 Treatment Response Procedure Tolerated Well Pain Scale: 0-10 Numeric Is Patient Pain Free? Yes - Visit Discharge Discharge Condition Stable Stable Ambulatory Status Ambulatory, Wheelchair Transportation Private Auto Private Auto Medication Reconcilliation completed & No provided to patient/care provider Clinical Summary of Care Provided Yes Facility Type [facility] Technician Care Facility Orders Sent Yes Assessment/Plan Assessment/Plan (1) Decubitus ulcer of right buttock, stage 3: CODE(S): L89.313 - Pressure ulcer of right buttock, stage 3 (2) Memory deficit: CODE(S): R41.3 - Other amnesia PLAN: Debridement done as documented above, procedure was well-tolerated. Improving. Continue Promogran to right buttock ulcer daily to twice daily depending on drainage. Continued offloading, Increased protein intake, vitamin C, D and zinc also recommended. Their questions were answered and they were advised to call with any further questions or concerns. Follow-up in a week. This note was generated with [employer] software. It may contain incorrect words, spelling, and punctuation that were not noted in checking the note before signing.
[2021-05-02 08:43] VITALS: BP 151/64; PULSE 74; RESP 16; TEMP 35.4
--- NOTE | 2021-05-02 09:09 | PCM.WC.PN ---
History of Present Illness Date of Service: 05/02/21 Chief Complaint: Right buttock ulcer History of Wound: Ms. Hoover is a 70-year-old who was brought in from her assisted living facility due to nonhealing right buttock ulcer. Exact timing is not known but it is believed to have been present for at least 3 to 4 weeks. Was seen in the emergency room and had imaging which ruled out osteomyelitis. Not very clear on what dressings have been done. She feels well at this time, denies chills, fever, nausea, vomiting or change in bowel habit. Her ed case manager states that she sits most of the day. Progress of Wound: Significant improvement. Minimal area left. Subjective Subjective No new concerns at this time. Has been applying dressing as recommended. Objective Data Objective Data Vital Signs: Vital Signs Temp Pulse Resp BP 95.7 F L 74 16 151/64 H 05/02/21 08:43 05/02/21 08:43 05/02/21 08:43 05/02/21 08:43 Charges/Coding Visit Charges Office Visits / Consults: [id number] OV L4 Est Physical Exam Const alert and no apparent distress General Appearance: cooperative, comfortable and well kempt HEENT normocephalic and head/scalp atraumatic Eyes EOMs intact bilaterally General Eye: normal appearance of both eyes Neck full ROM General: normal visual inspection Resp normal respiratory effort Effort and Inspection: able to speak in complete sentences Extremity normal to inspection and full ROM Skin Wounds: wounds noted Neuro CN's II-XII intact bilaterally, moves all extremities and no focal motor deficits Psych mental status grossly normal Appearance: grossly normal Attitude: calm Activity / Motor Behavior: appropriate eye contact Speech: normal speech Debridement Note Debridement Note Post-Debridement Measurements and Additional Note: Post-Debridement Measurements/Treatment ERIKA - Nurse 1 - General Ulcer Assessment Start: 04/18/21 08:40 Freq: Status: Active Protocol: MANUEL Activity Type Activity Date Activity User E-Sign Co-Sign Detail Recorded Client Recorded Date Recorded By Document 04/18/21 08:40 ML [id number] 04/18/21 08:53 ML Document 04/25/21 09:52 AK [id number] 04/25/21 09:54 AK Document 05/02/21 08:43 DAVID [id number] 05/02/21 08:53 JF 04/18/21 04/25/21 05/02/21 08:40 09:52 08:43 WC - Today's Visit Information Type of service Follow-up Visit Follow-up Visit Follow-up Visit (Physician/MANUSCRIPT READER (Physician/MANUSCRIPT READER (Physician/MANUSCRIPT READER ) ) ) Arrival Mode Ambulatory Ambulatory, Ambulatory, Walker Walker Patient Identification Verified (Name & Yes Yes Yes ) Patient Requires Transmission-Based No No No Precautions Safety Precautions NA Vital Signs Temperature (97.8 F-99.1 F) 96.3 F L 96 F L 95.7 F L Temperature Source Temporal Temporal Temporal Pulse Rate (60-100) 63 65 74 Pulse Location Monitor Monitor Monitor Respiratory Rate (12-18) 16 16 Respiratory rate source Observation Observation Blood Pressure (90/60-120/80) 127/58 H 148/77 H 151/64 H Blood Pressure Mean (mm Hg) 81 100 93 Source Monitor Monitor Monitor Position Supine Semi-Fowlers Blood Pressure Location Right Arm Right Arm History Since Last Visit- (Skip if this is Patient's initial visit) Have you changed medications since your No No No last visit? Any new allergies or adverse reactions No No No Had a fall/change in ADL's that may No No No increase risk of falls Signs or symptoms of abuse and/or No No No neglect since last visit Have you been in the hospital since your No No No last visit? Has dressing in place as prescribed Yes Yes Yes Has compression in place as prescribed N/A N/A N/A Has offloadiing in place as prescribed N/A N/A N/A Experienced any changes in pain level or No No No management Left Footwear Regular Shoe Regular Shoe Regular Shoe Right Footwear Regular Shoe Regular Shoe Regular Shoe Pain Scale: 0-10 Numeric Is Patient Pain Free? Yes Yes - Nurse 1 - General Ulcer Measurement Start: 04/18/21 08:40 Freq: Status: Active Protocol: Activity Type Activity Date Activity User E-Sign Co-Sign Detail Recorded Client Recorded Date Recorded By Document 04/18/21 08:40 ML [id number] 04/18/21 08:53 ML Document 04/25/21 09:52 AK [id number] 04/25/21 09:54 AK Document 05/02/21 08:43 DAVID [id number] 05/02/21 08:53 JF 04/18/21 04/25/21 05/02/21 08:40 09:52 08:43 Wound Center Nurse 1 #1 R Buttock -Combined with other wound No No -Current Size (cm) - Length 1 0.5 0.1 -Current Size (cm) - Width 2 1.6 0.1 -Current Size (cm) - Depth 0.1 0.1 0.1 -Total Square Cm 2 0.80 0.01 -Photo Taken No No -Epithelialization None Present Large 67-100% -Tunneling No No -Undermining/Tunneling No No -Circular Undermining No No -Classification - Thickness Partial Thickness -Change in Wound Grade/Stage No -Exudate Amt Medium Small None Present -Exudate Type Serosanguineous Serosanguineous -Wound Margin Distinct, Distinct, Flat & Intact Outline Outline Attached Attached -Granulation Amt Medium (34-66%) None Present (0 None Present (0 %) %) -Granulation Quality N/A -Slough/Fibrin No Yes -Necrosis Amt Medium (34-66%) None Present (0 Medium (34-66%) %) -Necrotic Tissue Type Adherent Slough Adherent Slough -Structure Exposed N/A N/A -Texture (Anjelica-wound Skin Appearance) Assessed No Abnormality, Assessed, Assessed Scarring -Moisture (Anjelica-wound Skin Appearance) Assessed No Abnormality, Assessed Assessed -Color (Anjelica-wound Skin Appearance) Assessed No Abnormality, Assessed Assessed -Temperature (Anjelica-wound Skin No Abnormality No Abnormality No Abnormality Appearance) (Pt Warm) (Pt Warm) (Pt Warm) -Tenderness on Palpation (Anjelica-wound No No Skin Appearance) -Ulcer Cleansing Rinsed/ Soap and Water Rinsed/ Irrigated with Irrigated with Saline Saline -Foul Odor after Cleansing No No No -Anesthetic Used 5% Lidocaine 5% Lidocaine 4% Lidocaine Gel Gel Solution Lower Limb Edema Present NA WC - Nurse 2 - General Ulcer CM Notes Start: 04/18/21 08:40 Freq: Status: Active Protocol: Activity Type Activity Date Activity User E-Sign Co-Sign Detail Recorded Client Recorded Date Recorded By Document 04/18/21 09:04 PL [id number] 04/18/21 09:05 PL Document 04/25/21 10:05 MW [id number] 04/25/21 10:07 MW Document 05/02/21 09:03 MW [id number] 05/02/21 09:06 04/18/21 04/25/21 05/02/21 09:04 10:05 09:03 Wound Center Nurse 2 #1 R Buttock -Time 08:58 10:07 09:05 -Correct Patient Yes Yes Yes -Correct Side, Site, Position Yes Yes Yes -Correct Procedure Yes Yes Yes -Procedure Performed Yes Yes No -Type of Procedure Debridement Debridement -Clinical Debridement Subcutaneous Subcutaneous -Tissue Removed Subcutaneous Subcutaneous -Post Debridement (cm) - Length 0.9 0.6 0 -Post Debridement (cm) - Width 2.0 2.0 0 -Post Debridement (cm) - Depth 0.3 0.1 0 -Total Square (Post) (cm) 1.80 1.20 0 -Area of Debridement (cm) - Length 0.9 0.6 -Area of Debridement (cm) - Width 2.0 2.0 -Total Square (Area) (cm) 1.80 1.20 -Tunneling No No -Undermining/Tunneling No No -Circular Undermining No No -Wound/Ulcer Outcome Not Healed Not Healed Healed- Epithelialized -Ulcer Cleansing Rinsed/ Rinsed/ Irrigated with Irrigated with Saline Saline -Foul Odor after Cleansing No No -Bioengineered Tissue No No -Bleeding Controlled with Pressure -Offloading No -Treatment Response Procedure Tolerated Well -Debridement - Subq, 1st 20sq cm Yes Yes Pain Scale: 0-10 Numeric Is Patient Pain Free? Yes Yes WC - Nurse 3 - General Ulcer D/C NN Start: 04/18/21 08:40 Freq: Status: Active Protocol: Activity Type Activity Date Activity User E-Sign Co-Sign Detail Recorded Client Recorded Date Recorded By Document 04/18/21 09:21 DL [id number] 04/18/21 09:22 DL Document 04/25/21 10:20 AK [id number] 04/25/21 10:22 AK 04/18/21 04/25/21 09:21 10:20 Wound Care Nurse 3 #1 R Buttock -Ulcer Cleansing Rinsed/ Soap and Water Irrigated with Saline -Foul Odor after Cleansing No No -Negative Pressure Wound Therapy N/A -Primary Dressing Applied NonAdherent Mepilex Border, Contact Layer, Promogran Promogran Emily Matter -Mepilex Border 1 -Promogran 1 -Promogran Emily Matter 1 Treatment Response Procedure Tolerated Well Pain Scale: 0-10 Numeric Is Patient Pain Free? Yes WC - Visit Discharge Discharge Condition Stable Stable Ambulatory Status Ambulatory, Wheelchair Transportation Private Auto Private Auto Medication Reconcilliation completed & No provided to patient/care provider Clinical Summary of Care Provided Yes Facility Type Health Assessment And Treatment Teacher Care Facility Orders Sent Yes Assessment/Plan Assessment/Plan (1) Decubitus ulcer of right buttock, stage 3: CODE(S): L89.313 - Pressure ulcer of right buttock, stage 3 (2) Memory deficit: CODE(S): R41.3 - Other amnesia PLAN: Very minimal area left. Will heal out due to difficulties/ logistics concerns with her visits. Continue Promogran to right buttock ulcer and cover with foam dressing for 2 weeks. Continued offloading, Increased protein intake, vitamin C, D and zinc also recommended. Their questions were answered and they were advised to call with any further questions or concerns. Discharge from the wound clinic. This note was generated with [employer] dictation software. It may contain incorrect words, spelling, and punctuation that were not noted in checking the note before signing.
== END 2021-05-02 10:45 | disposition home or self-care (01) ==
LOC: WC 08:45
PROVIDERS: PCP Nurse Practitioner Adult Health; Visit Provider Internal Medicine
DX: L89.313 Pressure ulcer of right buttock, stage 3 (principal); R41.3 Other amnesia
CPT/HCPCS: 11042; 99213; G0463

== ENCOUNTER 2021-10-28 17:24 | Emergency (ER) | payer MEDICARE, MEDICAID, SELFPAY ==
[2021-10-28 17:33] VITALS: BP 158/73; PULSE 62; RESP 16; TEMP 36.7; O2SAT 97; BMI 36.3
--- NOTE | 2021-10-28 18:59 | EX.ED.DYSGE1 ---
HPI History of Present Illness Chief Complaint: Back Informant: patient Narrative Narrative: 71-year-old female from a senior apartment complex does not really have any complaints. Reportedly was sent in for acute on chronic back pain. I asked her if she had any pain she said not really. She denies any fever or chills. She denies any nausea or vomiting. Prior similar symptoms: Yes Recent Illness/Hospitalization: No PFSH PFSH Medical History Accidental drug overdose Acute kidney injury Anxiety Asthma COLD (chronic obstructive lung disease) Confusion COPD (chronic obstructive pulmonary disease) Decubitus ulcer of right buttock, stage 3 Dementia Depression DM2 (diabetes mellitus, type 2) Epigastric pain Essential hypertension Hyperlipidemia Hypomagnesemia Hypothyroidism Irritable bowel syndrome Left shoulder pain Left ventricular diastolic dysfunction Lightheadedness Memory deficit RADHA treated with BiPAP Osteoarthritis Secondary pulmonary arterial hypertension Sepsis Super obese UTI (urinary tract infection) Home Medications aspirin 81 mg PO DAILY@0800 04/29/17 [History Last Taken 03/28/18 81 mg] atorvastatin 40 mg PO QHS 04/29/17 [History Last Taken 03/28/18 40 mg] buspirone 30 mg PO BID 04/29/17 [History Last Taken 03/28/18 30 mg] levothyroxine 75 mcg PO DAILY 04/29/17 [History Last Taken 03/28/18 75 mcg] lisinopril 10 mg PO DAILY 04/29/17 [History Last Taken 03/28/18 10 mg] meloxicam 15 mg PO DAILY 04/29/17 [History Last Taken 03/28/18 15 mg] budesonide-formoterol 2 puff INHALATION BID 03/29/18 [History Last Taken 03/28/18] acetaminophen 650 mg tablet,extended release 650 mg PO Q4H 01/17/20 [History Last Taken Unknown] albuterol sulfate 90 mcg/actuation aerosol inhaler 2 puff INHALATION Q6H PRN 01/17/20 [History Last Taken Unknown] latanoprost 0.005 % eye drops 1 drp OPHTHALMIC QPM 01/17/20 [History Last Taken Unknown] memantine 10 mg tablet 10 mg PO BID 01/17/20 [History Last Taken Unknown] trazodone 100 mg tablet 100 mg PO QHS tab 08/04/20 [History Last Taken Unknown] aripiprazole 2 mg tablet 2 mg PO QHS tab 01/18/20 [History Last Taken Unknown] famotidine 20 mg tablet 20 tab PO BID 01/18/20 [History Last Taken Unknown] fluoxetine 20 mg capsule 40 mg PO DAILY cap 01/18/20 [History Last Taken Unknown] lamotrigine 200 mg tablet 200 mg PO DAILY tab 01/18/20 [History Last Taken Unknown] calcium carbonate 600 mg-vitamin D3 12.5 mcg (500 unit) capsule 1 cap PO DAILY 01/02/21 [History Last Taken Unknown] cholecalciferol (vitamin D3) 125 mcg (5,000 unit) capsule 125 mcg PO DAILY 01/02/21 [History Last Taken Unknown] docusate sodium 100 mg capsule 100 mg PO DAILY 01/02/21 [History Last Taken Unknown] hydrochlorothiazide 12.5 mg capsule 25 mg PO DAILY cap 01/02/21 [History Last Taken Unknown] hydroxyzine HCl 25 mg tablet 25 mg PO BID PRN 01/02/21 [History Last Taken Unknown] phenazopyridine 100 mg tablet 190 mg PO TID PRN 01/02/21 [History Last Taken Unknown] primidone 50 mg tablet 50 mg PO QHS 01/02/21 [History Last Taken Unknown] propranolol 20 mg tablet 20 mg PO BID 01/02/21 [History Last Taken Unknown] melatonin 10 mg PO QHS 10/28/21 [History Last Taken Unknown] ondansetron 4 mg PO Q8H PRN 10/28/21 [History Last Taken Unknown] Allergy/AdvReac Type Severity Reaction Status Date / Time No Known Allergies Allergy Verified 10/28/21 17:33 Family History Sister CAD (coronary artery disease) stents Heart disease Father Cancer Mother Heart disease Brother Diabetes Heart disease CAD (coronary artery disease) Surgical History History of cataract extraction with lens replacement History of section Social History housing: assisted living facility number of children: 2 Smoking Status: Former smoker how long ago did patient quit smokin alcohol intake: never caffeine: Yes additional social history: ROS ROS ED ROS Narrative Patient denies recent illness. Review of Systems ROS Unobtainable: Denies due to encephalopathy Constitutional Constitutional ED: Denies fever(s) Eyes Eyes: Denies change in vision ENT ENT ED: Denies ear pain Cardiovascular Cardiovascular: Denies chest pain Respiratory/Chest Respiratory/Chest: Denies dyspnea Gastrointestinal Gastrointestinal: Denies abdominal pain, diarrhea, nausea or vomiting Genitourinary Genitourinary ED: Denies dysuria Musculoskeletal Musculoskeletal: Denies myalgias Integumentary Denies rash Neurologic Neurologic: Denies headache(s) Psychiatric Psychiatric: Denies depression Endocrine Endocrinology: Denies polyuria Allergic/Immunologic Allergic/Immunologic ED: Denies urticaria EXAM Physical Exam Narrative Exam Narrative: 71-year-old female vital signs stable afebrile does not look septic toxic. No distress. Pulse ox 97% on room air no hypoxia. H EENT exam unremarkable atraumatic. Pupils round reactive light. Moist use membranes. Neck nontender. Lungs are clear. Heart regular rhythm no murmur. Rate about 60. Chest wall nontender. Abdomen soft nontender normal bowel sounds no peritoneal signs. Obese. Moving all 4 extremities. Normal dewer strength. Normal dorsi plantar flexion. Neurologically she is awake and alert with no focal motor deficits. She is a limited informant. She has a history of dementia. She does answer questions and follow commands. Const Vital Signs: 10/28/21 17:33 Temperature 98.0 F Temperature Source Temporal Pulse Rate 62 Respiratory Rate 16 Blood Pressure 158/73 H Blood Pressure Mean 101 Pulse Ox 97 Oxygen Delivery Method Room Air Positive well nourished, well developed and obese; Negative for cachectic, contractures or unkempt General Appearance ED: well developed and NAD; Negative for unkempt, cachectic, contractures, cyanotic, diaphoretic or pallor Nutritional Appearance: obese; Negative for cachectic HEENT Reports moist mucous membranes Negative for trauma or tenderness Eyes PERRL and EOMs intact bilaterally Neck no lymphadenopathy, supple and no JVD General: Negative for tenderness Chest Wall inspection of chest normal and palpation of chest normal Resp normal respiratory effort and clear to auscultation bilaterally Auscultation: Negative for rales, rhonchi or diminished lung sounds Cardio regular rate, regular rhythm, S1 normal heart sound, S2 normal heart sound and no murmurs GI normal to inspection, nondistended, normoactive bowel sounds, non-tender, non-distended and no masses Inspection: Negative for abdominal distention Auscultation: normoactive bowel sounds Palpation: soft; Negative for tender, guarding or rebound tenderness present Back/Spine no CVA tenderness General Back: Negative for CVA tenderness Cervical Spine: Negative for cervical spine tenderness Thoracic Spine / Upper Back: Negative for thoracic spinal tenderness or paraspinal muscle tenderness Lumbar Spine / Lower Back: Negative for lumbar spinal tenderness Extremity normal to inspection General Extremety ED: Negative for edema or tenderness General Extremity: Negative for edema Neuro Sensorium / Orientation: alert; Negative for orientation impaired, lethargic or stuporous Motor Exam: strength 5/5 throughout Psych mental status grossly normal Appearance: Negative for unkempt Attitude: No agitated Mood & Affect: Negative for depressed or tearful Skin no rashes or lesions noted and no wounds General Skin Exam: Negative for jaundice or pallor MDM MDM MDM Narrative Medical decision making narrative: 71-year-old from a senior apartment complex. Sent in for acute on chronic back pain. He really did not have any significant complaints. Exam is benign. I did check a blood sugar and the nurses reported it was 89. I will have him follow-up with a [facility]. Otherwise the patient will be discharged back to that facility. Lab Data Attestation: I reviewed the patient's lab results. Lab results narrative: Blood sugar was 89. Discharge Plan Triage Chief Complaint: Back ED Provider: Coy Manuel Dx/Rx/DC Orders Clinical Impression: Acute exacerbation of chronic low back pain, History of diabetes mellitus, History of hypertension Instructions: ED Back Pain (Acute or Chronic) Prescriptions: No Action lamotrigine 200 mg tablet 200 mg PO DAILY RF: 0 famotidine 20 mg tablet 20 tab PO BID RF: 0 aripiprazole 2 mg tablet 2 mg PO QHS RF: 0 hydrochlorothiazide 12.5 mg capsule 25 mg PO DAILY RF: 0 albuterol sulfate [ProAir HFA] 90 mcg/actuation HFA aerosol inhaler 2 puff INHALATION Q6H PRN (Reason: Shortness Of Breath) RF: 0 latanoprost 0.005 % drops 1 drp OPHTHALMIC QPM RF: 0 acetaminophen [Tylenol Arthritis Pain] 650 mg tablet extended release 650 mg PO Q4H RF: 0 memantine 10 mg tablet 10 mg PO BID RF: 0 cholecalciferol (vitamin D3) 125 mcg (5,000 unit) capsule 125 mcg PO DAILY RF: 0 propranolol 20 mg tablet 20 mg PO BID RF: 0 docusate sodium [Colace] 100 mg capsule 100 mg PO DAILY RF: 0 primidone 50 mg tablet 50 mg PO QHS RF: 0 calcium carbonate-vitamin D3 [Calcium 600 with Vitamin D3] 600 mg(1,500mg) -500 unit capsule 1 cap PO DAILY RF: 0 phenazopyridine [Pyridium] 100 mg tablet 190 mg PO TID PRN (Reason: bladder pain) RF: 0 hydroxyzine HCl 25 mg tablet 25 mg PO BID PRN (Reason: Anxiety) RF: 0 atorvastatin 40 MG tablet 40 mg PO QHS RF: 0 meloxicam 15 MG tablet 15 mg PO DAILY RF: 0 levothyroxine 75 MCG tablet 75 mcg PO DAILY RF: 0 buspirone 30 MG tablet 30 mg PO BID RF: 0 lisinopril 10 MG tablet 10 mg PO DAILY RF: 0 aspirin 81 MG tablet,chewable 81 mg PO DAILY@0800 RF: 0 fluoxetine 20 mg capsule 40 mg PO DAILY RF: 0 trazodone 100 mg tablet 100 mg PO QHS RF: 0 budesonide-formoterol 1 INHALER inhaler 2 puff inhalation BID RF: 0 ondansetron 4 mg Tablet,Disintegrating 4 mg PO Q8H PRN (Reason: Nausea) RF: 0 melatonin 5 mg Capsule 10 mg PO QHS RF: 0 Primary Care Provider: Lashell Ortiz BUSINESS ADMINISTRATION TEACHER Referrals: Lashell Ortiz BUSINESS ADMINISTRATION TEACHER, BUSINESS ADMINISTRATION TEACHER-C [Primary Care Provider] - 1 Week Activity Restrictions/Additional Instructions: Follow-up with your doctor if not improving. Return emergency department if feeling worse. Disposition Disposition: Home, Self Care
[2021-10-28 19:05] LABS: Bedside Glucose 89 mg/dL (74-106)
--- NOTE | 2021-10-28 20:23 | NURSING ---
PHYSICIANS CALLED BACK SAID 6 HR WAIT TIME WILL BE SOONER, THEY ARE GETTING ANOTHER PT THEN RETURNING
[2021-10-28 21:00] VITALS: BP 131/72; PULSE 88; RESP 14; TEMP 36.3; O2SAT 98
--- NOTE | 2021-10-28 21:39 | NURSING ---
PHYSICIANS ARRIVED AT [id number]
== END 2021-10-28 21:43 | disposition home or self-care (01) ==
PROVIDERS: Emergency Provider Emergency Medicine; PCP Nurse Practitioner Adult Health; Visit Provider Emergency Medicine
DX: M54.50 Low back pain, unspecified (principal); J44.9 Chronic obstructive pulmonary disease, unspecified; E11.9 Type 2 diabetes mellitus without complications; E78.5 Hyperlipidemia, unspecified; Z87.891 Personal history of nicotine dependence; I10 Essential (primary) hypertension; G89.29 Other chronic pain
CPT/HCPCS: 82962; 99284

== ENCOUNTER 2022-02-01 17:31 | Emergency (ER) | payer MEDICARE, MEDICAID, SELFPAY ==
[2022-02-01 17:32] VITALS: BP 101/57; PULSE 66; RESP 17; TEMP 37.2; O2SAT 95; BMI 50.3
[2022-02-01 17:34] VITALS: BP 101/57; PULSE 66; RESP 17; TEMP 37.2; O2SAT 95
--- NOTE | 2022-02-01 17:49 | CT_ITS ---
STUDY: CT Abdomen And Pelvis W/O Contrast Injection 02/01/2022 7:19 PM REASON FOR EXAM: Female, 71 years old. ABDOMINAL PAIN right flank pain ASTHMA TECHNIQUE: Transaxial images were obtained without oral contrast, and without intravenous contrast. Individualized dose optimization techniques were used for this CT. COMPARISON: 02.08.19. FINDINGS: There are atherosclerotic calcifications of visualized coronary arteries. The visualized portions of the heart are within normal limits. Unremarkable liver. There is a solitary gallstone. Unremarkable spleen. There is diffuse atrophy of the pancreas. There is a small, circumscribed, smooth, low attenuation right adrenal mass, consistent with an adrenal adenoma. Normal left adrenal gland. No acute findings of the right kidney. No acute findings of the left kidney. Unremarkable visualized stomach. Unremarkable small intestine. There are multiple colonic diverticula consistent with diverticulosis. The appendix is visualized and appears unremarkable. There are no acute findings of the abdominal aorta. Unremarkable inferior vena cava. Subcentimeter mesenteric lymph nodes. Unremarkable urinary bladder. There is an umbilical hernia containing fat. There are diffuse degenerative changes of the visualized lumbar spine. There is scoliosis of the lumbar spine. There is bilateral neural foraminal stenosis at L4-5. CT/Abdomen/Pelvis without Cont IMPRESSION: (NOT LISTED IN ORDER OF SIGNIFICANCE) There is bilateral neural foraminal stenosis at L4-5. There are multiple colonic diverticula consistent with diverticulosis. There is a solitary gallstone. Stable right adrenal adenoma. Other findings as above. Electronically Signed: Evangelist Walls MD at 19:23 EDT ,
--- NOTE | 2022-02-01 17:50 | EX.ED.DYSGE1 ---
HPI History of Present Illness Chief Complaint: Complaint Detail of Chief Complaint: Right flank pain and dysuria Informant: patient Narrative Narrative: Patient presents to the emergency department via EMS from assisted living facility. EMS was called for patient having right flank pain and dysuria apparently. Patient is a very poor historian due to history of dementia and she cannot tell me how long she has had discomfort with urination. She cannot tell me how long she has had right flank pain. She is had no vomiting or diarrhea. [facility] Medical History Accidental drug overdose Acute kidney injury Anxiety Asthma COLD (chronic obstructive lung disease) Confusion COPD (chronic obstructive pulmonary disease) Decubitus ulcer of right buttock, stage 3 Dementia Depression DM2 (diabetes mellitus, type 2) Epigastric pain Essential hypertension Hyperlipidemia Hypomagnesemia Hypothyroidism Irritable bowel syndrome Left shoulder pain Left ventricular diastolic dysfunction Lightheadedness Memory deficit RADHA treated with BiPAP Osteoarthritis Secondary pulmonary arterial hypertension Sepsis Super obese UTI (urinary tract infection) Home Medications aspirin 81 mg chewable tablet 81 mg PO DAILY@0800 heart health 04/29/17 [History Last Taken 03/28/18 81 mg] atorvastatin 40 mg tablet 40 mg PO QHS cholesterol 04/29/17 [History Last Taken 03/28/18 40 mg] buspirone 30 mg tablet 30 mg PO BID anxiety 04/29/17 [History Last Taken 03/28/18 30 mg] levothyroxine 75 mcg tablet 75 mcg PO DAILY thyroid 04/29/17 [History Last Taken 03/28/18 75 mcg] lisinopril 10 mg tablet 10 mg PO DAILY blood pressure 04/29/17 [History Last Taken 03/28/18 10 mg] meloxicam 15 mg tablet 15 mg PO DAILY pain 04/29/17 [History Last Taken 03/28/18 15 mg] budesonide-formoterol HFA 160 mcg-4.5 mcg/actuation aerosol inhaler 2 puff inhalation BID SOB 03/29/18 [History Last Taken 03/28/18] acetaminophen 650 mg tablet,extended release (Tylenol Arthritis Pain) 650 mg PO Q4H pain/fever 01/17/20 [History Last Taken Unknown] albuterol sulfate 90 mcg/actuation aerosol inhaler (ProAir HFA) 2 puff inhalation Q6H PRN Shortness Of Breath 01/17/20 [History Last Taken Unknown] latanoprost 0.005 % eye drops 1 drp ophthalmic (eye) QPM 01/17/20 [History Last Taken Unknown] memantine 10 mg tablet 10 mg PO BID 01/17/20 [History Last Taken Unknown] trazodone 100 mg tablet 100 mg PO QHS 01/17/20 [History Last Taken Unknown] aripiprazole 2 mg tablet 2 mg PO QHS 01/18/20 [History Last Taken Unknown] famotidine 20 mg tablet 20 tab PO BID 01/18/20 [History Last Taken Unknown] fluoxetine 20 mg capsule 40 mg PO DAILY depression 01/18/20 [History Last Taken Unknown] lamotrigine 200 mg tablet 200 mg PO DAILY 01/18/20 [History Last Taken Unknown] calcium carbonate 600 mg-vitamin D3 12.5 mcg (500 unit) capsule (Calcium 600 with Vitamin D3) 1 cap PO DAILY 01/02/21 [History Last Taken Unknown] cholecalciferol (vitamin D3) 125 mcg (5,000 unit) capsule 125 mcg PO DAILY 01/02/21 [History Last Taken Unknown] docusate sodium 100 mg capsule (Colace) 100 mg PO DAILY 01/02/21 [History Last Taken Unknown] hydrochlorothiazide 12.5 mg capsule 25 mg PO DAILY 01/02/21 [History Last Taken Unknown] hydroxyzine HCl 25 mg tablet 25 mg PO BID PRN Anxiety 01/02/21 [History Last Taken Unknown] phenazopyridine 100 mg tablet (Pyridium) 190 mg PO TID PRN bladder pain 01/02/21 [History Last Taken Unknown] primidone 50 mg tablet 50 mg PO QHS 01/02/21 [History Last Taken Unknown] propranolol 20 mg tablet 20 mg PO BID 01/02/21 [History Last Taken Unknown] melatonin 5 mg capsule 10 mg PO QHS 10/28/21 [History Last Taken Unknown] ondansetron 4 mg disintegrating tablet 4 mg PO Q8H PRN Nausea 10/28/21 [History Last Taken Unknown] Allergy/AdvReac Type Severity Reaction Status Date / Time No Known Allergies Allergy Verified 10/28/21 17:33 Family History Sister CAD (coronary artery disease) stents Heart disease Father Cancer Mother Heart disease Brother Diabetes Heart disease CAD (coronary artery disease) Surgical History History of cataract extraction with lens replacement History of section Social History housing: assisted living facility number of children: 2 Smoking Status: Former smoker how long ago did patient quit smokin alcohol intake: never caffeine: Yes additional social history: ROS ROS ED Review of Systems ROS Unobtainable: other Constitutional Constitutional ED: Reports fever(s) and lethargy; Denies chills, sweats or weight loss Eyes Eyes: Denies blurry vision, change in vision or diplopia ENT ENT ED: Denies rhinorrhea or sore throat Cardiovascular Cardiovascular: Reports chest pain and racing heartbeat; Denies orthopnea Respiratory/Chest Respiratory/Chest: Reports dyspnea and dyspnea on exertion; Denies cough, orthopnea or sputum Gastrointestinal Gastrointestinal: Reports abdominal pain; Denies diarrhea, nausea or vomiting Genitourinary Genitourinary ED: Reports dysuria; Denies hematuria or urinary frequency Musculoskeletal Musculoskeletal: Denies arthralgias, back pain, myalgias or neck pain Integumentary Denies abscess, Abrasions or rash Neurologic Neurologic: Denies headache(s) or weakness Psychiatric Psychiatric: Denies anxiety, depression or suicidal thoughts Endocrine Endocrinology: Denies polydipsia, polyphagia or polyuria Hematologic/Lymphatic Hematologic/Lymphatic: Denies easy bleeding, easy bruising or lymphadenopathy Allergic/Immunologic Allergic/Immunologic ED: Denies mouth swelling, tongue swelling or urticaria EXAM Physical Exam Const Vital Signs: 02/01/22 17:32 02/01/22 17:32 02/01/22 17:34 Temperature 99 F 99 F Temperature Source Temporal Temporal Pulse Rate 66 66 Respiratory Rate 17 17 Blood Pressure 101/57 L 101/57 L Blood Pressure Mean 71 71 Pulse Ox 95 95 Oxygen Delivery Method Room Air Room Air 02/01/22 18:23 02/01/22 19:00 Temperature 97.1 F L 97.8 F Temperature Source Temporal Temporal Pulse Rate 65 66 Respiratory Rate 12 16 Blood Pressure 115/73 103/66 Blood Pressure Mean 87 78 Pulse Ox 94 96 Oxygen Delivery Method Room Air Room Air Positive well nourished and well developed General Appearance ED: well developed and NAD HEENT Reports TM's clear and moist mucous membranes normocephalic and atraumatic; Negative for trauma or tenderness Tympanic Membrane ED: Yes TM's clear Eyes PERRL and EOMs intact bilaterally General Eye ED: Negative for pale conjunctiva or scleral icterus Neck no lymphadenopathy, supple and no JVD General: Negative for tenderness Chest Wall inspection of chest normal and palpation of chest normal Chest: Negative for tenderness Resp normal respiratory effort and clear to auscultation bilaterally Effort and Inspection: Negative for respiratory distress or pain with movement Auscultation: Negative for rhonchi, wheezes or diminished lung sounds Cardio regular rate, regular rhythm, S1 normal heart sound, S2 normal heart sound and no murmurs Peripheral Pulses: pulses 2+ throughout GI normal to inspection, nondistended, normoactive bowel sounds, soft to palpation, non-distended and no masses GI Narrative: Mild tenderness palpation of the right lower quadrant with some guarding. There is no rebound, rigidity, or peritoneal signs. Patient has mild CVA tenderness on the right. Back/Spine no thoracic nor lumbar tenderness Extremity normal to inspection General Extremety ED: Negative for edema General Extremity: Negative for edema Neuro oriented x3, CN's II-XII intact bilaterally, no sensory deficits noted and gait normal Sensorium / Orientation: awake, alert, oriented to person, oriented to place and oriented to time Motor Exam: strength 5/5 throughout and strength abnormal Psych mental status grossly normal Skin no rashes or lesions noted and no wounds MDM MDM MDM Narrative Medical decision making narrative: IV line established on arrival. Lab work-up was obtained and was unremarkable. Urinalysis without evidence of infection. CT flank was essentially unremarkable. At this point etiology of dysuria and flank pain and low-grade temperature unclear. Patient looks well otherwise. Abdomen is benign. She will be discharged back to assisted living. Lab Data Attestation: I reviewed the patient's lab results. Labs: Laboratory Results - last 24 hr 02/01/22 02/01/22 02/01/22 18:00 18:00 18:00 WBC 10.6 RBC 4.27 Hgb 11.2 L Hct 36.9 L MCV 86.4 MCH 26.2 L MCHC 30.4 L RDW Std Deviation 54.0 H RDW Coeff of Kin 17.0 H Plt Count 287 MPV 9.2 Immature Gran % (Auto) 0.500 Neut % (Auto) 70.2 H Lymph % (Auto) 15.7 L [place] % (Auto) 8.8 Eos % (Auto) 4.1 Baso % (Auto) 0.7 Absolute Neuts (auto) 7.4 Absolute Lymphs (auto) 1.66 Nucleated RBC % 0 Sodium 135 L Potassium 3.9 Chloride 97 L Carbon Dioxide 32.0 Anion Gap 6 BUN 24 H Creatinine 1.11 H Estim Creat Clear Calc 80.52 Est GFR (MDRD) Af Amer 62 Est GFR (MDRD) Non-Af 51 L BUN/Creatinine Ratio 21.6 H Glucose 99 Lactic Acid 1.1 Calcium 8.7 Urine Color Urine Clarity Urine pH Ur Specific [place] Urine Protein Urine Glucose (UA) Urine Ketones Urine Occult Blood Urine Nitrite Urine Bilirubin Urine Urobilinogen Ur Leukocyte Esterase Urine RBC Urine WBC Ur Squamous Epith Cells Urine Bacteria Urine Mucus 02/01/22 18:16 WBC RBC Hgb Hct MCV MCH MCHC RDW Std Deviation RDW Coeff of Kin Plt Count MPV Immature Gran % (Auto) Neut % (Auto) Lymph % (Auto) [place] % (Auto) Eos % (Auto) Baso % (Auto) Absolute Neuts (auto) Absolute Lymphs (auto) Nucleated RBC % Sodium Potassium Chloride Carbon Dioxide Anion Gap BUN Creatinine Estim Creat Clear Calc Est GFR (MDRD) Af Amer Est GFR (MDRD) Non-Af BUN/Creatinine Ratio Glucose Lactic Acid Calcium Urine Color Yellow Urine Clarity Clear Urine pH 7.0 Ur Specific [place] 1.010 Urine Protein Negative Urine Glucose (UA) Normal Urine Ketones Negative Urine Occult Blood Negative Urine Nitrite Negative Urine Bilirubin Negative Urine Urobilinogen Normal Ur Leukocyte Esterase Negative Urine RBC 0 SEEN Urine WBC 0 SEEN Ur Squamous Epith Cells 0-5 SEEN Urine Bacteria 0 SEEN Urine Mucus 0 SEEN Radiography Diagnostic Testing: Clinical Impression(s) from Imaging Studies Abdomen/Pelvis CT 02/01/22 17:49 IMPRESSION: (NOT LISTED IN ORDER OF SIGNIFICANCE) There is bilateral neural foraminal stenosis at L4-5. There are multiple colonic diverticula consistent with diverticulosis. There is a solitary gallstone. Stable right adrenal adenoma. Other findings as above. Electronically Signed: Evangelist Walls MD at 19:23 EDT , Discharge Plan Triage Chief Complaint: Complaint ED Provider: Theodore Aceves Dx/Rx/DC Orders Clinical Impression: Acute flank pain, Fever Instructions: ED FUO Adult, ED Flank Pain, Uncertain Cause Prescriptions: No Action lamotrigine 200 mg tablet 200 mg PO DAILY Label Comments: 1 TABLETS BY MOUTH DAILYADX: ANXIETY / NURSE TOOREORDER famotidine 20 mg tablet 20 tab PO BID Label Comments: 1 TABLET BY MOUTH TWICEIDAILY DX: / NURSE TORREORDER aripiprazole 2 mg tablet 2 mg PO QHS Label Comments: 1 TABLET BY MOUTH ATIBEDTIME DX:ANXIETY /RNURSE TO REORDER hydrochlorothiazide 12.5 mg capsule 25 mg PO DAILY Label Comments: 1 CAPSULE BY MOUTH ONCEHDAILY DX:HTN / NURSE TO/REORDER albuterol sulfate [ProAir HFA] 90 mcg/actuation HFA aerosol inhaler 2 puff INHALATION Q6H PRN (Reason: Shortness Of Breath) latanoprost 0.005 % drops 1 drp OPHTHALMIC QPM acetaminophen [Tylenol Arthritis Pain] 650 mg tablet extended release 650 mg PO Q4H memantine 10 mg tablet 10 mg PO BID cholecalciferol (vitamin D3) 125 mcg (5,000 unit) capsule 125 mcg PO DAILY propranolol 20 mg tablet 20 mg PO BID docusate sodium [Colace] 100 mg capsule 100 mg PO DAILY primidone 50 mg tablet 50 mg PO QHS calcium carbonate-vitamin D3 [Calcium 600 with Vitamin D3] 600 mg(1,500mg) -500 unit capsule 1 cap PO DAILY phenazopyridine [Pyridium] 100 mg tablet 190 mg PO TID PRN (Reason: bladder pain) hydroxyzine HCl 25 mg tablet 25 mg PO BID PRN (Reason: Anxiety) atorvastatin 40 MG tablet 40 mg PO QHS meloxicam 15 MG tablet 15 mg PO DAILY levothyroxine 75 MCG tablet 75 mcg PO DAILY buspirone 30 MG tablet 30 mg PO BID lisinopril 10 MG tablet 10 mg PO DAILY aspirin 81 MG tablet,chewable 81 mg PO DAILY@0800 fluoxetine 20 mg capsule 40 mg PO DAILY trazodone 100 mg tablet 100 mg PO QHS budesonide-formoterol 1 INHALER inhaler 2 puff inhalation BID ondansetron 4 mg Tablet,Disintegrating 4 mg PO Q8H PRN (Reason: Nausea) melatonin 5 mg Capsule 10 mg PO QHS Primary Care Provider: Cj Mcdonald Referrals: Cj Mcdonald MD [Primary Care Provider] - 3-5 Days Disposition Disposition: Home, Self Care
[2022-02-01 18:23] VITALS: BP 115/73; PULSE 65; RESP 12; TEMP 36.2; O2SAT 94
[2022-02-01 18:24] LABS: Bacteria 0 SEEN /hpf (None Seen); Mucous, Urine 0 SEEN /hpf (<or=2+); Red Blood Cells-Urine 0 SEEN /hpf (0-5); White Blood Cells 0 SEEN /hpf (0-5)
[2022-02-01] MEDS: 0.9% Normal Saline 1,000 ML 150 ML IV (18:24)
[2022-02-01 18:29] LABS: Color, Urine Yellow (Yellow); Glucose, Dipstick Normal (Normal); Ketone-Dipstick Negative (Negative); Leukocyte Esterase-Dipstick Negative /ul (Negative); Nitrite-Dipstick Negative (Negative); Occult Blood-Urine Negative /ul (Negative); Protein-Dipstick Negative (Negative); Urine Bilirubin Dipstick Negative (Negative); Urine Clarity Clear (Clear); Urine Urobilinogen Normal (Normal)
[2022-02-01 18:29] LABS: Absolute Lymphocyte Count 1.66 X10^3/uL (0.83-4.51); Absolute Neutrophil Count 7.4 X10^3/uL (2.0-7.7); Basophil# 0.07 X10^3/uL; Basophil% 0.7 % (0-1); Eosinophil# 0.43 X10^3/uL; Eosinophils% 4.1 % (0-5); Hematocrit 36.9 % (37-47); Hemoglobin 11.2 g/dL (12.0-15.0); Lymphocyte # 1.66 X10^3/ul (0.83-4.51); Lymphocyte % 15.7 % (19-41); Mean Corp Hgb Conc 30.4 g/dL (32-36); Mean Corpuscular Hgb 26.2 pg (27.0-32.0); Mean Corpuscular Volume 86.4 fL (81-99); Mean Platelet Vol. 9.2 fl (6.2-12.0); Monocyte# 0.93 X10^3/uL; Monocyte% 8.8 % (0-10); NRBC Flagged by Analyzer 0 % (0-5); Neutrophil # 7.42 X10^3/uL (2.7-7.7); Neutrophil % 70.2 % (47-70); Platelet Count 287 K/mm3 (150-450); Red Blood Count 4.27 M/mm3 (4.2-5.4); White Blood Count 10.6 K/mm3 (4.4-11.0)
[2022-02-01 18:51] LABS: Anion Gap 6 (5-15); BUN 24 mg/dL (7-18); BUN/Creat Ratio 21.6 RATIO (10-20); Calcium,Total 8.7 mg/dL (8.5-10.1); Chloride 97 mmol/L (98-107); Creatinine, Serum 1.11 mg/dL (0.55-1.02); EST Glomerular Filtration Rate 51 mL/min (>60); Est Glom Filt Rate - Afr Amer 62 mL/min (>60); Estimated Creatinine Clearance 80.52 ml/min; Glucose 99 mg/dL (74-106); Potassium 3.9 mmol/L (3.5-5.1); Sodium Level 135 mmol/L (136-145)
[2022-02-01 18:58] LABS: Squamous Epithelial Cells - UA 0-5 SEEN /hpf (5-10)
[2022-02-01 19:00] VITALS: BP 103/66; PULSE 66; RESP 16; TEMP 36.6; O2SAT 96
[2022-02-01 19:11] LABS: Lactic Acid 1.1 mmol/L (0.4-1.9)
--- NOTE | 2022-02-01 20:32 | ED.RN ---
called report to Addis at [facility]. pt [facility].
== END 2022-02-01 20:41 | disposition home or self-care (01) ==
PROVIDERS: Emergency Provider Emergency Medicine; PCP Family Medicine; Visit Provider Emergency Medicine
DX: R50.9 Fever, unspecified (principal); J44.9 Chronic obstructive pulmonary disease, unspecified; E11.9 Type 2 diabetes mellitus without complications; I10 Essential (primary) hypertension; Z87.891 Personal history of nicotine dependence; R30.0 Dysuria; E78.5 Hyperlipidemia, unspecified; R10.9 Unspecified abdominal pain
CPT/HCPCS: 36415; 74176; 80048; 81001; 83605; 85025; 87040; 87811; 96360; 96361; 99285; J7030; P9612; A4216

== ENCOUNTER 2024-07-05 10:14 | Inpatient (IN) | payer MEDICARE, MEDICAID, SELFPAY ==
[2024-07-05] VITALS (8 sets, daily range): BP systolic 106–146; BP diastolic 56–94; PULSE 65–82; RESP 17–22; TEMP 36.3–37; O2SAT 92–98; BMI 39.9; BMI 37.5
--- NOTE | 2024-07-05 10:28 | CT_ITS ---
STUDY: CT ABDOMEN AND PELVIS WITH CONTRAST REASON FOR EXAM: Female, 73 years old. Abdominal pain-RECTAL BLEEDING RADIATION DOSAGE (If Supplied By Facility): CTDIvol = ( 19.00 ) mGy, DLP = ( 1232.36 ) mGycm TECHNIQUE: Transaxial images were obtained from the dome of the diaphragm to the symphysis pubis without oral contrast. IV 100mL Isovue-370 was administered. Sagittal and coronal images were reconstructed. Individualized dose optimization techniques were used for this CT. COMPARISON: Comparison is made with prior study February 01, 2022. FINDINGS: The visualized lung bases are unremarkable. Coronary artery calcification. Normal liver. Tiny gallstone along the dependent portion of the gallbladder lumen. Normal spleen. There is diffuse atrophy of the pancreas. There is a small, circumscribed, smooth, low attenuation right adrenal mass, consistent with an adrenal adenoma. This measures 2.9 cm x 2.7 cm. Normal left adrenal gland. Normal right kidney. Normal left kidney. There is a moderate-sized hiatal hernia. Normal small intestine. Large amount of fecal material is seen in the rectosigmoid colon. There is non-visualization of the appendix. There is diffuse atherosclerotic calcification of the abdominal aorta and its major visceral branches, without a demonstrated aneurysm. Normal inferior vena cava. Normal retroperitoneum. Distended urinary bladder. There is an enlarged fibroid uterus. Normal abdominal wall. There are diffuse degenerative changes of the visualized lumbar spine. Minimal anterolisthesis of L4 on L5. CT/Abdomen/Pelvis W IV Cont ONLY IMPRESSION: Enlarged fibroid uterus. Solitary gallstone. Sigmoid diverticulosis. Distended urinary bladder. Electronically Signed: William Ramirez MD at 12:09 EST ,
--- NOTE | 2024-07-05 10:29 | ED.VIS.GI ---
HPI HPI - GI History of Present Illness Chief Complaint: GI Bleed Narrative Narrative: 73-year-old female resident of [place] sent in by nurse practitioner for bright red blood per rectum. Was reported that she was hypotensive at the time, but it was from a wrist cuff so it was an accurate. Patient denies any abdominal pain, no fevers or chills, no nausea or vomiting. She denies having bright red blood per rectum although it was reported by the nurse practitioner in report. PFSH PFSH Medical History Decubitus ulcer of right buttock, stage 3 Dementia Confusion Memory deficit Left ventricular diastolic dysfunction Secondary pulmonary arterial hypertension Hyperlipidemia RADHA treated with BiPAP Asthma COPD (chronic obstructive pulmonary disease) Osteoarthritis Essential hypertension Epigastric pain Acute kidney injury Depression Accidental drug overdose UTI (urinary tract infection) Sepsis Hypomagnesemia Irritable bowel syndrome Left shoulder pain Super obese Lightheadedness Hypothyroidism DM2 (diabetes mellitus, type 2) COLD (chronic obstructive lung disease) Anxiety Home Medications ?Medication ?Instructions ?Recorded ?Last Taken ?Type aspirin 81 mg chewable tablet 81 mg PO DAILY@0800 heart health 04/29/17 03/28/18 History 81 mg atorvastatin 40 mg tablet 40 mg PO QHS cholesterol 04/29/17 03/28/18 History 40 mg buspirone 30 mg tablet 10 mg PO BID anxiety 04/29/17 03/28/18 History 30 mg levothyroxine 75 mcg tablet 75 mcg PO DAILY thyroid 04/29/17 03/28/18 History 75 mcg lisinopril 10 mg tablet 10 mg PO DAILY blood pressure 04/29/17 03/28/18 History 10 mg meloxicam 15 mg tablet 15 mg PO DAILY pain 04/29/17 03/28/18 History 15 mg acetaminophen 650 mg 650 mg PO Q4H pain/fever 01/17/20 Unknown History tablet,extended release (Tylenol Arthritis Pain) albuterol sulfate 90 mcg/actuation 2 puff inhalation Q6H PRN 01/17/20 Unknown History aerosol inhaler (ProAir HFA) Shortness Of Breath latanoprost 0.005 % eye drops 1 drp ophthalmic (eye) QPM 01/17/20 Unknown History memantine 10 mg tablet 10 mg PO BID 01/17/20 Unknown History trazodone 100 mg tablet 50 mg PO QHS 01/17/20 Unknown History famotidine 20 mg tablet 20 tab PO BID 01/18/20 Unknown History lamotrigine 200 mg tablet 200 mg PO DAILY 01/18/20 Unknown History calcium 600 mg (as 1 cap PO DAILY 01/02/21 Unknown History carbonate)-vitamin D3 12.5 mcg (500 unit) capsule (Calcium with Vit D3) cholecalciferol (vitamin D3) 125 2,000 unit PO DAILY 01/02/21 Unknown History mcg (5,000 unit) capsule docusate sodium 100 mg capsule 100 mg PO DAILY 01/02/21 Unknown History (Colace) hydrochlorothiazide 12.5 mg capsule 25 mg PO DAILY 01/02/21 Unknown History primidone 50 mg tablet 50 mg PO QHS 01/02/21 Unknown History propranolol 20 mg tablet 20 mg PO BID 01/02/21 Unknown History ondansetron 4 mg disintegrating 4 mg PO Q8H PRN Nausea 10/28/21 Unknown History tablet acetaminophen 500 mg capsule 1,000 mg PO .q8h PRN fever or pain 07/05/24 Unknown History albuterol sulfate 2.5 mg/3 mL 2.5 mg inhalation Q4H PRN 07/05/24 Unknown History (0.083 %) solution for nebulization shortness of breath or wheezing bisacodyl 10 mg rectal suppository 10 mg [place] DAILY PRN constipation 07/05/24 Unknown History fluticasone 250 mcg-salmeterol 50 1 inh inhalation BID 07/05/24 Unknown History mcg/dose blistr powdr for inhalation fluticasone propionate 50 1 spray intranasal DAILY 07/05/24 Unknown History mcg/actuation nasal spray,suspension (24 Hour Allergy Relief) guaifenesin 200 mg tablet 600 mg PO DAILY 07/05/24 Unknown History magnesium hydroxide 400 mg/5 mL 30 ml PO DAILY PRN constipation 07/05/24 Unknown History oral suspension ([place] Milk of Magnesia) tramadol 50 mg tablet 50 mg PO BID 07/05/24 Unknown History venlafaxine 75 mg tablet 75 mg PO DAILY 07/05/24 Unknown History Allergy/AdvReac Type Severity Reaction Status Date / Time No Known Allergies Allergy Verified 07/05/24 10:20 Family History Sister CAD (coronary artery disease) stents Heart disease Father Cancer Mother Heart disease Brother Diabetes Heart disease CAD (coronary artery disease) Surgical History History of cataract extraction with lens replacement History of section Social History housing: assisted living facility number of children: 2 Smoking Status: Former smoker how long ago did patient quit smokin alcohol intake: never caffeine: Yes additional social history: ROS ROS ED ROS Narrative Review of systems reported to be of bright red blood per rectum/GI bleeding. Patient denies any fevers or chills, no nausea or vomiting, no abdominal pain. Denies bleeding diathesis. States feels well. EXAM Physical Exam Narrative Exam Narrative: Afebrile. Vital signs noted. Cardiovascular examination reveals a regular rate and rhythm. Positive murmur. Lungs are clear to auscultation bilaterally. Abdomen is soft and nontender with positive bowel sounds. No guarding or rebound. Neurological examination shows her to be awake, alert, oriented to person. Const Vital Signs: 07/05/24 10:14 07/05/24 11:14 07/05/24 12:00 Temperature 98.6 F Temperature Source Oral Pulse Rate 65 70 73 Respiratory Rate 18 18 22 H Blood Pressure 124/56 H 106/66 146/75 H Blood Pressure Mean 78 79 98 Pulse Ox 93 97 97 Oxygen Delivery Method Room Air Room Air 07/05/24 12:39 Temperature 97.8 F Temperature Source Pulse Rate 72 Respiratory Rate 17 Blood Pressure 141/72 H Blood Pressure Mean 95 Pulse Ox 97 Oxygen Delivery Method MDM MDM MDM Narrative Medical decision making narrative: Differential diagnosis includes stable lower GI bleed/hemorrhoidal bleed versus AV malformation versus diverticulitis. Patient is without pain. I reviewed her problem list and she does have history of irritable bowel syndrome. I reviewed her medication list and she does not appear to be on any blood thinners. In review of her laboratory work she has slight elevation of her white count 11.7, hemoglobin stable at 10.2, hematocrit 34.1, platelet count 329. Potassium is slightly low at 3.4 with CO2 elevated at 35, BUN slightly elevated at 27 with creatinine 1.12. Glucose appropriately elevated at 107. LFTs are grossly unremarkable. I had ordered FOBT, but according to RN, when she removed her briefs, there was bright red blood noted. 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 After RN had changed the patient, she started having bright red blood per rectum and a small amount. She also passed a large clot. Upon repeat examination there is no brisk hemorrhage. I reviewed the radiology report of the CT of the abdomen and pelvis with IV contrast and she has diverticulosis without evidence of diverticulitis, otherwise no acute process. I did close the patient with Dr. Gonzales with the hospitalist medicine for admission. Additionally, I discussed the patient with Dr. Rodriguez with gastroenterology who states that the patient did not need an acute CT angio, and the patient could stay here and he could see her in consultation for her rectal bleeding. Disposition is admit in stable condition. History & Record Review Discussion w/independent historian: Patient Additional record(s) reviewed:: Prior labs Lab Data Attestation: I reviewed the patient's lab results. Labs: Laboratory Results - last 24 hr 07/05/24 07/05/24 10:42 11:40 WBC 11.7 H RBC 4.02 L Hgb 10.2 L Hct 34.1 L MCV 84.8 MCH 25.4 L MCHC 29.9 L RDW Std Deviation 52.8 H RDW Coeff of Kin 17.0 H Plt Count 329 MPV 9.4 Immature Gran % (Auto) 0.600 Neut % (Auto) 70.9 H Lymph % (Auto) 14.9 L [place] % (Auto) 9.6 Eos % (Auto) 3.5 Baso % (Auto) 0.5 Absolute Neuts (auto) 8.3 H Absolute Lymphs (auto) 1.74 Nucleated RBC % 0 Sodium 139 Potassium 3.4 L Chloride 103 Carbon Dioxide 35.0 H Anion Gap 0 L BUN 27 H Creatinine 1.12 H Estim Creat Clear Calc 43.31 Est GFR (MDRD) Af Amer 61 Est GFR (MDRD) Non-Af 50 L BUN/Creatinine Ratio 24.1 H Glucose 107 H Calcium 9.3 Total Bilirubin 0.30 AST 15 ALT 17 Alkaline Phosphatase 90 Total Protein 7.1 Albumin 2.7 L Globulin 4.4 H Albumin/Globulin Ratio 0.6 L Urine Color Yellow Urine Clarity Sl. Cloudy Urine pH 6.5 Ur Specific [place] 1.010 Urine Protein 15 H Urine Glucose (UA) Normal Urine Ketones Negative Urine Occult Blood 10 H Urine Nitrite Negative Urine Bilirubin Negative Urine Urobilinogen 1 H Ur Leukocyte Esterase 25 H Urine RBC 0-5 SEEN Urine WBC 0-5 SEEN Ur Squamous Epith Cells 0-5 SEEN Urine Bacteria 3+ Hyaline Casts 0-5 SEEN Urine Mucus 0 SEEN Radiography Diagnostic Testing: Clinical Impression(s) from Imaging Studies Abdomen/Pelvis CT 07/05/24 10:28 IMPRESSION: Enlarged fibroid uterus. Solitary gallstone. Sigmoid diverticulosis. Distended urinary bladder. Electronically Signed: William Ramirez MD at 12:09 EST , Management Discussion w/another healthcare provider: Hospitalist Discharge Plan Dx/Rx/DC Orders Clinical Impression: Rectal bleeding, Memory deficit, Acute GI bleeding Disposition Disposition: Acute Care Hospital [facility]
[2024-07-05 10:50] LABS: Absolute Lymphocyte Count 1.74 X10^3/uL (0.83-4.51); Absolute Neutrophil Count 8.3 X10^3/uL (2.0-7.7); Basophil# 0.06 X10^3/uL; Basophil% 0.5 % (0-1); Eosinophil# 0.41 X10^3/uL; Eosinophils% 3.5 % (0-5); Hematocrit 34.1 % (37-47); Hemoglobin 10.2 g/dL (12.0-15.0); Lymphocyte # 1.74 X10^3/ul (0.83-4.51); Lymphocyte % 14.9 % (19-41); Mean Corp Hgb Conc 29.9 g/dL (32-36); Mean Corpuscular Hgb 25.4 pg (27.0-32.0); Mean Corpuscular Volume 84.8 fL (81-99); Mean Platelet Vol. 9.4 fl (6.2-12.0); Monocyte# 1.12 X10^3/uL; Monocyte% 9.6 % (0-10); NRBC Flagged by Analyzer 0 % (0-5); Neutrophil % 70.9 % (47-70); Platelet Count 329 K/mm3 (150-450); RBC Distribution Width SD 52.8 fl (35.1-43.9); Red Blood Count 4.02 M/mm3 (4.2-5.4); White Blood Count 11.7 K/mm3 (4.4-11.0)
[2024-07-05 11:02] LABS: ALB/GLOB Ratio 0.6 RATIO (0.9-2.4); AST(SGOT) 15 U/L (15-37); Alanine Aminotransfer ALT/SGPT 17 U/L (13-56); Albumin, Serum 2.7 g/dL (3.2-5.0); Alkaline Phosphatase 90 U/L (45-117); Anion Gap 0 (5-15); BUN 27 mg/dL (7-18); BUN/Creat Ratio 24.1 RATIO (10-20); Calcium,Total 9.3 mg/dL (8.5-10.1); Chloride 103 mmol/L (98-107); Creatinine, Serum 1.12 mg/dL (0.55-1.02); EST Glomerular Filtration Rate 50 mL/min (>60); Est Glom Filt Rate - Afr Amer 61 mL/min (>60); Estimated Creatinine Clearance 43.31 ml/min; Globulin 4.4 g/dL (2.2-4.2); Glucose 107 mg/dL (74-106); Potassium 3.4 mmol/L (3.5-5.1); Protein, Total 7.1 g/dL (6.4-8.2); Sodium Level 139 mmol/L (136-145)
[2024-07-05 11:45] LABS: Mucous, Urine 0 SEEN /hpf (<or=2+)
[2024-07-05 11:50] LABS: Color, Urine Yellow (Yellow); Glucose, Dipstick Normal (Normal); Ketone-Dipstick Negative (Negative); Leukocyte Esterase-Dipstick 25 /ul (Negative); Nitrite-Dipstick Negative (Negative); Occult Blood-Urine 10 /ul (Negative); Protein-Dipstick 15 mg/dl (Negative); Urine Bilirubin Dipstick Negative (Negative); Urine Clarity Sl. Cloudy (Clear); Urine Urobilinogen 1 mg/dl (Normal); Urine pH 6.5 (5.0 - 8.0)
[2024-07-05 11:58] LABS: Bacteria 3+ /hpf (None Seen); Red Blood Cells-Urine 0-5 SEEN /hpf (0-5); White Blood Cells 0-5 SEEN /hpf (0-5)
[2024-07-05 11:59] LABS: Hyaline Cast 0-5 SEEN /lpf (0-5); Squamous Epithelial Cells - UA 0-5 SEEN /hpf (5-10)
--- NOTE | 2024-07-05 14:17 | NURSING ---
unable to obtain a reliable hx from pt due to confusion.
[2024-07-05 14:51] LABS: Hematocrit 32.9 % (37-47); Hemoglobin 9.8 g/dL (12.0-15.0)
[2024-07-05] MEDS: Albuterol 2.5 MG/3 ML VIAL.NEB. INHALATION (15:04)
--- NOTE | 2024-07-05 15:30 | HP.PCM.HOS_ITS ---
HPI - General General Date of Admission: 07/05/24 Chief Complaint: BRBPR HPI Narrative CLARENCE MCNEILL, is a 73 F who [facility] with bright red blood per rectum. Sent to emergency room and was noted to have blood in her undergarments. Patient had a CAT scan of her abdomen pelvis that was unremarkable. Patient is a poor historian to provide any history. ED physician reached out to Dr. Hinojosa who will be seeing the patient in consultation. [facility] Medical History Smoker Decubitus ulcer of right buttock, stage 3 Dementia Confusion Memory deficit Left ventricular diastolic dysfunction Secondary pulmonary arterial hypertension Hyperlipidemia RADHA treated with BiPAP Asthma COPD (chronic obstructive pulmonary disease) Osteoarthritis Essential hypertension Epigastric pain Acute kidney injury Depression Accidental drug overdose UTI (urinary tract infection) Sepsis Hypomagnesemia Irritable bowel syndrome Left shoulder pain Super obese Lightheadedness Hypothyroidism DM2 (diabetes mellitus, type 2) COLD (chronic obstructive lung disease) Anxiety Home Medications ?Medication ?Instructions ?Recorded ?Last Taken ?Type aspirin 81 mg chewable tablet 81 mg PO DAILY@0800 heart health 04/29/17 07/05/24 History atorvastatin 40 mg tablet 40 mg PO QHS cholesterol 04/29/17 07/04/24 History buspirone 30 mg tablet 10 mg PO BID anxiety 04/29/17 07/05/24 History levothyroxine 75 mcg tablet 75 mcg PO DAILY thyroid 04/29/17 03/28/18 History 75 mcg lisinopril 10 mg tablet 10 mg PO DAILY blood pressure 04/29/17 07/05/24 History meloxicam 15 mg tablet 15 mg PO DAILY arthritis 04/29/17 07/05/24 History albuterol sulfate 90 mcg/actuation 2 puff inhalation Q6H PRN 01/17/20 Unknown History aerosol inhaler (ProAir HFA) Shortness Of Breath latanoprost 0.005 % eye drops 1 drp ophthalmic (eye) QPM glaucoma 01/17/20 07/04/24 History memantine 10 mg tablet 10 mg PO BID dementia 01/17/20 07/05/24 History famotidine 20 mg tablet 20 tab PO BID gerd 01/18/20 07/05/24 History lamotrigine 200 mg tablet 200 mg PO DAILY depressed mood 01/18/20 07/05/24 History calcium 600 mg (as 1 cap PO DAILY supplement 01/02/21 07/05/24 History carbonate)-vitamin D3 12.5 mcg (500 unit) capsule (Calcium with Vit D3) cholecalciferol (vitamin D3) 125 2,000 unit PO DAILY supplement 01/02/21 07/05/24 History mcg (5,000 unit) capsule docusate sodium 100 mg capsule 100 mg PO DAILY bowels 01/02/21 07/05/24 History (Colace) primidone 50 mg tablet 50 mg PO QHS tremors 01/02/21 07/04/24 History propranolol 20 mg tablet 20 mg PO BID HTN 01/02/21 Unknown History ondansetron 4 mg disintegrating 4 mg PO Q8H PRN Nausea 10/28/21 Unknown History tablet acetaminophen 500 mg capsule 1,000 mg PO .q8h PRN fever or pain 07/05/24 Unknown History albuterol sulfate 2.5 mg/3 mL 2.5 mg inhalation Q4H PRN 07/05/24 Unknown History (0.083 %) solution for nebulization shortness of breath or wheezing bisacodyl 10 mg rectal suppository 10 mg [place] DAILY PRN constipation 07/05/24 Unknown History clotrimazole 1 % topical cream 1 applic topical BID redness to 07/05/24 07/05/24 History [place] area fluticasone 250 mcg-salmeterol 50 1 inh inhalation BID breathing 07/05/24 Unknown History mcg/dose blistr powdr for inhalation fluticasone propionate 50 1 spray intranasal DAILY congestion 07/05/24 07/05/24 History mcg/actuation nasal spray,suspension (24 Hour Allergy Relief) guaifenesin 600 mg tablet, 600 mg PO Q12H PRN congestion 07/05/24 Unknown History extended release 12 hr (Mucinex) hydrochlorothiazide 25 mg tablet 25 mg PO DAILY HTN 07/05/24 07/05/24 History magnesium hydroxide 400 mg/5 mL 30 ml PO DAILY PRN constipation 07/05/24 Unknown History oral suspension (Britton Milk of Magnesia) tramadol 50 mg tablet 50 mg PO BID pain 07/05/24 07/05/24 History trazodone 50 mg tablet 50 mg PO QHS insomnia 07/05/24 07/04/24 History venlafaxine 75 mg tablet 75 mg PO DAILY depression 07/05/24 07/05/24 History Allergy/AdvReac Type Severity Reaction Status Date / Time No Known Allergies Allergy Verified 07/05/24 10:20 Family History Sister CAD (coronary artery disease) stents Heart disease Father Cancer Mother Heart disease Brother Diabetes Heart disease CAD (coronary artery disease) Surgical History History of cataract extraction with lens replacement History of section Social History housing: assisted living facility number of children: 2 Smoking Status: Former smoker how long ago did patient quit smokin alcohol intake: never caffeine: Yes additional social history: ROS ROS Narrative Patient is awake but declined to speak with me at this time so unable to get a review of systems. Vital Signs Vital Signs Vital Signs: 07/05/24 10:14 07/05/24 11:14 07/05/24 12:00 Temperature 37.0 C Temperature Source Oral Pulse Rate 65 70 73 Respiratory Rate 18 18 22 H Respiratory Effort Respiratory Depth Respiratory Pattern Blood Pressure 124/56 H 106/66 146/75 H Blood Pressure Mean 78 79 98 Blood Pressure Source Blood Pressure Position Blood Pressure Location Pulse Ox 93 97 97 Oxygen Delivery Method Room Air Room Air 07/05/24 12:39 07/05/24 13:00 07/05/24 14:22 Temperature 36.6 C 36.8 C Temperature Source Oral Pulse Rate 72 72 78 Respiratory Rate 17 18 Respiratory Effort Respiratory Depth Respiratory Pattern Blood Pressure 141/72 H 130/94 H 132/70 H Blood Pressure Mean 95 106 90 Blood Pressure Source Monitor Blood Pressure Position Supine Blood Pressure Location Right Forearm Pulse Ox 97 93 92 Oxygen Delivery Method Room Air Room Air 07/05/24 15:04 07/05/24 15:04 07/05/24 15:08 Temperature Temperature Source Pulse Rate 82 Respiratory Rate 18 Respiratory Effort Normal Non-Labored Respiratory Depth Normal Respiratory Pattern Normal Normal Blood Pressure Blood Pressure Mean Blood Pressure Source Blood Pressure Position Blood Pressure Location Pulse Ox 98 Oxygen Delivery Method Room Air Room Air Weight Weight: 84.4 kg Body Mass Index (BMI) 37.5 Physical Exam Const Constitutional Narrative: Awake. Appearing to be unwilling to engage with conversation with me. HEENT normocephalic and head/scalp atraumatic Neck no lymphadenopathy and supple Resp normal respiratory effort, no retractions, no use of accessory muscles and clear to auscultation bilaterally Cardio regular rate, regular rhythm, S1 normal heart sound and S2 normal heart sound GI normal to inspection, nondistended, normoactive bowel sounds, soft to palpation, non-tender, non-distended and hepatosplenomegaly Extremity normal to inspection and full ROM Neuro Sensorium / Orientation: awake and alert Psych affect normal Results Lab / Micro Data 07/05/24 14:40 07/05/24 10:42 Labs: Laboratory Results - last 24 hr 07/05/24 10:42: WBC 11.7 H, RBC 4.02 L, Hgb 10.2 L, Hct 34.1 L, MCV 84.8, MCH 25.4 L, MCHC 29.9 L, RDW Std Deviation 52.8 H, RDW Coeff of Kin 17.0 H, Plt Count 329, MPV 9.4, Immature Gran % (Auto) 0.600, Neut % (Auto) 70.9 H, Lymph % (Auto) 14.9 L, [place] % (Auto) 9.6, Eos % (Auto) 3.5, Baso % (Auto) 0.5, Absolute Neuts (auto) 8.3 H, Absolute Lymphs (auto) 1.74, Nucleated RBC % 0, Sodium 139, Potassium 3.4 L, Chloride 103, Carbon Dioxide 35.0 H, Anion Gap 0 L, BUN 27 H, C reatinine 1.12 H, Estim Creat Clear Calc 43.31, Est GFR (MDRD) Af Amer 61, Est GFR (MDRD) Non-Af 50 L, BUN/Creatinine Ratio 24.1 H, Glucose 107 H, Calcium 9.3, Total Bilirubin 0.30, AST 15, ALT 17, Alkaline Phosphatase 90, Total Protein 7.1, Albumin 2.7 L, Globulin 4.4 H, Albumin/Globulin Ratio 0.6 L 07/05/24 11:40: Urine Color Yellow, Urine Clarity Sl. Cloudy, Urine pH 6.5, Ur Specific [place] 1.010, Urine Protein 15 H, Urine Glucose (UA) Normal, Urine Ketones Negative, Urine Occult Blood 10 H, Urine Nitrite Negative, Urine Bilirubin Negative, Urine Urobilinogen 1 H, Ur Leukocyte Esterase 25 H, Urine RBC 0-5 SEEN, Urine WBC 0-5 SEEN, Ur Squamous Epith Cells 0-5 SEEN, Urine Bacteria 3+, Hyaline Casts 0-5 SEEN, Urine Mucus 0 SEEN 07/05/24 14:40: Hgb 9.8 L, Hct 32.9 L Imaging Radiology Impression Abdomen/Pelvis CT 07/05/24 10:28 IMPRESSION: Enlarged fibroid uterus. Solitary gallstone. Sigmoid diverticulosis. Distended urinary bladder. Electronically Signed: William Ramirez MD at 12:09 EST , Assessment & Plan Assessment/Plan (1) Acute GI bleeding: PLAN: Suspect diverticular. Will start empiric pantoprazole. GI on consult for evaluation. Endoscopies are planned. Continue to hold aspirin and meloxicam. PLAN: Plan Chronic conditions * Dementia: Complicates care and recovery. Continue with memantine * Hypertension: Continue with propranolol * Depression: Continue with venlafaxine VTE prophylaxis: Chemical prophylaxis conjugated in light of the acute GI bleed. SCDs. CODE STATUS: Per [facility] records patient has full CODE STATUS. Charges/Coding Visit Charges Inpatient E&M: 79375 Init Hosp L3
[2024-07-05] MEDS: Bisacodyl 5 MG Tablet 20 MG PO (16:22)
[2024-07-05] MEDS: Polyethylene Glycol 3350 BOWEL PREP PO (18:32)
--- NOTE | 2024-07-05 18:50 | EX.PCM.CON.G ---
HPI Consult Data Date of Consult: 07/05/24 HPI Narrative Reason for Consultation: GI bleed HPI Narrative: CLARENCE MCNEILL, is a 73 F who presents resident of [place] sent in by nurse practitioner for bright red blood per rectum. Was reported that she was hypotensive at the time, but it was from a wrist cuff so it was an accurate. Patient denies any abdominal pain, no fevers or chills, no nausea or vomiting. She denies having bright red blood per rectum although it was reported by the nurse practitioner in report. Patient had a CAT scan of her abdomen pelvis that was unremarkable. Patient is a poor historian to provide any history. I was consulted because the patient had multiple episodes of GI bleeding. [facility] Medical History Smoker Decubitus ulcer of right buttock, stage 3 Dementia Confusion Memory deficit Left ventricular diastolic dysfunction Secondary pulmonary arterial hypertension Hyperlipidemia RADHA treated with BiPAP Asthma COPD (chronic obstructive pulmonary disease) Osteoarthritis Essential hypertension Epigastric pain Acute kidney injury Depression Accidental drug overdose UTI (urinary tract infection) Sepsis Hypomagnesemia Irritable bowel syndrome Left shoulder pain Super obese Lightheadedness Hypothyroidism DM2 (diabetes mellitus, type 2) COLD (chronic obstructive lung disease) Anxiety Home Medications ?Medication ?Instructions ?Recorded ?Last Taken ?Type aspirin 81 mg chewable tablet 81 mg PO DAILY@0800 heart health 04/29/17 07/05/24 History atorvastatin 40 mg tablet 40 mg PO QHS cholesterol 04/29/17 07/04/24 History buspirone 30 mg tablet 10 mg PO BID anxiety 04/29/17 07/05/24 History levothyroxine 75 mcg tablet 75 mcg PO DAILY thyroid 04/29/17 03/28/18 History 75 mcg lisinopril 10 mg tablet 10 mg PO DAILY blood pressure 04/29/17 07/05/24 History meloxicam 15 mg tablet 15 mg PO DAILY arthritis 04/29/17 07/05/24 History albuterol sulfate 90 mcg/actuation 2 puff inhalation Q6H PRN 01/17/20 Unknown History aerosol inhaler (ProAir HFA) Shortness Of Breath latanoprost 0.005 % eye drops 1 drp ophthalmic (eye) QPM glaucoma 01/17/20 07/04/24 History memantine 10 mg tablet 10 mg PO BID dementia 01/17/20 07/05/24 History famotidine 20 mg tablet 20 tab PO BID gerd 01/18/20 07/05/24 History lamotrigine 200 mg tablet 200 mg PO DAILY depressed mood 01/18/20 07/05/24 History calcium 600 mg (as 1 cap PO DAILY supplement 01/02/21 07/05/24 History carbonate)-vitamin D3 12.5 mcg (500 unit) capsule (Calcium with Vit D3) cholecalciferol (vitamin D3) 125 2,000 unit PO DAILY supplement 01/02/21 07/05/24 History mcg (5,000 unit) capsule docusate sodium 100 mg capsule 100 mg PO DAILY bowels 01/02/21 07/05/24 History (Colace) primidone 50 mg tablet 50 mg PO QHS tremors 01/02/21 07/04/24 History propranolol 20 mg tablet 20 mg PO BID HTN 01/02/21 Unknown History ondansetron 4 mg disintegrating 4 mg PO Q8H PRN Nausea 10/28/21 Unknown History tablet acetaminophen 500 mg capsule 1,000 mg PO .q8h PRN fever or pain 07/05/24 Unknown History albuterol sulfate 2.5 mg/3 mL 2.5 mg inhalation Q4H PRN 07/05/24 Unknown History (0.083 %) solution for nebulization shortness of breath or wheezing bisacodyl 10 mg rectal suppository 10 mg [place] DAILY PRN constipation 07/05/24 Unknown History clotrimazole 1 % topical cream 1 applic topical BID redness to 07/05/24 07/05/24 History [place] area fluticasone 250 mcg-salmeterol 50 1 inh inhalation BID breathing 07/05/24 Unknown History mcg/dose blistr powdr for inhalation fluticasone propionate 50 1 spray intranasal DAILY congestion 07/05/24 07/05/24 History mcg/actuation nasal spray,suspension (24 Hour Allergy Relief) guaifenesin 600 mg tablet, 600 mg PO Q12H PRN congestion 07/05/24 Unknown History extended release 12 hr (Mucinex) hydrochlorothiazide 25 mg tablet 25 mg PO DAILY HTN 07/05/24 07/05/24 History magnesium hydroxide 400 mg/5 mL 30 ml PO DAILY PRN constipation 07/05/24 Unknown History oral suspension (Britton Milk of Magnesia) tramadol 50 mg tablet 50 mg PO BID pain 07/05/24 07/05/24 History trazodone 50 mg tablet 50 mg PO QHS insomnia 07/05/24 07/04/24 History venlafaxine 75 mg tablet 75 mg PO DAILY depression 07/05/24 07/05/24 History Allergy/AdvReac Type Severity Reaction Status Date / Time No Known Allergies Allergy Verified 07/05/24 10:20 Family History Sister CAD (coronary artery disease) stents Heart disease Father Cancer Mother Heart disease Brother Diabetes Heart disease CAD (coronary artery disease) Surgical History History of cataract extraction with lens replacement History of section Social History housing: assisted living facility number of children: 2 Smoking Status: Former smoker how long ago did patient quit smokin alcohol intake: never caffeine: Yes additional social history: ROS Constitutional Constitutional: Denies fatigue, fever(s), poor appetite, weight gain or weight loss Gastrointestinal Gastrointestinal: Denies belching, bloating, change in bowel habits, change in stool character, chewing difficulty, coffee ground emesis, constipation, cramping, diarrhea, dyspepsia, dysphagia, early satiety, excessive flatus, fecal incontinence, heartburn, hematemesis, hematochezia, hemorrhoids, loose stools, melena, nausea, odynophagia, rectal bleeding, tenesmus, vomiting or weight changes Physical Exam Const Constitutional Narrative: Awake. 0 HEENT normocephalic and head/scalp atraumatic Neck no lymphadenopathy and supple Resp normal respiratory effort, no retractions, no use of accessory muscles and clear to auscultation bilaterally Cardio regular rate, regular rhythm, S1 normal heart sound and S2 normal heart sound GI normal to inspection, nondistended, normoactive bowel sounds, soft to palpation, non-tender, non-distended and hepatosplenomegaly Extremity normal to inspection and full ROM Neuro Sensorium / Orientation: awake and alert Psych affect normal Lab / Micro Data 07/05/24 14:40 07/05/24 10:42 Labs: Laboratory Results - last 24 hr 07/05/24 10:42: WBC 11.7 H, RBC 4.02 L, Hgb 10.2 L, Hct 34.1 L, MCV 84.8, MCH 25.4 L, MCHC 29.9 L, RDW Std Deviation 52.8 H, RDW Coeff of Kin 17.0 H, Plt Count 329, MPV 9.4, Immature Gran % (Auto) 0.600, Neut % (Auto) 70.9 H, Lymph % (Auto) 14.9 L, [place] % (Auto) 9.6, Eos % (Auto) 3.5, Baso % (Auto) 0.5, Absolute Neuts (auto) 8.3 H, Absolute Lymphs (auto) 1.74, Nucleated RBC % 0, Sodium 139, Potassium 3.4 L, Chloride 103, Carbon Dioxide 35.0 H, Anion Gap 0 L, BUN 27 H, Creatinine 1.12 H, Estim Creat Clear Calc 43.31, Est GFR (MDRD) Af Amer 61, Est GFR (MDRD) Non-Af 50 L, BUN/Creatinine Ratio 24.1 H, Glucose 107 H, Calcium 9.3, Total Bilirubin 0.30, AST 15, ALT 17, Alkaline Phosphatase 90, Total Protein 7.1, Albumin 2.7 L, Globulin 4.4 H, Albumin/Globulin Ratio 0.6 L 07/05/24 11:40: Urine Color Yellow, Urine Clarity Sl. Cloudy, Urine pH 6.5, Ur Specific [place] 1.010, Urine Protein 15 H, Urine Glucose (UA) Normal, Urine Ketones Negative, Urine Occult Blood 10 H, Urine Nitrite Negative, Urine Bilirubin Negative, Urine Urobilinogen 1 H, Ur Leukocyte Esterase 25 H, Urine RBC 0-5 SEEN, Urine WBC 0-5 SEEN, Ur Squamous Epith Cells 0-5 SEEN, Urine Bacteria 3+, Hyaline Casts 0-5 SEEN, Urine Mucus 0 SEEN 07/05/24 14:40: Hgb 9.8 L, Hct 32.9 L Imaging Radiology Impression Abdomen/Pelvis CT 07/05/24 10:28 IMPRESSION: Enlarged fibroid uterus. Solitary gallstone. Sigmoid diverticulosis. Distended urinary bladder. Electronically Signed: William Ramirez MD at 12:09 EST , Assessment & Plan Assessment/Plan (1) Acute GI bleeding: PLAN: Acute lower GI bleeding. Differential diagnosis does include diverticular bleed, angiodysplasia, stercoral ulcer because a history of constipation, less likely ulcerative colitis or neoplasia. Also different diagnosis is upper GI bleed with rapid transit. She will need to undergo an upper and lower endoscopy tomorrow to evaluate upper lower GI tract. Probably turn was explained alternatives, risk and benefits include understand bleeding, infection, sepsis, perforation, need for return to . She have an ASA of 3 suspect diverticular. Agree with empiric pantoprazole. Charges/Coding Visit Charges Inpatient E&M: 87563 Init Hosp L3
[2024-07-05] MEDS: Memantine Hydrochloride 10 MG Tablet PO (20:03)
[2024-07-05] MEDS: Propranolol 10 MG Tablet 20 MG PO (20:03)
[2024-07-05] MEDS: traZODone 50 MG Tablet PO (20:03)
[2024-07-05] MEDS: Famotidine 20 MG Tablet PO (20:03)
[2024-07-05] MEDS: busPIRone 5 MG Tablet 10 MG PO (20:03)
[2024-07-05] MEDS: Acetaminophen 500 MG Tablet 1000 MG PO (20:03)
[2024-07-05] MEDS: Primidone 50 MG Tablet PO (20:04)
[2024-07-05 20:19] LABS: Hematocrit 32.1 % (37-47); Hemoglobin 9.6 g/dL (12.0-15.0)
[2024-07-05] MEDS: Pantoprazole Sodium 40 MG in 0.9% Normal Saline (100mL MB+) 100 ML 330 MG IV (21:13)
--- NOTE | 2024-07-05 22:58 | NURSING ---
pt refusing all vital signs to be taken at this time. pt continues to rip the blood pressure cuff off her arm before its completed and pt clenching fists and wont lay still for this nurse to place a pulse ox on her finger
[2024-07-06 03:27] LABS: Absolute Lymphocyte Count 1.98 X10^3/uL (0.83-4.51); Absolute Neutrophil Count 7.2 X10^3/uL (2.0-7.7); Basophil# 0.07 X10^3/uL; Basophil% 0.6 % (0-1); Eosinophil# 0.47 X10^3/uL; Eosinophils% 4.3 % (0-5); Hematocrit 30.1 % (37-47); Hemoglobin 8.9 g/dL (12.0-15.0); Lymphocyte # 1.98 X10^3/ul (0.83-4.51); Mean Corp Hgb Conc 29.6 g/dL (32-36); Mean Corpuscular Volume 84.6 fL (81-99); Mean Platelet Vol. 9.9 fl (6.2-12.0); Monocyte# 1.11 X10^3/uL; Monocyte% 10.1 % (0-10); NRBC Flagged by Analyzer 0 % (0-5); Neutrophil # 7.24 X10^3/uL (2.7-7.7); Neutrophil % 65.8 % (47-70); Platelet Count 332 K/mm3 (150-450); RBC Distribution Width CV 17.2 % (11.6-14.6); RBC Distribution Width SD 53.8 fl (35.1-43.9); Red Blood Count 3.56 M/mm3 (4.2-5.4)
[2024-07-06 03:31] LABS: International Normalized Ratio 1.1; Partial Thromboplast Time 25.3 Seconds (24.1-36.2); Prothrombin Time (Protime)PT. 14.8 SECONDS (11.7-14.9)
[2024-07-06 04:00] VITALS: BP 100/41; PULSE 61; RESP 18; TEMP 36.3; O2SAT 95
[2024-07-06 05:23] LABS: Anion Gap 3 (5-15); BUN 25 mg/dL (7-18); BUN/Creat Ratio 22.1 RATIO (10-20); Chloride 103 mmol/L (98-107); Creatinine, Serum 1.13 mg/dL (0.55-1.02); EST Glomerular Filtration Rate 50 mL/min (>60); Est Glom Filt Rate - Afr Amer 61 mL/min (>60); Estimated Creatinine Clearance 41.46 ml/min; Glucose 99 mg/dL (74-106); Potassium 3.2 mmol/L (3.5-5.1); Sodium Level 139 mmol/L (136-145)
--- NOTE | 2024-07-06 05:39 | NURSING ---
Dr ramos was notified of pt unable to complete prep or obtain ekg. States will see if can be prepped through the day.
[2024-07-06 07:16] VITALS: PULSE 80; RESP 16; O2SAT 96
[2024-07-06] MEDS: Albuterol 2.5 MG/3 ML VIAL.NEB. INHALATION ×2 (07:16→20:50)
[2024-07-06] MEDS: Budesonide Respules 0.5 MG/2 ML AMPUL.NEB. INHALATION ×2 (07:16→20:50)
--- NOTE | 2024-07-06 07:36 | CPS ---
Attempted EKG, patient continuously ripped off stickers and leads. Stating I do not need this, I do not want this. Explained the importance, patient conintued to rip off stickers and leads. Test aborted.
[2024-07-06 07:57] VITALS: BP 116/96; PULSE 76; RESP 17; TEMP 36.7; O2SAT 96
[2024-07-06] MEDS: Fluticasone 0.05% 1 SPRAY NASAL.SRY NASAL (08:01)
[2024-07-06] MEDS: Pantoprazole Sodium 40 MG in 0.9% Normal Saline (100mL MB+) 100 ML 330 MG IV ×2 (08:02→21:37)
[2024-07-06 08:03] LABS: Hematocrit 31.7 % (37-47); Hemoglobin 9.5 g/dL (12.0-15.0)
[2024-07-06] MEDS: Lisinopril 10 MG Tablet PO (08:04)
[2024-07-06] MEDS: 0.9% Saline Lock 10 ML Syringe IV (08:04)
[2024-07-06] MEDS: lamoTRIgine 100 MG Tablet 200 MG PO (08:05)
[2024-07-06] MEDS: Venlafaxine HCl 75 MG Tablet PO (08:05)
[2024-07-06] MEDS: busPIRone 5 MG Tablet 10 MG PO ×2 (08:05→21:35)
[2024-07-06] MEDS: Docusate Sodium 100 MG Capsule PO (08:05)
[2024-07-06] MEDS: guaiFENesin 600 MG Tablet PO (08:05)
[2024-07-06] MEDS: Famotidine 20 MG Tablet PO ×2 (08:05→21:36)
[2024-07-06] MEDS: Propranolol 10 MG Tablet 20 MG PO ×2 (08:05→21:36)
[2024-07-06] MEDS: Cholecalciferol (Vit D3) 125 MCG CAPSULE (5,000 UNITS) PO (08:05)
[2024-07-06] MEDS: Memantine Hydrochloride 10 MG Tablet PO ×2 (08:05→21:36)
--- NOTE | 2024-07-06 08:39 | PN.HOSP_ITS ---
Reason for Visit Reason for Visit: Diagnoses Gastrointestinal hemorrhage, unspecified (07/05/24) Subjective Subjective Refusing much of the colon prep. Objective Data Objective Data Vital Signs: Vital Signs Temp Pulse Resp BP Pulse Ox O2 Del Method 36.7 C 76 17 116/96 H 96 Room Air 07/06/24 07:57 07/06/24 07:57 07/06/24 07:57 07/06/24 07:57 07/06/24 07:57 07/06/24 07:57 Oxygen Delivery Method Room Air Weight: 84.4 kg Body Mass Index (BMI) 37.5 Intake & Output: Intake and Output for Last 24 Hours 07/04/24 07/05/24 07/06/24 23:59 23:59 23:59 Intake Total 280 / 280 Balance 280 / 280 Lab / Micro Data 07/06/24 07:55 07/06/24 02:50 Labs: Laboratory Results - last 24 hr 07/05/24 10:42: WBC 11.7 H, RBC 4.02 L, Hgb 10.2 L, Hct 34.1 L, MCV 84.8, MCH 25.4 L, MCHC 29.9 L, RDW Std Deviation 52.8 H, RDW Coeff of Kin 17.0 H, Plt Count 329, MPV 9.4, Immature Gran % (Auto) 0.600, Neut % (Auto) 70.9 H, Lymph % (Auto) 14.9 L, [place] % (Auto) 9.6, Eos % (Auto) 3.5, Baso % (Auto) 0.5, Absolute Neuts (auto) 8.3 H, Absolute Lymphs (auto) 1.74, Nucleated RBC % 0, Sodium 139, Potassium 3.4 L, Chloride 103, Carbon Dioxide 35.0 H, Anion Gap 0 L, BUN 27 H, C reatinine 1.12 H, Estim Creat Clear Calc 43.31, Est GFR (MDRD) Af Amer 61, Est GFR (MDRD) Non-Af 50 L, BUN/Creatinine Ratio 24.1 H, Glucose 107 H, Calcium 9.3, Total Bilirubin 0.30, AST 15, ALT 17, Alkaline Phosphatase 90, Total Protein 7.1, Albumin 2.7 L, Globulin 4.4 H, Albumin/Globulin Ratio 0.6 L 07/05/24 11:40: Urine Color Yellow, Urine Clarity Sl. Cloudy, Urine pH 6.5, Ur Specific [place] 1.010, Urine Protein 15 H, Urine Glucose (UA) Normal, Urine Ketones Negative, Urine Occult Blood 10 H, Urine Nitrite Negative, Urine Bilirubin Negative, Urine Urobilinogen 1 H, Ur Leukocyte Esterase 25 H, Urine RBC 0-5 SEEN, Urine WBC 0-5 SEEN, Ur Squamous Epith Cells 0-5 SEEN, Urine Bacteria 3+, Hyaline Casts 0-5 SEEN, Urine Mucus 0 SEEN 07/05/24 14:40: Hgb 9.8 L, Hct 32.9 L 07/05/24 20:08: Hgb 9.6 L, Hct 32.1 L 07/06/24 02:50: WBC 11.0, RBC 3.56 L, Hgb Cancelled 07/06/24 02:50: Hgb 8.9 L, Hct Cancelled 07/06/24 02:50: Hct 30.1 L, MCV 84.6, MCH 25.0 L, MCHC 29.6 L, RDW Std Deviation 53.8 H, RDW Coeff of Kin 17.2 H, Plt Count 332, MPV 9.9, Immature Gran % (Auto) 1.200 H, Neut % (Auto) 65.8, Lymph % (Auto) 18.0 L, [place] % (Auto) 10.1 H, Eos % (Auto) 4.3, Baso % (Auto) 0.6, Absolute Neuts (auto) 7.2, Absolute Lymphs (auto) 1.98, Nucleated RBC % 0, Diff Path Review Cancelled, PT 14.8, INR 1.1, APTT 25.3, Sodium 139, Potassium 3.2 L, Chloride 103, Carbon Dioxide 33.0 H, Anion Gap 3 L, BUN 25 H, Creatinine 1.13 H, Estim Creat Clear Calc 41.46, Est GFR (MDRD) Af Amer 61, Est GFR (MDRD) Non-Af 50 L, BUN/Creatinine Ratio 22.1 H, Glucose 99, Calcium 9.0, TSH 1.260 07/06/24 07:55: Hgb 9.5 L, Hct 31.7 L Radiography Diagnostic Testing: Radiology Impression Abdomen/Pelvis CT 07/05/24 10:28 IMPRESSION: Enlarged fibroid uterus. Solitary gallstone. Sigmoid diverticulosis. Distended urinary bladder. Electronically Signed: William Ramirez MD at 12:09 EST , Physical Exam Const alert and no apparent distress Constitutional Narrative: awake but does not engage in my questioning. HEENT head/scalp atraumatic and moist oral mucous membranes Resp normal respiratory effort, no retractions, no use of accessory muscles and clear to auscultation bilaterally Cardio regular rate, regular rhythm, S1 normal heart sound and S2 normal heart sound GI normal to inspection, nondistended, normoactive bowel sounds, soft to palpation, non-tender and non-distended Neuro Sensorium / Orientation: awake and alert Assessment & Plan Assessment/Plan (1) Acute GI bleeding: PLAN: Suspect diverticular. Will start empiric pantoprazole. GI on consult for evaluation. Endoscopies were planned but patient refusing colon prep. Patient back on diet. Will monitor hemoglobin remained stable the patient like to be discharged in the next day or so. Continue to hold aspirin and meloxicam. Hemoglobin stable PLAN: Plan Chronic conditions * Dementia: Complicates care and recovery. Continue with memantine * Hypertension: Continue with propranolol * Depression: Continue with venlafaxine VTE prophylaxis: Chemical prophylaxis conjugated in light of the acute GI bleed. SCDs. CODE STATUS: Per [facility] records patient has full CODE STATUS. Charges/Coding Visit Charges Inpatient E&M: 15388 Subs Hosp L2
--- NOTE | 2024-07-06 10:48 | CASEMGMT ---
Addendum entered by Mariann Grider 07/07/24 09:05: Call returned and Jacque wishes for pt to return to [facility] at discharge. SW updated. Mariann Grider DC Planning Asst. Original Note: left for pts daughter, Jacque, to ask if pt will return to [facility] at discharge. Mariann Grider DC Planning Asst.
[2024-07-06 11:43] VITALS: BMI 37.5
[2024-07-06] MEDS: Acetaminophen 500 MG Tablet 1000 MG PO ×2 (13:32→21:36)
[2024-07-06 14:00] VITALS: BP 114/54; PULSE 70; RESP 14; TEMP 36.7; O2SAT 97
--- NOTE | 2024-07-06 14:32 | CHAPLAIN ---
Type of Pastoral Visit ___ Initial Visit ___ Follow-up Visit ___ On-call Visit ___ General Patient Visit ___ Spiritual Assessment ___ Family Conference ___ Bereavement ___ Rapid Response ___ Code Blue ___ Other (describe below) Pastoral Care Referral From ___ Patient ___ Family ___ Nurse ___ Physician ___ Dramatic Critic ___ Weapons Officer ___ Other (describe below) Sacrament/Intervention ___ Active listening ___ Anointing ___ Restoration ___ Bereavement ___ Communion ___ Brandy exploration ___ ___ Life review ___ Prayer ___ Reconciliation ___ Sacrament of Sick ___ Supportive presence ___ Wedding ___ Other (describe below) Pastoral Comments two attempts made to visit; patient is sound asleep
--- NOTE | 2024-07-06 19:27 | NURSING ---
Reviewed and agreed on charting with Junior Natarajan RN
[2024-07-06 20:50] VITALS: PULSE 80; RESP 18
[2024-07-06 21:15] VITALS: BP 124/99; PULSE 78; RESP 18; TEMP 36.7; O2SAT 97
[2024-07-06] MEDS: Latanoprost 0.005% 1 Bottle 1 DRP OPHTHALMIC (21:35)
[2024-07-06] MEDS: traZODone 50 MG Tablet PO (21:36)
[2024-07-06] MEDS: Primidone 50 MG Tablet PO (21:36)
[2024-07-06 23:15] VITALS: BMI 37.5
[2024-07-07] VITALS (10 sets, daily range): BP systolic 78–116; BP diastolic 45–90; PULSE 62–78; RESP 14–17; TEMP 36.6–36.8; O2SAT 91–98
--- NOTE | 2024-07-07 | GASB_PTH ---
PATIENT: CLARENCE MCNEILL LOC: [facility] U#:[id number] AGE/SX: 73/F ROOM: [facility] RE07/05/[address]: Dr. Chang Gonzales DO : 1950 BED: 1 DIS: 07/07/2024 SPEC #: [id number] RECD: 07/07/24 13:32 STATUS: REX REVi #: [id number] BUZZ: 07/07/24 00:[address]: Wale Rodriguez DEPT: SURGICAL PATHOLOGY RECD BY: Emmanuel Hill ENTERED: 07/07/24 13:32 SP TYPE: Gastric Bx OTHR DR: DO Dr. Frank De León MD Tissues: Gastric mucous membrane Procedures: Surgery Specimen Level IV Comments: @ Ordering doctor for SUIV edited from to @ by DHEERAJ at 07/07/24 [id number] @ Submitting doctor edited from to @ by DHEERAJ at 07/07/24 5008 HEADER OPERATION: EGD with biopsy PRE-OP DIAGNOSIS: Acute GI bleeding TISSUE SUBMITTED: Gastric antrum biopsy MICROSCOPIC DIAGNOSIS Gastric antrum, biopsy: Fragments of gastric mucosa with superficial erosion, congestion and chronic inflammation. See comment. 07/08/2024 COMMENT The results of immunohistochemistry for Helicobacter pylori will be reported separately ([id number]). MICROSCOPIC DESCRIPTION Slides are reviewed. GROSS DESCRIPTION Received in fixative is one container labeled with the patient's name and designated Gastric antrum biopsy. The specimen consists of multiple irregular fragments of light downing soft tissue that in aggregate measure 0.8 x 0.5 x 0.1 cm. The specimen is totally submitted in one cassette. 07/07/2024 TC:5 CPT:15123
--- NOTE | 2024-07-07 04:09 | PCM.HOSP.N ---
Hospitalist Note Patient with dementia, agitated. RN notes likely will not take oral. Will dose with haldol 1 mg x 1.
[2024-07-07] MEDS: Haloperidol Lactate 5 MG/ML Vial 1 MG IV (04:20)
[2024-07-07] MEDS: 0.9% Saline Lock 10 ML Syringe IV (04:20)
[2024-07-07] MEDS: Budesonide Respules 0.5 MG/2 ML AMPUL.NEB. INHALATION (08:06)
[2024-07-07] MEDS: Albuterol 2.5 MG/3 ML VIAL.NEB. INHALATION (08:06)
--- NOTE | 2024-07-07 08:45 | PN.HOSP_ITS ---
Reason for Visit Reason for Visit: Diagnoses Gastrointestinal hemorrhage, unspecified (07/05/24) Subjective Subjective No events per nursing. Pt awake, but non-verbal with me. Objective Data Objective Data Vital Signs: Vital Signs Temp Pulse Resp BP Pulse Ox O2 Del Method 36.7 C 78 18 124/99 H 97 Room Air 07/06/24 21:15 07/06/24 21:15 07/06/24 21:15 07/06/24 21:15 07/06/24 21:15 07/07/24 03:04 Oxygen Delivery Method Room Air Weight: 84.4 kg Body Mass Index (BMI) 37.5 Intake & Output: Intake and Output for Last 24 Hours 07/05/24 07/06/24 07/07/24 23:59 23:59 23:59 Intake Total 280 / 280 620 / 720 100 / 100 Balance 280 / 280 620 / 720 100 / 100 Lab / Micro Data 07/06/24 07:55 07/06/24 02:50 Physical Exam Const alert and no apparent distress HEENT head/scalp atraumatic and moist oral mucous membranes Resp normal respiratory effort, no retractions, no use of accessory muscles and clear to auscultation bilaterally Cardio regular rate, regular rhythm, S1 normal heart sound and S2 normal heart sound GI normal to inspection, nondistended, normoactive bowel sounds, soft to palpation, non-tender and non-distended Extremity normal to inspection Assessment & Plan Assessment/Plan (1) Acute GI bleeding: PLAN: Suspect diverticular. Will start empiric pantoprazole. GI on consult for evaluation. Endoscopies were planned but patient refusing colon prep. EGD showed normal esophagus. Chronic gastritis (Bx'd) Normal 4th part of duodenum. Continue to hold aspirin and meloxicam. Hemoglobin stable PLAN: Plan Chronic conditions * Dementia: Complicates care and recovery. Continue with memantine * Hypertension: Continue with propranolol * Depression: Continue with venlafaxine VTE prophylaxis: Chemical prophylaxis conjugated in light of the acute GI bleed. SCDs. CODE STATUS: Per [facility] records patient has full CODE STATUS. DC back to nursing facility. Charges/Coding Visit Charges Inpatient E&M: 32552 Subs Hosp L2
--- NOTE | 2024-07-07 09:07 | CASEMGMT ---
Updates sent to [facility] with note that pt will return intermediate. Mariann Grider DC Planning Asst.
[2024-07-07] MEDS: Pantoprazole Sodium 40 MG in 0.9% Normal Saline (100mL MB+) 100 ML 330 MG IV (10:35)
[2024-07-07] MEDS: Fluticasone 0.05% 1 SPRAY NASAL.SRY NASAL (10:35)
[2024-07-07] MEDS: busPIRone 5 MG Tablet 10 MG PO (10:36)
[2024-07-07] MEDS: Venlafaxine HCl 75 MG Tablet PO (10:36)
--- NOTE | 2024-07-07 11:37 | PCM.PRE.AN2 ---
ASA Classification* ASA Classification ASA Classification: 3 and E Assessment & Plan Anesthesia* Anesthesia Assessment Anesthesia Assessment: Discussed sedation and/or anesthesia options, risks, benefits, and alternatives with patient/parents/legal guardian/POA. Questions invited. The patient/parents/legal guardian/POA seems to understand and agrees to proceed with anesthesia plan. Reviewed the physical assessment, medical history, allergy history and patient home medications list prior to surgery/procedure/anesthetic and documented any changes. Performed airway and anesthesia risk assessments. Anesthesia Type Anesthesia Type: MAC History Source History Obtained from:: Patient and Chart Anesthesia Focused Assessment* Temperature: 98.3 F Pulse Rate: 75 Blood Pressure: 115/51 Respiratory Rate: 15 Pulse Ox: 98 Oxygen Delivery Method: Room Air Airway Assessment Mouth opens: 2 cm Mallampati Score: IV Teeth Condition: Dentures (Patient has full upper and lower dentures. They are out.) Neck Range of motion (ROM): Limited ROM (Somewhat decreased extension. May be limited by dementia.) Focused Labs Anesthesia Preop lab: CBC WBC 11.0 K/mm3 (4.4-11.0) 07/06/24 02:50 RBC 3.56 M/mm3 (4.2-5.4) L 07/06/24 02:50 Hgb 9.5 g/dL (12.0-15.0) L 07/06/24 07:55 Hct 31.7 % (37-47) L 07/06/24 07:55 Plt Count 332 K/mm3 (150-450) 07/06/24 02:50 CHEMISTRY Potassium 3.2 mmol/L (3.5-5.1) L 07/06/24 02:50 Sodium 139 mmol/L (136-145) 07/06/24 02:50 Magnesium 1.5 mg/dL (1.8-2.4) L 12/03/14 10:20 BUN 25 mg/dL (7-18) H 07/06/24 02:50 Creatinine 1.13 mg/dL (0.55-1.02) H 07/06/24 02:50 Glucose 99 mg/dL (74-106) 07/06/24 02:50 POC Glucose 89 mg/dL (74-106) 10/28/21 19:02 TSH 1.260 uIU/mL (0.358-3.740) 07/06/24 02:50 COAG PT 14.8 SECONDS (11.7-14.9) 07/06/24 02:50 Pre-Assessment Diagnosis/Proposed Procedure Planned Operative Procedure(s): Esophagogastroduodenoscopy Anesthesia History 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 When Was Last Pacemaker Check QUESTION #4 FULL TEXT: You/Your Family Experience fever (hyperthermia) with Anesthesia Last Oral Intake Last Oral intake: Last Oral Intake NPO since 00:00 07/06/24 23:15 Meds taken in AM with sips of Yes 07/06/24 11:43 water? Meds patient instructed to SEE 07/06/24 11:43 take am of surgery PONV PONV - guard sergeant: PONV - guard sergeant Female HX of Motion Sickness HX of N/V After Surgery Non-Smoker Duration of Surgery greater than 60 minutes Number of Risk Factors PONV Score Height & Weight Height & Weight: Anesthesia: Height & Weight Height 4 ft 11 in 07/06/24 23:15 Weight: 84.4 kg 07/06/24 23:15 Body Mass Index (BMI) 37.5 07/06/24 23:15 Respiratory Assessment Respiratory Assessment - guard sergeant: Respiratory Tract Infection Hx - guard sergeant Hx Respiratory Tract Infection No 07/06/24 11:39 STOP Sleep Apnea STOP Sleep Apnea - guard sergeant: STOP Sleep Apnea - guard sergeant Hx Hypertension Yes 07/05/24 14:10 Hx Sleep Apnea Yes 07/05/24 14:10 CPAP Yes: BIPAP 07/05/24 14:10 BIPAP No 07/05/24 14:10 Do you snore loudly (louder than talking or can be heard Do you often feel tired/ fatigued/ sleepy during daytime? Has anyone observed you stop breathing during sleep? STOP Results Positive 07/05/24 14:10 QUESTION #5 FULL TEXT : Do you snore loudly (louder than talking or can be heard through closed doors)? 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 Specify any problems Hx of Preganancy in last 3 N/A 07/05/24 14:10 Months Nurse Filling Out Transfusion FSTEINER 07/05/24 14:10 & Questions: Date: 07/05/24 07/05/24 14:10 Time: 14:12 07/05/24 14:10 Patient unable to answer at this time (ie. confused, unrespo /Reproduction History /Reproductive History - guard sergeant: /Reproductive Hx- guard sergeant Hx Now No 07/06/24 11:39 Gestational Age (in weeks): EDC: Hx Hx Para Hx Section SAB No 07/06/24 11:39 Active Medications Active Medications: Current Medications Generic Name Dose Route Start Last Admin Trade Name Freq PRN Reason Stop Dose Admin Acetaminophen 1,000 mg 07/05/24 22:00 07/07/24 04:22 Acetaminophen 500 Mg Tablet PO Not Given Q8 GAVI Albuterol Sulfate 2.5 mg 07/05/24 14:09 Albuterol 2.5 Mg/3 Ml Vial.Neb. INHALATION Q4H PRN shortness of breath or wheezing Albuterol Sulfate 2.5 mg 07/05/24 14:30 07/07/24 08:06 Albuterol 2.5 Mg/3 Ml Vial.Neb. INHALATION 2.5 mg Q6HWA.RT GAVI Administration Budesonide 0.5 mg 07/05/24 14:30 07/07/24 08:06 Budesonide Respules 0.5 Mg/2 Ml Ampul.Neb. INHALATION 0.5 mg Q12H.RT GAVI Administration Buspirone HCl 10 mg 07/05/24 22:00 07/07/24 10:36 Buspirone 5 Mg Tablet PO 10 mg BID GAVI Administration Cholecalciferol 125 mcg 07/06/24 10:00 07/06/24 08:05 Cholecalciferol (Vit D3) 125 Mcg Capsule (5,000 Units) PO 125 mcg DAILY GAVI Administration Docusate Sodium 100 mg 07/06/24 10:00 07/06/24 08:05 Docusate Sodium 100 Mg Capsule PO 100 mg DAILY GAVI Administration Famotidine 20 mg 07/05/24 22:00 07/06/24 21:36 Famotidine 20 Mg Tablet PO 20 mg BID GAVI Administration Fluticasone Propionate 1 spray 07/06/24 10:00 07/07/24 10:35 Fluticasone 0.05% 1 [place] Nasal.Sry NASAL 1 dose DAILY GAVI Administration Guaifenesin 600 mg 07/06/24 10:00 07/06/24 08:05 Guaifenesin 600 Mg Tablet PO 600 mg DAILY GAVI Administration Pantoprazole Sodium 40 mg/ 110 mls @ 330 mls/hr 07/05/24 22:00 07/07/24 10:55 Sodium Chloride IV Infused Q12 GAVI Infusion Sodium Chloride 100 mls @ 15 mls/hr 07/05/24 14:13 IV .Q6H40M PRN Saline Flush Sodium Chloride 100 mls @ 15 mls/hr 07/05/24 14:13 IV .Q6H40M PRN Additional IVPB Infusion Sodium Chloride 100 mls @ 15 mls/hr 07/05/24 14:14 IV .Q6H40M PRN Saline Flush Sodium Chloride 100 mls @ 15 mls/hr 07/05/24 14:14 IV .Q6H40M PRN Additional IVPB Infusion Lamotrigine 200 mg 07/06/24 10:00 07/06/24 08:05 Lamotrigine 100 Mg Tablet PO 200 mg DAILY GAVI Administration Latanoprost 1 drp 07/05/24 21:00 07/06/24 21:35 Latanoprost 0.005% 1 Bottle OPHTHALMIC 1 drp QPM GAVI Administration Levothyroxine Sodium 75 mcg 07/06/24 06:00 07/07/24 04:22 Levothyroxine 75 Mcg Tablet PO Not Given DAILY@0600 GAVI Lisinopril 10 mg 07/06/24 10:00 07/06/24 08:04 Lisinopril 10 Mg Tablet PO 10 mg DAILY GAVI Administration Protocol Memantine 10 mg 07/05/24 22:00 07/06/24 21:36 Memantine Hydrochloride 10 Mg Tablet PO 10 mg BID GAVI Administration Ondansetron HCl 4 mg 07/05/24 14:09 Ondansetron 4 Mg/2 Ml Vial IV Q8H PRN PRN NAUSEA/VOMITING Primidone 50 mg 07/05/24 22:00 07/06/24 21:36 Primidone 50 Mg Tablet PO 50 mg QHS GAVI Administration Propranolol HCl 20 mg 07/05/24 22:00 07/06/24 21:36 Propranolol 10 Mg Tablet PO 20 mg BID GAVI Administration Sodium Chloride 10 - 40 ml 07/05/24 14:13 07/07/24 04:20 0.9% Saline Lock 10 Ml Syringe IV 10 ml UD PRN Administration SALINE FLUSH Sodium Chloride 10 - 40 ml 07/05/24 14:14 0.9% Saline Lock 10 Ml Syringe IV UD PRN SALINE FLUSH Trazodone HCl 50 mg 07/05/24 22:00 07/06/24 21:36 Trazodone 50 Mg Tablet PO 50 mg QHS GAVI Administration Venlafaxine HCl 75 mg 07/06/24 10:00 07/07/24 10:36 Venlafaxine Hcl 75 Mg Tablet PO 75 mg DAILY GAVI Administration [facility] Medical History Smoker Decubitus ulcer of right buttock, stage 3 Dementia Confusion Memory deficit Left ventricular diastolic dysfunction Secondary pulmonary arterial hypertension Hyperlipidemia RADHA treated with BiPAP Asthma COPD (chronic obstructive pulmonary disease) Osteoarthritis Essential hypertension Epigastric pain Acute kidney injury Depression Accidental drug overdose UTI (urinary tract infection) Sepsis Hypomagnesemia Irritable bowel syndrome Left shoulder pain Super obese Lightheadedness Hypothyroidism DM2 (diabetes mellitus, type 2) COLD (chronic obstructive lung disease) Anxiety Home Medications ?Medication ?Instructions ?Recorded ?Last Taken ?Type aspirin 81 mg chewable tablet 81 mg PO DAILY@0800 heart health 04/29/17 07/05/24 History atorvastatin 40 mg tablet 40 mg PO QHS cholesterol 04/29/17 07/04/24 History buspirone 30 mg tablet 10 mg PO BID anxiety 04/29/17 07/05/24 History levothyroxine 75 mcg tablet 75 mcg PO DAILY thyroid 04/29/17 03/28/18 History 75 mcg lisinopril 10 mg tablet 10 mg PO DAILY blood pressure 04/29/17 07/05/24 History meloxicam 15 mg tablet 15 mg PO DAILY arthritis 04/29/17 07/05/24 History albuterol sulfate 90 mcg/actuation 2 puff inhalation Q6H PRN 01/17/20 Unknown History aerosol inhaler (ProAir HFA) Shortness Of Breath latanoprost 0.005 % eye drops 1 drp ophthalmic (eye) QPM glaucoma 01/17/20 07/04/24 History memantine 10 mg tablet 10 mg PO BID dementia 01/17/20 07/05/24 History famotidine 20 mg tablet 20 tab PO BID gerd 01/18/20 07/05/24 History lamotrigine 200 mg tablet 200 mg PO DAILY depressed mood 01/18/20 07/05/24 History calcium 600 mg (as 1 cap PO DAILY supplement 01/02/21 07/05/24 History carbonate)-vitamin D3 12.5 mcg (500 unit) capsule (Calcium with Vit D3) cholecalciferol (vitamin D3) 125 2,000 unit PO DAILY supplement 01/02/21 07/05/24 History mcg (5,000 unit) capsule docusate sodium 100 mg capsule 100 mg PO DAILY bowels 01/02/21 07/05/24 History (Colace) primidone 50 mg tablet 50 mg PO QHS tremors 01/02/21 07/04/24 History propranolol 20 mg tablet 20 mg PO BID HTN 01/02/21 Unknown History ondansetron 4 mg disintegrating 4 mg PO Q8H PRN Nausea 10/28/21 Unknown History tablet acetaminophen 500 mg capsule 1,000 mg PO .q8h PRN fever or pain 07/05/24 Unknown History albuterol sulfate 2.5 mg/3 mL 2.5 mg inhalation Q4H PRN 07/05/24 Unknown History (0.083 %) solution for nebulization shortness of breath or wheezing bisacodyl 10 mg rectal suppository 10 mg DC DAILY PRN constipation 07/05/24 Unknown History clotrimazole 1 % topical cream 1 applic topical BID redness to 07/05/24 07/05/24 History [place] fluticasone 250 mcg-salmeterol 50 1 inh inhalation BID breathing 07/05/24 Unknown History mcg/dose blistr powdr for inhalation fluticasone propionate 50 1 spray intranasal DAILY congestion 07/05/24 07/05/24 History mcg/actuation nasal spray,suspension (24 Hour Allergy Relief) guaifenesin 600 mg tablet, 600 mg PO Q12H PRN congestion 07/05/24 Unknown History extended release 12 hr (Mucinex) hydrochlorothiazide 25 mg tablet 25 mg PO DAILY HTN 07/05/24 07/05/24 History magnesium hydroxide 400 mg/5 mL 30 ml PO DAILY PRN constipation 07/05/24 Unknown History oral suspension ([employer]) tramadol 50 mg tablet 50 mg PO BID pain 07/05/24 07/05/24 History trazodone 50 mg tablet 50 mg PO QHS insomnia 07/05/24 07/04/24 History venlafaxine 75 mg tablet 75 mg PO DAILY depression 07/05/24 07/05/24 History Allergy/AdvReac Type Severity Reaction Status Date / Time No Known Allergies Allergy Verified 07/05/24 10:20 Family History Sister CAD (coronary artery disease) stents Heart disease Father Cancer Mother Heart disease Brother Diabetes Heart disease CAD (coronary artery disease) Surgical History History of cataract extraction with lens replacement History of section Social History housing: assisted living facility number of children: 2 Smoking Status: Former smoker how long ago did patient quit smokin alcohol intake: never caffeine: Yes additional social history: Review of Systems (Anesthesia) ROS Narrative System reviewed and no additional complaints, except as documented.
--- NOTE | 2024-07-07 11:54 | EX.PCM.PN.GI ---
Subjective Subjective Patient has been n.p.o. anticipation for her upper endoscopy. She denies any abdominal pain at this time. Objective Data Objective Data Vital Signs: Vital Signs Temp Pulse Resp BP Pulse Ox O2 Del Method 98.3 F 75 15 115/51 L 98 Room Air 07/07/24 11:42 07/07/24 11:42 07/07/24 11:42 07/07/24 11:42 07/07/24 11:42 07/07/24 11:42 Oxygen Delivery Method Room Air Weight: 186 lb 1.122 oz Body Mass Index (BMI) 37.5 Intake & Output: Intake and Output for Last 24 Hours 07/05/24 07/06/24 07/07/24 23:59 23:59 23:59 Intake Total 280 / 280 620 / 720 210 / 210 Balance 280 / 280 620 / 720 210 / 210 Lab / Micro Data 07/06/24 07:55 07/06/24 02:50 Physical Exam Const alert and no apparent distress HEENT head/scalp atraumatic and moist oral mucous membranes Resp normal respiratory effort, no retractions, no use of accessory muscles and clear to auscultation bilaterally Cardio regular rate, regular rhythm, S1 normal heart sound and S2 normal heart sound GI normal to inspection, nondistended, normoactive bowel sounds, soft to palpation, non-tender and non-distended Neuro Sensorium / Orientation: awake and alert Assessment & Plan Assessment/Plan (1) Acute GI bleeding: PLAN: Acute lower GI bleeding. Differential diagnosis does include diverticular bleed, angiodysplasia, stercoral ulcer because a history of constipation, less likely ulcerative colitis or neoplasia. Also different diagnosis is upper GI bleed with rapid transit. She will need to undergo an upper and lower endoscopy tomorrow to evaluate upper lower GI tract. Probably turn was explained alternatives, risk and benefits include understand bleeding, infection, sepsis, perforation, need for return to . She have an ASA of 3 suspect diverticular. Agree with empiric pantoprazole. PLAN: Plan 07/07/2024-patient refused colonoscopy so we will perform upper endoscopy to see if the bleeding source was from her upper GI tract likely secondary to NSAIDs. Charges/Coding Visit Charges Inpatient E&M: 82852 Subs Hosp L2
--- NOTE | 2024-07-07 12:17 | OP.EGD_ITS ---
Patient Name: Indira Hoover Procedure Date: 07/07/2024 12:00 PM Date of : 1950 Age: 73 Procedure: Upper GI endoscopy Indications: Acute post hemorrhagic anemia, Melena, Recent gastrointestinal bleeding Providers: Wale Rodriguez DO Medicines: Monitored Anesthesia Care Patient Profile: This is a 73 year old female. Refer to note in patient chart for documentation of history and physical. Patient has symptoms of acute epigastric abdominal pain. Complications: No immediate complications. Procedure: Pre-Anesthesia Assessment: - Prior to the procedure, a History and Physical was performed, and patient medications and allergies were reviewed. The patient is competent. The risks and benefits of the procedure and the sedation options and risks were discussed with the patient. All questions were answered and informed consent was obtained. Patient identification and proposed procedure were verified by the physician in the pre-procedure area. Mental Status Examination: alert and oriented. Airway Examination: normal oropharyngeal airway and neck mobility. Respiratory Examination: clear to auscultation. CV Examination: normal. Prophylactic Antibiotics: The patient does not require prophylactic antibiotics. Prior Anticoagulants: The patient has taken no anticoagulant or antiplatelet agents except for NSAID medication. ASA Grade Assessment: II - A patient with mild systemic disease. After reviewing the risks and benefits, the patient was deemed in satisfactory condition to undergo the procedure. The anesthesia plan was to use monitored anesthesia care (MAC). Immediately prior to administration of medications, the patient was re-assessed for adequacy to receive sedatives. The heart rate, respiratory rate, oxygen saturations, blood pressure, adequacy of pulmonary ventilation, and response to care were monitored throughout the procedure. The physical status of the patient was re-assessed after the procedure. After obtaining informed consent, the endoscope was passed under direct vision. Throughout the procedure, the patient's blood pressure, pulse, and oxygen saturations were monitored continuously. The gastroscope was introduced through the mouth, and advanced to the fourth part of the duodenum. Small bowel enteroscopy was deemed necessary. The upper GI endoscopy was accomplished without difficulty. The patient tolerated the procedure well. Scope In: 12:06:45 PM Scope Out: 12:09:23 PM Total Procedure Duration Time 0 hours 2 minutes 38 seconds Findings: The examined esophagus was normal. Segmental mild inflammation characterized by erosions and erythema was found in the gastric antrum. Biopsies were taken with a cold forceps for histology. Verification of patient identification for the specimen was done. Biopsies were taken with a cold forceps for Helicobacter pylori testing. Verification of patient identification for the specimen was done. Estimated blood loss was minimal. The fourth portion of the duodenum was normal. Impression: - Normal esophagus. - Chronic gastritis. Biopsied. - Normal fourth portion of the duodenum. Recommendation: - Return patient to [facility] for ongoing care. - Resume regular diet. - Continue present medications. - Await pathology results. Procedure Code(s): --- Professional --- 69149, Small intestinal endoscopy, enteroscopy beyond second portion of duodenum, not including ileum; with biopsy, single or multiple CPT copyright 2021 [employer]. All rights reserved. The codes documented in this report are preliminary and upon sedimentationist review may be revised to meet current compliance requirements. Wale Rodriguez DO 07/07/2024 12:16:26 PM This report has been signed electronically. Number of Addenda: 0 Note Initiated On: 07/07/2024 12:00 PM
--- NOTE | 2024-07-07 12:17 | OP.CCLET_ITS ---
07/07/2024 Frank Funk MD [address] [phone] Re : Upper GI endoscopy procedure for Indira Hoover Dear Dr. Funk This procedure was performed on June. My impressions and recommendations are as follows: Impressions : - Normal esophagus. - Chronic gastritis. Biopsied. - Normal fourth portion of the duodenum. Recommendations : - Return patient to [facility] for ongoing care. - Resume regular diet. - Continue present medications. - Await pathology results. My findings are described in the full procedure note, which is enclosed. If I can be of further assistance, please feel free to contact me at . Sincerely, Wale Rodriguez, 07/07/2024 12:16:26 PM This report has been signed electronically.
--- NOTE | 2024-07-07 12:21 | PCM.POST.ANE ---
Anesthesia: Postop Eval I Current Vital Signs Temperature: 97.8 F Pulse Rate: 70 Blood Pressure: 110/57 Respiratory Rate: 16 Pulse Ox: 92 Oxygen Delivery Method: Room Air Assessment Airway patent: Yes Spontaneous unlabored respirations: Yes Mental status: Awake and Calm nausea: No Vomiting: No Anesthesia Complication: No Fluid Hydration Crystalloid volume administer (ml): 30 Total IV fluid infused: 30 Progress Note Anesthesia document: Postop Eval 1 completed: Yes
--- NOTE | 2024-07-07 12:30 | IMM_PTH ---
PATIENT: CLARENCE MCNEILL LOC: [facility] U#:[id number] AGE/SX: 73/F ROOM: [facility] RE07/05/[address]: Dr. Chang Gonzales DO : 1950 BED: 1 DIS: 07/07/2024 SPEC #: [id number] RECD: 07/07/24 14:19 STATUS: REX REQ #: [id number] BUZZ: 07/07/24 12:[address]: Wale Rodriguez DEPT: IMMUNOHISTOCHEMISTRY RECD BY: Zachary Bunch ENTERED: 07/07/24 14:19 SP TYPE: IMMUNO OTHR DR: DO Dr. Frank De León MD Tissues: Gastric mucous membrane Procedures: H Pylori (initial) PHYSICIAN & INSTITUTION [place] [id number] SPECIMEN INFORMATION: Tissue Source: Gastric antrum biopsy Clinical Info: Acute GI bleeding Specimen Number: [id number] CPT code: 59168 METHODOLOGY: Deparaffinized sections of prefer/formalin-fixed tissue or PAP/DQ stained slides are incubated with monoclonal/polyclonal antibodies/oligonucleotide probes. Localization is made via biotin free immunoperoxidase method. Appropriate controls are performed and reacted as expected. Results on target cell population are indicated in the following table: RESULTS: ANTIBODY / CLONE RESULT H Pylori (polyclonal) negative These tests were developed and their performance characteristics determined by [facility]. They may not have been cleared or approved by the U.S. Food and Drug Administration. The FDA has determined that such clearance or approval is not necessary. The above immunohistochemical/dualISH markers are ordered and reviewed by the Pathologist. INTERPRETATION: Gastric antrum, biopsy: Negative for Helicobacter pylori organisms. 07/08/2024
--- NOTE | 2024-07-07 14:35 | TREXTCAR_ITS ---
Diet Diet Order/Speech Therapy: 07/07/24 12:16 Diet: Regular - General Routine Orders/Code Status Routine Lab Work: CBC (weekly) Code Status: Full Code DC O2, CPAP, BIPAP needs Home O2 Discharge instructions: No Therapies Weight Bearing: Full weight bearing Physical Therapy: Eval and Treat Occupational Therapy: Eval and Treat Problem/Diagnosis (1) Acute GI bleeding: Status: Acute Code(s): K92.2 - Gastrointestinal hemorrhage, unspecified Plan: Suspect diverticular. Will start empiric pantoprazole. GI on consult for evaluation. Endoscopies were planned but patient refusing colon prep. EGD showed normal esophagus. Chronic gastritis (Bx'd) Normal 4th part of duodenum. Continue to hold aspirin and meloxicam. Hemoglobin stable Plan Chronic conditions * Dementia: Complicates care and recovery. Continue with memantine * Hypertension: Continue with propranolol * Depression: Continue with venlafaxine VTE prophylaxis: Chemical prophylaxis conjugated in light of the acute GI bleed. SCDs. CODE STATUS: Per senior living records patient has full CODE STATUS. DC back to nursing facility. Allergies/Procedures Done in Hospital Allergies No Known Allergies Allergy (Verified 07/05/24 10:20) Procedures: EGD Type of Care/Length of Stay Estimated LOS: More Than 30 Days Type of Care Needed: Correction/Assisted Living Rehab Potential: Fair Prognosis: Fair Additional Orders/Day of Discharge Day of Discharge: 07/07/24 Dietary and Speech Recommendations Dietitian Recommendations/Changes: Recommend advanced diet as tolerated to 1600 calorie controlled/consistent carbohydrate diet. PO still needs to be established. Reviewed and approved Larissa Huynh RDN, LD. Discharge Plan Admission Admit Date/Time: 07/05/24 13:24 Primary Reason for Your Visit: GI bleed Attending Provider: Chang Gonzales Primary Care Provider: Frank Funk Discharge Orders/Prescriptions Prescriptions: Continued lamotrigine 200 mg tablet 200 mg PO DAILY Patient Comments: 1 TABLETS BY MOUTH DAILYADX: ANXIETY / NURSE TOOREORDER famotidine 20 mg tablet 20 tab PO BID Patient Comments: 1 TABLET BY MOUTH TWICEIDAILY DX: / NURSE TORREORDER albuterol sulfate [ProAir HFA] 90 mcg/actuation HFA aerosol inhaler 2 puff INHALATION Q6H PRN (Reason: Shortness Of Breath) latanoprost 0.005 % drops 1 drp OPHTHALMIC QPM memantine 10 mg tablet 10 mg PO BID cholecalciferol (vitamin D3) 125 mcg (5,000 unit) capsule 2,000 unit PO DAILY propranolol 20 mg tablet 20 mg PO BID docusate sodium [Colace] 100 mg capsule 100 mg PO DAILY primidone 50 mg tablet 50 mg PO QHS calcium carbonate-vitamin D3 [Calcium 600 with Vitamin D3] 600 mg(1,500mg) - 500 unit capsule 1 cap PO DAILY atorvastatin 40 MG tablet 40 mg PO QHS levothyroxine 75 MCG tablet 75 mcg PO DAILY buspirone 30 MG tablet 10 mg PO BID lisinopril 10 MG tablet 10 mg PO DAILY ondansetron 4 mg Tablet,Disintegrating 4 mg PO Q8H PRN (Reason: Nausea) acetaminophen 500 mg capsule 1,000 mg PO .q8h PRN (Reason: fever or pain) albuterol sulfate 2.5 mg /3 mL (0.083 %) solution for nebulization 2.5 mg inhalation Q4H PRN (Reason: shortness of breath or wheezing) bisacodyl 10 mg suppository 10 mg [place] DAILY PRN (Reason: constipation) venlafaxine 75 mg tablet 75 mg PO DAILY fluticasone propionate [24 Hour Allergy Relief] 50 mcg/actuation spray,suspension 1 spray intranasal DAILY Rx Instructions: administer into each nostril fluticasone propion-salmeterol 250-50 mcg/dose blister with device 1 inh inhalation BID magnesium hydroxide [Britton Milk of Magnesia] 400 mg/5 mL suspension 30 ml PO DAILY PRN (Reason: constipation) tramadol 50 mg tablet 50 mg PO BID guaifenesin [Mucinex] 600 mg tablet extended release 12hr 600 mg PO Q12H PRN (Reason: congestion) clotrimazole 1 % cream 1 applic topical BID trazodone 50 mg tablet 50 mg PO QHS Held meloxicam 15 MG tablet 15 mg PO DAILY Hold Instructions: Resume on 07/09/24. aspirin 81 MG tablet,chewable 81 mg PO DAILY@0800 Hold Instructions: Resume on 07/09/24. Discontinued hydrochlorothiazide 25 mg tablet 25 mg PO DAILY Referrals / Follow Up: Cj Mcdonald MD [Non-Staff] - Frank Funk MD [Primary Care Provider] - Disposition Disposition (needs filled in before D/C Order can be placed): NonSkilled NH/Intermed Care
[2024-07-07] MEDS: Cholecalciferol (Vit D3) 125 MCG CAPSULE (5,000 UNITS) PO (14:36)
[2024-07-07] MEDS: guaiFENesin 600 MG Tablet PO (14:36)
[2024-07-07] MEDS: Acetaminophen 500 MG Tablet 1000 MG PO (14:36)
[2024-07-07] MEDS: Famotidine 20 MG Tablet PO (14:37)
[2024-07-07] MEDS: Memantine Hydrochloride 10 MG Tablet PO (14:37)
[2024-07-07] MEDS: Docusate Sodium 100 MG Capsule PO (14:37)
[2024-07-07] MEDS: lamoTRIgine 100 MG Tablet 200 MG PO (14:37)
--- NOTE | 2024-07-07 14:41 | DS.PCM_ITS ---
Providers Date of Admission: 07/05/24 Primary Care Physician: Dr. Frank Funk MD Consultations 07/05/24 14:09 Consult: Gastroenterology Routine Consulting Provider: [facility] Reason for Consult: GI bleed EMERGENT Consult: No MD Notified: Yes Date Notified: 07/05/24 Time Notified: 13:30 Method of Notification: ED Physician Initiated Reason For Visit: gi bleed Diagnosis Discharge Diagnosis (1) Acute GI bleeding: Status: Acute Code(s): K92.2 - Gastrointestinal hemorrhage, unspecified Plan: Suspect diverticular. Will start empiric pantoprazole. GI on consult for evaluation. Endoscopies were planned but patient refusing colon prep. EGD showed normal esophagus. Chronic gastritis (Bx'd) Normal 4th part of duodenum. Continue to hold aspirin and meloxicam. Hemoglobin stable Plan Chronic conditions * Dementia: Complicates care and recovery. Continue with memantine * Hypertension: Continue with propranolol * Depression: Continue with venlafaxine VTE prophylaxis: Chemical prophylaxis conjugated in light of the acute GI bleed. SCDs. CODE STATUS: Per residential records patient has full CODE STATUS. DC back to nursing facility. Medications at Discharge Home Medications aspirin 81 mg chewable tablet 81 mg PO DAILY@0800 heart health 04/29/17 atorvastatin 40 mg tablet 40 mg PO QHS cholesterol 04/29/17 buspirone 30 mg tablet 10 mg PO BID anxiety 04/29/17 levothyroxine 75 mcg tablet 75 mcg PO DAILY thyroid 04/29/17 lisinopril 10 mg tablet 10 mg PO DAILY blood pressure 04/29/17 meloxicam 15 mg tablet 15 mg PO DAILY arthritis 04/29/17 albuterol sulfate 90 mcg/actuation aerosol inhaler (ProAir HFA) 2 puff inhalation Q6H PRN Shortness Of Breath 01/17/20 latanoprost 0.005 % eye drops 1 drp ophthalmic (eye) QPM glaucoma 01/17/20 memantine 10 mg tablet 10 mg PO BID dementia 01/17/20 famotidine 20 mg tablet 20 tab PO BID gerd 01/18/20 lamotrigine 200 mg tablet 200 mg PO DAILY depressed mood 01/18/20 calcium 600 mg (as carbonate)-vitamin D3 12.5 mcg (500 unit) capsule (Calcium with Vit D3) 1 cap PO DAILY supplement 01/02/21 cholecalciferol (vitamin D3) 125 mcg (5,000 unit) capsule 2,000 unit PO DAILY supplement 01/02/21 docusate sodium 100 mg capsule (Colace) 100 mg PO DAILY bowels 01/02/21 primidone 50 mg tablet 50 mg PO QHS tremors 01/02/21 propranolol 20 mg tablet 20 mg PO BID HTN 01/02/21 ondansetron 4 mg disintegrating tablet 4 mg PO Q8H PRN Nausea 10/28/21 acetaminophen 500 mg capsule 1,000 mg PO .q8h PRN fever or pain 07/05/24 albuterol sulfate 2.5 mg/3 mL (0.083 %) solution for nebulization 2.5 mg inhalation Q4H PRN shortness of breath or wheezing 07/05/24 bisacodyl 10 mg rectal suppository 10 mg AK DAILY PRN constipation 07/05/24 clotrimazole 1 % topical cream 1 applic topical BID redness to bishop area 07/05/24 fluticasone 250 mcg-salmeterol 50 mcg/dose blistr powdr for inhalation 1 inh inhalation BID breathing 07/05/24 fluticasone propionate 50 mcg/actuation nasal spray,suspension (24 Hour Allergy Relief) 1 spray intranasal DAILY congestion 07/05/24 guaifenesin 600 mg tablet, extended release 12 hr (Mucinex) 600 mg PO Q12H PRN congestion 07/05/24 magnesium hydroxide 400 mg/5 mL oral suspension (Britton Milk of Magnesia) 30 ml PO DAILY PRN constipation 07/05/24 tramadol 50 mg tablet 50 mg PO BID pain 07/05/24 trazodone 50 mg tablet 50 mg PO QHS insomnia 07/05/24 venlafaxine 75 mg tablet 75 mg PO DAILY depression 07/05/24 Hospital Course Operations None Procedures EGD Summary of Care Provided Minutes Spent on Discharge: 35 Hospital Course: Patient presents with bright red blood per rectum. Patient underwent EGD today that was unremarkable. Tried doing a colonoscopy but patient refused to drink the prep so that was not performed. EGD as mentioned but is unremarkable. Likely the source of her bleeding was diverticulosis compounded by taking meloxicam and aspirin. Since her unable to do the colonoscopy patient does not have any further bleeding, no further indication to keep the patient in the hospital. Patient will be discharged home. Patient will be holding off on her aspirin and meloxicam for the next 2 days. Weight / BMI Weight Weight: 84.4 kg Body Mass Index (BMI) 37.5 ABG / Lab / Microbiology Data 07/06/24 07:55 07/06/24 02:50 D/C Instructions Discharge Diet: No restrictions DC O2, CPAP, BIPAP Needs Home O2 Discharge instructions: No Meaningful Use Info Meaningful Use Meaningful Use Diagnoses (Choose all that apply): None applicable Ischemic Stroke Statin Dosing Therapy Reference: STATIN DOSE THERAPY REFERENCE: * Patients > 75 years receive moderate or high dose statin therapy. * Patients 75 years or YOUNGER should receive HIGH intensity statin dose unless contraindicated. You will be required to document reason for non-treatment if statin daily dose does not meet guidelines. HIGH DOSE STATIN THERAPY DAILY Atorvastatin > than or = to 40 mg Rosuvastatin > than or = to 20 mg Amlodipine + Atorvastatin > than or = to 2.5/40 mg Ezetimibe + Simvastatin 10/80 mg Simvastatin 80mg Discharge Plan Admission Admit Date/Time: 07/05/24 13:24 Primary Reason for Your Visit: GI bleed Attending Provider: Chang Gonzales Primary Care Provider: Frank Funk Discharge Orders/Prescriptions Prescriptions: Continued lamotrigine 200 mg tablet 200 mg PO DAILY Patient Comments: 1 TABLETS BY MOUTH DAILYADX: ANXIETY / NURSE TOOREORDER famotidine 20 mg tablet 20 tab PO BID Patient Comments: 1 TABLET BY MOUTH TWICEIDAILY DX: / NURSE TORREORDER albuterol sulfate [ProAir HFA] 90 mcg/actuation HFA aerosol inhaler 2 puff INHALATION Q6H PRN (Reason: Shortness Of Breath) latanoprost 0.005 % drops 1 drp OPHTHALMIC QPM memantine 10 mg tablet 10 mg PO BID cholecalciferol (vitamin D3) 125 mcg (5,000 unit) capsule 2,000 unit PO DAILY propranolol 20 mg tablet 20 mg PO BID docusate sodium [Colace] 100 mg capsule 100 mg PO DAILY primidone 50 mg tablet 50 mg PO QHS calcium carbonate-vitamin D3 [Calcium 600 with Vitamin D3] 600 mg(1,500mg) - 500 unit capsule 1 cap PO DAILY atorvastatin 40 MG tablet 40 mg PO QHS levothyroxine 75 MCG tablet 75 mcg PO DAILY buspirone 30 MG tablet 10 mg PO BID lisinopril 10 MG tablet 10 mg PO DAILY ondansetron 4 mg Tablet,Disintegrating 4 mg PO Q8H PRN (Reason: Nausea) acetaminophen 500 mg capsule 1,000 mg PO .q8h PRN (Reason: fever or pain) albuterol sulfate 2.5 mg /3 mL (0.083 %) solution for nebulization 2.5 mg inhalation Q4H PRN (Reason: shortness of breath or wheezing) bisacodyl 10 mg suppository 10 mg [place] DAILY PRN (Reason: constipation) venlafaxine 75 mg tablet 75 mg PO DAILY fluticasone propionate [24 Hour Allergy Relief] 50 mcg/actuation spray,suspension 1 spray intranasal DAILY Rx Instructions: administer into each nostril fluticasone propion-salmeterol 250-50 mcg/dose blister with device 1 inh inhalation BID magnesium hydroxide [Britton Milk of Magnesia] 400 mg/5 mL suspension 30 ml PO DAILY PRN (Reason: constipation) tramadol 50 mg tablet 50 mg PO BID guaifenesin [Mucinex] 600 mg tablet extended release 12hr 600 mg PO Q12H PRN (Reason: congestion) clotrimazole 1 % cream 1 applic topical BID trazodone 50 mg tablet 50 mg PO QHS Held meloxicam 15 MG tablet 15 mg PO DAILY Hold Instructions: Resume on 07/09/24. aspirin 81 MG tablet,chewable 81 mg PO DAILY@0800 Hold Instructions: Resume on 07/09/24. Discontinued hydrochlorothiazide 25 mg tablet 25 mg PO DAILY Referrals / Follow Up: Cj Mcdonald MD [Non-Staff] - Frank Funk MD [Primary Care Provider] - [facility] [Provider Group] - Within 3 Months Disposition Disposition (needs filled in before D/C Order can be placed): NonSkilled NH/Intermed Care Charges/Coding Visit Charges Inpatient E&M: 76145 Disch Hosp >30min
--- NOTE | 2024-07-07 15:10 | CASEMGMT ---
Discharge orders, signed med list, and transport time sent to [facility]. Physicians will transport pt by cot at 7:30p. Nursing, SW, and pts daughter (Jacque) updated. Mariann Grider DC Planning Asst.
--- NOTE | 2024-07-07 15:59 | CHAPLAIN ---
Type of Pastoral Visit ___ Initial Visit ___ Follow-up Visit ___ On-call Visit ___ General Patient Visit ___ Spiritual Assessment ___ Family Conference ___ Bereavement ___ Rapid Response ___ Code Blue ___ Other (describe below) Pastoral Care Referral From ___ Patient ___ Family ___ Nurse ___ Physician ___ Bucket Wash Operator ___ Cashier Gambling ___ Other (describe below) Sacrament/Intervention ___ Active listening ___ Anointing ___ Holiness ___ Bereavement ___ Communion ___ Brandy exploration ___ ___ Life review ___ Prayer ___ Reconciliation ___ Sacrament of Sick ___ Supportive presence ___ Wedding ___ Other (describe below) Pastoral Comments patient and bed are out of the room; left a calling card
--- NOTE | 2024-07-07 16:18 | PCM.POSTANE2 ---
Anesthesia Postop Eval I Sum Postop Eval Completion status Anesthesia document: Postop Eval 1 completed: Yes Anesthesia Postop Eval I Summary Anesthesia Postop Eval I Summary: Anesthesia Postop Eval I: Assessment Summary Airway patent Yes 07/07/24 12:22 [email or web address] Spontaneous unlabored Yes 07/07/24 12:22 [email or web address] respirations Mental status Awake,Calm 07/07/24 12:22 [email or web address] nausea No 07/07/24 12:22 [email or web address] Vomiting No 07/07/24 12:22 [email or web address] Anesthesia Postop Eval I: Fluid Summary Crystalloid volume administer 30 07/07/24 12:22 [email or web address] (ml) Colloids volume administered ( ml) Blood Product volume administered (ml) Total IV fluid infused 30 07/07/24 12:22 [email or web address] Anesthesia Postop Eval I: Summary Notes Anesthesia Complication No 07/07/24 12:22 [email or web address] Anesthesia Complication Comment: Post-operative progress note Anesthesia: Postop Eval II Evaluation Mental status: Awake and Calm Pain Level: 0 nausea: No Vomiting: No Complications Anesthesia Complication: No
--- NOTE | 2024-07-07 18:25 | NURSING ---
report called to [facility]. Spoke with RN and reported tests that were done during admission and test results.
== END 2024-07-07 18:19 | disposition intermediate care facility (04) | DRG 378 ==
LOC: ED 13:16 → PCU 13:38
PROVIDERS: Anesthesiology; Internal Medicine Gastroenterology; Emergency Provider Emergency Medicine; PCP Family Medicine
PROC: 0DJ08ZZ Inspection of Upper Intestinal Tract, Via Natural or Artificial Opening Endoscopic (ICD-10-PCS; CPT 43235; principal; 2024-07-07 12:25)
DX: K62.5 Hemorrhage of anus and rectum (principal); F03.911 Unspecified dementia, unspecified severity, with agitation; Z99.81 Dependence on supplemental oxygen; E11.9 Type 2 diabetes mellitus without complications; J44.9 Chronic obstructive pulmonary disease, unspecified; E03.9 Hypothyroidism, unspecified; I10 Essential (primary) hypertension; F32.A Depression, unspecified; K57.30 Diverticulosis of large intestine without perforation or abscess without bleeding; E78.5 Hyperlipidemia, unspecified; K58.9 Irritable bowel syndrome, unspecified; K29.50 Unspecified chronic gastritis without bleeding; G47.33 Obstructive sleep apnea (adult) (pediatric); F41.9 Anxiety disorder, unspecified; Z87.891 Personal history of nicotine dependence; Z79.82 Long term (current) use of aspirin; Z79.899 Other long term (current) drug therapy; Z79.890 Hormone replacement therapy; Z79.51 Long term (current) use of inhaled steroids; Z98.49 Cataract extraction status, unspecified eye; T39.015A Adverse effect of aspirin, initial encounter; T39.395A Adverse effect of other nonsteroidal anti-inflammatory drugs [NSAID], initial encounter
CPT/HCPCS: 36415; 74177; 80048; 80053; 81001; 84443; 85014; 85018; 85025; 85610; 85730; 88305; 88342; 94640; 99285; Q9967; A4216; J2405

== ENCOUNTER 2024-07-12 08:40 | Inpatient (IN) | payer MEDICARE, MEDICAID, SELFPAY ==
[2024-07-12] VITALS (11 sets, daily range): BP systolic 121–145; BP diastolic 58–99; PULSE 61–78; RESP 14–20; TEMP 36.2–36.9; O2SAT 93–100; BMI 38.6; BMI 37.4
--- NOTE | 2024-07-12 09:30 | CT_ITS ---
PROCEDURE: ABDOMEN/PELVIS W IV CONT ONLY REASON FOR EXAM: Rectal bleeding. TECHNIQUE: Abdomen and pelvis CT with intravenous contrast. IV CONTRAST: Sagittal and coronal reconstruction was obtained as well. COMPARISON: Comparison is made with prior study dated February 01, 2022. 1. FINDINGS: Lung bases: Clear coronary artery calcification. Liver: Unremarkable. Gallbladder: Small gallstones along the dependent portion of the gallbladder lumen. Spleen: Unremarkable. Pancreas: Unremarkable. Adrenals: Right adrenal nodule consistent with an adenoma, this is unchanged. Kidneys: Unremarkable. Bladder: Unremarkable. Reproductive Organs: Enlarged fibroid uterus. Thickened endometrium. Bowel: Unremarkable. Small hiatal hernia. Appendix: Normal. Lymph nodes: No suspicious lymph node enlargement. Vasculature: Mild diffuse atherosclerotic calcifications are noted. Peritoneum / Retroperitoneum: No ascites. No free air. Bones: Degenerative changes of the spine. CT/Abdomen/Pelvis W IV Cont ONLY IMPRESSION: Stable right adrenal adenoma. Fibroid uterus with the thickened endometrium. Solitary gallstone. Moderate-sized hiatal hernia. One or more dose reduction techniques were used (e.g., Automated exposure contr ol, adjustment of the mA and/or kV according to patient size, use of iterative reconstruction technique). Reading Location: [place] [id number]
[2024-07-12] MEDS: 0.9% Normal Saline (1000mL) 1,000 ML 999 ML IV (09:45)
[2024-07-12 09:51] LABS: Absolute Lymphocyte Count 1.91 X10^3/uL (0.83-4.51); Absolute Neutrophil Count 7.1 X10^3/uL (2.0-7.7); Basophil# 0.11 X10^3/uL; Eosinophils% 4.8 % (0-5); Hematocrit 28.9 % (37-47); Hemoglobin 8.4 g/dL (12.0-15.0); Lymphocyte # 1.91 X10^3/ul (0.83-4.51); Lymphocyte % 18.2 % (19-41); Mean Corp Hgb Conc 29.1 g/dL (32-36); Mean Corpuscular Hgb 24.8 pg (27.0-32.0); Mean Corpuscular Volume 85.3 fL (81-99); Mean Platelet Vol. 9.7 fl (6.2-12.0); Monocyte# 0.84 X10^3/uL; NRBC Flagged by Analyzer 0 % (0-5); Neutrophil # 7.07 X10^3/uL (2.7-7.7); Neutrophil % 67.1 % (47-70); Platelet Count 351 K/mm3 (150-450); RBC Distribution Width CV 17.7 % (11.6-14.6); RBC Distribution Width SD 55.1 fl (35.1-43.9); Red Blood Count 3.39 M/mm3 (4.2-5.4); White Blood Count 10.5 K/mm3 (4.4-11.0)
--- NOTE | 2024-07-12 09:57 | EX.ED.DYSGE1 ---
HPI History of Present Illness Chief Complaint: GI Bleed Narrative Narrative: Chief complaint and HPI: Rectal bleeding. 73-year-old female with past medical history of depression, hypertension, dementia with recent GI bleed presents for evaluation of rectal bleeding. Patient is a very poor historian given her dementia and therefore history taken by [facility]. Per report patient has had rectal bleeding for the past couple days. Worsened today. Passing blood clots per rectum. On chart review, patient was just admitted to our hospital for GI bleed. She was discharged on 07/07. At that time she was seen by GI and had an EGD that showed gastritis. She refused the prep for the colonoscopy and therefore this was not performed. Patient is alert and oriented to self which is her baseline. Denies any fever, chills, shortness of breath, chest pain abdominal pain, nausea, vomiting, diarrhea, constipation however given patient's dementia do not know how accurate this is Review of systems: See HPI Medications: As listed on the chart Allergies: As listed on the chart PFSH: Per chart Vital signs: As listed on the chart. Reviewed. Physical exam: Gen: A&O x 1-patient's baseline, NAD Head: Normocephalic, atraumatic Eyes: No sclera icterus, conjunctiva clear ENT: Moist mucous membranes Neck: Trachea midline, No JVD CV: RRR, no murmurs, no peripheral edema Resp: Lungs CTA BL, no w/r/c GI: Abd soft, non-distended, non-tender, no r/r/g Rectal: Normal external examination. No evidence of hemorrhoids or fissures. Normal tone and sensation. No masses, fluctuance, or tenderness. No pain out of proportion. + Melena on finger Musc: Full ROM, no deformity Skin: Warm, dry [facility] Medical History Smoker Decubitus ulcer of right buttock, stage 3 Dementia Confusion Memory deficit Left ventricular diastolic dysfunction Secondary pulmonary arterial hypertension Hyperlipidemia RADHA treated with BiPAP Asthma COPD (chronic obstructive pulmonary disease) Osteoarthritis Essential hypertension Epigastric pain Acute kidney injury Depression Accidental drug overdose UTI (urinary tract infection) Sepsis Hypomagnesemia Irritable bowel syndrome Left shoulder pain Super obese Lightheadedness Hypothyroidism DM2 (diabetes mellitus, type 2) COLD (chronic obstructive lung disease) Anxiety Home Medications ?Medication ?Instructions ?Recorded ?Last Taken ?Type aspirin 81 mg chewable tablet 81 mg PO DAILY@0800 heart health 04/29/17 07/12/24 History atorvastatin 40 mg tablet 40 mg PO QHS cholesterol 04/29/17 07/11/24 History levothyroxine 75 mcg tablet 75 mcg PO QHS thyroid 04/29/17 07/11/24 History lisinopril 10 mg tablet 10 mg PO DAILY blood pressure 04/29/17 07/12/24 History meloxicam 15 mg tablet 15 mg PO DAILY arthritis 04/29/17 07/12/24 History latanoprost 0.005 % eye drops 1 drp ophthalmic (eye) QPM glaucoma 01/17/20 07/11/24 History memantine 10 mg tablet 10 mg PO BID dementia 01/17/20 07/12/24 History famotidine 20 mg tablet 20 tab PO BID gerd 01/18/20 07/12/24 History lamotrigine 200 mg tablet 200 mg PO DAILY depressed mood 01/18/20 07/12/24 History calcium 600 mg (as 1 cap PO DAILY supplement 01/02/21 07/12/24 History carbonate)-vitamin D3 12.5 mcg (500 unit) capsule (Calcium with Vit D3) cholecalciferol (vitamin D3) 125 2,000 unit PO DAILY supplement 01/02/21 07/12/24 History mcg (5,000 unit) capsule docusate sodium 100 mg capsule 100 mg PO DAILY bowels 01/02/21 07/12/24 History (Colace) primidone 50 mg tablet 50 mg PO QHS tremors 01/02/21 07/11/24 History propranolol 20 mg tablet 20 mg PO BID HTN 01/02/21 07/12/24 History ondansetron 4 mg disintegrating 4 mg PO Q8H PRN Nausea 10/28/21 Unknown History tablet albuterol sulfate 2.5 mg/3 mL 2.5 mg inhalation Q4H PRN 07/05/24 Unknown History (0.083 %) solution for nebulization shortness of breath or wheezing bisacodyl 10 mg rectal suppository 10 mg [place] DAILY PRN constipation 07/05/24 Unknown History fluticasone 250 mcg-salmeterol 50 1 inh inhalation BID breathing 07/05/24 07/12/24 History mcg/dose blistr powdr for inhalation fluticasone propionate 50 1 spray intranasal DAILY congestion 07/05/24 07/12/24 History mcg/actuation nasal spray,suspension (24 Hour Allergy Relief) guaifenesin 600 mg tablet, 600 mg PO Q12H PRN congestion 07/05/24 Unknown History extended release 12 hr (Mucinex) magnesium hydroxide 400 mg/5 mL 30 ml PO DAILY PRN constipation 07/05/24 Unknown History oral suspension (Britton [employer]) tramadol 50 mg tablet 50 mg PO BID pain 07/05/24 07/12/24 History trazodone 50 mg tablet 50 mg PO QHS insomnia 07/05/24 07/11/24 History venlafaxine 75 mg tablet 75 mg PO DAILY depression 07/05/24 07/12/24 History acetaminophen 500 mg tablet 1,000 mg PO Q8H PRN fever or pain 07/12/24 Unknown History albuterol sulfate 90 mcg/actuation 1 inh inhalation Q6H PRN CHRONIC 07/12/24 Unknown History aerosol inhaler BRONCHITIS buspirone 10 mg tablet 10 mg PO BID anxiety/depression 07/12/24 07/12/24 History food supplemt, lactose-reduced 240 ml PO BID supplement 07/12/24 Unknown History 0.04 gram-1 kcal/mL oral liquid (Boost) hydrochlorothiazide 25 mg tablet 25 mg PO DAILY diuretic 07/12/24 07/07/24 History mineral oil (Fleet Mineral Oil 118 ml [place] DAILY PRN constipation 07/12/24 Unknown History enema) Allergy/AdvReac Type Severity Reaction Status Date / Time No Known Allergies Allergy Verified 07/05/24 10:20 Family History Sister CAD (coronary artery disease) stents Heart disease Father Cancer Mother Heart disease Brother Diabetes Heart disease CAD (coronary artery disease) Surgical History History of cataract extraction with lens replacement History of section Social History housing: assisted living facility number of children: 2 Smoking Status: Never smoker how long ago did patient quit smokin alcohol intake: never caffeine: Yes additional social history: EXAM Physical Exam Const Vital Signs: 07/12/24 08:42 07/12/24 10:41 Temperature 97.1 F L Temperature Source Temporal Pulse Rate 68 61 Respiratory Rate 16 Blood Pressure 122/63 H 145/67 H Blood Pressure Mean 82 93 Pulse Ox 100 97 Oxygen Delivery Method Room Air Room Air MDM MDM MDM Narrative Medical decision making narrative: 73-year-old female with past medical history of depression, hypertension, dementia with recent GI bleed presents for evaluation of rectal bleeding. Patient's physical exam is positive for GI bleed. Vitals are stable. No acute distress. Differential diagnosis includes was not limited to diverticulosis, diverticulitis, AVM, ulcer, polyp. Abdominal pain workup ordered including CT abdomen and pelvis. CBC without leukocytosis. Patient has stable anemia with a hemoglobin of 8.4. CMP shows baseline renal insufficiency. No transaminitis. Lipase unremarkable. Lactic acid unremarkable. UA negative for UTI. Patient's occult is positive. CT abdomen pelvis shows stable right adrenal adenoma. Fibrous uterus with a thickened endometrium. Solitary gallstone. Moderate size hiatal hernia however no diverticulitis or acute inflammation of the bowel. Given that patient has recurrent rectal bleeding patient will warrant admission for colonoscopy as this was not done on previous admission. I did talk to Dr. Rodriguez who agrees with admission and colonoscopy. Patient was admitted to the hospitalist service. Impression: 1. GI bleed, suspect lower 2. Chronic anemia 3. Renal insufficiency Lab Data Labs: Laboratory Results - last 24 hr 07/12/24 07/12/24 09:36 10:25 WBC 10.5 RBC 3.39 L Hgb 8.4 L Hct 28.9 L MCV 85.3 MCH 24.8 L MCHC 29.1 L RDW Std Deviation 55.1 H RDW Coeff of Kin 17.7 H Plt Count 351 MPV 9.7 Immature Gran % (Auto) 0.900 Neut % (Auto) 67.1 Lymph % (Auto) 18.2 L [place] % (Auto) 8.0 Eos % (Auto) 4.8 Baso % (Auto) 1.0 Absolute Neuts (auto) 7.1 Absolute Lymphs (auto) 1.91 Nucleated RBC % 0 Sodium 140 Potassium 4.2 Chloride 104 Carbon Dioxide 31.0 Anion Gap 5 BUN 21 H Creatinine 1.06 H Estim Creat Clear Calc 44.90 Est GFR (MDRD) Af Amer 65 Est GFR (MDRD) Non-Af 54 L BUN/Creatinine Ratio 19.8 Glucose 109 H Lactic Acid 1.9 Calcium 9.4 Total Bilirubin 0.20 AST 15 ALT 13 Alkaline Phosphatase 80 Total Protein 6.6 Albumin 2.6 L Globulin 4.0 Albumin/Globulin Ratio 0.6 L Lipase 72 Urine Color Yellow Urine Clarity Clear Urine pH 8.0 Ur Specific [place] 1.010 Urine Protein Negative Urine Glucose (UA) Normal Urine Ketones Negative Urine Occult Blood Negative Urine Nitrite Negative Urine Bilirubin Negative Urine Urobilinogen Normal Ur Leukocyte Esterase Negative Urine RBC 0 SEEN Urine WBC 0 SEEN Ur Squamous Epith Cells 0-5 SEEN Urine Bacteria RARE Urine Mucus 0 SEEN Radiography Diagnostic Testing: Clinical Impression(s) from Imaging Studies Abdomen/Pelvis CT 07/12/24 09:30 IMPRESSION: Stable right adrenal adenoma. Fibroid uterus with the thickened endometrium. Solitary gallstone. Moderate-sized hiatal hernia. One or more dose reduction techniques were used (e.g., Automated exposure control, adjustment of the mA and/or kV according to patient size, use of iterative reconstruction technique). Reading Location: [facility]1 Discharge Plan Disposition Disposition: Acute Care Hospital [facility] Discharge Date/Time: 07/12/24 12:36
[2024-07-12 10:07] LABS: ALB/GLOB Ratio 0.6 RATIO (0.9-2.4); AST(SGOT) 15 U/L (15-37); Alanine Aminotransfer ALT/SGPT 13 U/L (13-56); Albumin, Serum 2.6 g/dL (3.2-5.0); Alkaline Phosphatase 80 U/L (45-117); Anion Gap 5 (5-15); BUN 21 mg/dL (7-18); BUN/Creat Ratio 19.8 RATIO (10-20); Calcium,Total 9.4 mg/dL (8.5-10.1); Chloride 104 mmol/L (98-107); Creatinine, Serum 1.06 mg/dL (0.55-1.02); EST Glomerular Filtration Rate 54 mL/min (>60); Est Glom Filt Rate - Afr Amer 65 mL/min (>60); Glucose 109 mg/dL (74-106); Lipase 72 U/L (13-75); Potassium 4.2 mmol/L (3.5-5.1); Protein, Total 6.6 g/dL (6.4-8.2); Sodium Level 140 mmol/L (136-145)
[2024-07-12 10:23] LABS: Lactic Acid 1.9 mmol/L (0.4-1.9)
[2024-07-12 10:37] LABS: Mucous, Urine 0 SEEN /hpf (<or=2+); Red Blood Cells-Urine 0 SEEN /hpf (0-5); White Blood Cells 0 SEEN /hpf (0-5)
[2024-07-12 10:38] LABS: Color, Urine Yellow (Yellow); Glucose, Dipstick Normal (Normal); Ketone-Dipstick Negative (Negative); Leukocyte Esterase-Dipstick Negative /ul (Negative); Nitrite-Dipstick Negative (Negative); Occult Blood-Urine Negative /ul (Negative); Protein-Dipstick Negative (Negative); Urine Bilirubin Dipstick Negative (Negative); Urine Clarity Clear (Clear); Urine Urobilinogen Normal (Normal)
[2024-07-12 11:01] LABS: Bacteria RARE /hpf (None Seen); Squamous Epithelial Cells - UA 0-5 SEEN /hpf (5-10)
--- NOTE | 2024-07-12 11:59 | HP.PCM.HOS_ITS ---
HPI - General General Date of Admission: 07/12/24 Date of Service: 07/12/24 Chief Complaint: Bleeding per rectum HPI Narrative CLARENCE MCNEILL, is a 73 F respiratory distended care facility recently discharged from the hospital following an episode of GI bleed. Patient underwent EGD was found to have a normal esophagus chronic gastritis and normal duodenum. Discharged back to the [facility]. Patient was apparently stable for the past 5 days till the morning of her admission when she was noticed to have bleeding per rectum. She was brought to the emergency department as a result. Hemoglobin on admission was 8.4 of note hemoglobin on patient's discharge was 9.5. Patient was typed and crossmatched admitted to a monitored bed consultation placed to Dr. Rodriguez from the ED. On further questioning patient denied any nausea no vomiting no abdominal pain. [facility] Medical History Smoker Decubitus ulcer of right buttock, stage 3 Dementia Confusion Memory deficit Left ventricular diastolic dysfunction Secondary pulmonary arterial hypertension Hyperlipidemia RADHA treated with BiPAP Asthma COPD (chronic obstructive pulmonary disease) Osteoarthritis Essential hypertension Epigastric pain Acute kidney injury Depression Accidental drug overdose UTI (urinary tract infection) Sepsis Hypomagnesemia Irritable bowel syndrome Left shoulder pain Super obese Lightheadedness Hypothyroidism DM2 (diabetes mellitus, type 2) COLD (chronic obstructive lung disease) Anxiety Home Medications ?Medication ?Instructions ?Recorded ?Last Taken ?Type aspirin 81 mg chewable tablet 81 mg PO DAILY@0800 heart health 04/29/17 07/12/24 History atorvastatin 40 mg tablet 40 mg PO QHS cholesterol 04/29/17 07/11/24 History levothyroxine 75 mcg tablet 75 mcg PO QHS thyroid 04/29/17 07/11/24 History lisinopril 10 mg tablet 10 mg PO DAILY blood pressure 04/29/17 07/12/24 History meloxicam 15 mg tablet 15 mg PO DAILY arthritis 04/29/17 07/12/24 History latanoprost 0.005 % eye drops 1 drp ophthalmic (eye) QPM glaucoma 01/17/20 07/11/24 History memantine 10 mg tablet 10 mg PO BID dementia 01/17/20 07/12/24 History famotidine 20 mg tablet 20 tab PO BID gerd 01/18/20 07/12/24 History lamotrigine 200 mg tablet 200 mg PO DAILY depressed mood 01/18/20 07/12/24 History calcium 600 mg (as 1 cap PO DAILY supplement 01/02/21 07/12/24 History carbonate)-vitamin D3 12.5 mcg (500 unit) capsule (Calcium with Vit D3) cholecalciferol (vitamin D3) 125 2,000 unit PO DAILY supplement 01/02/21 07/12/24 History mcg (5,000 unit) capsule docusate sodium 100 mg capsule 100 mg PO DAILY bowels 01/02/21 07/12/24 History (Colace) primidone 50 mg tablet 50 mg PO QHS tremors 01/02/21 07/11/24 History propranolol 20 mg tablet 20 mg PO BID HTN 01/02/21 07/12/24 History ondansetron 4 mg disintegrating 4 mg PO Q8H PRN Nausea 10/28/21 Unknown History tablet albuterol sulfate 2.5 mg/3 mL 2.5 mg inhalation Q4H PRN 07/05/24 Unknown History (0.083 %) solution for nebulization shortness of breath or wheezing bisacodyl 10 mg rectal suppository 10 mg [place] DAILY PRN constipation 07/05/24 Unknown History fluticasone 250 mcg-salmeterol 50 1 inh inhalation BID breathing 07/05/24 07/12/24 History mcg/dose blistr powdr for inhalation fluticasone propionate 50 1 spray intranasal DAILY congestion 07/05/24 07/12/24 History mcg/actuation nasal spray,suspension (24 Hour Allergy Relief) guaifenesin 600 mg tablet, 600 mg PO Q12H PRN congestion 07/05/24 Unknown History extended release 12 hr (Mucinex) magnesium hydroxide 400 mg/5 mL 30 ml PO DAILY PRN constipation 07/05/24 Unknown History oral suspension (Britton Milk of [place]) tramadol 50 mg tablet 50 mg PO BID pain 07/05/24 07/12/24 History trazodone 50 mg tablet 50 mg PO QHS insomnia 07/05/24 07/11/24 History venlafaxine 75 mg tablet 75 mg PO DAILY depression 07/05/24 07/12/24 History acetaminophen 500 mg tablet 1,000 mg PO Q8H PRN fever or pain 07/12/24 Unknown History albuterol sulfate 90 mcg/actuation 1 inh inhalation Q6H PRN CHRONIC 07/12/24 Unknown History aerosol inhaler BRONCHITIS buspirone 10 mg tablet 10 mg PO BID 07/12/24 07/12/24 History food supplemt, lactose-reduced 240 ml PO BID 07/12/24 Unknown History 0.04 gram-1 kcal/mL oral liquid (Boost) hydrochlorothiazide 25 mg tablet 25 mg PO DAILY 07/12/24 07/07/24 History mineral oil (Fleet Mineral Oil 118 ml [place] DAILY PRN constipation 07/12/24 Unknown History enema) Allergy/AdvReac Type Severity Reaction Status Date / Time No Known Allergies Allergy Verified 07/05/24 10:20 Family History Sister CAD (coronary artery disease) stents Heart disease Father Cancer Mother Heart disease Brother Diabetes Heart disease CAD (coronary artery disease) Surgical History History of cataract extraction with lens replacement History of section Social History housing: assisted living facility number of children: 2 Smoking Status: Never smoker how long ago did patient quit smokin alcohol intake: never caffeine: Yes additional social history: ROS ROS Narrative GENERAL: denies fever, chills, night sweats, weight loss, anorexia HEENT: denies headache, sinus congestion, or drainage, dysphagia RESPIRATORY: denies cough, sputum production, shortness of breath, dyspnea on exertion CARDIAC: denies chest pain, palpitations, orthopnea, PND GASTROINTESTINAL: denies abdominal pain, nausea, vomiting, melena, GENITOURINARY: Hematochezia EXTREMITY: denies swelling MUSCULOSKELETAL: denies current joint pain or tenderness NEUROLOGIC: denies focal numbness, weakness, tingling HEMATOLOGIC: denies easy bruising and/or hemorrhage INTEGUMENT: denies rashes PSYCHIATRIC: denies suicidal or homicidal ideation Vital Signs Vital Signs Vital Signs: 07/12/24 08:42 07/12/24 10:41 Temperature 97.1 F L Temperature Source Temporal Pulse Rate 68 61 Respiratory Rate 16 Blood Pressure 122/63 H 145/67 H Blood Pressure Mean 82 93 Pulse Ox 100 97 Oxygen Delivery Method Room Air Room Air Weight Weight: 86.8 kg Body Mass Index (BMI) 38.6 Physical Exam Narrative GENERAL: cooperative HEENT: Atraumatic; normocephalic EYES; Anicteric, Normal Conjunctiva NECK; supple, normal thyroid, RESPIRATORY: Diminished to auscultation CARDIOVASCULAR: Regular S1 S2, GI: soft, normoactive bowel sounds, : No Renal angle tenderness; EXTREMITIES: No edema, no clubbing, MUSCULOSKELETAL: no muscle wasting NEURO: Awake; no lateralizing signs. SKIN: No Rash PSYCH; Flat affect Results Lab / Micro Data 07/12/24 09:36 07/12/24 09:36 Labs: Laboratory Results - last 24 hr 07/12/24 09:36: WBC 10.5, RBC 3.39 L, Hgb 8.4 L, Hct 28.9 L, MCV 85.3, MCH 24.8 L, MCHC 29.1 L, RDW Std Deviation 55.1 H, RDW Coeff of Kin 17.7 H, Plt Count 351, MPV 9.7, Immature Gran % (Auto) 0.900, Neut % (Auto) 67.1, Lymph % (Auto) 18.2 L, [place] % (Auto) 8.0, Eos % (Auto) 4.8, Baso % (Auto) 1.0, Absolute Neuts (auto) 7.1, Absolute Lymphs (auto) 1.91, Nucleated RBC % 0, Sodium 140, Potassium 4.2, Chloride 104, Carbon Dioxide 31.0, Anion Gap 5, BUN 21 H, C reatinine 1.06 H, Estim Creat Clear Calc 44.90, Est GFR (MDRD) Af Amer 65, Est GFR (MDRD) Non-Af 54 L, BUN/Creatinine Ratio 19.8, Glucose 109 H, Lactic Acid 1.9, Calcium 9.4, Total Bilirubin 0.20, AST 15, ALT 13, Alkaline Phosphatase 80, Total Protein 6.6, Albumin 2.6 L, Globulin 4.0, Albumin/Globulin Ratio 0.6 L, Lipase 72 07/12/24 10:25: Urine Color Yellow, Urine Clarity Clear, Urine pH 8.0, Ur Specific [place] 1.010, Urine Protein Negative, Urine Glucose (UA) Normal, Urine Ketones Negative, Urine Occult Blood Negative, Urine Nitrite Negative, Urine Bilirubin Negative, Urine Urobilinogen Normal, Ur Leukocyte Esterase Negative, Urine RBC 0 SEEN, Urine WBC 0 SEEN, Ur Squamous Epith Cells 0-5 SEEN, Urine Bacteria RARE, Urine Mucus 0 SEEN Micro: Microbiology 07/12/24 09:30 Stool Stool Occult Blood (AZUL) - Final Occult Blood Positive Imaging Radiology Impression Abdomen/Pelvis CT 07/12/24 09:30 IMPRESSION: Stable right adrenal adenoma. Fibroid uterus with the thickened endometrium. Solitary gallstone. Moderate-sized hiatal hernia. One or more dose reduction techniques were used (e.g., Automated exposure control, adjustment of the mA and/or kV according to patient size, use of iterative reconstruction technique). Reading Location: [facility] Assessment & Plan Assessment/Plan (1) Acute GI bleeding: PLAN: Plan Patient is a 73-year-old lady presenting with bleeding per rectum 1. Hematochezia ?? Diverticular bleed patient denies any pain. Admitted to monitored bed typed and crossmatched, ordered H&H every 4 hours and consultation placed to Dr. Rodriguez for lower endoscopic evaluation. Patient underwent EGD during the previous admission was found to have gastritis 2. Anemia ? Secondary to acute on chronic blood loss anemia patient H&H down by 1 g from her previous admission we will continue with monitoring and transfuse if patient is deemed to be symptomatic or hemoglobin falls below 7 3. Dyslipidemia ?Patient is on statin therapy, continued at home dose 4. Hypertension ? Blood pressure controlled, home medications continued with dose adjustment as needed 5. Depression with anxiety ? Patient is on venlafaxine as well as risperidone did continue 6. COPD ? Currently noting acute exacerbation did continue with patient bronchodilator treatment regimen 7. Dementia ? Supportive care 8. Diabetes mellitus type 2 As per history currently not on any treatment we will continue with monitoring 9. Obstructive sleep apnea consistent use of PAP therapy encouraged 10. Class II obesity with BMI of 38.6 ? Complicating care weight loss advised 11. DVT prophylaxis ? Bilateral SCDs only given patient presentation Time spent in the patient's overall evaluation,decision-making process, review of diagnostic data, adjustment of management, discussion with other providers, nursing nursing and ancillary staff involved in patient's care documentation, 75 Minutes CODE STATUS Full code per documentation from patient's ECF notes. Charges/Coding Visit Charges Inpatient E&M: 18166 Init Hosp L3
[2024-07-12 13:36] LABS: Hematocrit 29.8 % (37-47); Hemoglobin 8.7 g/dL (12.0-15.0)
[2024-07-12] MEDS: Albuterol 2.5 MG/3 ML VIAL.NEB. INHALATION ×2 (13:48→22:00)
[2024-07-12] MEDS: Dextrose 5%/0.9% NaCl 1,000 ML 100 ML IV ×2 (13:55→23:55)
[2024-07-12 18:14] LABS: Hematocrit 29.6 % (37-47); Hemoglobin 8.7 g/dL (12.0-15.0)
[2024-07-12] MEDS: Latanoprost 0.005% 1 Bottle 1 DRP OPHTHALMIC (21:29)
[2024-07-12] MEDS: busPIRone 5 MG Tablet 10 MG PO (21:32)
[2024-07-12] MEDS: traZODone 50 MG Tablet PO (21:33)
[2024-07-12] MEDS: Famotidine 20 MG Tablet PO (21:36)
[2024-07-12] MEDS: Propranolol 10 MG Tablet 20 MG PO (21:36)
[2024-07-12] MEDS: Memantine Hydrochloride 10 MG Tablet PO (21:36)
[2024-07-12] MEDS: Levothyroxine 75 MCG Tablet PO (21:37)
[2024-07-12] MEDS: Atorvastatin Calcium 40 MG Tablet PO (21:37)
[2024-07-12] MEDS: Primidone 50 MG Tablet PO (21:37)
[2024-07-12] MEDS: Budesonide Respules 0.5 MG/2 ML AMPUL.NEB. INHALATION (22:00)
[2024-07-13] VITALS (9 sets, daily range): BP systolic 124–140; BP diastolic 57–66; PULSE 64–81; RESP 14–20; TEMP 36.6–37.4; O2SAT 95–100; BMI 38.3; BMI 37.0
[2024-07-13 00:46] LABS: Hematocrit 25.8 % (37-47); Hemoglobin 7.8 g/dL (12.0-15.0)
--- NOTE | 2024-07-13 01:39 | NURSING ---
This RN taking over care for this patient from Sadia Finley RN
[2024-07-13 06:33] LABS: Absolute Lymphocyte Count 1.88 X10^3/uL (0.83-4.51); Absolute Neutrophil Count 6.6 X10^3/uL (2.0-7.7); Basophil# 0.09 X10^3/uL; Basophil% 0.9 % (0-1); Eosinophil# 0.54 X10^3/uL; Eosinophils% 5.4 % (0-5); Hematocrit 28.5 % (37-47); Hemoglobin 8.5 g/dL (12.0-15.0); Lymphocyte # 1.88 X10^3/ul (0.83-4.51); Lymphocyte % 18.7 % (19-41); Mean Corp Hgb Conc 29.8 g/dL (32-36); Mean Corpuscular Hgb 24.8 pg (27.0-32.0); Mean Corpuscular Volume 83.1 fL (81-99); Mean Platelet Vol. 9.4 fl (6.2-12.0); Monocyte# 0.92 X10^3/uL; Monocyte% 9.1 % (0-10); NRBC Flagged by Analyzer 0 % (0-5); Neutrophil # 6.58 X10^3/uL (2.7-7.7); Neutrophil % 65.2 % (47-70); Platelet Count 367 K/mm3 (150-450); RBC Distribution Width CV 17.5 % (11.6-14.6); RBC Distribution Width SD 53.2 fl (35.1-43.9); Red Blood Count 3.43 M/mm3 (4.2-5.4); White Blood Count 10.1 K/mm3 (4.4-11.0)
[2024-07-13 06:48] LABS: Anion Gap 7 (5-15); BUN 10 mg/dL (7-18); BUN/Creat Ratio 11.5 RATIO (10-20); Calcium,Total 8.9 mg/dL (8.5-10.1); Chloride 105 mmol/L (98-107); Creatinine, Serum 0.87 mg/dL (0.55-1.02); EST Glomerular Filtration Rate 67 mL/min (>60); Est Glom Filt Rate - Afr Amer 81 mL/min (>60); Estimated Creatinine Clearance 54.49 ml/min; Glucose 119 mg/dL (74-106); Magnesium 1.8 mg/dL (1.6-2.6); Phosphorus 3.1 mg/dL (2.5-4.9); Potassium 3.6 mmol/L (3.5-5.1); Sodium Level 140 mmol/L (136-145)
[2024-07-13] MEDS: Budesonide Respules 0.5 MG/2 ML AMPUL.NEB. INHALATION ×2 (06:55→20:21)
[2024-07-13] MEDS: Albuterol 2.5 MG/3 ML VIAL.NEB. INHALATION ×3 (06:55→20:21)
[2024-07-13] MEDS: lamoTRIgine 100 MG Tablet 200 MG PO (09:25)
[2024-07-13] MEDS: busPIRone 5 MG Tablet 10 MG PO ×2 (09:26→21:56)
[2024-07-13] MEDS: Calcium Carb/Vitamin D 1 TABLET Tablet PO (09:26)
[2024-07-13] MEDS: Propranolol 10 MG Tablet 20 MG PO ×2 (09:26→21:57)
[2024-07-13] MEDS: Memantine Hydrochloride 10 MG Tablet PO ×2 (09:27→21:57)
[2024-07-13] MEDS: Famotidine 20 MG Tablet PO ×2 (09:27→21:57)
[2024-07-13] MEDS: Fluticasone 0.05% 1 SPRAY NASAL.SRY NASAL (09:27)
[2024-07-13] MEDS: hydroCHLOROthiazide 25 MG Tablet PO (09:27)
[2024-07-13] MEDS: Venlafaxine HCl 75 MG Tablet PO (09:27)
[2024-07-13] MEDS: Lisinopril 10 MG Tablet PO (09:27)
--- NOTE | 2024-07-13 09:27 | CASEMGMT ---
Updates sent to [facility] with note that pt will return intermediate. Mariann Grider DC Planning Asst.
[2024-07-13] MEDS: Dextrose 5%/0.9% NaCl 1,000 ML 100 ML IV (10:20)
--- NOTE | 2024-07-13 11:55 | CHAPLAIN ---
Type of Pastoral Visit _x__ Initial Visit ___ Follow-up Visit ___ On-call Visit ___ General Patient Visit ___ Spiritual Assessment ___ Family Conference ___ Bereavement ___ Rapid Response ___ Code Blue ___ Other (describe below) Pastoral Care Referral From _x__ Patient ___ Family ___ Nurse ___ Physician ___ Magazine Feeder ___ Geriatrician ___ Other (describe below) Sacrament/Intervention _x__ Active listening ___ Anointing ___ Worship ___ Bereavement ___ Communion ___ Brandy exploration ___ ___ Life review _x_ Prayer ___ Reconciliation ___ Sacrament of Sick _x__ Supportive presence ___ Wedding ___ Other (describe below) Pastoral Comments patient is watching TV and responds positively to offer of visit; pt is pleasant and answers questions that are given; however patient does not appear to have accurate understanding of time and refers to her family as grandparents and my grandmother just a little while ago and that really hurt; pt is unable to name other family members; this bottle label inspector allowed patient to just talk and have some company; pt did welcome a prayer and said amen at the conclusion; pt wanted the channel changed on the TV and that was done for her
--- NOTE | 2024-07-13 15:42 | PCM.PN.HOSP ---
Reason for Visit Reason for Visit: Diagnoses Gastrointestinal hemorrhage, unspecified (07/12/24) Objective Data Objective Data Vital Signs: Vital Signs Temp Pulse Resp BP Pulse Ox O2 Del Method 99.3 F H 70 14 124/62 H 100 Room Air 07/13/24 14:33 07/13/24 14:33 07/13/24 14:33 07/13/24 14:33 07/13/24 14:33 07/13/24 14:33 Oxygen Delivery Method Room Air Weight: 190 lb 0.615 oz Body Mass Index (BMI) 38.3 Intake & Output: Intake and Output for Last 24 Hours 07/11/24 07/12/24 07/13/24 23:59 23:59 23:59 Intake Total 2240 / 2490 1610 / 1610 Balance 2240 / 2490 1610 / 1610 Lab / Micro Data 07/13/24 05:45 07/13/24 05:45 Labs: Laboratory Results - last 24 hr 07/12/24 18:04: Hgb 8.7 L, Hct 29.6 L 07/13/24 00:37: Hgb 7.8 L, Hct 25.8 L 07/13/24 05:45: WBC 10.1, RBC 3.43 L, Hgb 8.5 L, Hct 28.5 L, MCV 83.1, MCH 24.8 L, MCHC 29.8 L, RDW Std Deviation 53.2 H, RDW Coeff of Kin 17.5 H, Plt Count 367, MPV 9.4, Immature Gran % (Auto) 0.700, Neut % (Auto) 65.2, Lymph % (Auto) 18.7 L, [place] % (Auto) 9.1, Eos % (Auto) 5.4 H, Baso % (Auto) 0.9, Absolute Neuts (auto) 6.6, Absolute Lymphs (auto) 1.88, Nucleated RBC % 0, Sodium 140, Potassium 3.6, Chloride 105, Carbon Dioxide 28.0, Anion Gap 7, BUN 10, Creatinine 0.87, Estim Creat Clear Calc 54.49, Est GFR (MDRD) Af Amer 81, Est GFR (MDRD) Non-Af 67, BUN/Creatinine Ratio 11.5, Glucose 119 H, Calcium 8.9, Phosphorus 3.1, Magnesium 1.8 Micro: Microbiology 07/12/24 09:30 Stool Stool Occult Blood (AZUL) - Final Occult Blood Positive Physical Exam Narrative Seen and examined. Patient admitted with hematochezia. Plan for colonoscopy. Hemoglobin 8.5. Physical exam General: Alert, Oriented x3, Cooperative, BMI 38.4 kg/m? HEENT: Atraumatic, PERRLA, EOMI, Normocephalic Oral: No Gingival or Mucosal Lesions/ Ulcerations Neck: Supple, No JVD, Negative Carotid Bruits Chest wall/Lungs: Air entry diminished in bilateral lung bases. No crepitation/rhonchi Cardiovascular: Regular rate, Regular Rhythm, Normal S1, Normal S2, systolic murmur , TR Abdomen: Bowel Sounds Present, soft, big abdominal and pelvic fat pannus. : No dysuria. No renal angle tenderness. No suprapubic tenderness. Extremities: No edema, Capillary Refill Less than 3 Seconds Skin: No rashes, No breakdown Musculoskeletal: Severe arthritis with bilateral knee valgus deformity. ROM restricted. Neurological: Cranial nerves II-XII grossly intact, DTR 2+/4. No acute focal neurological deficit. Psych/Mental Status: Normal Affect, Appropriate. Assessment & Plan Assessment/Plan (1) Acute GI bleeding: PLAN: Plan Patient is a 73-year-old lady presenting with bleeding per rectum 1. Hematochezia ?? Diverticular bleed patient denies any pain. Admitted to monitored bed typed and crossmatched, ordered H&H every 4 hours and consultation placed to Dr. Rodriguez for lower endoscopic evaluation. Patient underwent EGD during the previous admission was found to have gastritis 07/13: Plan for colonoscopy. 2. Anemia ? Secondary to acute on chronic blood loss anemia patient H&H down by 1 g from her previous admission we will continue with monitoring and transfuse if patient is deemed to be symptomatic or hemoglobin falls below 7 07/13: Hemoglobin 8.7, dropped to 7.8 and today 8.5. 3. Dyslipidemia ?Patient is on statin therapy, continued at home dose 4. Hypertension ? Blood pressure controlled, home medications continued with dose adjustment as needed 5. Depression with anxiety ? Patient is on venlafaxine as well as risperidone did continue 6. COPD ? Currently noting acute exacerbation did continue with patient bronchodilator treatment regimen 7. Dementia ? Supportive care 8. Diabetes mellitus type 2 As per history currently not on any treatment we will continue with monitoring 9. Obstructive sleep apnea consistent use of PAP therapy encouraged 10. Class II obesity with BMI of 38.6 ? Complicating care weight loss advised 11. DVT prophylaxis ? Bilateral SCDs only given patient presentation Time spent in the patient's overall evaluation,decision-making process, review of diagnostic data, adjustment of management, discussion with other providers, nursing nursing and ancillary staff involved in patient's care documentation, 75 Minutes CODE STATUS Full code per documentation from patient's ECF notes. Charges/Coding Visit Charges Inpatient E&M: 73703 Subs Hosp L2
[2024-07-13] MEDS: Bisacodyl 5 MG Tablet 20 MG PO (17:10)
[2024-07-13] MEDS: Polyethylene Glycol 3350 BOWEL PREP PO (18:02)
--- NOTE | 2024-07-13 19:52 | EX.PCM.CON.G ---
HPI Consult Data Date of Consult: 07/13/24 HPI Narrative Reason for Consultation: Anemia HPI Narrative: CLARENCE MCNEILL, is a 73 F who presents 73 F respiratory [facility] recently discharged from the hospital following an episode of GI bleed. Patient underwent EGD was found to have a normal esophagus chronic gastritis and normal duodenum. Discharged back to the [facility]. Patient was apparently stable for the past 5 days till the morning of her admission when she was noticed to have bleeding per rectum. She was brought to the emergency department as a result. Hemoglobin on admission was 8.4 of note hemoglobin on patient's discharge was 9.5. Patient was typed and crossmatched admitted to a monitored bed . On further questioning patient denied any nausea no vomiting no abdominal pain [facility] Medical History Smoker Decubitus ulcer of right buttock, stage 3 Dementia Confusion Memory deficit Left ventricular diastolic dysfunction Secondary pulmonary arterial hypertension Hyperlipidemia RADHA treated with BiPAP Asthma COPD (chronic obstructive pulmonary disease) Osteoarthritis Essential hypertension Epigastric pain Acute kidney injury Depression Accidental drug overdose UTI (urinary tract infection) Sepsis Hypomagnesemia Irritable bowel syndrome Left shoulder pain Super obese Lightheadedness Hypothyroidism DM2 (diabetes mellitus, type 2) COLD (chronic obstructive lung disease) Anxiety Home Medications ?Medication ?Instructions ?Recorded ?Last Taken ?Type aspirin 81 mg chewable tablet 81 mg PO DAILY@0800 heart health 04/29/17 07/12/24 History atorvastatin 40 mg tablet 40 mg PO QHS cholesterol 04/29/17 07/11/24 History levothyroxine 75 mcg tablet 75 mcg PO QHS thyroid 04/29/17 07/11/24 History lisinopril 10 mg tablet 10 mg PO DAILY blood pressure 04/29/17 07/12/24 History meloxicam 15 mg tablet 15 mg PO DAILY arthritis 04/29/17 07/12/24 History latanoprost 0.005 % eye drops 1 drp ophthalmic (eye) QPM glaucoma 01/17/20 07/11/24 History memantine 10 mg tablet 10 mg PO BID dementia 01/17/20 07/12/24 History famotidine 20 mg tablet 20 tab PO BID gerd 01/18/20 07/12/24 History lamotrigine 200 mg tablet 200 mg PO DAILY depressed mood 01/18/20 07/12/24 History calcium 600 mg (as 1 cap PO DAILY supplement 01/02/21 07/12/24 History carbonate)-vitamin D3 12.5 mcg (500 unit) capsule (Calcium with Vit D3) cholecalciferol (vitamin D3) 125 2,000 unit PO DAILY supplement 01/02/21 07/12/24 History mcg (5,000 unit) capsule docusate sodium 100 mg capsule 100 mg PO DAILY bowels 01/02/21 07/12/24 History (Colace) primidone 50 mg tablet 50 mg PO QHS tremors 01/02/21 07/11/24 History propranolol 20 mg tablet 20 mg PO BID HTN 01/02/21 07/12/24 History ondansetron 4 mg disintegrating 4 mg PO Q8H PRN Nausea 10/28/21 Unknown History tablet albuterol sulfate 2.5 mg/3 mL 2.5 mg inhalation Q4H PRN 07/05/24 Unknown History (0.083 %) solution for nebulization shortness of breath or wheezing bisacodyl 10 mg rectal suppository 10 mg NV DAILY PRN constipation 07/05/24 Unknown History fluticasone 250 mcg-salmeterol 50 1 inh inhalation BID breathing 07/05/24 07/12/24 History mcg/dose blistr powdr for inhalation fluticasone propionate 50 1 spray intranasal DAILY congestion 07/05/24 07/12/24 History mcg/actuation nasal spray,suspension (24 Hour Allergy Relief) guaifenesin 600 mg tablet, 600 mg PO Q12H PRN congestion 07/05/24 Unknown History extended release 12 hr (Mucinex) magnesium hydroxide 400 mg/5 mL 30 ml PO DAILY PRN constipation 07/05/24 Unknown History oral suspension ([email or web address]) tramadol 50 mg tablet 50 mg PO BID pain 07/05/24 07/12/24 History trazodone 50 mg tablet 50 mg PO QHS insomnia 07/05/24 07/11/24 History venlafaxine 75 mg tablet 75 mg PO DAILY depression 07/05/24 07/12/24 History acetaminophen 500 mg tablet 1,000 mg PO Q8H PRN fever or pain 07/12/24 Unknown History albuterol sulfate 90 mcg/actuation 1 inh inhalation Q6H PRN CHRONIC 07/12/24 Unknown History aerosol inhaler BRONCHITIS buspirone 10 mg tablet 10 mg PO BID anxiety/depression 07/12/24 07/12/24 History food supplemt, lactose-reduced 240 ml PO BID supplement 07/12/24 Unknown History 0.04 gram-1 kcal/mL oral liquid (Boost) hydrochlorothiazide 25 mg tablet 25 mg PO DAILY diuretic 07/12/24 07/07/24 History mineral oil (Fleet Mineral Oil 118 ml NV DAILY PRN constipation 07/12/24 Unknown History enema) Allergy/AdvReac Type Severity Reaction Status Date / Time No Known Allergies Allergy Verified 07/05/24 10:20 Family History Sister CAD (coronary artery disease) stents Heart disease Father Cancer Mother Heart disease Brother Diabetes Heart disease CAD (coronary artery disease) Surgical History History of cataract extraction with lens replacement History of section Social History housing: assisted living facility number of children: 2 Smoking Status: Never smoker how long ago did patient quit smokin alcohol intake: never caffeine: Yes additional social history: ROS Constitutional Constitutional: Denies fatigue, fever(s), poor appetite, weight gain or weight loss Gastrointestinal Gastrointestinal: Denies belching, bloating, change in bowel habits, change in stool character, chewing difficulty, coffee ground emesis, constipation, cramping, diarrhea, dyspepsia, dysphagia, early satiety, excessive flatus, fecal incontinence, heartburn, hematemesis, hematochezia, hemorrhoids, loose stools, melena, nausea, odynophagia, rectal bleeding, tenesmus, vomiting or weight changes Physical Exam Const alert, oriented x3, no apparent distress and healthy appearing General Appearance: cooperative GI normal to inspection, nondistended, normoactive bowel sounds, soft to palpation, non-tender and non-distended Percussion: normal to percussion Rectal Exam: deferred Lab / Micro Data 07/14/24 04:41 07/14/24 04:41 Labs: Laboratory Results - last 24 hr 07/14/24 04:41: WBC 10.1, RBC 3.32 L, Hgb 8.1 L, Hct 28.2 L, MCV 84.9, MCH 24.4 L, MCHC 28.7 L, RDW Std Deviation 52.8 H, RDW Coeff of Kin 17.2 H, Plt Count 357, MPV 9.4, Immature Gran % (Auto) 0.500, Neut % (Auto) 66.3, Lymph % (Auto) 19.1, [place] % (Auto) 9.6, Eos % (Auto) 3.8, Baso % (Auto) 0.7, Absolute Neuts (auto) 6.7, Absolute Lymphs (auto) 1.93, Nucleated RBC % 0, Sodium 140, Potassium 3.2 L, Chloride 104, Carbon Dioxide 28.0, Anion Gap 7, BUN 8, Creatinine 1.08 H, Estim Creat Clear Calc 43.01, Est GFR (MDRD) Af Amer 64, Est GFR (MDRD) Non-Af 53 L, BUN/Creatinine Ratio 7.4 L, Glucose 101, Calcium 9.0 Assessment & Plan Assessment/Plan (1) Acute GI bleeding: PLAN: Plan Patient is a 73-year-old lady presenting with bleeding per rectum 1. Hematochezia ?? Diverticular bleed patient denies any pain. Admitted to monitored bed typed and crossmatched, ordered H&H every 4 hours and for lower endoscopic evaluation. Patient underwent EGD during the previous admission was found to have gastritis 2. Anemia ? Secondary to acute on chronic blood loss anemia patient H&H down by 1 g from her previous admission we will continue with monitoring and transfuse if patient is deemed to be symptomatic or hemoglobin falls below 7 Charges/Coding Visit Charges Inpatient E&M: 95460 Init Hosp L3
[2024-07-13] MEDS: Latanoprost 0.005% 1 Bottle 1 DRP OPHTHALMIC (21:55)
[2024-07-13] MEDS: Atorvastatin Calcium 40 MG Tablet PO (21:57)
[2024-07-13] MEDS: Nystatin Powder 15gm Bottle 1 APPLIC TOPICAL (21:57)
[2024-07-13] MEDS: Primidone 50 MG Tablet PO (21:57)
[2024-07-13] MEDS: Levothyroxine 75 MCG Tablet PO (21:57)
[2024-07-13] MEDS: traZODone 50 MG Tablet PO (21:57)
[2024-07-14] VITALS (14 sets, daily range): BP systolic 96–132; BP diastolic 39–76; PULSE 59–88; RESP 16–20; TEMP 36.3–37.1; O2SAT 94–99; BMI 37.0
[2024-07-14] MEDS: Ondansetron 4 MG/2 ML Vial IV (02:32)
[2024-07-14] MEDS: Nystatin Powder 15gm Bottle 1 APPLIC TOPICAL ×3 (05:40→21:16)
--- NOTE | 2024-07-14 05:55 | EKG12_ITS ---
Test Reason : PRE OP Blood Pressure : */* mmHG Vent. Rate : 59 BPM Atrial Rate : 59 BPM P-R Int : 124 ms QRS Dur : 98 ms QT Int : 434 ms P-R-T Axes : 22 -23 7 degrees QTcB Int : 429 ms Sinus bradycardia Moderate voltage criteria for LVH, may be normal variant ( R in aVL , [place] product ) Borderline ECG When compared with ECG of 29-Aug-2018 16:20, Vent. rate has decreased by 32 bpm Confirmed by MARINO ALEXANDRA, JUNIOR ([id number]), manager editorial SANJAY ISIDRO ([id number]) on 07/14/2024 1:30:27 PM Referred By: Confirmed By: JUNIOR PICHARDO MD
[2024-07-14] MEDS: Albuterol 2.5 MG/3 ML VIAL.NEB. INHALATION ×3 (07:06→21:05)
[2024-07-14] MEDS: Budesonide Respules 0.5 MG/2 ML AMPUL.NEB. INHALATION ×2 (07:06→21:05)
[2024-07-14 07:28] LABS: Absolute Lymphocyte Count 1.93 X10^3/uL (0.83-4.51); Absolute Neutrophil Count 6.7 X10^3/uL (2.0-7.7); Basophil# 0.07 X10^3/uL; Basophil% 0.7 % (0-1); Eosinophil# 0.38 X10^3/uL; Eosinophils% 3.8 % (0-5); Hematocrit 28.2 % (37-47); Hemoglobin 8.1 g/dL (12.0-15.0); Lymphocyte # 1.93 X10^3/ul (0.83-4.51); Lymphocyte % 19.1 % (19-41); Mean Corp Hgb Conc 28.7 g/dL (32-36); Mean Corpuscular Hgb 24.4 pg (27.0-32.0); Mean Corpuscular Volume 84.9 fL (81-99); Mean Platelet Vol. 9.4 fl (6.2-12.0); Monocyte# 0.97 X10^3/uL; Monocyte% 9.6 % (0-10); NRBC Flagged by Analyzer 0 % (0-5); Neutrophil % 66.3 % (47-70); Platelet Count 357 K/mm3 (150-450); RBC Distribution Width CV 17.2 % (11.6-14.6); RBC Distribution Width SD 52.8 fl (35.1-43.9); Red Blood Count 3.32 M/mm3 (4.2-5.4); White Blood Count 10.1 K/mm3 (4.4-11.0)
[2024-07-14 07:55] LABS: Anion Gap 7 (5-15); BUN 8 mg/dL (7-18); BUN/Creat Ratio 7.4 RATIO (10-20); Chloride 104 mmol/L (98-107); Creatinine, Serum 1.08 mg/dL (0.55-1.02); EST Glomerular Filtration Rate 53 mL/min (>60); Est Glom Filt Rate - Afr Amer 64 mL/min (>60); Estimated Creatinine Clearance 43.01 ml/min; Glucose 101 mg/dL (74-106); Potassium 3.2 mmol/L (3.5-5.1); Sodium Level 140 mmol/L (136-145)
[2024-07-14] MEDS: Potassium Chloride 10mEq/100mL 10 MEQ/100 ML IV.SOLN. 100 MEQ IV BOLUS ×2 (10:05→11:11)
[2024-07-14] MEDS: Lisinopril 10 MG Tablet PO (11:16)
[2024-07-14] MEDS: busPIRone 5 MG Tablet 10 MG PO ×2 (11:16→21:16)
[2024-07-14] MEDS: Propranolol 10 MG Tablet 20 MG PO (11:17)
[2024-07-14] MEDS: hydroCHLOROthiazide 25 MG Tablet PO (11:17)
[2024-07-14] MEDS: Calcium Carb/Vitamin D 1 TABLET Tablet PO (11:17)
[2024-07-14] MEDS: Fluticasone 0.05% 1 SPRAY NASAL.SRY NASAL (11:17)
[2024-07-14] MEDS: lamoTRIgine 100 MG Tablet 200 MG PO (11:17)
[2024-07-14] MEDS: Memantine Hydrochloride 10 MG Tablet PO ×2 (11:17→21:16)
[2024-07-14] MEDS: Venlafaxine HCl 75 MG Tablet PO (11:17)
[2024-07-14] MEDS: Famotidine 20 MG Tablet PO ×2 (11:17→21:16)
--- NOTE | 2024-07-14 16:37 | PN.HOSP_ITS ---
Reason for Visit Reason for Visit: Diagnoses Gastrointestinal hemorrhage, unspecified (07/12/24) Objective Data Objective Data Vital Signs: Vital Signs Temp Pulse Resp BP Pulse Ox O2 Del Method 98.1 F 64 16 116/57 L 96 Room Air 07/14/24 14:55 07/14/24 14:55 07/14/24 14:55 07/14/24 14:55 07/14/24 14:55 07/14/24 14:55 Oxygen Delivery Method Room Air Weight: 183 lb 3.266 oz Body Mass Index (BMI) 37.0 Intake & Output: Intake and Output for Last 24 Hours 07/12/24 07/13/24 07/14/24 23:59 23:59 23:59 Intake Total 2240 / 2490 2970 / 2970 275 / 275 Output Total 2 / 2 Balance 2240 / 2490 2968 / 2968 275 / 275 Lab / Micro Data 07/14/24 04:41 07/14/24 04:41 Labs: Laboratory Results - last 24 hr 07/14/24 04:41: WBC 10.1, RBC 3.32 L, Hgb 8.1 L, Hct 28.2 L, MCV 84.9, MCH 24.4 L, MCHC 28.7 L, RDW Std Deviation 52.8 H, RDW Coeff of Kin 17.2 H, Plt Count 357, MPV 9.4, Immature Gran % (Auto) 0.500, Neut % (Auto) 66.3, Lymph % (Auto) 19.1, [place] % (Auto) 9.6, Eos % (Auto) 3.8, Baso % (Auto) 0.7, Absolute Neuts (auto) 6.7, Absolute Lymphs (auto) 1.93, Nucleated RBC % 0, Sodium 140, P otassium 3.2 L, Chloride 104, Carbon Dioxide 28.0, Anion Gap 7, BUN 8, C reatinine 1.08 H, Estim Creat Clear Calc 43.01, Est GFR (MDRD) Af Amer 64, Est GFR (MDRD) Non-Af 53 L, BUN/Creatinine Ratio 7.4 L, Glucose 101, Calcium 9.0 Micro: Microbiology 07/12/24 09:30 Stool Stool Occult Blood (AZUL) - Final Occult Blood Positive Physical Exam Narrative Seen and examined. Patient admitted with hematochezia. Patient sitting on the chair. Plan for colonoscopy today. Had colon prep yesterday. No further hematochezia Physical exam General: Alert, Oriented x3, Cooperative, BMI 38.4 kg/m? HEENT: Atraumatic, PERRLA, EOMI, Normocephalic Oral: No Gingival or Mucosal Lesions/ Ulcerations Neck: Supple, No JVD, Negative Carotid Bruits Chest wall/Lungs: Air entry diminished in bilateral lung bases. No crepitation/rhonchi Cardiovascular: Regular rate, Regular Rhythm, Normal S1, Normal S2, systolic murmur , TR Abdomen: Bowel Sounds Present, soft, big abdominal and pelvic fat pannus. : No dysuria. No renal angle tenderness. No suprapubic tenderness. Extremities: No edema, Capillary Refill Less than 3 Seconds Skin: No rashes, No breakdown Musculoskeletal: Severe arthritis with bilateral knee valgus deformity. ROM restricted. Mild atrophy of the calf and thigh muscles. Neurological: Cranial nerves II-XII grossly intact, DTR 2+/4. No acute focal neurological deficit. Psych/Mental Status: Normal Affect, Appropriate. Assessment & Plan Assessment/Plan (1) Acute GI bleeding: PLAN: Plan Patient is a 73-year-old lady presenting with bleeding per rectum 1. Hematochezia ?? Diverticular bleed patient denies any pain. Admitted to monitored bed typed and crossmatched, ordered H&H every 4 hours and consultation placed to Dr. Rodriguez for lower endoscopic evaluation. Patient underwent EGD during the previous admission was found to have gastritis 07/13: Plan for colonoscopy. 07/14: She had colon prep yesterday. 2. Anemia ? Secondary to acute on chronic blood loss anemia patient H&H down by 1 g from her previous admission we will continue with monitoring and transfuse if patient is deemed to be symptomatic or hemoglobin falls below 7 07/13: Hemoglobin 8.7, dropped to 7.8 and today 8.5. 07/14: Hemoglobin 8.1. 3. Dyslipidemia ?Patient is on statin therapy, continued at home dose 4. Hypertension ? Blood pressure controlled, home medications continued with dose adjustment as needed 5. Depression with anxiety ? Patient is on venlafaxine as well as risperidone did continue 6. COPD ? Currently noting acute exacerbation did continue with patient bronchodilator treatment regimen 7. Dementia ? Supportive care 8. Diabetes mellitus type 2 As per history currently not on any treatment we will continue with monitoring 9. Obstructive sleep apnea consistent use of PAP therapy encouraged 10. Class II obesity with BMI of 38.6 ? Complicating care weight loss advised Physically deconditioned. 11. DVT prophylaxis ? Bilateral SCDs only given patient presentation CODE STATUS Full code per documentation from patient's ECF notes. Charges/Coding Visit Charges Inpatient E&M: 08427 Subs Hosp L2
--- NOTE | 2024-07-14 19:10 | PCM.PRE.AN2 ---
ASA Classification* ASA Classification ASA Classification: 3 Assessment & Plan Anesthesia* Anesthesia Assessment Anesthesia Assessment: Discussed sedation and/or anesthesia options, risks, benefits, and alternatives with patient/parents/legal guardian/POA. Questions invited. The patient/parents/legal guardian/POA seems to understand and agrees to proceed with anesthesia plan. Reviewed the physical assessment, medical history, allergy history and patient home medications list prior to surgery/procedure/anesthetic and documented any changes. Performed airway and anesthesia risk assessments. Anesthesia Type Anesthesia Type: MAC (Consent obtained through daughter) History Source History Obtained from:: Chart and Poor Historian Anesthesia Focused Assessment* Temperature: 98 F Pulse Rate: 62 Blood Pressure: 116/57 Respiratory Rate: 16 Pulse Ox: 95 Oxygen Delivery Method: Room Air Airway Assessment Mouth opens: 2 cm Mallampati Score: IV Teeth Condition: Dentures (Full dentures are out) Neck Range of motion (ROM): Limited ROM Focused Labs Anesthesia Preop lab: CBC WBC 10.1 K/mm3 (4.4-11.0) 07/14/24 04:41 07/14/24 RBC 3.32 M/mm3 (4.2-5.4) L 07/14/24 04:41 07/14/24 Hgb 8.1 g/dL (12.0-15.0) L 07/14/24 04:41 07/14/24 Hct 28.2 % (37-47) L 07/14/24 04:41 07/14/24 Plt Count 357 K/mm3 (150-450) 07/14/24 04:41 07/14/24 CHEMISTRY Potassium 3.2 mmol/L (3.5-5.1) L 07/14/24 04:41 07/14/24 Sodium 140 mmol/L (136-145) 07/14/24 04:41 07/14/24 Magnesium 1.8 mg/dL (1.6-2.6) 07/13/24 05:45 07/13/24 Phosphorus 3.1 mg/dL (2.5-4.9) 07/13/24 05:45 07/13/24 BUN 8 mg/dL (7-18) 07/14/24 04:41 07/14/24 Creatinine 1.08 mg/dL (0.55-1.02) H 07/14/24 04:41 07/14/24 Glucose 101 mg/dL (74-106) 07/14/24 04:41 07/14/24 POC Glucose 89 mg/dL (74-106) 10/28/21 19:02 10/28/21 TSH 1.260 uIU/mL (0.358-3.740) 07/06/24 02:50 07/06/24 COAG PT 14.8 SECONDS (11.7-14.9) 07/06/24 02:50 07/06/24 Pre-Assessment Diagnosis/Proposed Procedure Planned Operative Procedure(s): Colonoscopy Anesthesia History Anesthesia History - psychiatric mental health nurse: Anesthesia History - psychiatric mental health nurse Hx Hospitalization Yes: 06/1802/27/19 20:53 Any Problems With Anesthesia No 07/14/24 11:04 Cholinesterase deficiency No 07/14/24 11:04 You/Your Family Experience No 07/14/24 11:04 fever (hyperthermia) with Relationship Recent Exposure to Contagious No 07/14/24 11:04 Disease Does patient have nerve No 07/14/24 11:04 stimulator Patient instructed to have device shut off --Does patient have Pacemaker No 07/14/24 11:04 or ICD? When Was Last Pacemaker Check QUESTION #4 FULL TEXT: You/Your Family Experience fever (hyperthermia) with Anesthesia Last Oral Intake Last Oral intake: Last Oral Intake NPO since Meds taken in AM with sips of water? Meds patient instructed to take am of surgery PONV PONV - psychiatric mental health nurse: PONV - psychiatric mental health nurse Female HX of Motion Sickness HX of N/V After Surgery Non-Smoker Duration of Surgery greater than 60 minutes Number of Risk Factors PONV Score Height & Weight Height & Weight: Anesthesia: Height & Weight Height 4 ft 11 in 07/14/24 11:04 Weight: 83.1 kg 07/14/24 11:04 Body Mass Index (BMI) 37.0 07/14/24 11:04 Respiratory Assessment Respiratory Assessment - psychiatric mental health nurse: Respiratory Tract Infection Hx - psychiatric mental health nurse Hx Respiratory Tract Infection No 07/14/24 11:04 STOP Sleep Apnea STOP Sleep Apnea - psychiatric mental health nurse: STOP Sleep Apnea - psychiatric mental health nurse Hx Hypertension Yes 07/12/24 12:52 Hx Sleep Apnea Yes 07/12/24 12:52 CPAP No 07/12/24 12:52 BIPAP Yes 07/12/24 12:52 Do you snore loudly (louder than talking or can be heard Do you often feel tired/ fatigued/ sleepy during daytime? Has anyone observed you stop breathing during sleep? STOP Results Positive 07/12/24 12:52 QUESTION #5 FULL TEXT : Do you snore loudly (louder than talking or can be heard through closed doors)? Tobacco Use History Tobacco Use History - psychiatric mental health nurse: Tobacco Use History - psychiatric mental health nurse Tobacco Use 11/26/20 11:01 Smoking Status Never smoker 07/12/24 12:52 Hx Tobacco Use No 07/12/24 12:52 Years Smoking Packs Smoked per Day Smoking Cessation Date was within the last 15 years Hx Smoking Cessation Date 12/13/89 07/12/24 12:52 Hx Smoking Cessation Counseling Hematologic Medial History Hematologic Hx - psychiatric mental health nurse: Hematologic Medical Hx - insurance administrator Hx of Blood Transfusion Hx of Transfusion in last 3 Months Date of Last Transfusion (if within last 3 months) Ever experience any problems with transfusion(s)? Specify any problems Hx of Preganancy in last 3 Months Nurse Filling Out Transfusion & Questions: Date: Time: Patient unable to answer at Yes 07/12/24 12:52 this time (ie. confused, unrespo /Reproduction History /Reproductive History - psychiatric mental health nurse: /Reproductive Hx- psychiatric mental health nurse Hx Now Gestational Age (in weeks): EDC: Hx Hx Para Hx Section SAB No 07/06/24 11:39 Active Medications Active Medications: Current Medications Generic Name Dose Route Start Last Admin Trade Name Freq PRN Reason Stop Dose Admin Acetaminophen 650 mg 07/12/24 12:48 Acetaminophen 325 Mg Tablet PO Q6H PRN PRN Pain 1-10 Or Fever>100.7 Albuterol Sulfate 2.5 mg 07/12/24 12:48 Albuterol 2.5 Mg/3 Ml Vial.Neb. INHALATION Q2H PRN PRN SOB &/OR WHEEZING Albuterol Sulfate 2.5 mg 07/12/24 13:00 07/14/24 12:39 Albuterol 2.5 Mg/3 Ml Vial.Neb. INHALATION 2.5 mg Q6HWA.RT GAVI Administration Atorvastatin Calcium 40 mg 07/12/24 22:00 07/13/24 21:57 Atorvastatin Calcium 40 Mg Tablet PO 40 mg QHS GAVI Administration Budesonide 0.5 mg 07/12/24 13:00 07/14/24 07:06 Budesonide Respules 0.5 Mg/2 Ml Ampul.Neb. INHALATION 0.5 mg Q12H.RT GAVI Administration Buspirone HCl 10 mg 07/12/24 22:00 07/14/24 11:16 Buspirone 5 Mg Tablet PO 10 mg BID GAVI Administration Calcium/Vitamin D 1 tablet 07/13/24 08:00 07/14/24 11:17 Calcium Carb/Vitamin D 1 Tablet Tablet PO 1 tablet DAILYCM GAVI Administration Famotidine 20 mg 07/12/24 22:00 07/14/24 11:17 Famotidine 20 Mg Tablet PO 20 mg BID GAVI Administration Fluticasone Propionate 1 spray 07/13/24 10:00 07/14/24 11:17 Fluticasone 0.05% 1 [place] Nasal.Sry NASAL 1 spray DAILY GAVI Administration Guaifenesin 20 ml 07/12/24 12:48 Guaifenesin 10 Ml Udc (200mg/10ml) PO Q4H PRN PRN COUGH Hydrochlorothiazide 25 mg 07/13/24 10:00 07/14/24 11:17 Hydrochlorothiazide 25 Mg Tablet PO 25 mg DAILY GAVI Administration Protocol Sodium Chloride 100 mls @ 15 mls/hr 07/12/24 12:55 IV .Q6H40M PRN Saline Flush Sodium Chloride 100 mls @ 15 mls/hr 07/12/24 12:55 IV .Q6H40M PRN Additional IVPB Infusion Sodium Chloride 100 mls @ 15 mls/hr 07/14/24 10:12 IV .Q6H40M PRN Saline Flush Sodium Chloride 100 mls @ 15 mls/hr 07/14/24 10:12 IV .Q6H40M PRN Additional IVPB Infusion Lamotrigine 200 mg 07/13/24 10:00 07/14/24 11:17 Lamotrigine 100 Mg Tablet PO 200 mg DAILY GAVI Administration Latanoprost 1 drp 07/12/24 21:00 07/13/24 21:55 Latanoprost 0.005% 1 Bottle OPHTHALMIC 1 drp QPM GAVI Administration Levothyroxine Sodium 75 mcg 07/12/24 22:00 07/13/24 21:57 Levothyroxine 75 Mcg Tablet PO 75 mcg QHS [facility] Administration Lisinopril 10 mg 07/13/24 10:00 07/14/24 11:16 Lisinopril 10 Mg Tablet PO 10 mg DAILY [facility] Administration Protocol Memantine 10 mg 07/12/24 22:00 07/14/24 11:17 Memantine Hydrochloride 10 Mg Tablet PO 10 mg BID [facility] Administration Nystatin 1 applic 07/13/24 06:00 07/14/24 14:50 Nystatin Powder 15gm Bottle TOPICAL 1 applic TID [facility] Administration Protocol Ondansetron HCl 4 mg 07/12/24 12:48 07/14/24 02:32 Ondansetron 4 Mg/2 Ml Vial IV 4 mg Q8H PRN PRN Administration NAUSEA/VOMITING Primidone 50 mg 07/12/24 22:00 07/13/24 21:57 Primidone 50 Mg Tablet PO 50 mg QHS [facility] Administration Propranolol HCl 20 mg 07/12/24 22:00 07/14/24 11:17 Propranolol 10 Mg Tablet PO 20 mg BID [facility] Administration Senna/Docusate Sodium 2 tablet 07/12/24 12:48 Senna/Docusate Sodium 1 Tablet PO BID PRN PRN Constipation Sodium Chloride 10 - 40 ml 07/12/24 12:55 0.9% Saline Lock 10 Ml Syringe IV UD PRN SALINE FLUSH Sodium Chloride 10 - 40 ml 07/14/24 10:12 0.9% Saline Lock 10 Ml Syringe IV UD PRN SALINE FLUSH Trazodone HCl 50 mg 07/12/24 22:00 07/13/24 21:57 Trazodone 50 Mg Tablet PO 50 mg QHS [facility] Administration Venlafaxine HCl 75 mg 07/13/24 10:00 07/14/24 11:17 Venlafaxine Hcl 75 Mg Tablet PO 75 mg DAILY [facility] Administration [facility] Medical History Smoker Decubitus ulcer of right buttock, stage 3 Dementia Confusion Memory deficit Left ventricular diastolic dysfunction Secondary pulmonary arterial hypertension Hyperlipidemia RADHA treated with BiPAP Asthma COPD (chronic obstructive pulmonary disease) Osteoarthritis Essential hypertension Epigastric pain Acute kidney injury Depression Accidental drug overdose UTI (urinary tract infection) Sepsis Hypomagnesemia Irritable bowel syndrome Left shoulder pain Super obese Lightheadedness Hypothyroidism DM2 (diabetes mellitus, type 2) COLD (chronic obstructive lung disease) Anxiety Home Medications ?Medication ?Instructions ?Recorded ?Last Taken ?Type aspirin 81 mg chewable tablet 81 mg PO DAILY@0800 heart health 04/29/17 07/12/24 History atorvastatin 40 mg tablet 40 mg PO QHS cholesterol 04/29/17 07/11/24 History levothyroxine 75 mcg tablet 75 mcg PO QHS thyroid 04/29/17 07/11/24 History lisinopril 10 mg tablet 10 mg PO DAILY blood pressure 04/29/17 07/12/24 History meloxicam 15 mg tablet 15 mg PO DAILY arthritis 04/29/17 07/12/24 History latanoprost 0.005 % eye drops 1 drp ophthalmic (eye) QPM glaucoma 01/17/20 07/11/24 History memantine 10 mg tablet 10 mg PO BID dementia 01/17/20 07/12/24 History famotidine 20 mg tablet 20 tab PO BID gerd 01/18/20 07/12/24 History lamotrigine 200 mg tablet 200 mg PO DAILY depressed mood 01/18/20 07/12/24 History calcium 600 mg (as 1 cap PO DAILY supplement 01/02/21 07/12/24 History carbonate)-vitamin D3 12.5 mcg (500 unit) capsule (Calcium with Vit D3) cholecalciferol (vitamin D3) 125 2,000 unit PO DAILY supplement 01/02/21 07/12/24 History mcg (5,000 unit) capsule docusate sodium 100 mg capsule 100 mg PO DAILY bowels 01/02/21 07/12/24 History (Colace) primidone 50 mg tablet 50 mg PO QHS tremors 01/02/21 07/11/24 History propranolol 20 mg tablet 20 mg PO BID HTN 01/02/21 07/12/24 History ondansetron 4 mg disintegrating 4 mg PO Q8H PRN Nausea 10/28/21 Unknown History tablet albuterol sulfate 2.5 mg/3 mL 2.5 mg inhalation Q4H PRN 07/05/24 Unknown History (0.083 %) solution for nebulization shortness of breath or wheezing bisacodyl 10 mg rectal suppository 10 mg [place] DAILY PRN constipation 07/05/24 Unknown History fluticasone 250 mcg-salmeterol 50 1 inh inhalation BID breathing 07/05/24 07/12/24 History mcg/dose blistr powdr for inhalation fluticasone propionate 50 1 spray intranasal DAILY congestion 07/05/24 07/12/24 History mcg/actuation nasal spray,suspension (24 Hour Allergy Relief) guaifenesin 600 mg tablet, 600 mg PO Q12H PRN congestion 07/05/24 Unknown History extended release 12 hr (Mucinex) magnesium hydroxide 400 mg/5 mL 30 ml PO DAILY PRN constipation 07/05/24 Unknown History oral suspension (Britton Milk of MagnRossolini) tramadol 50 mg tablet 50 mg PO BID pain 07/05/24 07/12/24 History trazodone 50 mg tablet 50 mg PO QHS insomnia 07/05/24 07/11/24 History venlafaxine 75 mg tablet 75 mg PO DAILY depression 07/05/24 07/12/24 History acetaminophen 500 mg tablet 1,000 mg PO Q8H PRN fever or pain 07/12/24 Unknown History albuterol sulfate 90 mcg/actuation 1 inh inhalation Q6H PRN CHRONIC 07/12/24 Unknown History aerosol inhaler BRONCHITIS buspirone 10 mg tablet 10 mg PO BID anxiety/depression 07/12/24 07/12/24 History food supplemt, lactose-reduced 240 ml PO BID supplement 07/12/24 Unknown History 0.04 gram-1 kcal/mL oral liquid (Boost) hydrochlorothiazide 25 mg tablet 25 mg PO DAILY diuretic 07/12/24 07/07/24 History mineral oil (Fleet Mineral Oil 118 ml [place] DAILY PRN constipation 07/12/24 Unknown History enema) Allergy/AdvReac Type Severity Reaction Status Date / Time No Known Allergies Allergy Verified 07/05/24 10:20 Family History Sister CAD (coronary artery disease) stents Heart disease Father Cancer Mother Heart disease Brother Diabetes Heart disease CAD (coronary artery disease) Surgical History History of cataract extraction with lens replacement History of section Social History housing: assisted living facility number of children: 2 Smoking Status: Never smoker how long ago did patient quit smokin alcohol intake: never caffeine: Yes additional social history: Review of Systems (Anesthesia) ROS Narrative System reviewed and no additional complaints, except as documented.
--- NOTE | 2024-07-14 19:54 | PN.GI_ITS ---
Subjective Subjective Patient tolerated prep without any problems. Objective Data Objective Data Vital Signs: Vital Signs Temp Pulse Resp BP Pulse Ox O2 Del Method 98.1 F 64 16 116/57 L 96 Room Air 07/14/24 14:55 07/14/24 14:55 07/14/24 14:55 07/14/24 14:55 07/14/24 14:55 07/14/24 14:55 Oxygen Delivery Method Room Air Weight: 183 lb 3.266 oz Body Mass Index (BMI) 37.0 Intake & Output: Intake and Output for Last 24 Hours 07/12/24 07/13/24 07/14/24 23:59 23:59 23:59 Intake Total 2240 / 2490 2970 / 2970 275 / 275 Output Total 2 / 2 Balance 2240 / 2490 2968 / 2968 275 / 275 Lab / Micro Data 07/14/24 04:41 07/14/24 04:41 Labs: Laboratory Results - last 24 hr 07/14/24 04:41: WBC 10.1, RBC 3.32 L, Hgb 8.1 L, Hct 28.2 L, MCV 84.9, MCH 24.4 L, MCHC 28.7 L, RDW Std Deviation 52.8 H, RDW Coeff of Kin 17.2 H, Plt Count 357, MPV 9.4, Immature Gran % (Auto) 0.500, Neut % (Auto) 66.3, Lymph % (Auto) 19.1, [place] % (Auto) 9.6, Eos % (Auto) 3.8, Baso % (Auto) 0.7, Absolute Neuts (auto) 6.7, Absolute Lymphs (auto) 1.93, Nucleated RBC % 0, Sodium 140, P otassium 3.2 L, Chloride 104, Carbon Dioxide 28.0, Anion Gap 7, BUN 8, C reatinine 1.08 H, Estim Creat Clear Calc 43.01, Est GFR (MDRD) Af Amer 64, Est GFR (MDRD) Non-Af 53 L, BUN/Creatinine Ratio 7.4 L, Glucose 101, Calcium 9.0 Micro: Microbiology 07/12/24 09:30 Stool Stool Occult Blood (AZUL) - Final Occult Blood Positive Physical Exam Const alert, oriented x3, no apparent distress and healthy appearing General Appearance: cooperative GI normal to inspection, nondistended, normoactive bowel sounds, soft to palpation, non-tender and non-distended Percussion: normal to percussion Rectal Exam: deferred Assessment & Plan Assessment/Plan (1) Acute GI bleeding: PLAN: Plan Patient is a 73-year-old lady presenting with bleeding per rectum 1. Hematochezia ?? Diverticular bleed patient denies any pain. Admitted to monitored bed typed and crossmatched, ordered H&H every 4 hours and for lower endoscopic evaluation. Patient underwent EGD during the previous admission was found to have gastritis 2. Anemia ? Secondary to acute on chronic blood loss anemia patient H&H down by 1 g from her previous admission we will continue with monitoring and transfuse if patient is deemed to be symptomatic or hemoglobin falls below 7
--- NOTE | 2024-07-14 20:28 | OP.COLON_ITS ---
Patient Name: Indira Hoover Procedure Date: 07/14/2024 7:52 PM Date of : 1950 Age: 73 Procedure: Colonoscopy Indications: Hematochezia, Rectal bleeding Providers: Wale Rodriguez DO Medicines: Monitored Anesthesia Care Patient Profile: This is a 73 year old female. Refer to note in patient chart for documentation of history and physical. Last Colonoscopy: none. The patient's first colonoscopy is today. Complications: No immediate complications. Procedure: Pre-Anesthesia Assessment: - Prior to the procedure, a History and Physical was performed, and patient medications and allergies were reviewed. The patient is competent. The risks and benefits of the procedure and the sedation options and risks were discussed with the patient. All questions were answered and informed consent was obtained. Patient identification and proposed procedure were verified by the physician in the pre-procedure area. Mental Status Examination: alert and oriented. Airway Examination: normal oropharyngeal airway and neck mobility. Respiratory Examination: clear to auscultation. CV Examination: normal. Prophylactic Antibiotics: The patient does not require prophylactic antibiotics. Prior Anticoagulants: The patient has taken no anticoagulant or antiplatelet agents. ASA Grade Assessment: III - A patient with severe systemic disease. After reviewing the risks and benefits, the patient was deemed in satisfactory condition to undergo the procedure. The anesthesia plan was to use monitored anesthesia care (MAC). Immediately prior to administration of medications, the patient was re-assessed for adequacy to receive sedatives. The heart rate, respiratory rate, oxygen saturations, blood pressure, adequacy of pulmonary ventilation, and response to care were monitored throughout the procedure. The physical status of the patient was re-assessed after the procedure. After I obtained informed consent, the scope was passed under direct vision. Throughout the procedure, the patient's blood pressure, pulse, and oxygen saturations were monitored continuously. The pediatric colonoscope was introduced through the anus and advanced to the cecum, identified by appendiceal orifice and ileocecal valve. The colonoscopy was performed without difficulty. The patient tolerated the procedure well. The quality of the bowel preparation was adequate. The ileocecal valve, appendiceal orifice, and rectum were photographed. Scope In: 8:09:59 PM Scope Withdrawal Time 0 hours 5 minutes 6 seconds Scope Out: 8:23:03 PM Total Procedure Duration Time 0 hours 13 minutes 4 seconds Findings: The perianal and digital rectal examinations were normal. Multiple small and large-mouthed diverticula were found in the entire colon. Stool was found in the rectum, in the sigmoid colon, in the ascending colon and in the cecum. The exam was otherwise without abnormality on direct and retroflexion views. Non-bleeding external and internal hemorrhoids were found during retroflexion. The hemorrhoids were Grade II (internal hemorrhoids that prolapse but reduce spontaneously). Impression: - Diverticulosis in the entire examined colon. - Stool in the rectum, in the sigmoid colon, in the ascending colon and in the cecum. - The examination was otherwise normal on direct and retroflexion views. - Non-bleeding external and internal hemorrhoids. - No specimens collected. Recommendation: - Repeat colonoscopy in 5 years for surveillance. - Continue present medications. Procedure Code(s): --- Professional --- 28049, Colonoscopy, flexible; diagnostic, including collection of specimen(s) by brushing or washing, when performed (separate procedure) CPT copyright 2021 [employer]. All rights reserved. The codes documented in this report are preliminary and upon cpc coder review may be revised to meet current compliance requirements. Wale Rodriguez DO 07/14/2024 8:27:17 PM This report has been signed electronically. Number of Addenda: 0 Note Initiated On: 07/14/2024 7:52 PM
--- NOTE | 2024-07-14 20:28 | OP.CCLET_ITS ---
07/14/2024 Frank Funk MD [address] [place] [address] Re : Colonoscopy procedure for Indira Hovoer Dear Dr. Funk This procedure was performed on June. My impressions and recommendations are as follows: Impressions : - Diverticulosis in the entire examined colon. - Stool in the rectum, in the sigmoid colon, in the ascending colon and in the cecum. - The examination was otherwise normal on direct and retroflexion views. - Non-bleeding external and internal hemorrhoids. - No specimens collected. Recommendations : - Repeat colonoscopy in 5 years for surveillance. - Continue present medications. My findings are described in the full procedure note, which is enclosed. If I can be of further assistance, please feel free to contact me at . Sincerely, Wale Rodriguez, 07/14/2024 8:27:17 PM This report has been signed electronically.
--- NOTE | 2024-07-14 20:31 | PCM.POST.ANE ---
Anesthesia: Postop Eval I Current Vital Signs Temperature: 98 F Pulse Rate: 62 Blood Pressure: 116/39 Respiratory Rate: 16 Pulse Ox: 95 Oxygen Delivery Method: Room Air Assessment Airway patent: Yes Spontaneous unlabored respirations: Yes Mental status: Awake and Calm nausea: No Vomiting: No Anesthesia Complication: No Fluid Hydration Crystalloid volume administer (ml): 10 Total IV fluid infused: 10 Progress Note Anesthesia document: Postop Eval 1 completed: Yes
[2024-07-14] MEDS: Latanoprost 0.005% 1 Bottle 1 DRP OPHTHALMIC (21:15)
[2024-07-14] MEDS: Primidone 50 MG Tablet PO (21:16)
[2024-07-14] MEDS: Atorvastatin Calcium 40 MG Tablet PO (21:16)
[2024-07-14] MEDS: traZODone 50 MG Tablet PO (21:16)
[2024-07-14] MEDS: Levothyroxine 75 MCG Tablet PO (21:16)
--- NOTE | 2024-07-14 22:10 | PCM.POSTANE2 ---
Anesthesia Postop Eval I Sum Postop Eval Completion status Anesthesia document: Postop Eval 1 completed: Yes Anesthesia Postop Eval I Summary Anesthesia Postop Eval I Summary: Anesthesia Postop Eval I: Assessment Summary Airway patent Yes 07/14/24 20:34 Spontaneous unlabored Yes 07/14/24 20:34 respirations Mental status Awake,Calm 07/14/24 20:34 nausea No 07/14/24 20:34 Vomiting No 07/14/24 20:34 Anesthesia Postop Eval I: Fluid Summary Crystalloid volume administer 10 07/14/24 20:34 (ml) Colloids volume administered ( ml) Blood Product volume administered (ml) Total IV fluid infused 10 07/14/24 20:39 Anesthesia Postop Eval I: Summary Notes Anesthesia Complication No 07/14/24 20:39 Anesthesia Complication Comment: Post-operative progress note Anesthesia: Postop Eval II Evaluation Mental status: Awake and Calm Pain Level: 0 nausea: No Vomiting: No Complications Anesthesia Complication: No
[2024-07-15 03:10] VITALS: BP 117/52; PULSE 65; RESP 16; TEMP 36.6; O2SAT 96
[2024-07-15 04:29] VITALS: BMI 37.0
[2024-07-15 07:30] LABS: Absolute Neutrophil Count 5.3 X10^3/uL (2.0-7.7); Basophil% 1.1 % (0-1); Eosinophil# 0.35 X10^3/uL; Eosinophils% 3.9 % (0-5); Lymphocyte % 24.5 % (19-41); Mean Corp Hgb Conc 29.6 g/dL (32-36); Mean Corpuscular Hgb 24.5 pg (27.0-32.0); Mean Corpuscular Volume 82.8 fL (81-99); Mean Platelet Vol. 9.3 fl (6.2-12.0); Monocyte# 0.97 X10^3/uL; Monocyte% 10.8 % (0-10); NRBC Flagged by Analyzer 0 % (0-5); Neutrophil # 5.33 X10^3/uL (2.7-7.7); Neutrophil % 59.3 % (47-70); Platelet Count 341 K/mm3 (150-450); RBC Distribution Width CV 17.1 % (11.6-14.6); RBC Distribution Width SD 51.8 fl (35.1-43.9); Red Blood Count 3.26 M/mm3 (4.2-5.4)
[2024-07-15 07:59] LABS: Anion Gap 5 (5-15); BUN 10 mg/dL (7-18); BUN/Creat Ratio 10.1 RATIO (10-20); Calcium,Total 9.1 mg/dL (8.5-10.1); Chloride 102 mmol/L (98-107); Creatinine, Serum 0.99 mg/dL (0.55-1.02); EST Glomerular Filtration Rate 58 mL/min (>60); Est Glom Filt Rate - Afr Amer 70 mL/min (>60); Estimated Creatinine Clearance 46.96 ml/min; Glucose 81 mg/dL (74-106); Potassium 3.8 mmol/L (3.5-5.1); Sodium Level 138 mmol/L (136-145)
[2024-07-15 08:58] VITALS: BP 122/62; PULSE 72; RESP 16; TEMP 36.8; O2SAT 100
[2024-07-15] MEDS: busPIRone 5 MG Tablet 10 MG PO (09:18)
[2024-07-15] MEDS: Famotidine 20 MG Tablet PO (09:18)
[2024-07-15] MEDS: Lisinopril 10 MG Tablet PO (09:18)
[2024-07-15] MEDS: hydroCHLOROthiazide 25 MG Tablet PO (09:18)
[2024-07-15] MEDS: Venlafaxine HCl 75 MG Tablet PO (09:19)
[2024-07-15] MEDS: Propranolol 10 MG Tablet 20 MG PO (09:21)
[2024-07-15] MEDS: lamoTRIgine 100 MG Tablet 200 MG PO (09:21)
[2024-07-15] MEDS: Calcium Carb/Vitamin D 1 TABLET Tablet PO (09:21)
[2024-07-15] MEDS: Fluticasone 0.05% 1 SPRAY NASAL.SRY NASAL (09:22)
--- NOTE | 2024-07-15 10:10 | PCM.TXEXTCAR ---
Diet Diet Order/Speech Therapy: 07/14/24 20:27 Diet: Regular - General Diet Comments: OR 6 hours prior to procedure Routine Orders/Code Status Suppository Type: Dulcolax 10mg Suppository Frequency: Daily PRN Routine Lab Work: CBC (3 days) DC O2, CPAP, BIPAP needs Home O2 Discharge instructions: No Therapies Extremity Affected:: Bilateral Lower Physical Therapy: Eval and Treat Occupational Therapy: Eval and Treat Speech Therapy: Eval and Treat Problem/Diagnosis (1) Acute GI bleeding: Status: Resolved Code(s): K92.2 - Gastrointestinal hemorrhage, unspecified Plan Patient is a 73-year-old lady presenting with bleeding per rectum 1. Hematochezia ?? Diverticular bleed patient denies any pain. Admitted to monitored bed typed and crossmatched, ordered H&H every 4 hours and consultation placed to Dr. Rodriguez for lower endoscopic evaluation. Patient underwent EGD during the previous admission was found to have gastritis 07/13: Plan for colonoscopy. 07/14: She had colon prep yesterday. 2. Anemia ? Secondary to acute on chronic blood loss anemia patient H&H down by 1 g from her previous admission we will continue with monitoring and transfuse if patient is deemed to be symptomatic or hemoglobin falls below 7 07/13: Hemoglobin 8.7, dropped to 7.8 and today 8.5. 07/14: Hemoglobin 8.1. 3. Dyslipidemia ?Patient is on statin therapy, continued at home dose 4. Hypertension ? Blood pressure controlled, home medications continued with dose adjustment as needed 5. Depression with anxiety ? Patient is on venlafaxine as well as risperidone did continue 6. COPD ? Currently noting acute exacerbation did continue with patient bronchodilator treatment regimen 7. Dementia ? Supportive care 8. Diabetes mellitus type 2 As per history currently not on any treatment we will continue with monitoring 9. Obstructive sleep apnea consistent use of PAP therapy encouraged 10. Class II obesity with BMI of 38.6 ? Complicating care weight loss advised Physically deconditioned. 11. DVT prophylaxis ? Bilateral SCDs only given patient presentation CODE STATUS Full code per documentation from patient's ECF notes. Allergies/Procedures Done in Hospital Allergies No Known Allergies Allergy (Verified 07/05/24 10:20) Type of Care/Length of Stay Estimated LOS: Convalescent Care Less Than 30 days Type of Care Needed: Skilled Rehab Potential: Good Prognosis: Good Additional Orders/Day of Discharge Day of Discharge: 07/15/24 Dietary and Speech Recommendations Dietitian Recommendations/Changes: Recommend advance PO diet as tolerated to cardiac/consistent carbohydrate. ONS if PO fails at meals; defer for now. Discharge Plan Admission Admit Date/Time: 07/12/24 12:00 Primary Reason for Your Visit: Lower GI bleed Attending Provider: Joe Cosme Primary Care Provider: Frank Funk Consulting Providers: Kang Lao Discharge Orders/Prescriptions Prescriptions: Continued lamotrigine 200 mg tablet 200 mg PO DAILY famotidine 20 mg tablet 20 tab PO BID latanoprost 0.005 % drops 1 drp OPHTHALMIC QPM memantine 10 mg tablet 10 mg PO BID cholecalciferol (vitamin D3) 125 mcg (5,000 unit) capsule 2,000 unit PO DAILY propranolol 20 mg tablet 20 mg PO BID docusate sodium [Colace] 100 mg capsule 100 mg PO DAILY primidone 50 mg tablet 50 mg PO QHS calcium carbonate-vitamin D3 [Calcium 600 with Vitamin D3] 600 mg(1,500mg) -500 unit capsule 1 cap PO DAILY atorvastatin 40 MG tablet 40 mg PO QHS levothyroxine 75 MCG tablet 75 mcg PO QHS Patient Comments: MAR FROM [facility] GIVEN AT BEDTIME. lisinopril 10 MG tablet 10 mg PO DAILY ondansetron 4 mg Tablet,Disintegrating 4 mg PO Q8H PRN (Reason: Nausea) albuterol sulfate 2.5 mg /3 mL (0.083 %) solution for nebulization 2.5 mg inhalation Q4H PRN (Reason: shortness of breath or wheezing) bisacodyl 10 mg suppository 10 mg NV DAILY PRN (Reason: constipation) venlafaxine 75 mg tablet 75 mg PO DAILY fluticasone propionate [24 Hour Allergy Relief] 50 mcg/actuation spray,suspension 1 spray intranasal DAILY Rx Instructions: administer into each nostril fluticasone propion-salmeterol 250-50 mcg/dose blister with device 1 inh inhalation BID magnesium hydroxide [Britton Milk of Magnesia] 400 mg/5 mL suspension 30 ml PO DAILY PRN (Reason: constipation) tramadol 50 mg tablet 50 mg PO BID guaifenesin [Mucinex] 600 mg tablet extended release 12hr 600 mg PO Q12H PRN (Reason: congestion) trazodone 50 mg tablet 50 mg PO QHS hydrochlorothiazide 25 mg tablet 25 mg PO DAILY buspirone 10 mg tablet 10 mg PO BID acetaminophen 500 mg tablet 1,000 mg PO Q8H PRN (Reason: fever or pain) albuterol sulfate 90 mcg/actuation HFA aerosol inhaler 1 inh inhalation Q6H PRN (Reason: CHRONIC BRONCHITIS) mineral oil [Fleet Mineral Oil] Enema 118 ml NV DAILY PRN (Reason: constipation) Boost 0.04 gram- 1 kcal/mL liquid 240 ml PO BID Held aspirin 81 MG tablet,chewable 81 mg PO DAILY@0800 Hold Instructions: Hold for 1 week. If it is still persistent anemia, can discontinue it. Discontinued meloxicam 15 MG tablet 15 mg PO DAILY Referrals / Follow Up: Frank Funk MD [Primary Care Provider] - Pinky Smith PA [Med Staff - Adv Practice Prof] - Within 1 Month Disposition Disposition (needs filled in before D/C Order can be placed): [facility]
--- NOTE | 2024-07-15 13:10 | PCM.DC ---
Discharge Instructions Follow Up Care Test Results: Test results from this visit will be discussed in further detail at your follow-up appointment, if applicable. Discharge Plan Admission Admit Date/Time: 07/12/24 12:00 Attending Provider: Joe Cosme Primary Care Provider: Frank Funk Consulting Providers: Kang Lao Discharge Orders/Prescriptions Prescriptions: No Action lamotrigine 200 mg tablet 200 mg PO DAILY famotidine 20 mg tablet 20 tab PO BID latanoprost 0.005 % drops 1 drp OPHTHALMIC QPM memantine 10 mg tablet 10 mg PO BID cholecalciferol (vitamin D3) 125 mcg (5,000 unit) capsule 2,000 unit PO DAILY propranolol 20 mg tablet 20 mg PO BID docusate sodium [Colace] 100 mg capsule 100 mg PO DAILY primidone 50 mg tablet 50 mg PO QHS calcium carbonate-vitamin D3 [Calcium 600 with Vitamin D3] 600 mg(1,500mg) -500 unit capsule 1 cap PO DAILY atorvastatin 40 MG tablet 40 mg PO QHS meloxicam 15 MG tablet 15 mg PO DAILY levothyroxine 75 MCG tablet 75 mcg PO QHS Patient Comments: MAR FROM [place] [facility] GIVEN AT BEDTIME. lisinopril 10 MG tablet 10 mg PO DAILY aspirin 81 MG tablet,chewable 81 mg PO DAILY@0800 ondansetron 4 mg Tablet,Disintegrating 4 mg PO Q8H PRN (Reason: Nausea) albuterol sulfate 2.5 mg /3 mL (0.083 %) solution for nebulization 2.5 mg inhalation Q4H PRN (Reason: shortness of breath or wheezing) bisacodyl 10 mg suppository 10 mg OK DAILY PRN (Reason: constipation) venlafaxine 75 mg tablet 75 mg PO DAILY fluticasone propionate [24 Hour Allergy Relief] 50 mcg/actuation spray,suspension 1 spray intranasal DAILY Rx Instructions: administer into each nostril fluticasone propion-salmeterol 250-50 mcg/dose blister with device 1 inh inhalation BID magnesium hydroxide [Britton Milk of Magnesia] 400 mg/5 mL suspension 30 ml PO DAILY PRN (Reason: constipation) tramadol 50 mg tablet 50 mg PO BID guaifenesin [Mucinex] 600 mg tablet extended release 12hr 600 mg PO Q12H PRN (Reason: congestion) trazodone 50 mg tablet 50 mg PO QHS hydrochlorothiazide 25 mg tablet 25 mg PO DAILY buspirone 10 mg tablet 10 mg PO BID acetaminophen 500 mg tablet 1,000 mg PO Q8H PRN (Reason: fever or pain) albuterol sulfate 90 mcg/actuation HFA aerosol inhaler 1 inh inhalation Q6H PRN (Reason: CHRONIC BRONCHITIS) mineral oil [Fleet Mineral Oil] Enema 118 ml OK DAILY PRN (Reason: constipation) Boost 0.04 gram- 1 kcal/mL liquid 240 ml PO BID Referrals / Follow Up: Frank Funk MD [Primary Care Provider] -
--- NOTE | 2024-07-15 13:17 | DS.PCM_ITS ---
Providers Date of Admission: 07/12/24 Date of Discharge: 07/15/24 Primary Care Physician: Dr. Frank Funk MD Consultations 07/12/24 12:48 Consult: Gastroenterology Routine Consulting Provider: [facility] Reason for Consult: GI bleed EMERGENT Consult: Yes Notified: Yes Date Notified: 07/12/24 Time Notified: 12:29 Method of Notification: ED Physician Initiated Reason For Visit: LOWER GI BLEED Diagnosis Discharge Diagnosis (1) Acute GI bleeding: Status: Resolved Code(s): K92.2 - Gastrointestinal hemorrhage, unspecified Plan Patient is a 73-year-old lady presenting with bleeding per rectum 1. Hematochezia due to diverticular bleed ?? Diverticular bleed patient denies any pain. Admitted to monitored bed typed and crossmatched, ordered H&H every 4 hours and consultation placed to Dr. Rodriguez for lower endoscopic evaluation. Patient underwent EGD during the previous admission was found to have gastritis 07/13: Plan for colonoscopy. 07/14: She had colon prep yesterday. 07/15: Patient had colonoscopy on 07/14. Advised to follow-up in GI office in 1 month. Hold baby aspirin, monitor CBC as an outpatient was still low, will need baby aspirin to be discontinued. Meloxicam discontinued. Impressions : - Diverticulosis in the entire examined colon. - Stool in the rectum, in the sigmoid colon, in the ascending colon and in the cecum. - The examination was otherwise normal on direct and retroflexion views. - Non-bleeding external and internal hemorrhoids. - No specimens collected. Recommendations : - Repeat colonoscopy in 5 years for surveillance. - Continue present medications. 2. Anemia ? Secondary to acute on chronic blood loss anemia patient H&H down by 1 g from her previous admission we will continue with monitoring and transfuse if patient is deemed to be symptomatic or hemoglobin falls below 7 07/13: Hemoglobin 8.7, dropped to 7.8 and today 8.5. 07/14: Hemoglobin 8.1. 07/15 hemoglobin is 8.1, RDW elevated. Acute on deficiency anemia. Prescription given for ferrous sulfate and vitamin C. 3. Dyslipidemia ?Patient is on statin therapy, continued at home dose 4. Hypertension ? Blood pressure controlled, home medications continued with dose adjustment as needed 5. Depression with anxiety ? Patient is on venlafaxine as well as risperidone did continue 6. COPD ? Currently noting acute exacerbation did continue with patient bronchodilator treatment regimen 7. Dementia ? Supportive care 8. Diabetes mellitus type 2 As per history currently not on any treatment we will continue with monitoring 9. Obstructive sleep apnea consistent use of PAP therapy encouraged 10. Class II obesity with BMI of 38.6 ? Complicating care weight loss advised Physically deconditioned. 11. DVT prophylaxis ? Bilateral SCDs only given patient presentation CODE STATUS Full code per documentation from patient's ECF notes. Discharge medication reconciliation done. Discharge follow-up instructions completed. Discharge process discussed with the patient and all questions were answered to patient's satisfaction. Follow with PCP in 1 to 2 weeks Total time spent, exact 35 minutes on discharge meds reconciliation, examination, coordination of care with nurses and ancillary staff, review of imaging and blood test and discussion with the patient on follow-up instructions. Medications at Discharge Home Medications aspirin 81 mg chewable tablet 81 mg PO DAILY@0800 [facility] 04/29/17 Held on 07/15/24. Instructions: Hold for 1 week. If it is still persistent anemia, can discontinue it. atorvastatin 40 mg tablet 40 mg PO QHS cholesterol 04/29/17 levothyroxine 75 mcg tablet 75 mcg PO QHS thyroid 04/29/17 lisinopril 10 mg tablet 10 mg PO DAILY blood pressure 04/29/17 latanoprost 0.005 % eye drops 1 drp ophthalmic (eye) QPM glaucoma 01/17/20 memantine 10 mg tablet 10 mg PO BID dementia 01/17/20 famotidine 20 mg tablet 20 tab PO BID gerd 01/18/20 lamotrigine 200 mg tablet 200 mg PO DAILY depressed mood 01/18/20 calcium 600 mg (as carbonate)-vitamin D3 12.5 mcg (500 unit) capsule (Calcium with Vit D3) 1 cap PO DAILY supplement 01/02/21 cholecalciferol (vitamin D3) 125 mcg (5,000 unit) capsule 2,000 unit PO DAILY supplement 01/02/21 docusate sodium 100 mg capsule (Colace) 100 mg PO DAILY bowels 01/02/21 primidone 50 mg tablet 50 mg PO QHS tremors 01/02/21 propranolol 20 mg tablet 20 mg PO BID HTN 01/02/21 ondansetron 4 mg disintegrating tablet 4 mg PO Q8H PRN Nausea 10/28/21 albuterol sulfate 2.5 mg/3 mL (0.083 %) solution for nebulization 2.5 mg inhalation Q4H PRN shortness of breath or wheezing 07/05/24 bisacodyl 10 mg rectal suppository 10 mg NC DAILY PRN constipation 07/05/24 fluticasone 250 mcg-salmeterol 50 mcg/dose blistr powdr for inhalation 1 inh inhalation BID breathing 07/05/24 fluticasone propionate 50 mcg/actuation nasal spray,suspension (24 Hour Allergy Relief) 1 spray intranasal DAILY congestion 07/05/24 guaifenesin 600 mg tablet, extended release 12 hr (Mucinex) 600 mg PO Q12H PRN congestion 07/05/24 magnesium hydroxide 400 mg/5 mL oral suspension (Britton Milk of Magnesia) 30 ml PO DAILY PRN constipation 07/05/24 tramadol 50 mg tablet 50 mg PO BID pain 07/05/24 trazodone 50 mg tablet 50 mg PO QHS insomnia 07/05/24 venlafaxine 75 mg tablet 75 mg PO DAILY depression 07/05/24 acetaminophen 500 mg tablet 1,000 mg PO Q8H PRN fever or pain 07/12/24 albuterol sulfate 90 mcg/actuation aerosol inhaler 1 inh inhalation Q6H PRN CHRONIC BRONCHITIS 07/12/24 buspirone 10 mg tablet 10 mg PO BID anxiety/depression 07/12/24 food supplemt, lactose-reduced 0.04 gram-1 kcal/mL oral liquid (Boost) 240 ml PO BID supplement 07/12/24 hydrochlorothiazide 25 mg tablet 25 mg PO DAILY diuretic 07/12/24 mineral oil (Fleet Mineral Oil enema) 118 ml NC DAILY PRN constipation 07/12/24 ascorbic acid (vitamin C) 500 mg tablet 500 mg PO DAILY #30 tabs 07/15/24 ferrous sulfate 325 mg (65 mg iron) tablet 325 mg PO QODAY #30 tabs 07/15/24 Physical Exam Narrative Seen and examined. Colonoscopy findings explained to the patient but she cannot understand has dementia No further hematochezia. She does not remember month or year but oriented to place and person. Physical exam General: Alert, Oriented x3, Cooperative, BMI 38.4 kg/m? HEENT: Atraumatic, PERRLA, EOMI, Normocephalic Oral: No Gingival or Mucosal Lesions/ Ulcerations Neck: Supple, No JVD, Negative Carotid Bruits Chest wall/Lungs: Air entry diminished in bilateral lung bases. No crepitation/rhonchi Cardiovascular: Regular rate, Regular Rhythm, Normal S1, Normal S2, systolic murmur , TR Abdomen: Bowel Sounds Present, soft, big abdominal and pelvic fat pannus. : No dysuria. No renal angle tenderness. No suprapubic tenderness. Extremities: No edema, Capillary Refill Less than 3 Seconds Skin: No rashes, No breakdown Musculoskeletal: Severe arthritis with bilateral knee valgus deformity. ROM restricted. Mild atrophy of the calf and thigh muscles. Neurological: Cranial nerves II-XII grossly intact, DTR 2+/4. No acute focal neurological deficit. Psych/Mental Status: Dementia Weight / BMI Weight Weight: 183 lb 6.793 oz Body Mass Index (BMI) 37.0 ABG / Lab / Microbiology Data 07/15/24 07:03 07/15/24 07:03 Laboratory: Laboratory Results - last 24 hr 07/15/24 07:03: WBC 9.0, RBC 3.26 L, Hgb 8.0 L, Hct 27.0 L, MCV 82.8, MCH 24.5 L , MCHC 29.6 L, RDW Std Deviation 51.8 H, RDW Coeff of Kin 17.1 H, Plt Count 341, MPV 9.3, Immature Gran % (Auto) 0.400, Neut % (Auto) 59.3, Lymph % (Auto) 24.5, [place] % (Auto) 10.8 H, Eos % (Auto) 3.9, Baso % (Auto) 1.1 H, Absolute Neuts (auto) 5.3, Absolute Lymphs (auto) 2.20, Nucleated RBC % 0, Sodium 138, Potassium 3.8, Chloride 102, Carbon Dioxide 31.0, Anion Gap 5, BUN 10, Creatinine 0.99, Estim Creat Clear Calc 46.96, Est GFR (MDRD) Af Amer 70, Est GFR (MDRD) Non-Af 58 L, BUN/Creatinine Ratio 10.1, Glucose 81, Calcium 9.1 Microbiology: Microbiology 07/12/24 09:30 Stool Stool Occult Blood (AZUL) - Final Occult Blood Positive D/C Instructions DC O2, CPAP, BIPAP Needs Home O2 Discharge instructions: No Meaningful Use Info Meaningful Use Meaningful Use Diagnoses (Choose all that apply): None applicable Ischemic Stroke Statin Dosing Therapy Reference: STATIN DOSE THERAPY REFERENCE: * Patients > 75 years receive moderate or high dose statin therapy. * Patients 75 years or YOUNGER should receive HIGH intensity statin dose unless contraindicated. You will be required to document reason for non-treatment if statin daily dose does not meet guidelines. HIGH DOSE STATIN THERAPY DAILY Atorvastatin > than or = to 40 mg Rosuvastatin > than or = to 20 mg Amlodipine + Atorvastatin > than or = to 2.5/40 mg Ezetimibe + Simvastatin 10/80 mg Simvastatin 80mg Discharge Plan Admission Admit Date/Time: 07/12/24 12:00 Primary Reason for Your Visit: Lower GI bleed Attending Provider: Joe Cosme Primary Care Provider: Frank Funk Consulting Providers: Kang Lao Discharge Orders/Prescriptions Prescriptions: New ferrous sulfate 325 mg (65 mg iron) tablet 325 mg PO QODAY Qty: 30 2RF ascorbic acid (vitamin C) 500 mg tablet 500 mg PO DAILY Qty: 30 2RF Continued lamotrigine 200 mg tablet 200 mg PO DAILY famotidine 20 mg tablet 20 tab PO BID latanoprost 0.005 % drops 1 drp OPHTHALMIC QPM memantine 10 mg tablet 10 mg PO BID cholecalciferol (vitamin D3) 125 mcg (5,000 unit) capsule 2,000 unit PO DAILY propranolol 20 mg tablet 20 mg PO BID docusate sodium [Colace] 100 mg capsule 100 mg PO DAILY primidone 50 mg tablet 50 mg PO QHS calcium carbonate-vitamin D3 [Calcium 600 with Vitamin D3] 600 mg(1,500mg) - 500 unit capsule 1 cap PO DAILY atorvastatin 40 MG tablet 40 mg PO QHS levothyroxine 75 MCG tablet 75 mcg PO QHS Patient Comments: MAR FROM [place] [facility] GIVEN AT BEDTIME. lisinopril 10 MG tablet 10 mg PO DAILY ondansetron 4 mg Tablet,Disintegrating 4 mg PO Q8H PRN (Reason: Nausea) albuterol sulfate 2.5 mg /3 mL (0.083 %) solution for nebulization 2.5 mg inhalation Q4H PRN (Reason: shortness of breath or wheezing) bisacodyl 10 mg suppository 10 mg NC DAILY PRN (Reason: constipation) venlafaxine 75 mg tablet 75 mg PO DAILY fluticasone propionate [24 Hour Allergy Relief] 50 mcg/actuation spray,suspension 1 spray intranasal DAILY Rx Instructions: administer into each nostril fluticasone propion-salmeterol 250-50 mcg/dose blister with device 1 inh inhalation BID magnesium hydroxide [Britton Milk of Magnesia] 400 mg/5 mL suspension 30 ml PO DAILY PRN (Reason: constipation) tramadol 50 mg tablet 50 mg PO BID guaifenesin [Mucinex] 600 mg tablet extended release 12hr 600 mg PO Q12H PRN (Reason: congestion) trazodone 50 mg tablet 50 mg PO QHS hydrochlorothiazide 25 mg tablet 25 mg PO DAILY buspirone 10 mg tablet 10 mg PO BID acetaminophen 500 mg tablet 1,000 mg PO Q8H PRN (Reason: fever or pain) albuterol sulfate 90 mcg/actuation HFA aerosol inhaler 1 inh inhalation Q6H PRN (Reason: CHRONIC BRONCHITIS) mineral oil [Fleet Mineral Oil] Enema 118 ml NC DAILY PRN (Reason: constipation) Boost 0.04 gram- 1 kcal/mL liquid 240 ml PO BID Held aspirin 81 MG tablet,chewable 81 mg PO DAILY@0800 Hold Instructions: Hold for 1 week. If it is still persistent anemia, can discontinue it. Discontinued meloxicam 15 MG tablet 15 mg PO DAILY Referrals / Follow Up: Frank Funk MD [Primary Care Provider] - Pinky Smith PA [Med Staff - Adv Practice Prof] - Within 1 Month Disposition Disposition (needs filled in before D/C Order can be placed): [facility] Charges/Coding Visit Charges Inpatient E&M: 13757 Disch Hosp >30min
[2024-07-15] MEDS: Albuterol 2.5 MG/3 ML VIAL.NEB. INHALATION (13:29)
[2024-07-15 13:50] VITALS: PULSE 72; RESP 18
--- NOTE | 2024-07-15 13:56 | CASEMGMT ---
Patient is ready for discharge back to [facility]. Plan: d/c back to [facility] under intermediate level of care. Physicians will transport patient via cot. Amparo MOORE
--- NOTE | 2024-07-15 14:03 | CASEMGMT ---
Discharge orders, signed med list, and transport time sent to [facility]. Physicians will transport pt by cot at 5:30p. Nursing, SW, pt, and her daughter (Jacque) updated. Mariann Grider DC Planning Asst.
[2024-07-15] MEDS: Memantine Hydrochloride 10 MG Tablet PO (14:41)
[2024-07-15] MEDS: Nystatin Powder 15gm Bottle 1 APPLIC TOPICAL (14:41)
[2024-07-15 15:30] VITALS: BP 118/68; PULSE 79; RESP 16; TEMP 36.8; O2SAT 99
--- NOTE | 2024-07-15 16:26 | NURSING ---
Report given to Nelia at Facility with all questions answered
== END 2024-07-15 17:36 | disposition skilled nursing facility (03) | DRG 378 ==
LOC: ED 09:42 → PCU 12:34
PROVIDERS: Internal Medicine Gastroenterology; Admitting Provider Internal Medicine; Emergency Provider Surgery; PCP Family Medicine; Visit Provider Internal Medicine
PROC: 0DJD8ZZ Inspection of Lower Intestinal Tract, Via Natural or Artificial Opening Endoscopic (ICD-10-PCS; CPT 45378; principal; 2024-07-14 17:10)
DX: K57.31 Diverticulosis of large intestine without perforation or abscess with bleeding (principal); D62 Acute posthemorrhagic anemia; Z99.81 Dependence on supplemental oxygen; E11.9 Type 2 diabetes mellitus without complications; J44.9 Chronic obstructive pulmonary disease, unspecified; F03.90 Unspecified dementia, unspecified severity, without behavioral disturbance, psychotic disturbance, mood disturbance, and anxiety; I10 Essential (primary) hypertension; E03.9 Hypothyroidism, unspecified; E66.812 Obesity, class 2; G47.33 Obstructive sleep apnea (adult) (pediatric); E78.5 Hyperlipidemia, unspecified; K58.9 Irritable bowel syndrome, unspecified; F41.8 Other specified anxiety disorders; K64.1 Second degree hemorrhoids; K64.4 Residual hemorrhoidal skin tags; Z79.82 Long term (current) use of aspirin; N28.9 Disorder of kidney and ureter, unspecified; Z68.38 Body mass index [BMI] 38.0-38.9, adult; Z79.890 Hormone replacement therapy; Z79.899 Other long term (current) drug therapy; Z79.51 Long term (current) use of inhaled steroids; Z98.49 Cataract extraction status, unspecified eye
CPT/HCPCS: 36415; 74177; 80048; 80053; 81001; 82274; 83605; 83690; 83735; 84100; 85014; 85018; 85025; 86850; 86900; 86901; 93005; 94640; 94668; 97802; 99285; Q9967; A4216; J2405